=== PATIENT | male | born 1960 ===

== ENCOUNTER 2020-05-29 00:10 | Emergency (ER) | payer MEDICAID, SELFPAY ==
[2020-05-29 00:32] VITALS: BP 147/88; PULSE 88; RESP 20; TEMP 37.2; O2SAT 97; BMI 27.2
--- NOTE | 2020-05-29 00:32 | XR_ITS ---
EXAMINATION: CHEST 1 VIEW CLINICAL INFORMATION: Shortness of breath. COMPARISON: 06/20/2019. TECHNIQUE: An AP view of the chest is provided. FINDINGS: The cardiac silhouette is not enlarged. The mediastinal and hilar contours are unremarkable. There are neither pleural effusions nor pneumothoraces. There is nonspecific patchy opacification within the lower left hemithorax. The osseous structures are stable. XR/XR chest 1V IMPRESSION: Nonspecific patchy opacification within the lower left hemithorax. This could correspond to atelectasis, though a developing infiltrate cannot be excluded. Recommendation is for a followup chest series to be obtained following treatment and/or resolution of symptoms to assure resolution of this appearance.
--- NOTE | 2020-05-29 01:02 | ED.URI ---
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 He states that he has no paperwork to demonstrate this fact as he was called with the results. otherwise, he denies fevers, chills, nausea, vomiting, diarrhea, urinary pain/ burning / frequency, chest pain / palpitations. Related Data Home Medications Medication Instructions Recorded Confirmed lisinopril PO DAILY 05/29/20 Previous Rx's Medication Instructions Recorded doxycycline monohydrate 100 mg PO BID 7 Days #14 cap 05/29/20 Allergies Allergy/AdvReac Type Severity Reaction Status Date / Time No Known Allergies Allergy Verified 05/29/20 00:46 [No Known Allergies*] Review of Systems Review of Systems: Pertinent positives and negatives as stated in HPI and 10 point review systems is otherwise negative. PMFSH Past Medical History Source: nursing notes reviewed Medical History HTN (hypertension) Social History Social History Alcohol intake: never Smoking Status: Never smoker Use of substances other than those prescribed or required for medical reasons: No Advance Directives: No Physical Exam Vital Signs: Vital Signs: Vital Signs Temp Pulse Resp BP Pulse Ox 05/29/20 01:17 89 16 130/87 97 05/29/20 00:32 99.0 F 88 20 147/88 H 97 Body Mass Index 27.2 VITAL SIGNS: Reviewed. GENERAL: Well developed, well nourished, in no acute distress. HEAD: Normocephalic/atraumatic, EYES: PERRLA, EOMI intact without pain, no nystagmus/pallor/icterus noted EARS: Ext canals without abnormality, TMs non-bulging and non-erythematous NOSE: Nares patent bilateral OROPHARYNX: no oral lesions noted, posterior pharynx clear and non-erythematous without noted tonsillar enlargement/erythema/exudates NECK: Supple, no adenopathy LUNGS: Normal breath sounds. No adventitious sounds or accessory muscle use. SpO2<97> CARDIOVASCULAR: Regular rate and rhythm without noted murmurs, no JVD or lower extremity edema. ABDOMEN: Soft, non-tender, non-distended with bowel sounds. No rigidity. No guarding. No palpable masses or hernias noted MUSCULOSKELETAL: No tenderness, deformities, or effusions noted on gross inspection. EXTREMITIES: No cyanosis, clubbing or edema. SKIN: Inspection of the skin reveals no rashes, ulcerations, jaundice, pallor, or petechiae. NEUROLOGIC: Alert and oriented x 4. Strength and sensation to light touch were grossly intact x 4. Course Course Course Narrative: This is a 59-year-old male with history and clinical presentation consistent with COVID-19 and will evaluate for symptoms that would prompt admission. Labs, chest x-ray are pending. On review of all investigations the chest x-ray shows evidence suggesting a left lower lobe infiltrate although there is no leukocytosis this may be due to the fact that patient has been taking an un prescribed dosing of azithromycin. Otherwise lab work was without significant findings. all results and findings were discussed with patient at bedside and he was discharged in stable condition with a prescription for doxycycline for 1 week and instructed to follow-up with his primary care provider. MDM - URI/Sore Throat Lab Data Result diagrams: 05/29/20 01:07 05/29/20 01:07 Labs: Lab Results 05/29/20 05/29/20 Range/Units 01:07 01:07 WBC 3.8 L (4.8-10.8) X10*3/uL RBC 5.22 (4.60-5.80) X10*6/uL Hgb 15.1 (14.0-18.0) g/dl Hct 44.1 (42-52) % MCV 84.5 (80-98) fL MCH 28.9 (27.0-33.0) pg MCHC 34.2 (31.0-36.0) g/dl RDW 11.8 (11.0-16.0) % Plt Count 122 L (160-400) X10*3/uL MPV 11.2 (9.4-12.4) fL Immature Gran % (Auto) 0.0 (0.0-0.4) % Neut % (Auto) 61.2 (45-73) % Lymph % (Auto) 25.4 (20-40) % [place] % (Auto) 12.8 H (2-11) % Eos % (Auto) 0.3 (0-4) % Baso % (Auto) 0.3 (0-2) % Lymph # (Auto) 1.0 L (1.2-4.9) X10*3/uL [place] # (Auto) 0.5 (0.1-1.2) X10*3/uL Eos # (Auto) 0.0 (0.0-0.4) X10*3/uL Baso # (Auto) 0.0 (0.0-0.2) X10*3/uL Abs Immat Gran (auto) 0.00 (0.00-0.03) X10*3/uL Absolute Neuts (auto) 2.3 (2.0-8.3) X10*3/uL Absolute Nucleated RBC 0.000 (0.0-0.012) X10*3/uL Nucleated RBC % (auto) 0.0 (0.0-0.2) /100WBC Smear Tech's Comments VERIFIED Sodium 133 L (135-145) mmol/L Potassium 3.6 (3.3-5.1) mmol/l Chloride 100 (96-108) mmol/L Carbon Dioxide 22 (22-29) mmol/L Anion Gap 15 (12-20) BUN 16 (9-16) mg/dL Creatinine 0.82 (0.5-1.4) mg/dL Estim Creat Clear Calc 104.5 Estimated GFR > 60 Random Glucose 129 H (60-115) mg/dL Calcium 8.2 L (8.4-10.2) mg/dL Total Bilirubin 0.4 (0.0-1.0) mg/dL AST 21 (5-37) U/L ALT 32 (0-40) U/L Alkaline Phosphatase 61 (39-117) U/L Total Protein 6.2 L (6.5-8.0) g/dL Albumin 3.9 (3.5-5.0) g/dL Discharge Plan Discharge Clinical Impression: Pneumonia Qualifiers: Pneumonia type: due to unspecified organism Laterality: left Lung location: lower lobe of lung Qualified Code(s): J18.9 - Pneumonia, unspecified organism Patient Disposition: Home, Self-Care Instructions: Pneumonia (ED) Additional Instructions: 1. Tylenol 1000 mg, por v?a oral, cada 6 horas seg?n sea necesario para temperaturas superiores a 100,4?C o srikanth corporales. No exceda los 4000 mg en 24 horas. 2. Ibuprofeno 400 mg, por v?a oral con leche o alimentos, cada 6 horas seg?n sea necesario para la temperatura superior a 100,4?C o srikanth corporales. 3. Regrese al departamento de emergencias en mike de que empeoren las fiebres, los escalofr?os o la falta de aire. 4. Yuri un seguimiento con soto proveedor de atenci?n primaria por la ma?stevie llamando al consultorio. Debe dejar de gerry el antibi?abena que no le brannon recetado. El paciente y / o la radha reconocen que comprenden los resultados (seg?n corresponda), el diagn?stico, el plan de tratamiento, la necesidad de seguimiento y los s?ntomas que deber?an impulsar el regreso a la nettie de emergencias. Prescriptions: New doxycycline monohydrate 100 mg capsule 100 mg PO BID 7 Days Qty: 14 RF: 0 No Action lisinopril PO DAILY RF: 0 Referrals: Jabari Loza MD [Primary Care Provider] - 2 days ( follow-up for pneumonia) Interventions: ED Discharge Assessment Last Done: 05/29/20 02:14 Discharge Date/Time: 05/29/20 02:18
[2020-05-29 01:17] VITALS: BP 130/87; PULSE 89; RESP 16; O2SAT 96; O2SAT 97
[2020-05-29 01:19] LABS: Basophils Percent Auto 0.3 % (0-2); Eosinophils Percent Auto 0.3 % (0-4); MANUAL DIFF FLAG SCAN; Monocytes Absolute Auto 0.5 X10*3/uL (0.1-1.2); Neutrophils Absolute Auto 2.3 X10*3/uL (2.0-8.3); PLT CLUMP 1; Red Cell Distribution Width 11.8 % (11.0-16.0); SCAN SMEAR FLAG 1
[2020-05-29 01:21] LABS: Hematocrit 44.1 % (42-52); Hemoglobin 15.1 g/dl (14.0-18.0); Lymphocytes Percent Auto 25.4 % (20-40); Mean Corpuscular HGB Conc 34.2 g/dl (31.0-36.0); Mean Corpuscular Hemoglobin 28.9 pg (27.0-33.0); Mean Corpuscular Volume 84.5 fL (80-98); Mean Platelet Volume 11.2 fL (9.4-12.4); Monocytes Percent Auto 12.8 % (2-11); Neutrophils Percent Auto 61.2 % (45-73); Platelet Count 122 X10*3/uL (160-400); Red Blood Count 5.22 X10*6/uL (4.60-5.80); White Blood Count 3.8 X10*3/uL (4.8-10.8)
[2020-05-29 01:37] LABS: SLIDE REVIEW VERIFIED
[2020-05-29 02:00] LABS: Alanine Aminotransferase 32 U/L (0-40); Albumin Level 3.9 g/dL (3.5-5.0); Alkaline Phosphatase 61 U/L (39-117); Anion Gap 15 (12-20); Aspartate Amino Transferase 21 U/L (5-37); Bilirubin Total 0.4 mg/dL (0.0-1.0); Blood Urea Nitrogen 16 mg/dL (9-16); Calcium 8.2 mg/dL (8.4-10.2); Carbon Dioxide 22 mmol/L (22-29); Chloride 100 mmol/L (96-108); Creatinine Clr Calc Pharmacy 104.5; Estimated Glomerular Filt Rate > 60; Glucose Random 129 mg/dL (60-115); Potassium 3.6 mmol/l (3.3-5.1); Sodium 133 mmol/L (135-145); Total Protein 6.2 g/dL (6.5-8.0)
== END 2020-05-29 02:18 | disposition home or self-care (01) ==
PROVIDERS: Emergency Provider Student in an Organized Health Care Education/Training Program; PCP Internal Medicine Geriatric Medicine
DX: U07.1 COVID-19 (principal); J18.9 Pneumonia, unspecified organism
CPT/HCPCS: 36415; 71045; 80053; 85025; 99283; 99285

== ENCOUNTER 2020-05-31 07:50 | Emergency (ER) | payer MEDICAID, SELFPAY ==
[2020-05-31 08:15] VITALS: BP 131/84; PULSE 94; RESP 22; TEMP 37.4; O2SAT 98
--- NOTE | 2020-05-31 08:28 | XR_ITS ---
EXAMINATION: XR CHEST CLINICAL INFORMATION: Cough. Follow up. COMPARISON: May 29, 2020 and June 20, 2019 TECHNIQUE: AP portable view of the chest was obtained. FINDINGS: There are patchy regions of disease seen within the mid left lung and left lower lung similar in appearance to prior study of May 29, 2020. Heart normal size. No evidence of pulmonary edema. No pneumothorax or pleural effusion. XR/XR chest 1V IMPRESSION: Patchy disease within the mid and lower left lung. No significant change.
--- NOTE | 2020-05-31 08:29 | ECG_ITS ---
Test Reason : DIFFICULTY BREATHING Blood Pressure : / mmHG Vent. Rate : 100 BPM Atrial Rate : 100 BPM P-R Int : 156 ms QRS Dur : 102 ms QT Int : 362 ms P-R-T Axes : 043 -07 002 degrees QTc Int : 466 ms Sinus tachycardia Nonspecific T wave abnormality Abnormal ECG When compared with ECG of 02-JUL-2018 14:51, No significant changes seen Referred By: Ivis Metcalf Electronically Signed By:VALENTINE ALONZO MD
[2020-05-31 08:32] VITALS: BP 128/83; PULSE 94; RESP 16; TEMP 37.4; O2SAT 97; BMI 26.4
--- NOTE | 2020-05-31 08:54 | ED_ITS ---
HPI - URI/Sore Throat General Chief Complaint: Upper Respiratory Symptoms Stated Complaint: cough Time Seen by Provider: 05/31/20 08:03 Source: patient Mode of arrival: ambulatory Limitations: no limitations History of Present Illness HPI Narrative: 59-year-old male with past medical history of hypertension here with cough and some chest pressure for last few days. The patient tells me 14 days ago he was diagnosed with COVID-19. He was seen here 2 days ago and diagnosed with left lower lobe pneumonia. He completed a course of azithromycin prior to this. He has been on doxycycline for 48 hours. He tells me he is here today because he cannot sleep due to the cough. He tells me it dry and he keeps him up all night. No shortness of breath, fevers or chills. No leg swelling. The patient tells me he is taking Tessalon Perles with continued cough. MD elicited complaint: cough Onset (ago): day(s) Consistency: intermittent Severity: mild Able to tolerate fluids by mouth: Yes Exacerbating factors: exertion and supine positioning Relieving factors: nothing Associated symptoms: chest pain Treatments prior to arrival: none Related Data Home Medications Medication Instructions Recorded Confirmed lisinopril PO DAILY 05/29/20 Previous Rx's Medication Instructions Recorded doxycycline monohydrate 100 mg PO BID 7 Days #14 cap 05/29/20 benzonatate [Tessalon Perles] 100 mg PO BID PRN #14 cap 05/31/20 hydrocodone-homatropine 5 ml PO Q4-6H PRN #60 ml 05/31/20 Allergies Allergy/AdvReac Type Severity Reaction Status Date / Time No Known Allergies Allergy Verified 05/31/20 08:34 [No Known Allergies*] Review of Systems Constitutional: Constitutional: Reports no additional constitutional complaints, Denies body ache(s), Denies chills, Denies fever(s), Denies headache(s) and Denies weakness Eyes: Eyes: Reports no additional eye complaints and Denies change in vision ENT: Reports system reviewed and no additional complaints, except as do cumented, Denies otalgia, Denies headache(s), Denies nasal congestion, Denies nasal discharge and Denies sore throat Cardiovascular: Cardiovascular: Reports chest pain (chest pressure ), Denies leg edema and Denies dyspnea Respiratory: Respiratory: Reports no additional respiratory complaints, Reports cough and Denies dyspnea Gastrointestinal: Gastrointestinal: Reports no additional gastrointestinal complaints, Denies abdominal pain, Denies diarrhea, Denies nausea and Denies vomiting Genitourinary: Genitourinary: Reports no additional male genitourinary complaints, Denies urinary hesitancy, Denies urinary incontinence and Denies urinary urgency Musculoskeletal: Musculoskeletal: Reports no additional musculoskeletal c omplaints, Denies back pain, Denies arthralgias, Denies joint swelling, Denies limited range of motion and Denies numbness Integumentary/Breasts: Skin/Breast: Reports system reviewed and no additional complaints, except as docu and Denies rash Neurologic: Reports system reviewed and no additional complaints, except as documented, Denies Abnormal speech present, Denies headache(s), Denies numbness and Denies weakness PMFSH Past Medical History Attestation statement: The following information was validated with the patient. Source: obtained from family and nursing notes reviewed Medical History HTN (hypertension) Social History Social History Alcohol intake: never Smoking Status: Never smoker Use of substances other than those prescribed or required for medical reasons: No Advance Directives: No Advance Directives Information Provided: No Physical Exam Vital Signs: Vital Signs: Last Vital Signs Temp 99.3 F 05/31/20 08:32 Pulse 94 05/31/20 08:32 Resp 16 05/31/20 08:32 BP 128/83 05/31/20 08:32 Pulse Ox 98 05/31/20 08:57 Body Mass Index 26.4 Const: General: cooperative, healthy appearing, comfortable and no acute distress Orientation/consciousness: patient oriented x3 Limitations: no limitations HENMT: Head: Yes normal to inspection Ears: hearing grossly normal bilaterally General nose exam: Normal external nose present Face and sinus: Yes normal facial exam Mouth: Normal oral and palatal mucosa present Throat: Yes posterior oropharynx normal Eyes: General: appearance normal, both eyes and all related structures Pupils: Equal, round and reactive pupils present Neck: Neck: Yes normal visual inspection Chest: Other: Chest discomfort worsened with palpation and trunk movement. Not worsened with deep breathing Chest palpation & inspection: normal inspection of the chest Resp: Other: Frequent bronchospastic cough noted. Dry. Mild expiratory wheezing noted bilaterally in the bases Effort & Inspection: normal respiratory effort Cardio: Rate: regular rate Rhythm: regular rhythm Peripheral pulses: Peripheral pulses 2+ throughout GI: Inspection: Yes normal to inspection Palpation (GI): Soft to palpation and nontender Auscultation: normal bowel sounds Back/Spine/Pelvis: Thoracic/Lumbar Spine: thoracic and lumbar spine normal to inspection Skin: General skin exam: no rashes or lesions noted Neuro: General: patient oriented x3, no focal motor deficits and normal sensation to monofilament Cranial nerves: Yes Equal, round and reactive pupils present Cognition (Neuro): normal cognition Speech: No Abnormal speech present Gait exam (Neuro): Normal gait present Motor exam (neuro): 5/5 motor strength present throughout Extrem: General: Yes normal to inspection Course Course Course Narrative: 59-year-old male past history of hypertension here with continued cough and some intermittent chest pressure for the last few days. Recent diagnosis of COVID-19 with pneumonia. Currently on doxycycline. Patient denies shortness of breath or fevers or chills. He has some reproducible chest discomfort on exam. He has a dry cough with some mild expiratory wheezing. Will repeat chest x-ray, labs, EKG, give bronchodilator and reassess. 1140-chest x-ray shows a left lower and middle lobe pneumonia. It appears unchanged from previous chest x-ray. This is from a viral infection of COVID- 19. I do think it is too soon to see a change in the x-ray as the patient just began antibiotics 2 days ago. Labs are consistent with COVID infection. Initial troponin just above normal. Repeat unchanged. The patient reports feeling in better after receiving a bronchodilator and cough suppressant here. He tells me he was most worried about his continued cough. We can send him home with some cough suppressants and albuterol inhaler and have him continue his course of antibiotics. He ambulated around the room with a oxygen saturation of greater than 95%. Reviewed worrisome signs and symptoms when to return to the emergency department. Comfortable discharge home. MDM - URI/Sore Throat MDM Narrative Medical decision making narrative: Pneumonia, viral syndrome, COVID-19 inf ection, ACS, PE, chest wall strain Less likely ACS with 2-troponins and EKG unchanged from previous, less likely PE with a PERC score 0 (initially tachycardic but repeat during triage <100), more likely chest wall strain secondary to coughing. Continued pneumonia Medical Records Attestation: I reviewed the patient's medical records. Lab Data Attestation: I reviewed the patient's lab results. Result diagrams: 05/31/20 08:41 05/31/20 08:41 Labs: Lab Results 05/31/20 05/31/20 05/31/20 Range/Units 08:41 08:41 08:41 WBC 4.3 L (4.8-10.8) X10*3/uL RBC 5.01 (4.60-5.80) X10*6/uL Hgb 14.3 (14.0-18.0) g/dl Hct 42.4 (42-52) % MCV 84.6 (80-98) fL MCH 28.5 (27.0-33.0) pg MCHC 33.7 (31.0-36.0) g/dl RDW 11.6 (11.0-16.0) % Plt Count 117 L (160-400) X10*3/uL MPV 10.8 (9.4-12.4) fL Immature Gran % (Auto) 0.2 (0.0-0.4) % Neut % (Auto) 76.6 H (45-73) % Lymph % (Auto) 12.4 L (20-40) % [place] % (Auto) 10.8 (2-11) % Eos % (Auto) 0.0 (0-4) % Baso % (Auto) 0.0 (0-2) % Lymph # (Auto) 0.5 L (1.2-4.9) X10*3/uL [place] # (Auto) 0.5 (0.1-1.2) X10*3/uL Eos # (Auto) 0.0 (0.0-0.4) X10*3/uL Baso # (Auto) 0.0 (0.0-0.2) X10*3/uL Abs Immat Gran (auto) 0.01 (0.00-0.03) X10*3/uL Absolute Neuts (auto) 3.3 (2.0-8.3) X10*3/uL Absolute Nucleated RBC 0.000 (0.0-0.012) X10*3/uL Nucleated RBC % (auto) 0.0 (0.0-0.2) /100WBC Smear Tech's Comments VERIFIED Hold Blue Top Sodium 131 L (135-145) mmol/L Potassium 3.9 (3.3-5.1) mmol/l Chloride 97 (96-108) mmol/L Carbon Dioxide 28 (22-29) mmol/L Anion Gap 10 L (12-20) BUN 13 (9-16) mg/dL Creatinine 0.92 (0.5-1.4) mg/dL Estim Creat Clear Calc 93.2 Estimated GFR > 60 Random Glucose 116 H (60-115) mg/dL Calcium 8.3 L (8.4-10.2) mg/dL Magnesium 1.9 (1.6-2.6) mg/dL Total Bilirubin 0.5 (0.0-1.0) mg/dL Direct Bilirubin 0.3 (0.0-0.5) mg/dL AST 26 (5-37) U/L ALT 30 (0-40) U/L Alkaline Phosphatase 56 (39-117) U/L Troponin I High Sens 4.0 (<3.5-35.0) ng/L Total Protein 6.1 L (6.5-8.0) g/dL Albumin 3.8 (3.5-5.0) g/dL 05/31/20 05/31/20 Range/Units 08:41 10:41 WBC (4.8-10.8) X10*3/uL RBC (4.60-5.80) X10*6/uL Hgb (14.0-18.0) g/dl Hct (42-52) % MCV (80-98) fL MCH (27.0-33.0) pg MCHC (31.0-36.0) g/dl RDW (11.0-16.0) % Plt Count (160-400) X10*3/uL MPV (9.4-12.4) fL Immature Gran % (Auto) (0.0-0.4) % Neut % (Auto) (45-73) % Lymph % (Auto) (20-40) % [place] % (Auto) (2-11) % Eos % (Auto) (0-4) % Baso % (Auto) (0-2) % Lymph # (Auto) (1.2-4.9) X10*3/uL [place] # (Auto) (0.1-1.2) X10*3/uL Eos # (Auto) (0.0-0.4) X10*3/uL Baso # (Auto) (0.0-0.2) X10*3/uL Abs Immat Gran (auto) (0.00-0.03) X10*3/uL Absolute Neuts (auto) (2.0-8.3) X10*3/uL Absolute Nucleated RBC (0.0-0.012) X10*3/uL Nucleated RBC % (auto) (0.0-0.2) /100WBC Smear Tech's Comments Hold Blue Top SEE NOTE Sodium (135-145) mmol/L Potassium (3.3-5.1) mmol/l Chloride (96-108) mmol/L Carbon Dioxide (22-29) mmol/L Anion Gap (12-20) BUN (9-16) mg/dL Creatinine (0.5-1.4) mg/dL Estim Creat Clear Calc Estimated GFR Random Glucose (60-115) mg/dL Calcium (8.4-10.2) mg/dL Magnesium (1.6-2.6) mg/dL Total Bilirubin (0.0-1.0) mg/dL Direct Bilirubin (0.0-0.5) mg/dL AST (5-37) U/L ALT (0-40) U/L Alkaline Phosphatase (39-117) U/L Troponin I High Sens 4.2 (<3.5-35.0) ng/L Total Protein (6.5-8.0) g/dL Albumin (3.5-5.0) g/dL Imaging Data Chest x-ray: Attestation: I personally reviewed and interpreted this imaging study as follows: Radiologist's impression: EXAMINATION: XR CHEST CLINICAL INFORMATION: Cough. Follow up. COMPARISON: May 29, 2020 and June 20, 2019 TECHNIQUE: AP portable view of the chest was obtained. FINDINGS: There are patchy regions of disease seen within the mid left lung and left lower lung similar in appearance to prior study of May 29, 2020. Heart normal size. No evidence of pulmonary edema. No pneumothorax or pleural effusion. XR/XR chest 1V IMPRESSION: Patchy disease within the mid and lower left lung. No significant change. ECG Data Attestation: I personally reviewed and interpreted this ECG as follows: ECG interpretation date: 05/31/20 Interpretation: Normal sinus rhythm with a rate of 100, nonspecific T-wave abnormality in lead V3 and V4 which is unchanged when compared to EKG 07/02/2018. Prolonged QT 466. Normal p.r., normal QRS Discharge Plan Discharge Clinical Impression: Pneumonia Qualifiers: Pneumonia type: due to unspecified organism Laterality: left Lung location: lower lobe of lung Qualified Code(s): J18.9 - Pneumonia, unspecified organism Patient Disposition: Home, Self-Care Instructions: Pneumonia (ED) Additional Instructions: Your x-ray today shows the pneumonia. It will take weeks to months for the x- ray to show improvement. Continue your antibiotics. Your labs and oxygen levels look great here. I have called a different cough medicine to your pharmacy to help with the symptoms. Take the albuterol inhaler every 4-6 hours to help with cough. You may also try a tablespooon of honey Prescriptions: New hydrocodone-homatropine 5-1.5 mg/5 mL (5 mL) syrup 5 ml PO Q4-6H PRN (Reason: cough) Qty: 60 RF: 0 benzonatate [Tessalon Perles] 100 mg capsule 100 mg PO BID PRN (Reason: cough) Qty: 14 RF: 0 No Action lisinopril PO DAILY RF: 0 doxycycline monohydrate 100 mg capsule 100 mg PO BID 7 Days Qty: 14 RF: 0 Referrals: Name,MD Jabari [Primary Care Provider] - 2 days (if no better ) Print Language: [place]
[2020-05-31 08:56] LABS: Imm Gran Abs Auto 0.01 X10*3/uL (0.00-0.03); Imm Gran Pct Auto 0.2 % (0.0-0.4); MANUAL DIFF FLAG SCAN; Mean Platelet Volume 10.8 fL (9.4-12.4); PLT CLUMP 1; Red Cell Distribution Width 11.6 % (11.0-16.0); SCAN SMEAR FLAG 1
[2020-05-31 08:57] VITALS: O2SAT 98
[2020-05-31 08:58] LABS: Hematocrit 42.4 % (42-52); Hemoglobin 14.3 g/dl (14.0-18.0); Lymphocytes Absolute Auto 0.5 X10*3/uL (1.2-4.9); Lymphocytes Percent Auto 12.4 % (20-40); Mean Corpuscular HGB Conc 33.7 g/dl (31.0-36.0); Mean Corpuscular Hemoglobin 28.5 pg (27.0-33.0); Mean Corpuscular Volume 84.6 fL (80-98); Monocytes Absolute Auto 0.5 X10*3/uL (0.1-1.2); Monocytes Percent Auto 10.8 % (2-11); Neutrophils Absolute Auto 3.3 X10*3/uL (2.0-8.3); Neutrophils Percent Auto 76.6 % (45-73); Platelet Count 117 X10*3/uL (160-400); Red Blood Count 5.01 X10*6/uL (4.60-5.80); White Blood Count 4.3 X10*3/uL (4.8-10.8)
[2020-05-31] MEDS: 0.9 % Sodium Chloride 1,000 ML 999 ML IV (09:00)
[2020-05-31] MEDS: guaiFENesin 200 MG/10 ML 10 ML LIQUID PO (09:01)
[2020-05-31] MEDS: Albuterol Sulfate 90 MCG 8 GM INHALER 2 PUFF INHALE (09:01)
[2020-05-31 09:20] LABS: SLIDE REVIEW VERIFIED
--- NOTE | 2020-05-31 09:20 | PC.NURSE ---
Addendum entered by Keli Huff RN 05/31/20 11:30: 20G IN L AC. FLUID HUNG. PT MID ABX COURSE. Original Note: PT ARRIVES AFTER + COVID TEST 2 WKS AGO, C/O ONGOING NON PRODUCTIVE COUGH, WITH ACCOMPANYING CHEST TIGHTNESS. NO SIGNIFICANT PMH, HTN. VS WNL, SKIN COLOUR APPROPRIATE FOR ETHNICITY, WARM & DRY. 20
[2020-05-31 09:21] LABS: Alanine Aminotransferase 30 U/L (0-40); Albumin Level 3.8 g/dL (3.5-5.0); Alkaline Phosphatase 56 U/L (39-117); Anion Gap 10 (12-20); Aspartate Amino Transferase 26 U/L (5-37); Bilirubin Direct 0.3 mg/dL (0.0-0.5); Bilirubin Total 0.5 mg/dL (0.0-1.0); Blood Urea Nitrogen 13 mg/dL (9-16); Calcium 8.3 mg/dL (8.4-10.2); Carbon Dioxide 28 mmol/L (22-29); Chloride 97 mmol/L (96-108); Creatinine Clr Calc Pharmacy 93.2; Estimated Glomerular Filt Rate > 60; Glucose Random 116 mg/dL (60-115); Magnesium 1.9 mg/dL (1.6-2.6); Potassium 3.9 mmol/l (3.3-5.1); Sodium 131 mmol/L (135-145); Total Protein 6.1 g/dL (6.5-8.0)
[2020-05-31 11:29] LABS: Troponin-I High Sensitivity 4.2 ng/L (<3.5-35.0)
--- NOTE | 2020-05-31 11:32 | PC.NURSE ---
PT TOLERATED ACTIVITY WITH NO ISSUE. SPO2 REMAINED >95% ON RA WHILE AMBULATING AROUND THE ROOM. REPORTS NO RELIEF FROM COUGH SYRUP.
== END 2020-05-31 12:28 | disposition home or self-care (01) ==
PROVIDERS: Nurse Practitioner Family; Emergency Provider Emergency Medicine; PCP Internal Medicine Geriatric Medicine
DX: J18.9 Pneumonia, unspecified organism (principal); R05 Cough; Z79.899 Other long term (current) drug therapy; Z20.828 Contact with and (suspected) exposure to other viral communicable diseases
CPT/HCPCS: 36415; 71045; 80048; 80076; 83735; 84484; 85025; 93005; 94640; 96360; 99284

== ENCOUNTER 2020-07-01 05:52 | Outpatient (REF) | payer MEDICAID, SELFPAY ==
--- NOTE | 2020-07-01 05:58 | XR_ITS ---
EXAMINATION: XR CHEST CLINICAL INFORMATION: Pneumonia COMPARISON: 05/31/2020 TECHNIQUE: 2 views of the chest were obtained. FINDINGS: No significant abnormality is noted involving the heart, lungs, mediastinum, bony thorax or soft tissues. XR/XR chest 2V IMPRESSION: Lungs are clear
== END 2020-07-01 05:53 | disposition home or self-care (01) ==
LOC: HO.XRAY 05:52
PROVIDERS: PCP Internal Medicine Geriatric Medicine; Visit Provider Internal Medicine Geriatric Medicine
DX: J18.9 Pneumonia, unspecified organism (principal)
CPT/HCPCS: 71046

== ENCOUNTER → 2020-09-01 14:36 | Outpatient (BNVA) | payer MEDICAID, SELFPAY | PROVIDERS: PCP Internal Medicine Geriatric Medicine; Visit Provider Nurse Practitioner Family ==

== ENCOUNTER → 2020-09-25 11:22 | Outpatient (BNVA) | payer MEDICAID, SELFPAY | PROVIDERS: PCP Internal Medicine Geriatric Medicine; Visit Provider Urology ==

== ENCOUNTER 2021-04-10 12:51 | Outpatient (REF) | payer MEDICAID, SELFPAY ==
[2021-04-10 14:11] LABS: Prostate Specific Antigen 1.55 ng/mL (<0.05-4.0)
== END 2021-04-10 12:52 | disposition home or self-care (01) ==
LOC: HO.LAB 12:51
PROVIDERS: PCP Internal Medicine Geriatric Medicine; Visit Provider Urology
DX: Z12.5 Encounter for screening for malignant neoplasm of prostate (principal); R97.20 Elevated prostate specific antigen [PSA]
CPT/HCPCS: 36415; 84153

== ENCOUNTER 2021-04-16 21:21 | Inpatient (IN) | payer MEDICAID, SELFPAY ==
--- NOTE | ~2021-04-16 | XR_ITS ---
EXAMINATION: XR CHEST CLINICAL INFORMATION: Chest pain COMPARISON: Chest x-ray July 01, 2020 TECHNIQUE: Frontal view of the chest was obtained. 9:37 PM FINDINGS: No significant abnormality is noted involving the heart, lungs, mediastinum, bony thorax or soft tissues. XR/XR chest 1V IMPRESSION: Unremarkable examination.
--- NOTE | ~2021-04-16 | CT_ITS ---
EXAMINATION: CT ANGIOGRAM OF THE CHEST WITH AND WITHOUT CONTRAST (CT PULMONARY ANGIOGRAM FOR PE) CLINICAL INFORMATION: Reason for Exam Chest pain rule out PE versus dissection. COMPARISON: Chest x-ray 04/16/2021 TECHNIQUE: Prior to contrast administration, noncontrast localization images were obtained. Subsequently, multidetector volumetric imaging was performed from the thoracic inlet to below the diaphragms following the administration of 85 mL Omnipaque 350 intravenous contrast. No contrast reaction reported Sagittal, coronal, and MIP oblique sagittal reformatted images were obtained on the CT workstation, uploaded to PACS, and reviewed. This CT examination was performed using dose optimization techniques as appropriate, variously including the following: *Automated exposure control *Adjustment of mA and/or kV according to patient size (this includes techniques or standardized protocols for targeted exams where dose is matched to indication/reason for exam; i.e. extremities or head) *Use of iterative reconstruction technique Total exam dose-length product 354 mGy-cm FINDINGS: QUALITY OF STUDY/CONTRAST BOLUS: Satisfactory. PULMONARY ARTERIES: No central or segmental pulmonary emboli. THORACIC AORTA: No aneurysm or dissection. LUNG: No focal consolidation, nodules or masses. PLEURA: No pleural effusion or pneumothorax. MEDIASTINUM: The visualized thyroid gland is unremarkable. There are subcentimeter mediastinal lymph nodes within the range of normal variation. There is mild to moderate distention of the esophagus with gas and fluid. Cardiac size is within normal limits; no pericardial effusion. No evidence of septal bowing or right heart strain. CHEST WALL/AXILLA: No axillary or internal mammary lymphadenopathy. OSSEOUS STRUCTURES: Minimal degenerative endplate changes noted in the spine. UPPER ABDOMEN: Unremarkable. No reflux of contrast into the hepatic veins to suggest elevated right heart pressures. CT/CT angio chest PE protocol IMPRESSION: 1. No pulmonary embolus identified. No evidence of aortic dissection. 2. Distention of the esophagus with gas and fluid, which could be secondary to reflux or dysmotility. VTE: negative
[2021-04-16 21:24] VITALS: BP 163/91; PULSE 72; RESP 16; TEMP 36.1; O2SAT 98; BMI 26.4
--- NOTE | 2021-04-16 21:26 | ECG_ITS ---
Test Reason : CHEST PAIN Blood Pressure : / mmHG Vent. Rate : 068 BPM Atrial Rate : 068 BPM P-R Int : 176 ms QRS Dur : 102 ms QT Int : 366 ms P-R-T Axes : 057 012 006 degrees QTc Int : 389 ms Normal sinus rhythm Possible Inferior infarct , age undetermined Nonspecific T wave abnormality Abnormal ECG When compared with ECG of 31-MAY-2020 09:32, T wave inversion less evident in Anterior leads QT has shortened Referred By: Generic ED Physician Electronically Signed By:SAMANTHA PAULA
[2021-04-16 22:00] VITALS: BP 139/87; PULSE 69; RESP 18; TEMP 36.6; O2SAT 99
--- NOTE | 2021-04-16 22:30 | PC.NURSE ---
clarithromycin 500 mg metronidazole 500 mg pt has been taking for abd bacteria.
[2021-04-16 22:31] VITALS: PULSE 70
[2021-04-16 22:44] LABS: Basophils Percent Auto 0.4 % (0-2); Eosinophils Absolute Auto 0.2 X10*3/uL (0.0-0.4); Eosinophils Percent Auto 4.3 % (0-4); Hematocrit 43.8 % (42-52); Hemoglobin 14.7 g/dl (14.0-18.0); Imm Gran Abs Auto 0.01 X10*3/uL (0.00-0.03); Imm Gran Pct Auto 0.2 % (0.0-0.4); Lymphocytes Absolute Auto 1.6 X10*3/uL (1.2-4.9); MANUAL DIFF FLAG NO; Mean Corpuscular HGB Conc 33.6 g/dl (31.0-36.0); Mean Corpuscular Hemoglobin 29.1 pg (27.0-33.0); Mean Corpuscular Volume 86.6 fL (80-98); Mean Platelet Volume 10.3 fL (9.4-12.4); Monocytes Absolute Auto 0.6 X10*3/uL (0.1-1.2); Monocytes Percent Auto 11.4 % (2-11); Neutrophils Absolute Auto 3.1 X10*3/uL (2.0-8.3); Neutrophils Percent Auto 55.7 % (45-73); Platelet Count 181 X10*3/uL (160-400); Red Blood Count 5.06 X10*6/uL (4.60-5.80); Red Cell Distribution Width 12.2 % (11.0-16.0); White Blood Count 5.5 X10*3/uL (4.8-10.8)
[2021-04-16 22:57] LABS: Anion Gap 11 (12-20); Blood Urea Nitrogen 19 mg/dL (9-16); Calcium 9.9 mg/dL (8.4-10.2); Carbon Dioxide 28 mmol/L (22-29); Chloride 105 mmol/L (96-108); Creatinine Clr Calc Pharmacy 82.2; Estimated Glomerular Filt Rate > 60; Glucose Random 101 mg/dL (60-115); Potassium 4.1 mmol/L (3.3-5.1); Sodium 140 mmol/L (135-145)
[2021-04-16 23:14] LABS: Troponin-I High Sensitivity 1832.5 ng/L (<3.5-35.0)
[2021-04-16 23:31] VITALS: BP 149/90; PULSE 71; RESP 16; O2SAT 98
--- NOTE | 2021-04-16 23:45 | ED_ITS ---
HPI - Chest Pain General Chief Complaint: Chest Pain Stated Complaint: Chest pain Time Seen by Provider: 04/16/21 23:33 Source: patient and care giver Mode of arrival: ambulatory Limitations: no limitations History of Present Illness HPI narrative: 60-year-old male came in for evaluation of chest pain. Chest pain started earlier today about 10 hours ago, retrosternal/mid chest/epigastric area. Radiate to the back, pain is intermittent, described as burning sensation to the epigastric area, no relieving factor, no aggravating factor. Never had this pain before. Related Data Home Medications Medication Instructions Recorded Confirmed lisinopril 10 mg tablet 10 mg PO DAILY 09/01/20 11/20/20 Previous Rx's Medication Instructions Recorded doxycycline monohydrate 100 mg 100 mg PO BID 7 Days #14 cap 05/29/20 capsule benzonatate 100 mg capsule 100 mg PO BID PRN #14 cap 05/31/20 (Tessalon Perles) hydrocodone-homatropine 5 mg-1.5 5 ml PO Q4-6H PRN #60 ml 05/31/20 mg/5 mL (5 mL) oral syrup bisacodyl 5 mg tablet,delayed 10 mg PO ONCE 1 Days #2 tab 09/01/20 release (Dulcolax (bisacodyl)) polyethylene glycol 3350 17 238 g PO ONCE #238 g 09/01/20 gram/dose oral powder (Miralax) finasteride 5 mg tablet 5 mg PO DAILY 90 Days #90 tab 09/25/20 Allergies Allergy/AdvReac Type Severity Reaction Status Date / Time No Known Allergies Allergy Verified 09/01/20 14:36 [No Known Allergies*] Review of Systems Review of Systems: All other systems are reviewed and are negative Constitutional: Reports as per HPI and Reports no additional constitutional complaints Eyes: Reports as per HPI and Reports no additional eye complaints Reports system reviewed and no additional complaints, except as documented Cardiovascular: Reports as per HPI and Reports no additional cardiovascular complaints Respiratory: Reports as per HPI and Reports no additional respiratory complaints Gastrointestinal: Reports as per HPI and Reports no additional gastrointestinal complaints Genitourinary: Reports no additional female genitourinary complaints Musculoskeletal: Reports no additional musculoskeletal complaints Skin/Breast: Reports system reviewed and no additional complaints, except as docu Psychiatric: Reports no additional psychiatric complaints Endocrine: Reports no additional endocrine complaints Hematologic/Lymphatic: Reports no additional hematologic/lymphatic complaints Allergic/Immunologic: Reports no additional allergic/immunologic complaints Reports system reviewed and no additional complaints, except as documented and Reports Abnormal speech present [facility] Past Medical History Medical History HTN (hypertension) Surgical History Surgical history unknown Social History Social History Household Members: Spouse Alcohol intake: never Patient Tobacco Use Status: Never used Tobacco Use of substances other than those prescribed or required for medical reasons: No Advance Directives: No Advance Directives Information Provided: Yes Physical Exam Vital Signs: Vital Signs: Last Vital Signs Temp 97.9 F 04/16/21 22:00 Pulse 70 04/17/21 01:05 Resp 16 04/17/21 01:05 BP 140/87 H 04/17/21 01:05 Pulse Ox 97 04/17/21 01:05 Body Mass Index 26.4 Vital signs have been reviewed as appeared to be correct. Blood pressure normal. Heart rate normal. Respiration rate normal. Temperature normal. Oxygen saturation normal. Appearance: Alert. Oriented X3. No acute distress. Head: Normal external exam. Normocephalic. Atraumatic. No Serrano signs noted. No raccoon eyes noted Eyes: PERRLA. EOMI. Conjunctiva and sclera normal. Eyelids normal. ENT: TM's Normal. Pharynx normal. Uvula midline. Moist mucous membranes. No trismus noted. No drooling noted. No muffled voice noted. Neck: Normal inspection. Neck supple. FROM. No adenopathy. Thyroid Normal. No meningeal signs. No neck mass noted. CVS: Normal heart rate and rhythm. Heart sound normal. No murmurs noted. Pulses normal throughout. Respiratory: No respiratory distress. Painless inspiration. Breath sounds normal. No wheezes/rales/rhonchi noted. Chest nontender. No accessory muscle usage noted or decreased air movement noted. Abdomen: Soft and nontender. Bowel sounds normal in all 4 quadrants. No distention noted. No organomegaly noted. No visible injury noted. Back: No CVA tenderness. Full range of motion noted. Skin: Skin warm and dry. Normal skin color. Normal skin turgor. No rashes/lesions/lacerations noted. Extremities: No lower extremity edema. Extremities exhibit normal range of motion. Extremities nontender. Neuro: Oriented X 3. Cranial nerve exam: II-XII are grossly intact No motor deficit. No sensory deficit. Reflexes normal. Course Course Course Narrative: Assessment and plan. 60-year-old male with non STEMI, because the pain confined to the mid chest radiating to the back patient had a CT of the chest showed no dissection. Will start the patient on aspirin/beta-bianca/heparin drip and admit for further c ardiac workup. MDM - Chest Pain Medical Records Data Attestation: I reviewed the patient's medical records. Lab Data Attestation: I reviewed the patient's lab results. Result diagrams: 04/16/21 22:38 04/16/21 22:38 Labs: Lab Results 04/16/21 04/16/21 04/16/21 Range/Units 22:38 22:38 22:38 WBC 5.5 (4.8-10.8) X10*3/uL RBC 5.06 (4.60-5.80) X10*6/uL Hgb 14.7 (14.0-18.0) g/dl Hct 43.8 (42-52) % MCV 86.6 (80-98) fL MCH 29.1 (27.0-33.0) pg MCHC 33.6 (31.0-36.0) g/dl RDW 12.2 (11.0-16.0) % Plt Count 181 D (160-400) X10*3/uL MPV 10.3 (9.4-12.4) fL Immature Gran % (Auto) 0.2 (0.0-0.4) % Neut % (Auto) 55.7 (45-73) % Lymph % (Auto) 28.0 (20-40) % [place] % (Auto) 11.4 H (2-11) % Eos % (Auto) 4.3 H (0-4) % Baso % (Auto) 0.4 (0-2) % Lymph # (Auto) 1.6 (1.2-4.9) X10*3/uL [place] # (Auto) 0.6 (0.1-1.2) X10*3/uL Eos # (Auto) 0.2 (0.0-0.4) X10*3/uL Baso # (Auto) 0.0 (0.0-0.2) X10*3/uL Abs Immat Gran (auto) 0.01 (0.00-0.03) X10*3/uL Absolute Neuts (auto) 3.1 (2.0-8.3) X10*3/uL Absolute Nucleated RBC 0.000 (0.0-0.012) X10*3/uL Nucleated RBC % (auto) 0.0 (0.0-0.2) /100WBC Sodium 140 (135-145) mmol/L Potassium 4.1 (3.3-5.1) mmol/L Chloride 105 (96-108) mmol/L Carbon Dioxide 28 (22-29) mmol/L Anion Gap 11 L (12-20) BUN 19 H (9-16) mg/dL Creatinine 1.03 (0.5-1.4) mg/dL Estim Creat Clear Calc 82.2 Estimated GFR > 60 Random Glucose 101 (60-115) mg/dL Calcium 9.9 D (8.4-10.2) mg/dL Troponin I High Sens 1832.5 H* (<3.5-35.0) ng/L Imaging Data CT angio of the chest: Radiologist's impression: 1.? No pulmonary embolus identified. No evidence of aortic dissection. 2.? Distention of the esophagus with gas and fluid, which could be secondary to reflux or dysmotility. ? Chest x-ray: Radiologist's impression: Unremarkable examination. ECG Data ECG #1: Attestation: I personally reviewed and interpreted this ECG as follows: Interpretation: Normal sinus rhythm at 68 beats per minutes, normal inte rvals, diffuse T-wave inversion. Discharge Plan Discharge Clinical Impression: Non-STEMI (non-ST elevated myocardial infarction) Patient Disposition: Admitted As Inpatient Prescriptions: No Action doxycycline monohydrate 100 mg capsule 100 mg PO BID 7 Days Qty: 14 RF: 0 hydrocodone-homatropine 5-1.5 mg/5 mL (5 mL) syrup 5 ml PO Q4-6H PRN (Reason: cough) Qty: 60 RF: 0 benzonatate [Tessalon Perles] 100 mg capsule 100 mg PO BID PRN (Reason: cough) Qty: 14 RF: 0 lisinopril 10 mg tablet 10 mg PO DAILY RF: 0 bisacodyl [Dulcolax (bisacodyl)] 5 mg tablet,delayed release (DR/EC) 10 mg PO ONCE 1 Days Qty: 2 RF: 0 polyethylene glycol 3350 [Miralax] 17 gram/dose powder 238 g PO ONCE Qty: 238 RF: 0 finasteride 5 mg tablet 5 mg PO DAILY 90 Days Qty: 90 RF: 1
[2021-04-17] VITALS (9 sets, daily range): BP systolic 121–160; BP diastolic 78–96; PULSE 53–72; RESP 16–18; TEMP 35.9–36.8; O2SAT 95–98
--- NOTE | 2021-04-17 00:44 | PC.NURSE ---
pt taken to ct.
[2021-04-17] MEDS: iohexoL 350 MG/ML 100 ML INFUS..BTL 85 ML IV (01:05)
[2021-04-17 01:32] LABS: Troponin-I High Sensitivity 2565.3 ng/L (<3.5-35.0)
[2021-04-17] MEDS: Metoprolol Tartrate 25 MG TABLET PO ×2 (01:36→10:19)
[2021-04-17] MEDS: Aspirin Enteric Coated 81 MG TABLET.DR PO ×2 (01:36→09:48)
[2021-04-17] MEDS: Heparin Sodium,Porcine 5,000 UNIT/ML VIAL 4000 UNIT IVPUSH (01:37)
[2021-04-17 02:24] LABS: Hematocrit 42.4 % (42-52); Hemoglobin 14.3 g/dl (14.0-18.0); Mean Corpuscular HGB Conc 33.7 g/dl (31.0-36.0); Mean Corpuscular Hemoglobin 29.2 pg (27.0-33.0); Mean Corpuscular Volume 86.5 fL (80-98); Mean Platelet Volume 10.6 fL (9.4-12.4); Platelet Count 175 X10*3/uL (160-400); Red Cell Distribution Width 12.1 % (11.0-16.0); White Blood Count 5.8 X10*3/uL (4.8-10.8)
[2021-04-17 02:30] LABS: INTERNATIONAL NORM RATIO 1.1 (0.9-1.1)
[2021-04-17 02:43] LABS: COVID-19 Test Negative (Negative); IDNOW Serial# 9DD0AD1C
[2021-04-17 02:47] LABS: PTT Heparin Drip > 200.0 SEC (53-77.9)
--- NOTE | 2021-04-17 03:07 | PC.NURSE ---
hospitalist called with ptt, hold heparin drip per protocal and recheck lab in one hour. no drip has been started.
--- NOTE | 2021-04-17 03:08 | CA_ITS ---
Transthoracic Echocardiogram Patient (Last, First, Middle): Seferino Clemente, Gender: Male Date of : 1960 Age: 60 Procedure Date: 04/17/2021 Procedure Type: Transthoracic Echocardiogram Location: S3E Height: 180.34 cm Weight: 86.18 kg BSA: 2.06 m2 Heart Rate: bpm BP: 121 / 79 mmHg Grounds Keeper: ELICIA/PHILIP Referring MD: Kiara Hawkins MD Beauty Culture Teacher: Les Newby MD Symptoms: NSTEMI Study Quality: Good ECG Rhythm: Sinus Conclusions: - 1. Normal LV systolic and diastolic function 2. Trivial to mild aortic regurgitation 3. Normal RV systolic pressure 4. No gross pericardial effusion Findings Left Ventricle Normal left ventricular size, thickness, and systolic function. Spectral Doppler is indicative of a normal filling pattern. E/E prime ratio is <8, consistent with normal filling pressures. Right Ventricle Normal right ventricular cavity size and systolic function. Atria The left atrium is normal in size. There is no evidence of interatrial shunt. The right atrium is normal in size. Aortic Valve Normal aortic valve structure and function. There is no aortic valve stenosis. There is trace (trivial) aortic valve regurgitation. Mitral Valve Normal mitral valve structure and function. There is trace mitral valve regurgitation. There is no mitral valve stenosis. Pulmonic Valve The pulmonic valve is likely normal. There is trace pulmonic valve regurgitation. Tricuspid Valve Normal tricuspid valve structure. There is trace tricuspid valve regurgitation. The right ventricular systolic pressure is normal. The right ventricular systolic pressure is 23 mmHg. Normal right atrial pressure. There is no evidence of pulmonary hypertension. Great Vessels All visible segments of the aorta are normal in size. The pulmonary artery was not well visualized. Venous The inferior vena cava is normal in size and collapses greater than 50% with inspiration. Pericardium/Pleural There is no evidence of pericardial effusion. Prior Study Comparison No significant change compared to prior study dated: 04/23/2019. Measurements 2D Linear Measurements IVSd: 0.98 0.6-0.9/0.6-1.0 cm LVIDd: 4.90 3.9-5.3/4.2-5.9 cm LVIDd Index: 2.38 2.4-3.2/2.2-3.1 cm/m2 LVIDs: 3.45 2.0-3.6 cm LVPWd: 1.00 0.7-1.1 cm Ao Root: 3.60 2.1-3.5 cm LA Diam: 3.70 2.7-3.8/3.0-4.0 cm LAIDs Index: 1.80 1.5-2.3 cm/m2 LV Mass: 216.04 67-162/88-224 g LV Mass Index: 104.87 43-95/49-115 g/m2 LVOT Diam: 2.20 3.0+(-)1.3 cm Mitral Valve MV Pk E: 0.86 MV PK A: 0.82 MV Decel Time: 213.00 E/A: 1.00 E'Lateral: 11.00 E'Medial: 7.62 E/E' Med: 11.30 E/E' Lat: 7.80 PHT: 63.00 MVA PHT: 3.49 Decel Laporte: 4.04 Aortic Valve AoV Pk Jim: 1.46 AoV Mn Jim: 1.10 AoV VTI: 0.33 AoV Pk Grad: 9.00 Aov Mn Grad: 5.00 CRISTINA Cont.VTI: 2.59 LVOT LVOT Pk Jim: 1.08 LVOT Mn Jim: 0.70 LVOT VTI: 0.23 LVOT Pk Grad: 5.00 LVOT Mn Grad: 2.00 LVOT Diam: 2.20 LVOT Area: 3.80 Diastolic Function MV Pk E: 0.86 MV Pk A: 0.82 E/A: 1.00 E'Medial: 7.62 E/E' Med: 11.30 E' Laterial: 11.00 E/E' Lat: 7.80 Right Ventricle TAPSE (mm): 2.49 TVS' Jim: 15.10 Tricuspid Valve TR Pk Jim: 2.24 TR Pk Grad: 20.00 RA Press: 3.00 RVSP: 23.00 Great Vessels Aorta Ao Root-2D: 3.60 2.0-3.7 cm Ao Asc: 3.60 2.1-3.4 cm Updated in Other Vendor System with Status of Final Les Newby MD electronically signed on 04/17/2021 12:37:53 PM with status of Final
[2021-04-17 03:38] LABS: INTERNATIONAL NORM RATIO 1.1 (0.9-1.1); Prothrombin Time 12.6 SEC (9.9-13.0)
--- NOTE | 2021-04-17 04:15 | PC.NURSE ---
Lab called to add [facility] onto the 327 lab draw.
--- NOTE | 2021-04-17 05:14 | PC.NURSE ---
pt ptthd is 96 hospitalist called and it is ok to start the heparin drip with no bolus.
--- NOTE | 2021-04-17 05:19 | P.HPHOSP_ITS ---
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 Patient reports that his symptoms started this morning, intermittent, radiating to the back, 3/10, feels like burning sensation traveling to his throat, no relieving or exacerbating factor. Patient reports that he is currently being treated for H pylori and has had similar symptoms about a month ago in [place]. Patient are as having any in vision, no pal pitations, no shortness of breath, no cough no abdominal pain nausea or vomiting, no diarrhea constipation, no urinary symptoms and no lower extremity edema. On arrival to the ED patient hemodynamically stable with no significant abnormal vitals except for a slightly elevated blood pressure of 163/91 Labs are significant for sodium of 140, potassium 4.1, BUN of 19 with a creatinine of 1.03, of 1832, repeat of 2565. EKG shows normal sinus rhythm, with inversions in the V4 to V6. No pulmonary embolus, distension of the esophagus with gas and fluid which could be secondary to reflux or dysmotility Patient started on heparin drip in the ED and will be admitted for further management. Review of Systems Review of Systems: Yes all other systems are reviewed and are negative [facility] Medical History (Updated 04/17/21 @ 05:25 by Kiara Hawkins MD) HTN (hypertension) Pertinent family history: Denies any family history of coronary artery disease Surgical History (Updated 04/17/21 @ 05:24 by Kiara Hawkins MD) No significant past surgical history Surgical history unknown Social History Household Members: Spouse Alcohol intake: never Patient Tobacco Use Status: Never used Tobacco Use of substances other than those prescribed or required for medical reasons: No Advance Directives: No Advance Directives Information Provided: Yes Meds Allergies Allergy/AdvReac Type Severity Reaction Status Date / Time No Known Allergies Allergy Verified 09/01/20 14:36 [No Known Allergies*] Active Medications: Current Medications Acetaminophen (Acetaminophen 325 Mg Tablet) 650 mg PO Q6H PRN PRN Reason: Pain, Mild (Pain Scale 1-3) Docusate Sodium (Docusate Sodium 100 Mg Capsule) 100 mg PO DAILY PRN PRN Reason: Constipation Heparin Sodium (Porcine) (Heparin Sodium,Porcine 5,000 Unit/Ml Vial) 3,400 unit 40 unit/kg (3400 unit) IVPUSH PROTOCOL BOLUS PRN; Protocol PRN Reason: 40 unit/kg - Heparin Protocol Heparin Sodium (Porcine) (Heparin Sodium,Porcine 5,000 Unit/Ml Vial) 6,900 unit 80 unit/kg (6900 unit) IVPUSH PROTOCOL BOLUS PRN; Protocol PRN Reason: 80 unit/kg - Heparin Protocol Heparin Sodium/Sodium Chloride () 25,000 unit in 250 mls @ 0 mls/hr IVCONT .Q0M TANNER; Protocol Morphine Sulfate (Morphine Sulfate 4 Mg/Ml Cartridge) 4 mg IVPUSH Q4H PRN; Protocol PRN Reason: Pain, Severe (Pain Scale 7-10) Ondansetron HCl (Ondansetron Hcl 4 Mg/2 Ml Vial) 4 mg IVPUSH Q8H PRN PRN Reason: Nausea and Vomiting Sodium Chloride (0.9 % Sodium Chloride Flush 3 Ml Syringe) [facility] Medications Medication Instructions Recorded Confirmed Last Taken Type lisinopril 10 mg tablet 10 mg PO DAILY 09/01/20 11/20/20 04/16/21 History 1 clarithromycin 500 mg PO 04/17/21 04/16/21 History metronidazole 500 mg PO 04/17/21 04/16/21 History 1 Physical Exam Vital Signs and Narrative: Vital Signs: Last Vital Signs Temp 97.9 F 04/16/21 22:00 Pulse 56 04/17/21 03:08 Resp 16 04/17/21 03:08 BP 128/78 04/17/21 03:08 Pulse Ox 98 04/17/21 03:08 Body Mass Index 26.4 Const: Other: Patient appears comfortable, does not appear to be in distress. General: cooperative and no acute distress Orientation/consciousness: patient oriented x3 Eyes: General: appearance normal, both eyes and all related structures Pupils: Equal, round and reactive pupils present Resp: Effort & Inspection: normal respiratory effort Auscultation: clear to auscultation bilaterally Cardio: Rate: regular rate Rhythm: regular rhythm GI: Other: Epigastric region tenderness, no rebound or guarding Palpation (GI): Soft to palpation Auscultation: normal bowel sounds Skin: General skin exam: no rashes or lesions noted Neuro: General: patient oriented x3 Cranial nerves: Yes Equal, round and reactive pupils present Cognition (Neuro): normal cognition Extrem: General: Yes normal to inspection and Yes no pedal edema Results Labs CBC and Chem 7: 04/17/21 02:19 04/16/21 22:38 Labs: Laboratory Results - last 24 hr 04/16/21 04/16/21 04/16/21 22:38 22:38 22:38 MCV 86.6 MCH 29.1 MCHC 33.6 RDW 12.2 Plt Count 181 D MPV 10.3 Immature Gran % (Auto) 0.2 Neut % (Auto) 55.7 Lymph % (Auto) 28.0 [place] % (Auto) 11.4 H Eos % (Auto) 4.3 H Baso % (Auto) 0.4 Lymph # (Auto) 1.6 [place] # (Auto) 0.6 Eos # (Auto) 0.2 Baso # (Auto) 0.0 Abs Immat Gran (auto) 0.01 Absolute Neuts (auto) 3.1 Absolute Nucleated RBC 0.000 Nucleated RBC % (auto) 0.0 PT INR PTT (Heparin Protocol) Anion Gap 11 L Estim Creat Clear Calc 82.2 Estimated GFR > 60 Random Glucose 101 Calcium 9.9 D Troponin I High Sens 1832.5 H* COVID-19 ([facility]) [employer] 04/17/21 04/17/21 04/17/21 01:04 02:19 02:19 MCV 86.5 MCH 29.2 MCHC 33.7 RDW 12.1 Plt Count 175 MPV 10.6 Immature Gran % (Auto) Neut % (Auto) Lymph % (Auto) [place] % (Auto) Eos % (Auto) Baso % (Auto) Lymph # (Auto) [place] # (Auto) Eos # (Auto) Baso # (Auto) Abs Immat Gran (auto) Absolute Neuts (auto) Absolute Nucleated RBC 0.000 Nucleated RBC % (auto) 0.0 PT 13.0 INR 1.1 PTT (Heparin Protocol) > 200.0 H* Anion Gap Estim Creat Clear Calc Estimated GFR Random Glucose Calcium Troponin I High Sens 2565.3 H* COVID-19 ([place]) [employer] 04/17/21 04/17/21 02:19 03:28 MCV MCH MCHC RDW Plt Count MPV Immature Gran % (Auto) Neut % (Auto) Lymph % (Auto) [place] % (Auto) Eos % (Auto) Baso % (Auto) Lymph # (Auto) [place] # (Auto) Eos # (Auto) Baso # (Auto) Abs Immat Gran (auto) Absolute Neuts (auto) Absolute Nucleated RBC Nucleated RBC % (auto) PT 12.6 INR 1.1 PTT (Heparin Protocol) 96.0 H D Anion Gap Estim Creat Clear Calc Estimated GFR Random Glucose Calcium Troponin I High Sens COVID-19 ([facility]) Negative COVID-19 Clin Com See Note Imaging Radiologist's Impressions: Impressions Chest X-Ray 04/16/21 21:26 IMPRESSION: Unremarkable examination. Chest CTA 04/17/21 00:01 IMPRESSION: 1. No pulmonary embolus identified. No evidence of aortic dissection. 2. Distention of the esophagus with gas and fluid, which could be secondary to reflux or dysmotility. VTE: negative Assessment and Plan (1) Non-STEMI (non-ST elevated myocardial infarction): Status: Acute (2) Esophagitis: Status: Acute This is a 60-year-old male with past medical history of hypertension who presents to the hospital with complaints of epigastric to midsternal chest pain found to have NSTEMI # NSTEMI - the only risk factor for this is his hypertension - denies any family history - patient started on heparin drip will continue that - continue aspirin - given 1 dose of metoprolol in the ED - cardiology consult - echocardiogram - trend troponin # esophagitis - patient reports that his currently being treated for H pylori as he has history of GERD - will continue his home antibiotic regimen for the H pylori - will add pantoprazole IV b.i.d. given the CT findings # hypertension - elevated - resume home medications DVT prophylaxis: Heparin GGT Quality Stroke Does the patient have a stroke diagnosis?: No VTE Prior VTE?: No VTE Risk Level:: Medical - moderate - high VTE Device Contraindication: Treatment Not Indicated VTE Drug Contraindication: N/A - Med Ordered
[2021-04-17] MEDS: Heparin Sodium,Porcine/1/2NS 25,000 UNIT/250 ML IV.SOLN 8.62 UNIT IVCONT (05:28)
[2021-04-17 05:54] LABS: MANUAL DIFF FLAG NO
[2021-04-17 05:55] LABS: Basophils Percent Auto 0.3 % (0-2); Eosinophils Absolute Auto 0.2 X10*3/uL (0.0-0.4); Eosinophils Percent Auto 4.2 % (0-4); Hematocrit 42.9 % (42-52); Hemoglobin 14.3 g/dl (14.0-18.0); Imm Gran Abs Auto 0.02 X10*3/uL (0.00-0.03); Imm Gran Pct Auto 0.3 % (0.0-0.4); Lymphocytes Absolute Auto 1.3 X10*3/uL (1.2-4.9); Lymphocytes Percent Auto 22.8 % (20-40); Mean Corpuscular HGB Conc 33.3 g/dl (31.0-36.0); Mean Corpuscular Hemoglobin 28.9 pg (27.0-33.0); Mean Corpuscular Volume 86.7 fL (80-98); Mean Platelet Volume 10.2 fL (9.4-12.4); Monocytes Absolute Auto 0.5 X10*3/uL (0.1-1.2); Monocytes Percent Auto 9.2 % (2-11); Neutrophils Absolute Auto 3.7 X10*3/uL (2.0-8.3); Neutrophils Percent Auto 63.2 % (45-73); Platelet Count 171 X10*3/uL (160-400); Red Blood Count 4.95 X10*6/uL (4.60-5.80); Red Cell Distribution Width 12.2 % (11.0-16.0); White Blood Count 5.8 X10*3/uL (4.8-10.8)
[2021-04-17 06:08] LABS: Anion Gap 10 (12-20); Blood Urea Nitrogen 16 mg/dL (9-16); Calcium 9.7 mg/dL (8.4-10.2); Carbon Dioxide 26 mmol/L (22-29); Chloride 105 mmol/L (96-108); Estimated Glomerular Filt Rate > 60; Glucose Random 111 mg/dL (60-115); Potassium 3.9 mmol/L (3.3-5.1); Sodium 137 mmol/L (135-145)
[2021-04-17] MEDS: Pantoprazole Sodium 40 MG/10 ML VIAL IVPUSH (06:45)
--- NOTE | 2021-04-17 07:05 | PC.NURSE ---
attempted to give report to the next rn on the floor. no answer at nurses station. pt remains pain free, next ptthd is at 1130
--- NOTE | 2021-04-17 07:18 | PC.NURSE ---
report given to augusta burns
[2021-04-17 08:20] LABS: Cholesterol 181 mg/dL; HDL Cholesterol 53 mg/dL; LDL Cholesterol Calculated 119 mg/dl; Triglycerides 48 mg/dL
--- NOTE | 2021-04-17 08:55 | PHA.MEDREC ---
Pharmacy Consult ? Medication Reconciliation Pharmacy has completed the medication reconciliation. Patient has a recent fill history for Lexapro, Finasteride, Fluoxetine, Flonase and Nabumetone however patient has no idea what any of these medications. He reports he only take lisinopril and as needed Klonopin in addition to the newly prescribed medication metronidazole, clarithromycin and prilosec for H. Pylori. Samantha Aguirre, PharmD
--- NOTE | 2021-04-17 10:26 | PM.CNCAR ---
History of Present Illness History of Present Illness Date of Service: 04/17/21 Chief complaint: NSTEMI Narrative: I was asked to see the patient in cardiology consultation today for elevated troponin consistent with non ST elevation myocardial infarction. History was obtained with help of technician chemical cleaning. Despite technician chemical cleaning patient is somewhat of a vague historian. Patient with prior history of hypertension and recently diagnosed H pylori currently getting treatment for the same. He has longstanding history of acid reflux for 10 years as per him and gets intermittent episodes and takes Prilosec. Usually symptoms acid reflux or burning discomfort in the retrosternal area with radiation to the back along the spine. Symptoms usually resolve very quickly with antacids. Yesterday he was in usual state of health in the morning after that in the late morning he was mowing his lawn, finish doing that during the morning he developed a hypoglycemic episode which resolved. After that he went to the store very started noticing retrosternal chest discomfort with similar type of burning discomfort radiating to the back. Initially thought that this was acid reflux did not pay much attention comes symptoms are mild. Her when he went home and got ready and he continued to have discomfort for about an hour, he felt this was unusual not similar to his acid reflux. Subsequently he took antacids but symptoms did not resolve. He did not have any associated diaphoresis or shortness of breath or nausea or vomiting. He subsequently decided to come to the hospital. He has EKG showed normal sinus with nonspecific T-wave changes in anterolateral leads. His troponins were elevated and was admitted. Was started on IV heparin. Review of Systems Constitutional: Constitutional: Reports no additional constitutional complaints Eyes: Eyes: Reports no additional eye complaints ENT: Reports system reviewed and no additional complaints, except as documented Cardiovascular: Cardiovascular: Reports chest pain, Denies lightheadedness, Denies Loss of Consciousness, Denies palpitations and Denies dyspnea Respiratory: Respiratory: Reports no additional respiratory complaints and Denies dyspnea Gastrointestinal: Gastrointestinal: Reports no additional gastrointestinal complaints Genitourinary: Genitourinary: Reports no additional male genitourinary complaints Musculoskeletal: Musculoskeletal: Reports no additional musculoskeletal complaints Integumentary/Breasts: Skin/Breast: Reports system reviewed and no additional complaints, except as docu Neurologic: Reports system reviewed and no additional complaints, except as documented Psychiatric: Psychiatric: Reports no additional psychiatric complaints Endocrine: Endocrine: Reports no additional endocrine complaints and Denies palpitations Hematologic/Lymphatic: Hematologic/Lymphatic: Reports no additional hematologic/lymphatic complaints Allergic/Immunologic: Allergic/Immunologic: Reports no additional allergic/immunologic complaints [facility] Past Medical History Medical History HTN (hypertension) Surgical History Surgical History No significant past surgical history Surgical history unknown Social History Social History Household Members: Spouse Housing: House Do you presently have visiting nurse or other home services: No Alcohol intake: never Patient Tobacco Use Status: Never used Tobacco Meds Allergies Allergy/AdvReac Type Severity Reaction Status Date / Time No Known Allergies Allergy Verified 09/01/20 14:36 [No Known Allergies*] Active Medications: Current Medications Acetaminophen (Acetaminophen 325 Mg Tablet) 650 mg PO Q6H PRN PRN Reason: Pain, Mild (Pain Scale 1-3) Aspirin (Aspirin Enteric Coated 81 Mg Tablet.Dr) 81 mg PO DAILY [facility] Last Admin: 04/17/21 09:48 Dose: 81 mg Documented by: Atorvastatin Calcium (Atorvastatin Calcium 80 Mg Tablet) 80 mg PO BEDTIME [facility] Docusate Sodium (Docusate Sodium 100 Mg Capsule) 100 mg PO DAILY PRN PRN Reason: Constipation Heparin Sodium (Porcine) (Heparin Sodium,Porcine 5,000 Unit/Ml Vial) 3,400 unit 40 unit/kg (3400 unit) IVPUSH PROTOCOL BOLUS PRN; Protocol PRN Reason: 40 unit/kg - Heparin Protocol Heparin Sodium (Porcine) (Heparin Sodium,Porcine 5,000 Unit/Ml Vial) 6,900 unit 80 unit/kg (6900 unit) IVPUSH PROTOCOL BOLUS PRN; Protocol PRN Reason: 80 unit/kg - Heparin Protocol Heparin Sodium/Sodium Chloride () 25,000 unit in 250 mls @ 0 mls/hr IVCONT .Q0M TANNER; Protocol Last Admin: 04/17/21 05:28 Dose: 10 units/kg/hr, 8.62 mls/hr Documented by: Metoprolol Tartrate (Metoprolol Tartrate 25 Mg Tablet) 25 mg PO BID [facility]; Protocol Last Admin: 04/17/21 10:19 Dose: 25 mg Documented by: Morphine Sulfate (Morphine Sulfate 4 Mg/Ml Cartridge) 4 mg IVPUSH Q4H PRN; Protocol PRN Reason: Pain, Severe (Pain Scale 7-10) Nitroglycerin (Nitroglycerin 2 % Oint 1 Gm Packet) 1 inch TRANSDERMA RQ6H WHILE AWAKE [facility] Ondansetron HCl (Ondansetron Hcl 4 Mg/2 Ml Vial) 4 mg IVPUSH Q8H PRN PRN Reason: Nausea and Vomiting Pantoprazole Sodium (Pantoprazole Sodium 40 Mg/10 Ml Vial) 40 mg IVPUSH BID@0630,1630 [facility] Last Admin: 04/17/21 06:45 Dose: 40 mg Documented by: Sodium Chloride (0.9 % Sodium Chloride Flush 3 Ml Syringe) 3 ml IVFLUSH QSHIFT [facility] Last Admin: 04/17/21 07:21 Dose: Not Given Documented by: Home Medications Medication Instructions Recorded Confirmed Last Taken Type clarithromycin 500 mg tablet 500 mg PO Q12H 04/17/21 04/17/21 Unknown History clonazepam 0.5 mg tablet 1 tab PO DAILY PRN 04/17/21 04/17/21 Unknown History lisinopril 10 mg tablet 1 tab PO DAILY 04/17/21 04/17/21 Unknown History metronidazole 500 mg tablet 500 mg PO TID 04/17/21 04/17/21 Unknown History omeprazole 20 mg capsule,delayed 1 cap PO DAILY 04/17/21 04/17/21 Unknown History release Physical Exam Vital Signs: Vital Signs: Last Vital Signs Temp 96.7 F L 04/17/21 08:00 Pulse 69 04/17/21 10:19 Resp 18 04/17/21 08:00 BP 143/92 H 04/17/21 10:19 Pulse Ox 98 04/17/21 08:00 Body Mass Index 26.4 Const: General: cooperative, comfortable, no acute distress, well developed, alert and awake Nutritional Appearance: average body habitus Orientation/consciousness: patient oriented x3 Limitations: no limitations HENMT: Head: Yes normocephalic and Yes atraumatic Neck: Neck: Yes trachea midline, Yes supple and Yes no JVD Chest: Chest palpation & inspection: normal inspection of the chest Resp: Effort & Inspection: normal respiratory effort Auscultation: clear to auscultation bilaterally Cardio: Jugular venous distension: no JVD Palpation: normal PMI Rate: regular rate Rhythm: regular rhythm Heart sounds: S1 normal heart sound present, S2 normal heart sound present, no click, no gallops, no murmurs and no rubs Peripheral pulses: Peripheral pulses 2+ throughout GI: Auscultation: normal bowel sounds Skin: General skin exam: no rashes or lesions noted Neuro: General: patient oriented x3 and no focal motor deficits Extrem: General: Yes no clubbing, cyanosis or edema Psych: Appearance: grossly normal Results Labs and Meds Result diagrams: 04/17/21 05:49 04/17/21 05:49 Lab results: Laboratory Results - last 24 hr 04/16/21 04/16/21 04/16/21 22:38 22:38 22:38 WBC 5.5 RBC 5.06 Hgb 14.7 Hct 43.8 MCV 86.6 MCH 29.1 MCHC 33.6 RDW 12.2 Plt Count 181 D MPV 10.3 Immature Gran % (Auto) 0.2 Neut % (Auto) 55.7 Lymph % (Auto) 28.0 [place] % (Auto) 11.4 H Eos % (Auto) 4.3 H Baso % (Auto) 0.4 Lymph # (Auto) 1.6 [place] # (Auto) 0.6 Eos # (Auto) 0.2 Baso # (Auto) 0.0 Abs Immat Gran (auto) 0.01 Absolute Neuts (auto) 3.1 Absolute Nucleated RBC 0.000 Nucleated RBC % (auto) 0.0 PT INR PTT (Heparin Protocol) Sodium 140 Potassium 4.1 Chloride 105 Carbon Dioxide 28 Anion Gap 11 L BUN 19 H Creatinine 1.03 Estim Creat Clear Calc 82.2 Estimated GFR > 60 Random Glucose 101 Calcium 9.9 D Troponin I High Sens 1832.5 H* Triglycerides Cholesterol LDL Cholesterol, Calc HDL Cholesterol COVID-19 ([facility]) COVID-19 Clin Com 04/17/21 04/17/21 04/17/21 01:04 02:19 02:19 WBC 5.8 RBC 4.90 Hgb 14.3 Hct 42.4 MCV 86.5 MCH 29.2 MCHC 33.7 RDW 12.1 Plt Count 175 MPV 10.6 Immature Gran % (Auto) Neut % (Auto) Lymph % (Auto) [place] % (Auto) Eos % (Auto) Baso % (Auto) Lymph # (Auto) [place] # (Auto) Eos # (Auto) Baso # (Auto) Abs Immat Gran (auto) Absolute Neuts (auto) Absolute Nucleated RBC 0.000 Nucleated RBC % (auto) 0.0 PT 13.0 INR 1.1 PTT (Heparin Protocol) > 200.0 H* Sodium Potassium Chloride Carbon Dioxide Anion Gap BUN Creatinine Estim Creat Clear Calc Estimated GFR Random Glucose Calcium Troponin I High Sens 2565.3 H* Triglycerides Cholesterol LDL Cholesterol, Calc HDL Cholesterol COVID-19 ([facility]) COVID-19 Clin Com 04/17/21 04/17/21 04/17/21 02:19 03:28 05:49 WBC 5.8 RBC 4.95 Hgb 14.3 Hct 42.9 MCV 86.7 MCH 28.9 MCHC 33.3 RDW 12.2 Plt Count 171 MPV 10.2 Immature Gran % (Auto) 0.3 Neut % (Auto) 63.2 Lymph % (Auto) 22.8 [place] % (Auto) 9.2 Eos % (Auto) 4.2 H Baso % (Auto) 0.3 Lymph # (Auto) 1.3 [place] # (Auto) 0.5 Eos # (Auto) 0.2 Baso # (Auto) 0.0 Abs Immat Gran (auto) 0.02 Absolute Neuts (auto) 3.7 Absolute Nucleated RBC 0.000 Nucleated RBC % (auto) 0.0 PT 12.6 INR 1.1 PTT (Heparin Protocol) 96.0 H D Sodium Potassium Chloride Carbon Dioxide Anion Gap BUN Creatinine Estim Creat Clear Calc Estimated GFR Random Glucose Calcium Troponin I High Sens Triglycerides Cholesterol LDL Cholesterol, Calc HDL Cholesterol COVID-19 ([facility]) Negative COVID-19 Clin Com See Note 04/17/21 04/17/21 05:49 05:49 WBC RBC Hgb Hct MCV MCH MCHC RDW Plt Count MPV Immature Gran % (Auto) Neut % (Auto) Lymph % (Auto) [place] % (Auto) Eos % (Auto) Baso % (Auto) Lymph # (Auto) [place] # (Auto) Eos # (Auto) Baso # (Auto) Abs Immat Gran (auto) Absolute Neuts (auto) Absolute Nucleated RBC Nucleated RBC % (auto) PT INR PTT (Heparin Protocol) Sodium 137 Potassium 3.9 Chloride 105 Carbon Dioxide 26 Anion Gap 10 L BUN 16 Creatinine 0.91 Estim Creat Clear Calc 93.0 Estimated GFR > 60 Random Glucose 111 Calcium 9.7 Troponin I High Sens 2471.2 H* Triglycerides 48 Cholesterol 181 LDL Cholesterol, Calc 119 HDL Cholesterol 53 COVID-19 ([facility]) COVID-19 Clin Com Imaging Radiologist's impression: Impressions Chest X-Ray 04/16/21 21:26 IMPRESSION: Unremarkable examination. Chest CTA 04/17/21 00:01 IMPRESSION: 1. No pulmonary embolus identified. No evidence of aortic dissection. 2. Distention of the esophagus with gas and fluid, which could be secondary to reflux or dysmotility. VTE: negative Assessment and Plan (1) Non-STEMI (non-ST elevated myocardial infarction): Status: Acute Patient currently chest pain free, findings consistent with acute coronary syndrome of high risk with MARY risk score of 3-4. Patient is currently on IV heparin. Already received aspirin. Blood pressure is elevated. Will start nitro paste 1 in q.6 hours. Also start metoprolol 25 mg q.12 hours. Currently on high-intensity statins, received last night. We discussed about management of acute coronary syndrome with high risk features to undergo cardiac catheterization to evaluate coronary anatomy. We discussed about risk, benefits, alternatives 2nd opinion procedure. He is agreeable for the same. Will transfer to [facility] for the same. This was both discussed with patient and patient's with help of technician chemical cleaning and they understand and agree. [facility] transfer team is aware of the patient and has been excepted. Hopefully cardiac catheterization later today. Will follow up as outpatient after. Echocardiogram was performed and preliminary looks like his wall motion is within normal limits. Will review the echocardiogram later. Thank you for allowing us to partake in his care Procedures Date of Service Date of Service: 04/17/21
[2021-04-17 12:02] LABS: PTT Heparin Drip 70.1 SEC (53-77.9)
[2021-04-17] MEDS: Nitroglycerin 2 % Oint 1 GM Packet 1 INCH TRANSDERMA (13:56)
[2021-04-17 15:12] LABS: PTT Heparin Drip 62.9 SEC (53-77.9)
--- NOTE | 2021-04-17 15:31 | MHC.CM.PN ---
PT BEING TRANSFERRED TO [facility]
--- NOTE | 2021-04-17 16:31 | PC.NURSE ---
Report called to Alexandra at [facility]
--- NOTE | 2021-04-17 17:09 | P.DS_ITS ---
DS: Providers Provider Date of Service: 04/17/21 Date of admission: 04/17/21 02:12 Primary care physician: Jabari Loza MD Consults: 04/17/21 03:08 Consult to Cardiology Routine Consulting Provider: Les Newby Reason for consultation: nstemi Has provider been notified: No DS: Transfer Hospital Acceptance Reason for Transfer: For cardiac catheterization Name of Facility: [facility] Accepting Provider: Top Collar Baster DS: Diagnosis Discharge Diagnosis (1) Non-STEMI (non-ST elevated myocardial infarction): Status: Acute DS: Summary Hospital Course Hospital Course: History of presenting illness Chief Complaint: Chest pain This is a 60-year-old Sinhala-speaking man with past medical history of hypertension, 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 Patient reports that his symptoms started this morning, intermittent, radiating to the back, 3/10, feels like burning sensation traveling to his throat, no relieving or exacerbating factor.? Patient reports that he is currently being treated for H pylori and has had similar symptoms about a month ago in [place].? Patient are as having any in vision, no palpitations, no shortness of breath, no cough no abdominal pain nausea or vomiting, no diarrhea constipation, no urinary symptoms and no lower extremity edema. On arrival to the ED patient hemodynamically stable with no significant abnormal vitals except for a slightly elevated blood pressure of 163/91 Labs are significant for sodium of 140, potassium 4.1, BUN of 19 with a creatinine of 1.03, of 1832, repeat of 2565. EKG shows normal sinus rhythm, with inversions in the V4 to V6. No pulmonary embolus, distension of the esophagus with gas and fluid which could be secondary to reflux or dysmotility Patient started on heparin drip in the ED and will be admitted for further management. Hospital course 60-year-old gentleman with history of hypertension admitted with acute coronary syndrome and treated with is statins, aspirin, beta-blockers and IV heparin, subsequently patient seen by Cardiology and due to high risk with MARY risk score of 3-4, they recommended cardiac catheterization and transferred to [facility], hopefully patient will undergo cardiac catheterization later this evening, echocardiogram preliminary report shows no significant wall motion abnormality, due to elevated blood pressure patient has been started on nitropaste and will be continued on current medications including IV heparin, statins and aspirin. Time Spent with Patient Time attestation: Total time spent providing and/or coordinating discharge services: Discharge coordination time: Greater than 30 minutes Quality: Stroke Does the patient have a stroke diagnosis?: No Physical Exam Vital Signs: Vital Signs: Last Vital Signs Temp 97.8 F 04/17/21 16:00 Pulse 72 04/17/21 16:00 Resp 18 04/17/21 16:00 BP 160/80 H 04/17/21 16:00 Pulse Ox 96 04/17/21 16:00 Body Mass Index 26.4 General alert oriented x3, no acute distress. Neck is supple no JVD. CVS regular rate rhythm, Respiratory lungs clear to auscultation, no respiratory distress, no wheeze, no rhonchi. Gastrointestinal abdomen soft, nontender, bowel sounds audible, no no guarding , no rigidity. Extremities no clubbing cyanosis or edema. Neuro nonfocal , speech clear. Skin no rash Psych appropriate affect Discharge Plan Discharge Patient Disposition: Xfer Acute Care Hospital Discharge Diagnosis: NSTEMI Referrals: Name,MD Jabari [Primary Care Provider] - 1 Week Discharge Medications: New atorvastatin 80 mg Tablet 80 mg PO BEDTIME Qty: 30 RF: 0 acetaminophen 325 mg Tablet 650 mg PO Q6H PRN (Reason: Pain, Mild (Pain Scale 1-3)) Qty: 30 RF: 0 aspirin 81 mg Tablet,Delayed Release (Dr/Ec) 81 mg PO DAILY Qty: 30 RF: 0 metoprolol tartrate 25 mg Tablet 25 mg PO BID Qty: 30 RF: 0 Continued clonazepam 0.5 mg tablet 1 tab PO DAILY PRN (Reason: anxiety) RF: 0 omeprazole 20 mg capsule,delayed release(DR/EC) 1 cap PO DAILY RF: 0 clarithromycin 500 mg Tablet 500 mg PO Q12H RF: 0 metronidazole 500 mg Tablet 500 mg PO TID RF: 0 Discontinued lisinopril 10 mg tablet 1 tab PO DAILY RF: 0 No Action lisinopril 5 mg tablet 5 mg PO DAILY RF: 0 ticagrelor 90 mg tablet 90 mg PO BID RF: 0 docusate sodium 100 mg capsule 100 mg PO BEDTIME Qty: 30 RF: 3 Discharge Orders: Discharge Order (Routine); Ordered 04/17/21 Ordered By: Chris Davidson Diet: low fat, low cholesterol Activity on Discharge: Rest with bed elevated Stand Alone Forms: Patient Portal Discharge page Care Plan Goals: Non ST-elevation ME being transferred to [facility] for cardiac catheterization Health Concerns: History of hypertension/H pylori Continue all above medications as prescribed Plan of Treatment: Outpatient follow-up with primary care physician and Cardiology in next 1-2 weeks Assessment: As above Discharge Date/Time: 04/17/21 16:30
== END 2021-04-17 16:30 | disposition short-term general hospital (02) | DRG 190 ==
LOC: HO.ED 04-17 01:27 → HO.EDOVER 04-17 02:18 → HO.S3 04-17 06:27
PROVIDERS: Admitting Provider Internal Medicine; Emergency Provider Emergency Medicine; PCP Internal Medicine Geriatric Medicine; Visit Provider Hospitalist
DX: I21.4 Non-ST elevation (NSTEMI) myocardial infarction (principal); I10 Essential (primary) hypertension; Z20.822 Contact with and (suspected) exposure to COVID-19; K21.00 Gastro-esophageal reflux disease with esophagitis, without bleeding; Z79.82 Long term (current) use of aspirin; Z79.899 Other long term (current) drug therapy
CPT/HCPCS: 36415; 71045; 71275; 80048; 80061; 84484; 85025; 85027; 85610; 85730; 87635; 93005; 93306; 99285; Q9967

== ENCOUNTER → 2021-04-22 10:30 | Outpatient (BNVA) | payer MEDICAID, SELFPAY | PROVIDERS: PCP Internal Medicine Geriatric Medicine; Referring Provider Internal Medicine Geriatric Medicine; Visit Provider Nurse Practitioner Family | DX: Z12.11 Encounter for screening for malignant neoplasm of colon (principal); K21.9 Gastro-esophageal reflux disease without esophagitis | CPT/HCPCS: 99212 ==

== ENCOUNTER → 2021-05-20 10:31 | Outpatient (BNVA) | payer MEDICAID, SELFPAY | PROVIDERS: PCP Internal Medicine Geriatric Medicine; Referring Provider Internal Medicine Geriatric Medicine; Visit Provider Internal Medicine | DX: I21.4 Non-ST elevation (NSTEMI) myocardial infarction (principal); I10 Essential (primary) hypertension | CPT/HCPCS: 99212 ==

== ENCOUNTER 2021-06-17 06:32 | Outpatient (REF) | payer MEDICAID, SELFPAY ==
[2021-06-17 07:45] LABS: Alanine Aminotransferase 58 U/L (0-40); Albumin Level 4.2 g/dL (3.5-5.0); Alkaline Phosphatase 62 U/L (39-117); Aspartate Amino Transferase 27 U/L (5-37); Bilirubin Direct 0.3 mg/dL (0.0-0.5); Bilirubin Total 0.5 mg/dL (0.0-1.0); Cholesterol 117 mg/dL; HDL Cholesterol 45 mg/dL; LDL Cholesterol Calculated 58 mg/dl; Total Protein 6.5 g/dL (6.5-8.0); Triglycerides 74 mg/dL
== END 2021-06-17 06:33 | disposition home or self-care (01) ==
LOC: HO.LAB 06:32
PROVIDERS: PCP Internal Medicine Geriatric Medicine; Visit Provider Internal Medicine
DX: I21.4 Non-ST elevation (NSTEMI) myocardial infarction (principal)
CPT/HCPCS: 36415; 80061; 80076

== ENCOUNTER → 2021-06-30 14:24 | Outpatient (BNVA) | payer MEDICAID, SELFPAY | PROVIDERS: PCP Internal Medicine Geriatric Medicine; Visit Provider Urology ==

== ENCOUNTER 2021-07-22 08:31 | Outpatient (REF) | payer MEDICAID, SELFPAY ==
[2021-07-22 10:43] LABS: C Reactive Protein 0.05 mg/dL (< or = 0.50)
[2021-07-22 11:03] LABS: HBS Num1 0.08 mIU/mL (0-7.99); HIV AB/AG Nonreactive (Nonreactive); HIV Num 1 0.08 S/CO (0.00-0.99); ~HepC Num1 0.19 S/CO (0.00-0.79); ~Hepatitis B Surface Antibody NONREACTIVE (Nonreactive); ~Hepatitis C Antibody Nonreactive (Nonreactive)
[2021-07-22 11:07] LABS: Ferritin 54 ng/mL (20-250)
[2021-07-22 11:08] LABS: HBc Num1 0.05 S/CO (0.00-0.79); Hepatitis B Core Antibody Nonreactive (Nonreactive); Hepatitis B Surface Antigen Negative (Negative); ~Hepatitis A Antibody IgM Nonreactive (Nonreactive)
[2021-07-23 11:55] LABS: Alpha Fetoprotein 1.4 ng/mL (<6.1)
[2021-07-23 13:37] LABS: Ceruloplasmin 27 mg/dL (18-36)
[2021-07-24 15:56] LABS: Mitochondrial Antibodies NEGATIVE (NEGATIVE)
[2021-07-26 13:31] LABS: Smooth Muscle Antibody <20 U (<20)
== END 2021-07-22 08:32 | disposition home or self-care (01) ==
LOC: HO.LAB 08:31
PROVIDERS: PCP Internal Medicine Geriatric Medicine; Referring Provider Internal Medicine Geriatric Medicine; Visit Provider Nurse Practitioner Family
DX: K58.9 Irritable bowel syndrome, unspecified (principal); R74.8 Abnormal levels of other serum enzymes; R79.89 Other specified abnormal findings of blood chemistry; K21.9 Gastro-esophageal reflux disease without esophagitis
CPT/HCPCS: 36415; 82105; 82390; 82728; 86140; 86255; 86256; 86704; 86706; 86709; 86803; 87340; 87389; 99212

== ENCOUNTER 2021-07-26 20:36 | Emergency (ER) | payer MEDICAID, SELFPAY ==
--- NOTE | ~2021-07-26 | XR_ITS ---
EXAMINATION: XR CHEST CLINICAL INFORMATION: Back pain COMPARISON: 04/17/2001 TECHNIQUE: 2 views of the chest were obtained. FINDINGS: The lungs are clear with no focal consolidation. No evidence of pneumothorax, pulmonary edema, or pleural effusions. The cardiomediastinal silhouette is unremarkable. No acute osseous findings. XR/XR chest 2V IMPRESSION: No acute cardiopulmonary findings.
--- NOTE | 2021-07-26 20:37 | ECG_ITS ---
Test Reason : chest pain Blood Pressure : / mmHG Vent. Rate : 082 BPM Atrial Rate : 082 BPM P-R Int : 166 ms QRS Dur : 102 ms QT Int : 404 ms P-R-T Axes : 066 025 025 degrees QTc Int : 472 ms Normal sinus rhythm Normal ECG When compared with ECG of 16-APR-2021 22:05, Nonspecific T wave abnormality no longer evident in Lateral leads QT has lengthened Referred By: Generic ED Physician Electronically Signed By:SHAKEEL RADFORD MD
[2021-07-26 20:50] VITALS: BP 185/108; PULSE 84; RESP 18; TEMP 36.4; O2SAT 99; BMI 26.4
[2021-07-26 22:09] LABS: MANUAL DIFF FLAG NO
[2021-07-26 22:11] LABS: Basophils Percent Auto 0.3 % (0-2); Eosinophils Absolute Auto 0.1 X10*3/uL (0.0-0.4); Eosinophils Percent Auto 2.4 % (0-4); Hematocrit 45.2 % (42.0-52.0); Hemoglobin 15.2 g/dl (14.0-18.0); Imm Gran Abs Auto 0.01 X10*3/uL (0.00-0.03); Imm Gran Pct Auto 0.2 % (0.0-0.4); Lymphocytes Absolute Auto 0.9 X10*3/uL (1.2-4.9); Lymphocytes Percent Auto 15.9 % (20-40); Mean Corpuscular HGB Conc 33.6 g/dl (31.0-36.0); Mean Corpuscular Hemoglobin 29.3 pg (27.0-33.0); Mean Corpuscular Volume 87.1 fL (80.0-98.0); Mean Platelet Volume 10.8 fL (9.4-12.4); Monocytes Absolute Auto 0.5 X10*3/uL (0.1-1.2); Neutrophils Absolute Auto 4.3 x10*3/uL (2.0-8.3); Neutrophils Percent Auto 72.2 % (45-73); Platelet Count 181 X10*3/uL (160-400); Red Blood Count 5.19 X10*6/uL (4.60-5.80); Red Cell Distribution Width 12.1 % (11.0-16.0); White Blood Count 5.9 X10*3/uL (4.8-10.8)
[2021-07-26 22:26] LABS: Anion Gap 7 (12-20); Blood Urea Nitrogen 18 mg/dL (9-16); Calcium 10.3 mg/dL (8.4-10.2); Carbon Dioxide 29 mmol/L (22-29); Chloride 105 mmol/L (96-108); Estimated Glomerular Filt Rate > 60; Glucose Random 135 mg/dL (60-115); Potassium 3.3 mmol/L (3.3-5.1); Sodium 138 mmol/L (135-145)
[2021-07-26 22:31] LABS: Troponin-I High Sensitivity 4.7 ng/L (<3.5-35.0)
[2021-07-26 22:33] VITALS: BP 155/94
--- NOTE | 2021-07-26 22:34 | ED.CHESTPAIN ---
HPI - Chest Pain General Chief Complaint: Chest Pain Stated Complaint: chest pain Time Seen by Provider: 07/26/21 22:22 Source: patient and deaf interpreter Mode of arrival: ambulatory Limitations: language barrier History of Present Illness HPI narrative: 61-year-old male with a history of hypertension, GERD, esophagitis, hyperlipidemia, SC with 2 stent placements (03/2021 proximal OM3/1 with continued CAD RPDA 70-80% stenosis, mild LAD) here with complaints of mid upper back pain about 4 hours ago which lasted for 20 minutes and self-resolved. There was no associated shortness of breath, nausea, vomiting, diaphoresis, dizziness. Patient tells me that this feels much different than his heart attack that he had in March. He tells me he just got anxious when he felt the pain due to his recent history which prompted his ER visit today. Tells me he took Klonopin when he felt the pain and now is pain free. He has been compliant with all of his medications since discharge which includes Brilinta and 81 mg of aspirin daily Related Data Home Medications Medication Instructions Recorded Confirmed clonazepam 0.5 mg tablet 1 tab PO DAILY PRN 04/17/21 06/30/21 omeprazole 20 mg capsule,delayed 1 cap PO DAILY 04/17/21 06/30/21 release lisinopril 5 mg tablet 5 mg PO DAILY 04/22/21 06/30/21 ticagrelor 90 mg tablet 90 mg PO BID 04/22/21 06/30/21 metoprolol succinate 25 mg 25 mg PO DAILY 05/20/21 06/30/21 tablet,extended release 24 hr escitalopram oxalate 10 mg tablet 10 mg PO DAILY 06/30/21 06/30/21 fluticasone propionate 50 spray INTRANASAL 06/30/21 06/30/21 mcg/actuation nasal spray,suspension loratadine 10 mg tablet 10 mg PO DAILY 06/30/21 06/30/21 Previous Rx's Medication Instructions Recorded acetaminophen 325 mg tablet 650 mg PO Q6H PRN #30 tab 04/17/21 aspirin 81 mg tablet,delayed 81 mg PO DAILY #30 tab 04/17/21 release atorvastatin 80 mg tablet 80 mg PO BEDTIME #30 tab 04/17/21 docusate sodium 100 mg capsule 100 mg PO BEDTIME #30 cap 04/22/21 finasteride 5 mg tablet 5 mg PO DAILY 90 Days #90 tab 06/30/21 Allergies Allergy/AdvReac Type Severity Reaction Status Date / Time No Known Allergies Allergy Verified 07/22/21 08:45 [No Known Allergies*] Review of Systems Review of Systems: Yes all other systems are reviewed and are negative Constitutional: Constitutional: Reports no additional constitutional complaints, Denies body ache(s), Denies chills, Denies fever(s), Denies headache(s) and Denies weakness Eyes: Eyes: Reports no additional eye complaints and Denies change in vision ENT: Reports system reviewed and no additional complaints, except as documented, Denies dizziness, Denies headache(s), Denies nasal congestion, Denies nasal discharge and Denies neck pain Cardiovascular: Cardiovascular: Reports no additional cardiovascular complaints, Denies chest pain, Denies leg edema and Denies dyspnea Respiratory: Respiratory: Reports no additional respiratory complaints, Denies cough and Denies dyspnea Gastrointestinal: Gastrointestinal: Reports no additional gastrointestinal complaints, Denies abdominal pain, Denies diarrhea, Denies nausea and Denies vomiting Genitourinary: Genitourinary: Denies urinary incontinence Musculoskeletal: Musculoskeletal: Reports no additional musculoskeletal complaints, Denies back pain, Denies arthralgias, Denies joint swelling, Denies neck pain, Denies numbness and Denies tingling Integumentary/Breasts: Skin/Breast: Reports system reviewed and no additional complaints, except as docu and Denies rash Neurologic: Reports system reviewed and no additional complaints, except as documented, Denies Abnormal speech present, Denies dizziness, Denies headache(s), Denies numbness, Denies tingling and Denies weakness [facility] Past Medical History Attestation statement: The following information was validated with the patient. Source: old records reviewed and nursing notes reviewed Medical History HTN (hypertension) Surgical History Hx of cardiac catheterization No significant past surgical history Surgical history unknown Social History Social History Household Members: Spouse Housing: House Do you presently have visiting nurse or other home services: No Alcohol intake: never Patient Tobacco Use Status: Never used Tobacco Advance Directives: No Advance Directives Information Provided: Yes Physical Exam Vital Signs: Vital Signs: Last Vital Signs Temp 97.6 F 07/26/21 20:50 Pulse 84 07/26/21 20:50 Resp 18 07/26/21 20:50 BP 155/94 H 07/26/21 22:33 Pulse Ox 99 07/26/21 20:50 BMI result Body Mass Index 26.4 Const: General: cooperative, healthy appearing, comfortable and no acute distress Orientation/consciousness: patient oriented x3 Limitations: no limitations HENMT: Head: Yes normal to inspection Ears: hearing grossly normal bilaterally General nose exam: Normal external nose present Face and sinus: Yes normal facial exam Mouth: Normal oral and palatal mucosa present Throat: Yes posterior oropharynx normal Eyes: General: appearance normal, both eyes and all related structures Pupils: Equal, round and reactive pupils present Neck: Neck: Yes normal visual inspection Chest: Chest palpation & inspection: normal inspection of the chest Resp: Effort & Inspection: normal respiratory effort Auscultation: clear to auscultation bilaterally Cardio: Rate: regular rate Rhythm: regular rhythm Peripheral pulses: Peripheral pulses 2+ throughout GI: Inspection: Yes normal to inspection Palpation (GI): Soft to palpation and nontender Auscultation: normal bowel sounds Back/Spine/Pelvis: Thoracic/Lumbar Spine: thoracic and lumbar spine normal to inspection Skin: General skin exam: no rashes or lesions noted Neuro: General: patient oriented x3, no focal motor deficits and normal sensation to monofilament Cranial nerves: Yes Equal, round and reactive pupils present Cognition (Neuro): normal cognition Speech: No Abnormal speech present Gait exam (Neuro): Normal gait present Motor exam (neuro): 5/5 motor strength present throughout Extrem: General: Yes normal to inspection, Yes no pedal edema and Yes no calf tenderness Course Course Course Narrative: 61-year-old male here with reports of mid back pain which lasted for 20 minutes 4 hours prior to arrival and is now resolved with no other associated symptoms with her recent SC and stenting at [facility]. Patient denies any chest pain, shortness of breath, nausea, vomiting, diaphoresis. He tells me this pain was not similar to his previous SC. Will check EKG, labs, chest x-ray 2300-initial troponin and EKG unremarkable. Plan for repeat. Patient has no symptoms at this time 0100-initial troponin 4.7. Repeat troponin is 8. Serial EKGs are unchanged. Patient has had no symptoms since being here in the emergency department. He is being medically managed for his CAD with Brilinta and aspirin and followed closely by Cardiology. His episode of back pain seems more muscular which as patient tells me was antagonized by his anxiety and resolved with a dose of klonopin [employer]. Atypical for ACS. 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 Reviewed worrisome signs and symptoms of when to return to the emergency department. Comfortable discharge home. MDM - Chest Pain MDM Narrative Medical decision making narrative: acs Medical Records Data Attestation: I reviewed the patient's medical records. Lab Data Attestation: I reviewed the patient's lab results. Result diagrams: 07/26/21 22:03 07/26/21 22:03 Labs: Lab Results 07/26/21 07/26/21 07/26/21 Range/Units 22:03 22:03 22:03 WBC 5.9 (4.8-10.8) X10*3/uL RBC 5.19 (4.60-5.80) X10*6/uL Hgb 15.2 (14.0-18.0) g/dl Hct 45.2 (42.0-52.0) % MCV 87.1 (80.0-98.0) fL MCH 29.3 (27.0-33.0) pg MCHC 33.6 (31.0-36.0) g/dl RDW 12.1 (11.0-16.0) % Plt Count 181 (160-400) X10*3/uL MPV 10.8 (9.4-12.4) fL Immature Gran % (Auto) 0.2 (0.0-0.4) % Neut % (Auto) 72.2 (45-73) % Lymph % (Auto) 15.9 L (20-40) % Titus % (Auto) 9.0 (2-11) % Eos % (Auto) 2.4 (0-4) % Baso % (Auto) 0.3 (0-2) % Lymph # (Auto) 0.9 L (1.2-4.9) X10*3/uL Titus # (Auto) 0.5 (0.1-1.2) X10*3/uL Eos # (Auto) 0.1 (0.0-0.4) X10*3/uL Baso # (Auto) 0.0 (0.0-0.2) X10*3/uL Abs Immat Gran (auto) 0.01 (0.00-0.03) X10*3/uL Absolute Neuts (auto) 4.3 (2.0-8.3) x10*3/uL Absolute Nucleated RBC 0.000 (0.0-0.012) X10*3/uL Nucleated RBC % (auto) 0.0 (0.0-0.2) /100WBC Sodium 138 (135-145) mmol/L Potassium 3.3 (3.3-5.1) mmol/L Chloride 105 (96-108) mmol/L Carbon Dioxide 29 (22-29) mmol/L Anion Gap 7 L (12-20) BUN 18 H (9-16) mg/dL Creatinine 0.95 (0.5-1.4) mg/dL Estim Creat Clear Calc 88.0 Estimated GFR > 60 Random Glucose 135 H (60-115) mg/dL Calcium 10.3 H D (8.4-10.2) mg/dL Total Bilirubin 0.7 (0.0-1.0) mg/dL Direct Bilirubin 0.2 (0.0-0.5) mg/dL AST 24 (5-37) U/L ALT 42 H (0-40) U/L Alkaline Phosphatase 68 (39-117) U/L Troponin I High Sens 4.7 (<3.5-35.0) ng/L B-Natriuretic Peptide 12 (<100) pg/mL Total Protein 7.0 (6.5-8.0) g/dL Albumin 4.4 (3.5-5.0) g/dL Lipase 30 (8-78) U/L 07/27/21 Range/Units 00:23 WBC (4.8-10.8) X10*3/uL RBC (4.60-5.80) X10*6/uL Hgb (14.0-18.0) g/dl Hct (42.0-52.0) % MCV (80.0-98.0) fL MCH (27.0-33.0) pg MCHC (31.0-36.0) g/dl RDW (11.0-16.0) % Plt Count (160-400) X10*3/uL MPV (9.4-12.4) fL Immature Gran % (Auto) (0.0-0.4) % Neut % (Auto) (45-73) % Lymph % (Auto) (20-40) % Titus % (Auto) (2-11) % Eos % (Auto) (0-4) % Baso % (Auto) (0-2) % Lymph # (Auto) (1.2-4.9) X10*3/uL Titus # (Auto) (0.1-1.2) X10*3/uL Eos # (Auto) (0.0-0.4) X10*3/uL Baso # (Auto) (0.0-0.2) X10*3/uL Abs Immat Gran (auto) (0.00-0.03) X10*3/uL Absolute Neuts (auto) (2.0-8.3) x10*3/uL Absolute Nucleated RBC (0.0-0.012) X10*3/uL Nucleated RBC % (auto) (0.0-0.2) /100WBC Sodium (135-145) mmol/L Potassium (3.3-5.1) mmol/L Chloride (96-108) mmol/L Carbon Dioxide (22-29) mmol/L Anion Gap (12-20) BUN (9-16) mg/dL Creatinine (0.5-1.4) mg/dL Estim Creat Clear Calc Estimated GFR Random Glucose (60-115) mg/dL Calcium (8.4-10.2) mg/dL Total Bilirubin (0.0-1.0) mg/dL Direct Bilirubin (0.0-0.5) mg/dL AST (5-37) U/L ALT (0-40) U/L Alkaline Phosphatase (39-117) U/L Troponin I High Sens 8.1 D (<3.5-35.0) ng/L B-Natriuretic Peptide (<100) pg/mL Total Protein (6.5-8.0) g/dL Albumin (3.5-5.0) g/dL Lipase (8-78) U/L Imaging Data Chest x-ray: Attestation: I personally reviewed and interpreted this imaging study as follows: Radiologist's impression: [id number] [place] [address] XRay Report Signed Patient: Seferino Clemente MR#: [id number] : 1960 Acct:[id number] Age/Sex: 61 / M ADM Date: 07/26/21 Loc: HO.ED Attending Dr: Ordering Physician: Ivis Metcalf NP Date of Service: 07/26/21 Procedure(s): XR chest 2V Accession Number(s): [id number] cc: Ivis Metcalf NP~ EXAMINATION: XR CHEST CLINICAL INFORMATION: Back pain COMPARISON: 04/17/2001 TECHNIQUE: 2 views of the chest were obtained. FINDINGS: The lungs are clear with no focal consolidation. No evidence of pneumothorax, pulmonary edema, or pleural effusions. The cardiomediastinal silhouette is unremarkable. No acute osseous findings. XR/XR chest 2V IMPRESSION: No acute cardiopulmonary findings. ECG Data ECG #1: Attestation: I personally reviewed and interpreted this ECG as follows: ECG interpretation date: 07/26/21 ECG interpretation time: 20:43 Interpretation: Normal sinus rhythm with a rate of 82, normal [place], normal QRS, normal QT. Non specific St changes Repeat EKG unchanged Discharge Plan Discharge Clinical Impression: Back pain Patient Disposition: Home, Self-Care Instructions: Back Pain (ED) Additional Instructions: Your lab work, EKG and chest x-ray all look normal. You had no complaints of pain while in the emergency department. Follow-up with your PCP and clipper operator. Prescriptions: No Action clonazepam 0.5 mg tablet 1 tab PO DAILY PRN (Reason: anxiety) RF: 0 omeprazole 20 mg capsule,delayed release(DR/EC) 1 cap PO DAILY RF: 0 atorvastatin 80 mg Tablet 80 mg PO BEDTIME Qty: 30 RF: 0 acetaminophen 325 mg Tablet 650 mg PO Q6H PRN (Reason: Pain, Mild (Pain Scale 1-3)) Qty: 30 RF: 0 aspirin 81 mg Tablet,Delayed Release (/Ec) 81 mg PO DAILY Qty: 30 RF: 0 escitalopram oxalate 10 mg tablet 10 mg PO DAILY RF: 0 fluticasone propionate 50 mcg/actuation spray,suspension intranasal RF: 0 loratadine 10 mg tablet 10 mg PO DAILY RF: 0 finasteride 5 mg tablet 5 mg PO DAILY 90 Days Qty: 90 RF: 1 lisinopril 5 mg tablet 5 mg PO DAILY RF: 0 ticagrelor 90 mg tablet 90 mg PO BID RF: 0 docusate sodium 100 mg capsule 100 mg PO BEDTIME Qty: 30 RF: 3 metoprolol succinate 25 mg tablet extended release 24 hr 25 mg PO DAILY RF: 0 Referrals: Name,MD Jabari [Primary Care Provider] - 2 days Print Language: [place]
[2021-07-26 22:39] LABS: Alanine Aminotransferase 42 U/L (0-40); Albumin Level 4.4 g/dL (3.5-5.0); Alkaline Phosphatase 68 U/L (39-117); Aspartate Amino Transferase 24 U/L (5-37); Bilirubin Direct 0.2 mg/dL (0.0-0.5); Bilirubin Total 0.7 mg/dL (0.0-1.0); Lipase 30 U/L (8-78)
[2021-07-26 22:46] LABS: B Type Natriuretic Peptide 12 pg/mL (<100)
[2021-07-27 00:55] LABS: Troponin-I High Sensitivity 8.1 ng/L (<3.5-35.0)
--- NOTE | 2021-07-27 01:04 | ECG_ITS ---
Test Reason : CHEST PAIN Blood Pressure : / mmHG Vent. Rate : 064 BPM Atrial Rate : 064 BPM P-R Int : 192 ms QRS Dur : 102 ms QT Int : 432 ms P-R-T Axes : 049 -06 -09 degrees QTc Int : 445 ms Normal sinus rhythm Nonspecific T wave abnormality Abnormal ECG When compared with ECG of 26-JUL-2021 20:43, ST no longer depressed in Anterior leads Nonspecific T wave abnormality now evident in Anterolateral leads Referred By: Ivis Metcalf Electronically Signed By:SHAKEEL RADFORD MD
== END 2021-07-27 01:32 | disposition home or self-care (01) ==
PROVIDERS: Nurse Practitioner Family; Emergency Provider Internal Medicine; PCP Internal Medicine Geriatric Medicine
DX: M54.9 Dorsalgia, unspecified (principal); F41.9 Anxiety disorder, unspecified; I25.10 Atherosclerotic heart disease of native coronary artery without angina pectoris; I10 Essential (primary) hypertension; I25.2 Old myocardial infarction; Z79.82 Long term (current) use of aspirin; Z79.899 Other long term (current) drug therapy; Z95.5 Presence of coronary angioplasty implant and graft
CPT/HCPCS: 36415; 71046; 80048; 80076; 83690; 83880; 84484; 85025; 93005; 99283

== ENCOUNTER → 2021-08-13 10:52 | Outpatient (BNVA) | payer MEDICAID, SELFPAY ==
[2021-07-29 14:22] VITALS: BMI 26.2
== END ==
PROVIDERS: PCP Internal Medicine Geriatric Medicine; Referring Provider Internal Medicine Geriatric Medicine; Visit Provider Internal Medicine
DX: I25.2 Old myocardial infarction (principal); I10 Essential (primary) hypertension
CPT/HCPCS: 99212

== ENCOUNTER 2021-09-02 22:14 | Emergency (ER) | payer MEDICAID, SELFPAY ==
[2021-07-29 14:22] VITALS: BMI 26.2
[2021-09-02 22:39] VITALS: BP 155/87; PULSE 83; RESP 18; TEMP 36.3; O2SAT 98; BMI 25.7
--- NOTE | 2021-09-02 23:00 | ED.MALEGU ---
HPI - Male Genitourinary General Chief complaint: Urogenital-Male Stated complaint: lower right side abd pain Time Seen by Provider: 09/02/21 23:00 Source: patient Mode of arrival: ambulatory Limitations: no limitations History of Present Illness HPI Narrative: Patient complaining of rash on his pain and area and painful swelling in right inguinal area no pain and discharge also complaining of slight pain when he urinates no frequency no hematuria no abdominal pain no fever or chills no rash anywhere else patient does not remember any contact with any chemicals Related Data Home Medications Medication Instructions Recorded Confirmed clonazepam 0.5 mg tablet 1 tab PO DAILY PRN 04/17/21 08/13/21 omeprazole 20 mg capsule,delayed 1 cap PO DAILY 04/17/21 08/13/21 release lisinopril 5 mg tablet 5 mg PO DAILY 04/22/21 08/13/21 ticagrelor 90 mg tablet 90 mg PO BID 04/22/21 08/13/21 metoprolol succinate 25 mg 25 mg PO DAILY 05/20/21 08/13/21 tablet,extended release 24 hr escitalopram oxalate 10 mg tablet 10 mg PO DAILY 06/30/21 08/13/21 fluticasone propionate 50 spray INTRANASAL 06/30/21 08/13/21 mcg/actuation nasal spray,suspension loratadine 10 mg tablet 10 mg PO DAILY 06/30/21 08/13/21 Previous Rx's Medication Instructions Recorded acetaminophen 325 mg tablet 650 mg PO Q6H PRN #30 tab 04/17/21 aspirin 81 mg tablet,delayed 81 mg PO DAILY #30 tab 04/17/21 release atorvastatin 80 mg tablet 80 mg PO BEDTIME #30 tab 04/17/21 docusate sodium 100 mg capsule 100 mg PO BEDTIME #30 cap 04/22/21 finasteride 5 mg tablet 5 mg PO DAILY 90 Days #90 tab 06/30/21 diphenhydramine HCl 25 mg capsule 50 mg PO Q6H PRN #20 cap 09/03/21 (Benadryl) hydrocortisone 1 % topical cream 1 appl TOPICAL TID PRN #28.35 g 09/03/21 (Anti-Itch (hydrocortisone)) Allergies Allergy/AdvReac Type Severity Reaction Status Date / Time No Known Allergies Allergy Verified 08/13/21 11:03 [No Known Allergies*] Review of Systems Review of Systems: Yes all other systems are reviewed and are negative [facility] Past Medical History Medical History Hernia HTN (hypertension) Surgical History Hx of cardiac catheterization No significant past surgical history Surgical history unknown Family History Family History Father No problems noted. Mother Hypertension Social History Social History Household Members: Spouse Housing: House Do you presently have visiting nurse or other home services: No Alcohol intake: never Patient Tobacco Use Status: Never used Tobacco Advance Directives: No Advance Directives Information Provided: No Physical Exam Vital Signs: Vital Signs: Last Vital Signs Temp 98.5 F 09/03/21 00:06 Pulse 87 09/03/21 00:06 Resp 16 09/03/21 00:06 BP 136/88 09/03/21 00:06 Pulse Ox 98 09/03/21 00:06 BMI result Body Mass Index 25.7 Const: General: comfortable and no acute distress GI: Inspection: Yes normal to inspection Palpation (GI): Soft to palpation and nontender : Other: 0.5 x 0.5 right inguinal lymphadenopathy slightly tender no inguinal hernia palpable no hydrocele no varicocele epididymis normal testicle normal patient has slight swelling of the penis clinically allergic reaction Penis: circumcised MDM - Male Genitourinary MDM Narrative Medical decision making narrative: Patient with right inguinal lymphadenopathy with some likely allergic reaction to the penis area discharge patient home on Benadryl and hydrocortisone Lab Data Attestation: I reviewed the patient's lab results. Labs: Lab Results 09/02/21 Range/Units 23:01 Urine Color YELLOW Urine Appearance CLEAR Urine pH 6.5 (5.0-8.0) Ur Specific [place] 1.020 (1.005-1.025) Urine Protein NEG (NEG-TRACE) MG/DL Urine Glucose (UA) NEG (NEG) MG/DL Urine Ketones 5 (NEG) MG/DL Urine Blood TRACE (NEG) Urine Nitrite NEG (NEG) Ur Leukocyte Esterase NEG (NEG) Urine RBC 1-4 (0) /HPF Urine WBC 1-4 (0-4) /HPF Ur Squamous Epith Cells TRACE /LPF Urine Bacteria TRACE /LPF Urine Mucus TRACE /LPF Discharge Plan Discharge Clinical Impression: Allergic reaction, Acute inguinal lymphadenitis Patient Disposition: Home, Self-Care Instructions: Lymphadenopathy (ED), General Allergic Reaction (ED) Additional Instructions: You have lymph node enlargement in the groin area secondary to allergic reaction in her private area Take Benadryl apply small amount of hydrocortisone cream on the affected area Report to the ER/PCP worsening of the swelling or rash Prescriptions: New diphenhydramine HCl [Benadryl] 25 mg capsule 50 mg PO Q6H PRN (Reason: allergic reaction) Qty: 20 0RF hydrocortisone [Anti-Itch (HC)] 1 % cream 1 appl topical TID PRN (Reason: allergic reaction) Qty: 28.35 0RF No Action clonazepam 0.5 mg tablet 1 tab PO DAILY PRN (Reason: anxiety) 0RF omeprazole 20 mg capsule,delayed release(DR/EC) 1 cap PO DAILY 0RF atorvastatin 80 mg Tablet 80 mg PO BEDTIME Qty: 30 0RF acetaminophen 325 mg Tablet 650 mg PO Q6H PRN (Reason: Pain, Mild (Pain Scale 1-3)) Qty: 30 0RF aspirin 81 mg Tablet,Delayed Release (Dr/Ec) 81 mg PO DAILY Qty: 30 0RF escitalopram oxalate 10 mg tablet 10 mg PO DAILY 0RF fluticasone propionate 50 mcg/actuation spray,suspension intranasal 0RF loratadine 10 mg tablet 10 mg PO DAILY 0RF finasteride 5 mg tablet 5 mg PO DAILY 90 Days Qty: 90 1RF lisinopril 5 mg tablet 5 mg PO DAILY 0RF ticagrelor 90 mg tablet 90 mg PO BID 0RF docusate sodium 100 mg capsule 100 mg PO BEDTIME Qty: 30 3RF metoprolol succinate 25 mg tablet extended release 24 hr 25 mg PO DAILY 0RF Interventions: ED Discharge Assessment Last Done: 09/03/21 00:13 Discharge Date/Time: 09/03/21 00:15
[2021-09-02 23:16] LABS: Appearance Urine CLEAR; Color Urine YELLOW; Glucose Urine UA NEG (NEG); Leukocyte Esterase Urine NEG (NEG); Nitrite Urine NEG (NEG); PH 6.5 (5.0-8.0); UACC Culture Trigger NO; Urine Blood TRACE (NEG); Urine Ketones 5 MG/DL (NEG); Urine Protein NEG (NEG-TRACE)
[2021-09-02 23:34] LABS: Bacteria Urine TRACE /LPF; Mucus Urine TRACE /LPF; Squamous Epithelial Cell Urine TRACE /LPF
[2021-09-03 00:06] VITALS: BP 136/88; PULSE 87; RESP 16; TEMP 36.9; O2SAT 98
[2021-09-03] MEDS: diphenhydrAMINE HCL 25 MG TABLET 50 MG PO (00:08)
== END 2021-09-03 00:15 | disposition home or self-care (01) ==
PROVIDERS: Emergency Provider Internal Medicine; PCP Internal Medicine Geriatric Medicine
DX: T78.40XA Allergy, unspecified, initial encounter (principal); R21 Rash and other nonspecific skin eruption; L04.1 Acute lymphadenitis of trunk; X58.XXXA Exposure to other specified factors, initial encounter
CPT/HCPCS: 81001; 99283; 99284; Q0163

== ENCOUNTER 2021-10-27 22:33 | Emergency (ER) | payer MEDICAID, SELFPAY ==
[2021-07-29 14:22] VITALS: BMI 26.2
[2021-10-27 23:42] VITALS: BP 156/93; PULSE 70; RESP 12; TEMP 36.7; O2SAT 98; BMI 26.4
--- NOTE | 2021-10-27 23:46 | ECG_ITS ---
Test Reason : CHEST PAIN Blood Pressure : / mmHG Vent. Rate : 070 BPM Atrial Rate : 070 BPM P-R Int : 170 ms QRS Dur : 106 ms QT Int : 412 ms P-R-T Axes : 060 021 021 degrees QTc Int : 444 ms Normal sinus rhythm Nonspecific T wave abnormality Abnormal ECG When compared with ECG of 27-JUL-2021 01:13, No significant change was found Referred By: Generic ED Physician Electronically Signed By:SHAKEEL RADFORD MD
[2021-10-27 23:55] LABS: Hematocrit 44.9 % (42.0-52.0); Hemoglobin 15.1 g/dl (14.0-18.0); Mean Corpuscular HGB Conc 33.6 g/dl (31.0-36.0); Mean Corpuscular Hemoglobin 29.3 pg (27.0-33.0); Mean Platelet Volume 10.4 fL (9.4-12.4); Platelet Count 171 X10*3/uL (160-400); Red Blood Count 5.16 X10*6/uL (4.60-5.80); Red Cell Distribution Width 12.8 % (11.0-16.0); White Blood Count 5.7 X10*3/uL (4.8-10.8)
[2021-10-28 00:13] LABS: Alanine Aminotransferase 31 U/L (0-40); Albumin Level 4.3 g/dL (3.5-5.0); Alkaline Phosphatase 67 U/L (39-117); Anion Gap 10 (12-20); Aspartate Amino Transferase 23 U/L (5-37); Bilirubin Total 0.5 mg/dL (0.0-1.0); Blood Urea Nitrogen 22 mg/dL (9-16); Calcium 9.8 mg/dL (8.4-10.2); Carbon Dioxide 29 mmol/L (22-29); Chloride 106 mmol/L (96-108); Creatinine Clr Calc Pharmacy 83.6; Estimated Glomerular Filt Rate > 60; Glucose Random 102 mg/dL (60-115); Potassium 3.8 mmol/L (3.3-5.1); Sodium 141 mmol/L (135-145); Total Protein 6.7 g/dL (6.5-8.0)
[2021-10-28 00:20] LABS: Troponin-I High Sensitivity 5.3 ng/L (<3.5-35.0)
[2021-10-28 00:33] LABS: Lipase 39 U/L (8-78)
--- NOTE | 2021-10-28 00:55 | ED.CHESTPAIN ---
HPI - Chest Pain General Chief Complaint: Chest Pain Stated Complaint: chest pain, history of fainting Time Seen by Provider: 10/28/21 00:18 Source: patient Mode of arrival: ambulatory Limitations: no limitations History of Present Illness HPI narrative: Patient history of hypertension coronary disease status post marginal stenting and 04/14 comes here for burning sensation in her mid chest after having dinner and 20:30 lasted for about an hour got better after taking Pepcid no pain or burning sensation at this time patient feeling much better no nausea or vomiting, this burning sensation is different than when he was admitted here on 04/14 for non STEMI, on Brilinta and metoprolol at this time Related Data Home Medications Medication Instructions Recorded Confirmed clonazepam 0.5 mg tablet 1 tab PO DAILY PRN 04/17/21 08/13/21 omeprazole 20 mg capsule,delayed 1 cap PO DAILY 04/17/21 08/13/21 release lisinopril 5 mg tablet 5 mg PO DAILY 04/22/21 08/13/21 ticagrelor 90 mg tablet 90 mg PO BID 04/22/21 08/13/21 metoprolol succinate 25 mg 25 mg PO DAILY 05/20/21 08/13/21 tablet,extended release 24 hr escitalopram oxalate 10 mg tablet 10 mg PO DAILY 06/30/21 08/13/21 fluticasone propionate 50 spray INTRANASAL 06/30/21 08/13/21 mcg/actuation nasal spray,suspension loratadine 10 mg tablet 10 mg PO DAILY 06/30/21 08/13/21 Previous Rx's Medication Instructions Recorded acetaminophen 325 mg tablet 650 mg PO Q6H PRN #30 tab 04/17/21 aspirin 81 mg tablet,delayed 81 mg PO DAILY #30 tab 04/17/21 release atorvastatin 80 mg tablet 80 mg PO BEDTIME #30 tab 04/17/21 docusate sodium 100 mg capsule 100 mg PO BEDTIME #30 cap 04/22/21 finasteride 5 mg tablet 5 mg PO DAILY 90 Days #90 tab 06/30/21 diphenhydramine HCl 25 mg capsule 50 mg PO Q6H PRN #20 cap 09/03/21 (Benadryl) hydrocortisone 1 % topical cream 1 appl TOPICAL TID PRN #28.35 g 09/03/21 (Anti-Itch (hydrocortisone)) Allergies Allergy/AdvReac Type Severity Reaction Status Date / Time No Known Allergies Allergy Verified 08/13/21 11:03 [No Known Allergies*] Review of Systems Review of Systems: Yes all other systems are reviewed and are negative [facility] Past Medical History Medical History Hernia HTN (hypertension) Surgical History Hx of cardiac catheterization No significant past surgical history Surgical history unknown Family History Family History Father No problems noted. Mother Hypertension Social History Social History Household Members: Spouse Housing: House Do you presently have visiting nurse or other home services: No Alcohol intake: never Patient Tobacco Use Status: Never used Tobacco Advance Directives: No Advance Directives Information Provided: Yes Physical Exam Vital Signs: Vital Signs: Last Vital Signs Temp 98.0 F 10/27/21 23:42 Pulse 71 10/28/21 00:58 Resp 14 10/28/21 00:58 BP 155/89 H 10/28/21 00:58 Pulse Ox 98 10/28/21 00:58 BMI result Body Mass Index 26.4 Appearance: Alert. Oriented X3. No acute distress. Eyes: PERRLA, No Nystagmus ENT: Pharynx normal. Oral Mucosa moist Neck: Normal inspection. Neck supple. CVS: Normal heart rate and rhythm. Pulses normal. Respiratory: No respiratory distress. Equal air entry bilateral, no wheezing/rales/rhonchi Abdomen: Soft and nontender. Bowel sounds are present, no mass palpable, no CVA tenderness Skin: Skin warm and dry. Normal skin color. Normal skin turgor. Extremities: No lower extremity edema. No calf tenderness Neuro: Oriented X 3. No motor deficit. MDM - Chest Pain MDM Narrative Medical decision making narrative: Patient with atypical chest pain feels like burning sensation with history of GERD no pain at this time normal EKG initial troponins negative will repeat troponin at 02:00 and follow Medical Records Data Attestation: I reviewed the patient's medical records. Lab Data Attestation: I reviewed the patient's lab results. Result diagrams: 10/27/21 23:50 10/27/21 23:50 Labs: Lab Results 10/27/21 10/27/21 10/27/21 Range/Units 23:50 23:50 23:50 WBC 5.7 (4.8-10.8) X10*3/uL RBC 5.16 (4.60-5.80) X10*6/uL Hgb 15.1 (14.0-18.0) g/dl Hct 44.9 (42.0-52.0) % MCV 87.0 (80.0-98.0) fL MCH 29.3 (27.0-33.0) pg MCHC 33.6 (31.0-36.0) g/dl RDW 12.8 (11.0-16.0) % Plt Count 171 (160-400) X10*3/uL MPV 10.4 (9.4-12.4) fL Absolute Nucleated RBC 0.000 (0.0-0.012) X10*3/uL Nucleated RBC % (auto) 0.0 (0.0-0.2) /100WBC Sodium 141 (135-145) mmol/L Potassium 3.8 (3.3-5.1) mmol/L Chloride 106 (96-108) mmol/L Carbon Dioxide 29 (22-29) mmol/L Anion Gap 10 L (12-20) BUN 22 H (9-16) mg/dL Creatinine 1.00 (0.5-1.4) mg/dL Estim Creat Clear Calc 83.6 Estimated GFR > 60 Random Glucose 102 (60-115) mg/dL Calcium 9.8 (8.4-10.2) mg/dL Total Bilirubin 0.5 (0.0-1.0) mg/dL AST 23 (5-37) U/L ALT 31 (0-40) U/L Alkaline Phosphatase 67 (39-117) U/L Troponin I High Sens 5.3 (<3.5-35.0) ng/L Total Protein 6.7 (6.5-8.0) g/dL Albumin 4.3 (3.5-5.0) g/dL Lipase 39 (8-78) U/L ECG Data ECG #1: Attestation: I personally reviewed and interpreted this ECG as follows: Interpretation: Normal sinus rhythm heart rate 70 beats per minute normal intervals normal axis T-wave in her inversion V3 to V6 no significant change from previous EKG on 07/27/2021 no acute schema Discharge Plan Discharge Clinical Impression: Esophagitis, Chest pain Patient Disposition: Still a Patient Instructions: Chest Pain (ED), Esophagitis (ED) Additional Instructions: Avoid fried food Continue your medications including Prilosec Report to the ER if pain gets worse Prescriptions: No Action clonazepam 0.5 mg tablet 1 tab PO DAILY PRN (Reason: anxiety) 0RF omeprazole 20 mg capsule,delayed release(DR/EC) 1 cap PO DAILY 0RF atorvastatin 80 mg Tablet 80 mg PO BEDTIME Qty: 30 0RF acetaminophen 325 mg Tablet 650 mg PO Q6H PRN (Reason: Pain, Mild (Pain Scale 1-3)) Qty: 30 0RF aspirin 81 mg Tablet,Delayed Release (Dr/Ec) 81 mg PO DAILY Qty: 30 0RF diphenhydramine HCl [Benadryl] 25 mg capsule 50 mg PO Q6H PRN (Reason: allergic reaction) Qty: 20 0RF hydrocortisone [Anti-Itch (HC)] 1 % cream 1 appl topical TID PRN (Reason: allergic reaction) Qty: 28.35 0RF escitalopram oxalate 10 mg tablet 10 mg PO DAILY 0RF fluticasone propionate 50 mcg/actuation spray,suspension intranasal 0RF loratadine 10 mg tablet 10 mg PO DAILY 0RF finasteride 5 mg tablet 5 mg PO DAILY 90 Days Qty: 90 1RF lisinopril 5 mg tablet 5 mg PO DAILY 0RF ticagrelor 90 mg tablet 90 mg PO BID 0RF docusate sodium 100 mg capsule 100 mg PO BEDTIME Qty: 30 3RF metoprolol succinate 25 mg tablet extended release 24 hr 25 mg PO DAILY 0RF
[2021-10-28 00:58] VITALS: BP 155/89; PULSE 71; RESP 14; O2SAT 98
[2021-10-28 02:03] VITALS: BP 137/90; PULSE 61; RESP 12; O2SAT 97
[2021-10-28 02:29] LABS: Troponin-I High Sensitivity 5.5 ng/L (<3.5-35.0)
== END 2021-10-28 02:54 | disposition home or self-care (01) ==
PROVIDERS: Student in an Organized Health Care Education/Training Program; Emergency Provider Internal Medicine
DX: R07.9 Chest pain, unspecified (principal); K20.90 Esophagitis, unspecified without bleeding; I10 Essential (primary) hypertension; Z79.82 Long term (current) use of aspirin; Z79.899 Other long term (current) drug therapy
CPT/HCPCS: 36415; 80053; 83690; 84484; 85027; 93005; 99283; 99284

== ENCOUNTER 2021-11-17 07:51 | Outpatient (REF) | payer MEDICAID, SELFPAY ==
[2021-07-29 14:22] VITALS: BMI 26.2
--- NOTE | ~2021-11-17 | US_ITS ---
EXAMINATION: US COMPLETE ABDOMEN WITH LIVER ELASTOGRAPHY CLINICAL INFORMATION: Abnormal blood chemistry, GERD COMPARISON: CT abdomen and pelvis 11/10/2014 TECHNIQUE: Real-time imaging of the abdominal viscera. Noninvasive ultrasound liver fibrosis assessment is performed using Maryann ElastPQ point quantification shear wave elastography (2D-SWE) with a C5-2 MHz transducer. Multiple elastography samples are obtained. FINDINGS: PANCREAS: Normal. The visualized pancreatic head and body are normal in appearance. The remainder of the pancreas is obscured from visualization by the overlying bowel gas. ABDOMINAL AORTA: The proximal and distal aortic segments are normal in caliber. The midportion of the aorta is not well-visualized. INFERIOR VENA CAVA: Visualized portions are normal. LIVER: The liver is normal in size and contour. No focal lesion or intrahepatic duct dilation is seen. Overall liver echogenicity is increased suggesting steatosis or other hepatocellular disease. The right lobe measures 14.8 cm in length. The left lobe measures 11.3 cm in length. Portal flow is towards the liver (hepatopetal). Shear wave liver elastography median stiffness is 2.42 m/s (reference: normal median stiffness is 1.3 m/s or less). IQR/median stiffness to assess sampling precision is 0.19 (reference: good quality data set is IQR/median stiffness of 0.15 or less). GALLBLADDER: Normal. The gallbladder is physiologically distended without evidence of stones, sludge, polyps, wall thickening or pericholecystic fluid. COMMON BILE DUCT: Normal in caliber measuring 0.4 cm in diameter. RIGHT KIDNEY: There is a punctate cortical calcification at the mid to lower pole of the right kidney which arguably may been present on prior CT 11/10/2014 and is of doubtful clinical significance. No hydronephrosis. No renal calculi or other focal parenchymal lesions. The kidney measures 10.5 cm in maximum dimension. LEFT KIDNEY: Normal. No hydronephrosis. No renal calculi or focal parenchymal lesions. The kidney measures 12.4 cm in maximum dimension. SPLEEN: Normal. The spleen measures 12 cm in maximum dimension. FREE FLUID: None. US/US abdomen comp w elastography IMPRESSION: 1. Echogenic liver parenchyma compatible with steatosis or hepatocellular disease. 2. Liver elastography: Although measurements appear suggestive of clinically significant portal hypertension, there is statistical variability of the sampling which decreases accuracy. REFERENCE: Society of Radiologists in Ultrasound Liver Stiffness Thresholds (2020): LIVER STIFFNESS THRESHOLDS: *Liver Stiffness equal or less than 1.3 m/s: High probability of being normal. *Liver Stiffness less than 1.7 m/s: In the absence of other known clinical signs, rules out compensated advanced chronic liver disease. *Liver Stiffness 1.7-2.1 m/s: Suggestive of compensated advanced chronic liver disease but need further test for confirmation. *Liver Stiffness over 2.1 m/s: Rules in compensated advanced chronic liver disease. *Liver Stiffness over 2.4 m/s: Suggestive of clinically significant portal hypertension. QUALITY OF DATA SET: *IQR/Median value equal or less than 0.15 implies a quality data set. *IQR/Median value over 0.15 implies a poor quality data set. SIGNIFICANT CHANGE FROM PRIOR EXAM: Significant change if liver stiffness measurement is 10% or greater from prior exam. OTHER CONSIDERATIONS: The stage of liver fibrosis may be overestimated in the setting of acute hepatitis, liver inflammation, elevated liver function tests, hepatic vascular congestion, obstructive cholestasis, non-fasting state, and infiltrative diseases such as amyloidosis and lymphoma. In some patients with NAFLD, the liver stiffness thresholds for compensated advanced chronic liver disease may be lower. In causes other than viral hepatitis and NAFLD, liver stiffness thresholds are not well established.
== END 2021-11-17 07:52 | disposition home or self-care (01) ==
LOC: HO.US 07:51
PROVIDERS: Visit Provider Nurse Practitioner Family
DX: R79.89 Other specified abnormal findings of blood chemistry (principal); R94.5 Abnormal results of liver function studies
CPT/HCPCS: 76705; 76981

== ENCOUNTER 2022-01-06 08:54 | Outpatient (REF) | payer MEDICAID, SELFPAY ==
[2021-07-29 14:22] VITALS: BMI 26.2
[2022-01-06 10:28] LABS: PSA,Total (Free>4and<10) 2.01 ng/mL (0.00-4.00)
== END 2022-01-06 08:55 | disposition home or self-care (01) ==
LOC: HO.LAB 08:54
PROVIDERS: PCP Internal Medicine Geriatric Medicine; Visit Provider Urology
DX: N40.1 Benign prostatic hyperplasia with lower urinary tract symptoms (principal); N13.8 Other obstructive and reflux uropathy; R97.20 Elevated prostate specific antigen [PSA]; Z12.5 Encounter for screening for malignant neoplasm of prostate
CPT/HCPCS: 36415; 84153

== ENCOUNTER → 2022-01-08 13:10 | Outpatient (BNVA) | payer MEDICAID, SELFPAY ==
[2021-07-29 14:22] VITALS: BMI 26.2
== END ==
PROVIDERS: PCP Internal Medicine Geriatric Medicine; Visit Provider Urology
DX: R97.20 Elevated prostate specific antigen [PSA] (principal); N40.1 Benign prostatic hyperplasia with lower urinary tract symptoms; N13.8 Other obstructive and reflux uropathy
CPT/HCPCS: 99212

== ENCOUNTER 2022-03-26 23:10 | Emergency (ER) | payer MEDICAID, SELFPAY ==
[2021-07-29 14:22] VITALS: BMI 26.2
--- NOTE | ~2022-03-26 | XR_ITS ---
EXAMINATION: XR CHEST CLINICAL INFORMATION: Pain COMPARISON: Previous chest x-ray most recent July 2021 TECHNIQUE: Frontal view of the chest was obtained. FINDINGS: The cardiac and mediastinal contours are stable. The lungs are clear. There is no pleural effusion or pneumothorax. There are degenerative changes of the spine. XR/XR chest 1V IMPRESSION: No evidence for acute disease in the chest.
--- NOTE | 2022-03-26 23:28 | ECG_ITS ---
Test Reason : CHEST PAIN Blood Pressure : / mmHG Vent. Rate : 065 BPM Atrial Rate : 065 BPM P-R Int : 186 ms QRS Dur : 092 ms QT Int : 436 ms P-R-T Axes : 053 011 007 degrees QTc Int : 453 ms Normal sinus rhythm Normal ECG When compared with ECG of 27-OCT-2021 23:46, Nonspecific T wave abnormality no longer evident in Lateral leads Referred By: Generic ED Physician Electronically Signed By:SAMANTHA PAULA
[2022-03-26 23:57] LABS: Hematocrit 46.6 % (42.0-52.0); Hemoglobin 15.6 g/dl (14.0-18.0); Mean Corpuscular HGB Conc 33.5 g/dl (31.0-36.0); Mean Corpuscular Hemoglobin 28.8 pg (27.0-33.0); Mean Platelet Volume 10.5 fL (9.4-12.4); Platelet Count 179 X10*3/uL (160-400); Red Blood Count 5.42 X10*6/uL (4.60-5.80); Red Cell Distribution Width 12.1 % (11.0-16.0); White Blood Count 5.7 X10*3/uL (4.8-10.8)
[2022-03-27 00:11] LABS: Alanine Aminotransferase 56 U/L (0-40); Albumin Level 4.5 g/dL (3.5-5.0); Alkaline Phosphatase 64 U/L (39-117); Anion Gap 13 (12-20); Aspartate Amino Transferase 33 U/L (5-37); Bilirubin Total 0.5 mg/dL (0.0-1.0); Blood Urea Nitrogen 20 mg/dL (9-16); Calcium 9.6 mg/dL (8.4-10.2); Carbon Dioxide 26 mmol/L (22-29); Chloride 104 mmol/L (96-108); Estimated Glomerular Filt Rate > 60; Glucose Random 109 mg/dL (60-115); Potassium 4.4 mmol/L (3.3-5.1); Sodium 139 mmol/L (135-145)
[2022-03-27 00:20] LABS: Troponin-I High Sensitivity 5.3 ng/L (<3.5-35.0)
[2022-03-27 00:52] VITALS: BP 169/92; PULSE 66; RESP 18; TEMP 37.1; O2SAT 100; BMI 26.4
[2022-03-27 03:20] VITALS: BP 162/92; PULSE 74; RESP 12; TEMP 36.7; O2SAT 99
[2022-03-27 05:27] VITALS: BP 120/72; PULSE 62; RESP 16; TEMP 36.7; O2SAT 98
[2022-03-27 06:07] VITALS: PULSE 60
--- NOTE | 2022-03-27 06:10 | PC.NURSE ---
Assumed care of pt at 0600. Pt denies any pain. States that pain subsided on its ow. Will continue to monitor pt.
--- NOTE | 2022-03-27 06:39 | PC.NURSE ---
no apparent distress, pt is currently sleeping
--- NOTE | 2022-03-27 06:48 | ED_ITS ---
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 He has no dyspnea/nausea. This is not typical for his heart issues. He thinks it is due to his job MD complaint: chest pain (upper back pain, lower back pain) Pertinent past history: coronary artery disease and prior CA Onset (ago): day(s) (4) Timing of current episode: episodic Prior episodes: No Onset: during rest Pain location: other (trapezius, lower back, chest) Pain radiation: none Severity: mild Quality: aching Relieving factors: nothing Exacerbating factors: palpation and movement Context: other (has lifting at his job) Treatment prior to arrival: none Related Data Home Medications Medication Instructions Recorded Confirmed clonazepam 0.5 mg tablet 1 tab PO DAILY PRN anxiety 04/17/21 08/13/21 omeprazole 20 mg capsule,delayed 1 cap PO DAILY 04/17/21 08/13/21 release lisinopril 5 mg tablet 5 mg PO DAILY 04/22/21 08/13/21 ticagrelor 90 mg tablet 90 mg PO BID 04/22/21 08/13/21 metoprolol succinate 25 mg 25 mg PO DAILY 05/20/21 08/13/21 tablet,extended release 24 hr escitalopram oxalate 10 mg tablet 10 mg PO DAILY 06/30/21 08/13/21 fluticasone propionate 50 spray intranasal 06/30/21 08/13/21 mcg/actuation nasal spray,suspension loratadine 10 mg tablet 10 mg PO DAILY 06/30/21 08/13/21 Previous Rx's Medication Instructions Recorded acetaminophen 325 mg tablet 650 mg PO Q6H PRN Pain, Mild (Pain 04/17/21 Scale 1-3) #30 tabs aspirin 81 mg tablet,delayed 81 mg PO DAILY #30 tabs 04/17/21 release atorvastatin 80 mg tablet 80 mg PO BEDTIME #30 tabs 04/17/21 docusate sodium 100 mg capsule 100 mg PO BEDTIME #30 caps 04/22/21 diphenhydramine HCl 25 mg capsule 50 mg PO Q6H PRN allergic reaction 09/03/21 (Benadryl) #20 caps hydrocortisone 1 % topical cream 1 appl topical TID PRN allergic 09/03/21 (Anti-Itch (hydrocortisone)) reaction #28.35 grams finasteride 5 mg tablet 5 mg PO DAILY 90 days #90 tabs 03/23/22 cyclobenzaprine 10 mg tablet 10 mg PO TID PRN muscle spasm #14 03/27/22 tabs lidocaine 4 % topical patch 1 patch topical DAILY PRN pain #10 03/27/22 ea Allergies Allergy/AdvReac Type Severity Reaction Status Date / Time No Known Allergies Allergy Verified 01/08/22 13:12 [No Known Allergies*] Review of Systems Review of Systems: Constitutional : No Weight loss, No Fever, No Chills ENT/Mouth : No sore throat, No Rhinorrhea Eyes: No Eye Pain, No Swelling Cardiovascular : pos Chest Pain, no SOB, no Dyspnea on Exertion, No Orthopnea, No Edema, No Palpitations Respiratory : No Cough, No Sputum Gastrointestinal : no Nausea, No Vomiting, No Diarrhea, No abdominal Pain, No Hematochezia, No Melena Genitourinary : No Dysuria, No Urinary Frequency Musculoskeletal : No joint pain, pos Myalgias, No Joint Swelling Skin : No Skin Lesions, No rash Neuro : No Weakness, No Numbness, No Dizziness, No Headache Psych : No Anxiety/Panic, No Depression Heme/Lymph: No Bruising, No Lymphadenopathy Endocrine : No Polyuria, No Polydipsia All other systems reviewed and are negative [facility] Past Medical History Medical History (Updated 03/27/22 @ 07:44 by Adeola Dos Santos DO) CAD (coronary artery disease) Hernia HTN (hypertension) Non-STEMI (non-ST elevated myocardial infarction) Surgical History Hx of cardiac catheterization No significant past surgical history Surgical history unknown Family History Family History Father No problems noted. Mother Hypertension Social History Social History Household Members: Spouse Housing: House Do you presently have visiting nurse or other home services: No Alcohol intake: never Patient Tobacco Use Status: Never used Tobacco Use of substances other than those prescribed or required for medical reasons: No Advance Directives: No Physical Exam Vital Signs: Vital Signs: Last Vital Signs Temp 98.0 F 03/27/22 05:27 Pulse 62 03/27/22 05:27 Resp 16 03/27/22 05:27 BP 120/72 03/27/22 05:27 Pulse Ox 98 03/27/22 05:27 O2 Del Method 03/27/22 05:27 BMI result Body Mass Index 26.4 Appearance: Alert. Oriented X3. No acute distress. Eyes: Pupils equal, round and reactive to light. ENT: Pharynx normal. Neck: Normal inspection. Neck supple. tightness and pain to bilateral trapezius that reproduces pain CVS: Normal heart rate and rhythm. Pulses normal. Respiratory: No respiratory distress. Breath sounds normal. Abdomen: Soft and nontender. Back: lower lumbar mild paraspinal pain Skin: Skin warm and dry. Normal skin color. Normal skin turgor. Extremities: No lower extremity edema. No calf ttp Neuro: Oriented X 3. No motor deficit. No sensory deficit. Course Course Course Narrative: troponin flat x 2 MDM - Chest Pain MDM Narrative Medical decision making narrative: 61 yo male with hx of BPH, CAD s/p two stents with NSTEMI last cath in april, GERD, HTN here with atypical pain in shoulders and lower back. He is not toxic appearing he is distal NV Intact, it hurts to move and he thinks it is due to his job. It does seem MSK. But given his history I am repeating two troponins 7 hours apart (wait time in ED). He himself states this is not his cardiac pain. Will order lidocaine patches and flexeril. Lab Data Result diagrams: 03/26/22 23:48 03/26/22 23:48 Labs: Lab Results 03/26/22 03/26/22 03/26/22 Range/Units 23:48 23:48 23:48 WBC 5.7 (4.8-10.8) X10*3/uL RBC 5.42 (4.60-5.80) X10*6/uL Hgb 15.6 (14.0-18.0) g/dl Hct 46.6 (42.0-52.0) % MCV 86.0 (80.0-98.0) fL MCH 28.8 (27.0-33.0) pg MCHC 33.5 (31.0-36.0) g/dl RDW 12.1 (11.0-16.0) % Plt Count 179 (160-400) X10*3/uL MPV 10.5 (9.4-12.4) fL Absolute Nucleated RBC 0.000 (0.0-0.012) X10*3/uL Nucleated RBC % (auto) 0.0 (0.0-0.2) /100WBC Sodium 139 (135-145) mmol/L Potassium 4.4 (3.3-5.1) mmol/L Chloride 104 (96-108) mmol/L Carbon Dioxide 26 (22-29) mmol/L Anion Gap 13 (12-20) BUN 20 H (9-16) mg/dL Creatinine 0.99 (0.5-1.4) mg/dL Estim Creat Clear Calc TNP Estimated GFR > 60 Random Glucose 109 (60-115) mg/dL Calcium 9.6 (8.4-10.2) mg/dL Total Bilirubin 0.5 (0.0-1.0) mg/dL AST 33 D (5-37) U/L ALT 56 H (0-40) U/L Alkaline Phosphatase 64 (39-117) U/L Troponin I High Sens 5.3 (<3.5-35.0) ng/L Total Protein 7.0 (6.5-8.0) g/dL Albumin 4.5 (3.5-5.0) g/dL ECG Data ECG #1: Attestation: I personally reviewed and interpreted this ECG as follows: ECG interpretation date: 03/27/22 ECG interpretation time: 06:50 Interpretation: Rate: 65 Rhythm: NSR [place]: left Normal P waves. Normal GONZALEZ. Normal QRS complex. ST T wave : no CECILY, nonspecific qTC: normal prior studies: no acute ischemia The study has been interpreted contemporaneously by me. . Discharge Plan Discharge Clinical Impression: Atypical chest pain Back pain Qualifiers: Back pain location: low back pain Chronicity: acute Back pain laterality: bilateral Sciatica presence: without sciatica Qualified Code(s): M54.50 - Low back pain, unspecified Patient Disposition: Home, Self-Care Instructions: Chest Pain (ED), Acute Low Back Pain (ED) Additional Instructions: regresar al servicio de urgencias por cualquier empeoramiento de los s?ntomas o inquietudes pruebas cardiacas normales use parches de lidoca?na y relajantes musculares seg?n sea necesario Prescriptions: New cyclobenzaprine 10 mg tablet 10 mg PO TID PRN (Reason: muscle spasm) Qty: 14 0RF lidocaine 4 % adhesive patch,medicated 1 patch topical DAILY PRN (Reason: pain) Qty: 10 0RF Rx Instructions: may leave on for up to 12 hrs No Action finasteride 5 mg tablet 5 mg PO DAILY 90 Days Qty: 90 3RF clonazepam 0.5 mg tablet 1 tab PO DAILY PRN (Reason: anxiety) omeprazole 20 mg capsule,delayed release(DR/EC) 1 cap PO DAILY atorvastatin 80 mg Tablet 80 mg PO BEDTIME Qty: 30 0RF acetaminophen 325 mg Tablet 650 mg PO Q6H PRN (Reason: Pain, Mild (Pain Scale 1-3)) Qty: 30 0RF aspirin 81 mg Tablet,Delayed Release (Dr/Ec) 81 mg PO DAILY Qty: 30 0RF diphenhydramine HCl [Benadryl] 25 mg capsule 50 mg PO Q6H PRN (Reason: allergic reaction) Qty: 20 0RF hydrocortisone [Anti-Itch (HC)] 1 % cream 1 appl topical TID PRN (Reason: allergic reaction) Qty: 28.35 0RF escitalopram oxalate 10 mg tablet 10 mg PO DAILY fluticasone propionate 50 mcg/actuation spray,suspension intranasal loratadine 10 mg tablet 10 mg PO DAILY lisinopril 5 mg tablet 5 mg PO DAILY ticagrelor 90 mg tablet 90 mg PO BID docusate sodium 100 mg capsule 100 mg PO BEDTIME Qty: 30 3RF metoprolol succinate 25 mg tablet extended release 24 hr 25 mg PO DAILY Referrals: Physician,Unknown J [Primary Care Provider] - 3 days (if not better) Print Language: [place]
[2022-03-27 07:40] LABS: Troponin-I High Sensitivity 6.1 ng/L (<3.5-35.0)
== END 2022-03-27 07:53 | disposition home or self-care (01) ==
PROVIDERS: Emergency Provider Emergency Medicine
DX: R07.89 Other chest pain (principal); M54.50 Low back pain, unspecified; I10 Essential (primary) hypertension; Z79.899 Other long term (current) drug therapy; Z79.02 Long term (current) use of antithrombotics/antiplatelets
CPT/HCPCS: 36415; 71045; 80053; 84484; 85027; 93005; 99283; 99285

== ENCOUNTER → 2022-04-06 08:26 | Outpatient (BNVA) | payer MEDICAID, SELFPAY ==
[2021-07-29 14:22] VITALS: BMI 26.2
== END ==
PROVIDERS: PCP Internal Medicine Geriatric Medicine; Referring Provider Internal Medicine Geriatric Medicine; Visit Provider Internal Medicine
DX: I25.10 Atherosclerotic heart disease of native coronary artery without angina pectoris (principal); I10 Essential (primary) hypertension; I25.2 Old myocardial infarction; Z79.82 Long term (current) use of aspirin; Z79.899 Other long term (current) drug therapy
CPT/HCPCS: 99212

== ENCOUNTER → 2022-06-15 08:42 | Outpatient (BNVA) | payer MEDICAID, SELFPAY ==
[2021-07-29 14:22] VITALS: BMI 26.2
== END ==
PROVIDERS: PCP Internal Medicine Geriatric Medicine; Referring Provider Internal Medicine Geriatric Medicine; Visit Provider Surgery
DX: R10.30 Lower abdominal pain, unspecified (principal)
CPT/HCPCS: 99202

== ENCOUNTER 2022-07-06 09:45 | Outpatient (REF) | payer MEDICAID, SELFPAY ==
[2021-07-29 14:22] VITALS: BMI 26.2
--- NOTE | ~2022-07-06 | CT_ITS ---
EXAMINATION: CT ABDOMEN AND PELVIS WITHOUT CONTRAST CLINICAL INFORMATION: Lower abdominal pain COMPARISON: Previous abdominal ultrasound October [address] of the abdomen and pelvis October 2014 TECHNIQUE: Multidetector volumetric imaging was performed from the superior aspect of the liver through the pubic symphysis. Exam was performed with Valsalva maneuver. Sagittal and coronal reformatted images were obtained on the technologist's workstation. This CT examination was performed using dose optimization techniques as appropriate, variously including the following: *Automated exposure control *Adjustment of mA and/or kV according to patient size (this includes techniques or standardized protocols for targeted exams where dose is matched to indication/reason for exam; i.e. extremities or head) *Use of iterative reconstruction technique DLP: 500 mGy-cm FINDINGS: LUNG BASES: The visualized lung bases are unremarkable. LIVER, GALLBLADDER, AND BILIARY TREE: The liver is normal in size, shape, and attenuation. No focal hepatic lesion or biliary ductal dilatation is present. The gallbladder is unremarkable with no evidence of radiopaque gallstones, gallbladder wall thickening, or obvious pericholecystic inflammatory changes. PANCREAS: Unremarkable. SPLEEN: Unremarkable. ADRENAL GLANDS: Unremarkable. KIDNEYS AND URETERS: The kidneys are normal in size, shape, and attenuation. 3 mm nonobstructing stone in the lower pole the left kidney. BLADDER: Unremarkable. GASTROINTESTINAL TRACT: Diverticulosis of the colon. The small and large bowel are otherwise unremarkable. The appendix is unremarkable. ABDOMINAL WALL: There is a right inguinal hernia containing small bowel and fat. There is a left inguinal hernia containing fat. Small umbilical hernia containing fat. LYMPH NODES: Normal. VASCULAR: Unremarkable. PELVIC VISCERA: The prostate gland is enlarged and measures 4.7 x 5.3 cm in AP and transverse dimension. OSSEOUS STRUCTURES: Mild degenerative changes of the spine. CT/CT abdomen pelvis wo IV con IMPRESSION: Right inguinal hernia containing fat and small bowel. Left inguinal hernia containing fat. Small hernia containing fat. Small left renal stone. Enlarged prostate gland. Mild diverticulosis of the colon. Fleischner guidelines were followed.
== END 2022-07-06 09:46 | disposition home or self-care (01) ==
LOC: HO.CT 09:45
PROVIDERS: PCP Internal Medicine Geriatric Medicine; Visit Provider Surgery
DX: R10.30 Lower abdominal pain, unspecified (principal)
CPT/HCPCS: 74176

== ENCOUNTER → 2022-07-13 10:45 | Outpatient (BNVA) | payer MEDICAID, SELFPAY ==
[2021-07-29 14:22] VITALS: BMI 26.2
== END ==
PROVIDERS: PCP Internal Medicine Geriatric Medicine; Visit Provider Surgery
DX: K40.91 Unilateral inguinal hernia, without obstruction or gangrene, recurrent (principal); K40.90 Unilateral inguinal hernia, without obstruction or gangrene, not specified as recurrent; K42.9 Umbilical hernia without obstruction or gangrene; K20.90 Esophagitis, unspecified without bleeding; K21.9 Gastro-esophageal reflux disease without esophagitis; N40.1 Benign prostatic hyperplasia with lower urinary tract symptoms; N13.8 Other obstructive and reflux uropathy; I10 Essential (primary) hypertension; I25.10 Atherosclerotic heart disease of native coronary artery without angina pectoris
CPT/HCPCS: 99212

== ENCOUNTER → 2022-11-02 08:51 | Outpatient (BNVA) | payer MEDICAID, SELFPAY ==
[2021-07-29 14:22] VITALS: BMI 26.2
== END ==
PROVIDERS: PCP Internal Medicine Geriatric Medicine; Referring Provider Internal Medicine Geriatric Medicine; Visit Provider Internal Medicine
DX: I25.10 Atherosclerotic heart disease of native coronary artery without angina pectoris (principal); I21.4 Non-ST elevation (NSTEMI) myocardial infarction; I10 Essential (primary) hypertension
CPT/HCPCS: 99212

== ENCOUNTER → 2022-11-09 09:34 | Outpatient (BNVA) | payer MEDICAID, SELFPAY ==
[2021-07-29 14:22] VITALS: BMI 26.2
== END ==
PROVIDERS: PCP Internal Medicine Geriatric Medicine; Visit Provider Surgery
DX: K40.91 Unilateral inguinal hernia, without obstruction or gangrene, recurrent (principal); K40.90 Unilateral inguinal hernia, without obstruction or gangrene, not specified as recurrent; K21.9 Gastro-esophageal reflux disease without esophagitis; N40.1 Benign prostatic hyperplasia with lower urinary tract symptoms; N13.8 Other obstructive and reflux uropathy; R97.20 Elevated prostate specific antigen [PSA]
CPT/HCPCS: 99212

== ENCOUNTER 2022-11-25 07:37 | Outpatient (REF) | payer MEDICAID, SELFPAY ==
[2021-07-29 14:22] VITALS: BMI 26.2
[2022-11-25 08:48] LABS: Anion Gap 10 (12-20); Blood Urea Nitrogen 23 mg/dL (9-16); Calcium 9.9 mg/dL (8.4-10.2); Carbon Dioxide 29 mmol/L (22-29); Chloride 107 mmol/L (96-108); Estimated Glomerular Filt Rate > 60; Glucose Random 89 mg/dL (60-115); Potassium 4.2 mmol/L (3.3-5.1); Sodium 142 mmol/L (135-145)
== END 2022-11-25 07:38 | disposition home or self-care (01) ==
LOC: HO.LAB 07:37
PROVIDERS: PCP Internal Medicine Geriatric Medicine; Visit Provider Internal Medicine
DX: I10 Essential (primary) hypertension (principal); N40.1 Benign prostatic hyperplasia with lower urinary tract symptoms; N13.8 Other obstructive and reflux uropathy; R97.20 Elevated prostate specific antigen [PSA]
CPT/HCPCS: 36415; 80048

== ENCOUNTER 2023-01-11 06:38 | Outpatient (REF) | payer MEDICAID, SELFPAY ==
[2021-07-29 14:22] VITALS: BMI 26.2
== END 2023-01-11 06:39 | disposition home or self-care (01) ==
LOC: HO.LAB 06:38
PROVIDERS: PCP Internal Medicine Geriatric Medicine; Visit Provider Urology
DX: Z12.5 Encounter for screening for malignant neoplasm of prostate (principal); N13.8 Other obstructive and reflux uropathy; N40.1 Benign prostatic hyperplasia with lower urinary tract symptoms; R97.20 Elevated prostate specific antigen [PSA]
CPT/HCPCS: 36415; 84153

== ENCOUNTER → 2023-01-14 08:36 | Outpatient (BNVA) | payer MEDICAID, SELFPAY ==
[2021-07-29 14:22] VITALS: BMI 26.2
== END ==
PROVIDERS: PCP Internal Medicine Geriatric Medicine; Visit Provider Urology
DX: N40.1 Benign prostatic hyperplasia with lower urinary tract symptoms (principal); N13.8 Other obstructive and reflux uropathy; N48.6 Induration penis plastica; R97.20 Elevated prostate specific antigen [PSA]
CPT/HCPCS: 51798; 99212

== ENCOUNTER 2023-05-10 14:45 | Outpatient (AMB) | payer MEDICAID, SELFPAY ==
[2021-07-29 14:22] VITALS: BMI 26.2
[2023-05-10 14:56] VITALS: BP 126/76; PULSE 74; BMI 25.8
--- NOTE | 2023-05-10 14:56 | A.OFFVIS_ITS ---
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 He reports doing well with no cardiac symptoms. He states he gets an occasional high blood pressure at home but if he relaxes it will go down. He states he goes for a run about 3 times a week with no chest pain or shortness of breath. He reports complaince with his medications and trying to eat a low salt and healthy diet. [facility] Medical History Inguinodynia Atherosclerotic cardiovascular disease CAD (coronary artery disease) Hernia Non-STEMI (non-ST elevated myocardial infarction) HTN (hypertension) Surgical History Hx of cardiac catheterization No significant past surgical history Surgical history unknown Family History Father No problems noted. Mother Hypertension Social History Household Members: Spouse Housing: House Do you presently have visiting nurse or other home services: No Alcohol intake: never Patient Tobacco Use Status: Never used Tobacco Review of Systems Const Denies chills, Denies fatigue, Denies fever(s), Denies frequent falls, Denies weakness, Denies weight gain and Denies weight loss ENT Denies dizziness Card Denies chest pain, Denies leg edema, Denies lightheadedness, Denies palpitations, Denies dyspnea, Denies dyspnea on exertion, Denies orthopnea and Denies other (loss of consciousness) Resp Denies cough, Denies dyspnea and Denies dyspnea on exertion GI Denies hematochezia and Denies change in stool character Musc Denies abnormal gait, Denies muscle weakness, Denies numbness, Denies radiating pain into limb and Denies tingling Neuro Denies abnormal gait, Denies dizziness, Denies frequent falls, Denies numbness, Denies tingling and Denies weakness Endo Denies fatigue and Denies palpitations Physical Exam Vital Signs: Last Vital Signs Pulse 74 05/10/23 14:56 BP 126/76 05/10/23 14:56 BMI result Body Mass Index 25.8 Const General: healthy appearing and no acute distress Orientation/consciousness: patient oriented x3 HEENT Head: Yes normal to inspection Eyes General: appearance normal, both eyes and all related structures Neck Neck: Yes normal visual inspection Chest Chest palpation & inspection: normal inspection of the chest Resp Effort & Inspection: normal respiratory effort Auscultation: clear to auscultation bilaterally Cardio Jugular venous distension: no JVD Palpation: normal PMI Rate: regular rate Rhythm: regular rhythm Heart sounds: S1 normal heart sound present, S2 normal heart sound present, no click, no gallops, no murmurs and no rubs GI Inspection: Yes normal to inspection Palpation (GI): Soft to palpation Skin General skin exam: no rashes or lesions noted Neuro General: patient oriented x3 Extrem General: Yes normal to inspection Psych Appearance: grossly normal Assessment & Plan Assessment & Plan (1) Atherosclerotic cardiovascular disease: Code(s): I25.10 - Atherosclerotic heart disease of [place] coronary artery without angina pectoris (2) Essential hypertension: Code(s): I10 - Essential (primary) hypertension Plan Patient has history of cardiac catheterization with stents. Has been doing well with his medications. Currently no symptoms - continue healthy lifestyle changes. Will check BMP and Lipid panel. Conitnue to monitor BP at home and bring log of BPs next visit. Will see him back in six months or sooner if needed. Orders: Orders Lipid Panel Today I25.10 - Atherosclerotic heart disease of [place] coronary artery without angina pectoris Basic Metabolic Panel Fasting Today I25.10 - Atherosclerotic heart disease of [place] coronary artery without angina pectoris Coding Level of Care Code Est Pt Level 3 (41157) Diagnoses Atherosclerotic cardiovascular disease I25.10 Essential hypertension I10
== END 2023-05-10 15:30 | disposition home or self-care (01) ==
PROVIDERS: PCP Internal Medicine Geriatric Medicine; Visit Provider Nurse Practitioner
DX: I25.10 Atherosclerotic heart disease of native coronary artery without angina pectoris (principal); I10 Essential (primary) hypertension
CPT/HCPCS: 99213

== ENCOUNTER → 2023-05-10 14:45 | Outpatient (BNVA) | payer MEDICAID, SELFPAY ==
[2021-07-29 14:22] VITALS: BMI 26.2
== END ==
PROVIDERS: PCP Internal Medicine Geriatric Medicine; Visit Provider Nurse Practitioner
DX: I25.10 Atherosclerotic heart disease of native coronary artery without angina pectoris (principal); I21.4 Non-ST elevation (NSTEMI) myocardial infarction; I11.9 Hypertensive heart disease without heart failure; Z98.890 Other specified postprocedural states
CPT/HCPCS: 99212

== ENCOUNTER 2023-05-12 06:47 | Outpatient (REF) | payer MEDICAID, SELFPAY ==
[2021-07-29 14:22] VITALS: BMI 26.2
[2023-05-12 07:31] LABS: Anion Gap 10 (12-20); Blood Urea Nitrogen 23 mg/dL (9-16); Calcium 10.7 mg/dL (8.4-10.2); Carbon Dioxide 29 mmol/L (22-29); Chloride 103 mmol/L (96-108); Cholesterol 129 mg/dL (<200); Estimated Glomerular Filt Rate > 60; Glucose Fasting 95 mg/dL (60-99); HDL Cholesterol 47 mg/dL (>40); LDL Cholesterol Calculated 70 mg/dL (<100); Potassium 4.1 mmol/L (3.3-5.1); Sodium 138 mmol/L (135-145); Triglycerides 60 mg/dL (<150)
== END 2023-05-12 06:48 | disposition home or self-care (01) ==
LOC: HO.LAB 06:47
PROVIDERS: PCP Internal Medicine Geriatric Medicine; Visit Provider Nurse Practitioner
DX: I25.10 Atherosclerotic heart disease of native coronary artery without angina pectoris (principal)
CPT/HCPCS: 36415; 80048; 80061

== ENCOUNTER 2023-05-18 14:42 | Outpatient (REF) | payer MEDICAID, SELFPAY ==
[2021-07-29 14:22] VITALS: BMI 26.2
[2023-05-18 16:49] LABS: Calcium 10.2 mg/dL (8.4-10.2); Carbon Dioxide 26 mmol/L (22-29); Chloride 106 mmol/L (96-108); Estimated Glomerular Filt Rate > 60; Glucose Random 102 mg/dL (60-115); Potassium 4.1 mmol/L (3.3-5.1); Sodium 141 mmol/L (135-145)
[2023-05-18 17:07] LABS: Vitamin D 25-OH Total 60.1 ng/mL (>30)
[2023-05-18 17:14] LABS: Anion Gap 12 (12-20)
[2023-05-18 18:34] LABS: Blood Urea Nitrogen 23 mg/dL (9-16)
[2023-05-19 14:39] LABS: PTHI 80 pg/mL (16-77)
== END 2023-05-18 14:43 | disposition home or self-care (01) ==
LOC: HO.HHCL 14:42
PROVIDERS: Visit Provider Internal Medicine Geriatric Medicine
DX: I10 Essential (primary) hypertension (principal); E83.52 Hypercalcemia
CPT/HCPCS: 36415; 80048; 82306; 83970

== ENCOUNTER 2023-06-12 19:20 | Emergency (ER) | payer MEDICAID, SELFPAY ==
[2021-07-29 14:22] VITALS: BMI 26.2
--- NOTE | 2023-06-12 | ECG_ITS ---
Test Reason : CHESTPAIN Blood Pressure : / mmHG Vent. Rate : 070 BPM Atrial Rate : 070 BPM P-R Int : 176 ms QRS Dur : 102 ms QT Int : 418 ms P-R-T Axes : 064 025 017 degrees QTc Int : 451 ms Normal sinus rhythm Nonspecific T wave abnormality Abnormal ECG When compared with ECG of 26-MAR-2022 23:31, No significant change was found Referred By: Generic ED Physician Electronically Signed By:VALENTINE ALONZO MD
--- NOTE | ~2023-06-12 | XR_ITS ---
EXAMINATION: PORTABLE CHEST 1 VIEW CLINICAL INFORMATION: epigastric chest pain. COMPARISON: 03/27/2022. TECHNIQUE: Portable frontal view of the chest was obtained. FINDINGS: The lungs are well expanded. No focal infiltrate, effusion, edema, or pneumothorax. Cardiac and mediastinal silhouettes are within normal limits for technique. No acute bony abnormality seen. XR/XR chest 1V IMPRESSION: No evidence of acute disease.
[2023-06-12 19:34] VITALS: BP 163/79; PULSE 73; RESP 18; TEMP 36.9; O2SAT 97; BMI 26.5
--- NOTE | 2023-06-12 19:40 | ED_ITS ---
HPI - Chest Pain General Chief Complaint: Chest Pain Stated Complaint: chest pain Time Seen by Provider: 06/12/23 20:12 Source: patient Mode of arrival: ambulatory History of Present Illness HPI narrative: 62-year-old male who presents for having epigastric/chest pain that began at 15:00, 15-20 minutes immediately after eating spicy food from [employer] and denies any associated radiation/dizziness/shortness of breath for nausea. Patient states that he took Prilosec at home with some relief and currently reports that he is asymptomatic Related Data Home Medications Medication Instructions Recorded Confirmed clonazepam 0.5 mg tablet 1 tab PO DAILY PRN anxiety 04/17/21 01/14/23 metoprolol succinate 25 mg 25 mg PO DAILY 05/20/21 01/14/23 tablet,extended release 24 hr cholecalciferol (vitamin D3) 50 50 mcg PO DAILY 11/02/22 01/14/23 mcg (2,000 unit) tablet omeprazole 20 mg capsule,delayed 20 mg PO DAILY 11/02/22 01/14/23 release loratadine 10 mg tablet 10 mg PO DAILY 01/14/23 01/14/23 Previous Rx's Medication Instructions Recorded acetaminophen 325 mg tablet 650 mg (2 x 325 mg) PO Q6H PRN 04/17/21 Pain, Mild (Pain Scale 1-3) #30 tabs aspirin 81 mg tablet,delayed 81 mg PO DAILY #30 tabs 04/17/21 release atorvastatin 80 mg tablet 80 mg PO BEDTIME #30 tabs 04/17/21 cyclobenzaprine 10 mg tablet 10 mg PO TID PRN muscle spasm #14 03/27/22 tabs lisinopril 10 mg tablet 10 mg PO DAILY #90 tabs 11/02/22 finasteride 5 mg tablet 5 mg PO DAILY 90 days #90 tabs 01/14/23 Allergies Allergy/AdvReac Type Severity Reaction Status Date / Time No Known Allergies Allergy Verified 06/12/23 19:39 [No Known Allergies*] Review of Systems 2 Review of Systems: Pertinent positives and negatives as stated in HPI PMFSH Past Medical History Source: nursing notes reviewed Medical History Inguinodynia Atherosclerotic cardiovascular disease CAD (coronary artery disease) Hernia Non-STEMI (non-ST elevated myocardial infarction) HTN (hypertension) Surgical History Hx of cardiac catheterization No significant past surgical history Surgical history unknown Family History Family History Father No problems noted. Mother Hypertension Social History Social History Household Members: Spouse Housing: House Do you presently have visiting nurse or other home services: No Alcohol intake: never Patient Tobacco Use Status: Never used Tobacco Smoked in Last 30 Days: No Use of substances other than those prescribed or required for medical reasons: No Advance Directives: No Advance Directives Information Provided: No Physical Exam 2 Vital Signs: Vital Signs: Last Vital Signs Temp 98.0 F 06/12/23 20:07 Pulse 61 06/12/23 22:40 Resp 15 06/12/23 22:40 BP 133/83 06/12/23 22:40 Pulse Ox 97 06/12/23 22:40 O2 Del Method Room Air 06/12/23 22:40 BMI result Body Mass Index 26.5 VITAL SIGNS: Reviewed. GENERAL: Well developed, well nourished, in no acute distress. HEAD: Normocephalic/atraumatic EYES: PERRLA, EOMI EARS: Ext canals without abnormality NOSE: Nares patent bilateral OROPHARYNX: no oral lesions noted, posterior pharynx clear NECK: Supple, no adenopathy LUNGS: Normal breath sounds. No adventitious sounds or accessory muscle use. SpO2<97> CARDIOVASCULAR: Regular rate and rhythm without noted murmurs ABDOMEN: Soft, non-tender, non-distended with bowel sounds. MUSCULOSKELETAL: No tenderness, deformities, or effusions noted on gross inspection. EXTREMITIES: No cyanosis, clubbing or edema. SKIN: Inspection of the skin reveals no rashes NEUROLOGIC: Alert and oriented x 4. Strength and sensation to light touch were grossly intact x 4. Course Course Course Narrative: RME: 62 yold male presents to the ED for epigastric/chest/RUQ pain for the past couple of days. labs, EKG, and chest xray ordered Medical Decision Making Medical Decision Making MDM Narrative: 62-year-old male with history and clinical presentation, DDX: Acid reflux/gastritis, low clinical suspicion for ACS or pancreatitis Reviewed all investigations and hematologic indices are negative for leukocytosis or left shift, there is no anemia or thrombocytopenia. Coagulation studies are within normal limits. Chemistry indices are grossly within normal limits without evidence of AARON or electrolytes/liver enzyme abnormalities. High sensitivity troponin is detectable but not elevated. Chest x-ray is without infiltrate or evidence to suggest venous congestion otherwise my interpretation is in agreement with radiology's impression. EKG does not demonstrate any acute changes from prior and there is no STEMI. On re-evaluation patient remains asymptomatic and suspect that this may have been an episode acid reflux is a has completely resolved. He is otherwise discharged home with instructions follow-up with his primary care provider. Differential Diagnosis Differential Diagnoses: The differential diagnosis associated with the presentation includes Please see the discussion above Admission/Observation Consideration of admission/observation: Escalation of care including admission/observation considered Please see the discussion above Lab Data MDM Lab Attestation statement: I reviewed the patient's lab results. Please see the discussion above 06/12/23 20:18 06/12/23 20:18 Labs: Lab Results 06/12/23 06/12/23 Range/Units 20:18 20:23 WBC 5.2 (4.8-10.8) X10*3/uL RBC 5.25 (4.60-5.80) X10*6/uL Hgb 15.4 (14.0-18.0) g/dl Hct 45.3 (42.0-52.0) % MCV 86.3 (80.0-98.0) fL MCH 29.3 (27.0-33.0) pg MCHC 34.0 (31.0-36.0) g/dl RDW 11.9 (11.0-16.0) % Plt Count 192 (160-400) X10*3/uL MPV 10.2 (9.4-12.4) fL Immature Gran % (Auto) 0.2 (0.0-0.4) % Neut % (Auto) 53.8 (45-73) % Lymph % (Auto) 31.0 (20-40) % Sebastian % (Auto) 9.4 (2-11) % Eos % (Auto) 5.2 H (0-4) % Baso % (Auto) 0.4 (0-2) % Lymph # (Auto) 1.6 (1.2-4.9) X10*3/uL Sebastian # (Auto) 0.5 (0.1-1.2) X10*3/uL Eos # (Auto) 0.3 (0.0-0.4) X10*3/uL Baso # (Auto) 0.0 (0.0-0.2) X10*3/uL Abs Immat Gran (auto) 0.01 (0.00-0.03) X10*3/uL Absolute Neuts (auto) 2.8 (2.0-8.3) x10*3/uL Absolute Nucleated RBC 0.000 (0.0-0.012) X10*3/uL Nucleated RBC % (auto) 0.0 (0.0-0.2) /100WBC PT 12.1 (11.1-13.3) SEC INR 1.0 (0.9-1.1) APTT 30.6 (26.0-36.4) SEC Sodium 140 (135-145) mmol/L Potassium 3.8 (3.3-5.1) mmol/L Chloride 106 (96-108) mmol/L Carbon Dioxide 29 (22-29) mmol/L Anion Gap 9 L (12-20) BUN 22 H (9-16) mg/dL Creatinine 0.90 (0.5-1.4) mg/dL Estim Creat Clear Calc 91.8 Estimated GFR > 60 Random Glucose 115 (60-115) mg/dL Calcium 10.1 (8.4-10.2) mg/dL Total Bilirubin 0.5 (0.0-1.0) mg/dL AST 19 (5-37) U/L ALT 21 (0-40) U/L Alkaline Phosphatase 58 (39-117) U/L Troponin I High Sens 3.2 (<3.5-35.0) ng/L B-Natriuretic Peptide < 10 (<100) pg/mL Total Protein 7.1 (6.5-8.0) g/dL Albumin 4.3 (3.5-5.0) g/dL Lipase 24 (8-78) U/L Independent Interpretation I performed an independent interpretation of an: EKG Interpretation: Normal sinus rhythm, HR-70, no STEMI, IN/QRS/QTC is within normal limits. Radiology Impression Discussion of test interpretation with radiology: I have reviewed the radiologist's reading. Radiologist Impression: Please see the discussion above External Record Review External record reviewed: Outpatient record, Prior outpatient labs and Prior outpatient radiology Chronic Conditions Patient?s care impacted by: Hypertension Discharge Plan Discharge Clinical Impression: GERD (gastroesophageal reflux disease), Atypical chest pain Patient Disposition: Home, Self-Care Instructions: Diet for Stomach Ulcers and Gastritis (ED), Gastroesophageal Reflux Disease (ED) Additional Instructions: 1. Reanudar todos los medicamentos caseros seg?n lo recetado. 2. Evite los alimentos picantes y realice un seguimiento con soto m?dico de atenci?n primaria en los pr?ximos 1 o 2 d?as. No dude en regresar a la nettie de emergencias si experimenta alg?n s?ntoma adicional. 1. Resume all home medications as prescribed. 2. Please avoid spicy foods and follow-up with your primary care doctor in the next 1-2 days. Do not hesitate to return to the emergency room should you experience any further symptoms. Prescriptions: No Action clonazepam 0.5 mg tablet 1 tab PO DAILY PRN (Reason: anxiety) atorvastatin 80 mg Tablet 80 mg PO BEDTIME Qty: 30 0RF acetaminophen 325 mg Tablet 650 mg PO Q6H PRN (Reason: Pain, Mild (Pain Scale 1-3)) Qty: 30 0RF aspirin 81 mg Tablet,Delayed Release (Dr/Ec) 81 mg PO DAILY Qty: 30 0RF omeprazole 20 mg capsule,delayed release(DR/EC) 20 mg PO DAILY cyclobenzaprine 10 mg tablet 10 mg PO TID PRN (Reason: muscle spasm) Qty: 14 0RF loratadine 10 mg tablet 10 mg PO DAILY finasteride 5 mg tablet 5 mg PO DAILY 90 Days Qty: 90 1RF Rx Instructions: Take Tuesday, Tuesday, Tuesday metoprolol succinate 25 mg tablet extended release 24 hr 25 mg PO DAILY cholecalciferol (vitamin D3) 50 mcg (2,000 unit) tablet 50 mcg PO DAILY lisinopril 10 mg tablet 10 mg PO DAILY Qty: 90 3RF Interventions: ED Discharge Assessment Last Done: 06/12/23 22:52 Discharge Date/Time: 06/12/23 22:53 Print Language: Senegalese
[2023-06-12 20:07] VITALS: BP 147/87; PULSE 70; RESP 11; TEMP 36.7; O2SAT 97
[2023-06-12 20:29] LABS: MANUAL DIFF FLAG NO
[2023-06-12 20:30] LABS: Basophils Percent Auto 0.4 % (0-2); Eosinophils Absolute Auto 0.3 X10*3/uL (0.0-0.4); Eosinophils Percent Auto 5.2 % (0-4); Hematocrit 45.3 % (42.0-52.0); Hemoglobin 15.4 g/dl (14.0-18.0); Imm Gran Abs Auto 0.01 X10*3/uL (0.00-0.03); Imm Gran Pct Auto 0.2 % (0.0-0.4); Lymphocytes Absolute Auto 1.6 X10*3/uL (1.2-4.9); Mean Corpuscular Hemoglobin 29.3 pg (27.0-33.0); Mean Corpuscular Volume 86.3 fL (80.0-98.0); Mean Platelet Volume 10.2 fL (9.4-12.4); Monocytes Absolute Auto 0.5 X10*3/uL (0.1-1.2); Monocytes Percent Auto 9.4 % (2-11); Neutrophils Absolute Auto 2.8 x10*3/uL (2.0-8.3); Neutrophils Percent Auto 53.8 % (45-73); Platelet Count 192 X10*3/uL (160-400); Red Blood Count 5.25 X10*6/uL (4.60-5.80); Red Cell Distribution Width 11.9 % (11.0-16.0); White Blood Count 5.2 X10*3/uL (4.8-10.8)
[2023-06-12 20:36] LABS: Prothrombin Time 12.1 SEC (11.1-13.3)
[2023-06-12 20:38] LABS: Partial Thromboplastin Time 30.6 SEC (26.0-36.4)
[2023-06-12 20:50] LABS: Alanine Aminotransferase 21 U/L (0-40); Albumin Level 4.3 g/dL (3.5-5.0); Alkaline Phosphatase 58 U/L (39-117); Anion Gap 9 (12-20); Aspartate Amino Transferase 19 U/L (5-37); Bilirubin Total 0.5 mg/dL (0.0-1.0); Blood Urea Nitrogen 22 mg/dL (9-16); Calcium 10.1 mg/dL (8.4-10.2); Carbon Dioxide 29 mmol/L (22-29); Chloride 106 mmol/L (96-108); Creatinine Clr Calc Pharmacy 91.8; Estimated Glomerular Filt Rate > 60; Glucose Random 115 mg/dL (60-115); Lipase 24 U/L (8-78); Potassium 3.8 mmol/L (3.3-5.1); Sodium 140 mmol/L (135-145); Total Protein 7.1 g/dL (6.5-8.0)
[2023-06-12 20:54] LABS: B Type Natriuretic Peptide < 10 pg/mL (<100)
[2023-06-12 20:59] LABS: Troponin-I High Sensitivity 3.2 ng/L (<3.5-35.0)
[2023-06-12 22:40] VITALS: BP 133/83; PULSE 61; RESP 15; O2SAT 97
== END 2023-06-12 22:53 | disposition home or self-care (01) ==
PROVIDERS: Physician Assistant; Emergency Provider Student in an Organized Health Care Education/Training Program
DX: K21.9 Gastro-esophageal reflux disease without esophagitis (principal); R07.89 Other chest pain; R10.13 Epigastric pain; R11.2 Nausea with vomiting, unspecified; R06.02 Shortness of breath; Z79.899 Other long term (current) drug therapy
CPT/HCPCS: 36415; 71045; 80053; 83690; 83880; 84484; 85025; 85610; 85730; 93005; 99284; 99285

== ENCOUNTER 2023-07-14 08:45 | Outpatient (AMB) | payer MEDICAID, SELFPAY ==
[2021-07-29 14:22] VITALS: BMI 26.2
--- NOTE | 2023-07-14 08:46 | A.OFFVIS_ITS ---
Intake Intake Visit Reasons: 6m follow up Intake Note: Patient is present for a follow-up: Urology Med: Finasteride Antibiotic Allergy: None Blood Thinner: Aspirin PVR: 0ml Crimper Operator Required: No Accompanied by: Self / Same As Patient Allergies No Known Allergies [No Known Allergies*] Allergy (Verified 07/14/23 08:47) HPI HPI Comments History of Present Illness Details Seferino is a pleasant male. He is a patient of Dr. Loza. He is seen for the following urologic conditions - elevated PSA - lower urinary tract symptoms - Peyronie's disease Tajik translation provided by qualified medical insurance verifier Peyronie's stable Minimal impact on activity Continue to follow-up PSA remains low 1.4 Recommend finasteride Tuesday, Tuesday, Tuesday 12 month follow-up Elevated PSA Initial evaluation for elevated PSA Associated symptoms PSA 06/13 4.9, 04/14 1.5, 01/13 2.0, 12/14 1.4 Yearly follow-up with PSA [facility] Medical History Inguinodynia Atherosclerotic cardiovascular disease CAD (coronary artery disease) Hernia Non-STEMI (non-ST elevated myocardial infarction) HTN (hypertension) Surgical History Hx of cardiac catheterization No significant past surgical history Surgical history unknown Family History Father No problems noted. Mother Hypertension Social History Household Members: Spouse Housing: House Do you presently have visiting nurse or other home services: No Alcohol intake: never Comment: telemetry Patient Tobacco Use Status: Never used Tobacco Review of Systems Const Denies chills and Denies fever(s) Card Reports no additional complaints and Denies syncope Resp Denies cough GI Denies abdominal pain and Denies heartburn Reports as per HPI and Denies change in libido Neuro Denies syncope Psych Denies change in libido Endo Denies change in libido Physical Exam Const General: cooperative, healthy appearing, comfortable and no acute distress Orientation/consciousness: patient oriented x3 HEENT Face and sinus: Yes normal facial exam Mouth: moist mucous membranes Neck Neck: Yes normal visual inspection, Yes full ROM and Yes trachea midline Chest Chest palpation & inspection: normal inspection of the chest Resp Effort & Inspection: normal respiratory effort, able to speak in complete sentences and no respiratory distress GI Inspection: Yes normal to inspection Back/Spine/Pelvis Cervical Spine: normal cervical lordosis Thoracic/Lumbar Spine: thoracic and lumbar spine normal to inspection Skin General skin exam: no rashes or lesions noted Neuro General: patient oriented x3, gait normal, tone normal and moves all extremities Extrem General: Yes normal to inspection and Yes capillary refill normal Office Procedures Post Void Residual Post Residual Void Post Void Residual (PVR): 0 88256-Qtih Void Residual by ultrasound Assessment & Plan Assessment & Plan (1) Peyronie's disease: Code(s): N48.6 - Induration penis plastica Plan Twelve month follow-up PVR Orders: Orders AMB Post Void Residual by ultrasound Today N39.8 - Other specified disorders of urinary system Prostate Specific Antigen 364 Days R97.20 - Elevated prostate specific antigen [PSA] Patient Instructions: Imaging studies, laboratory and physical exam results were discussed and reviewed in detail. No major barriers to patient understanding were identified. An opportunity to ask questions regarding the treatment plan was provided. All questions were answered. The patient expressed understanding and agreement with the above treatment plan. The patient is aware they should contact our office by phone for worsening of their current condition or the appearance of new urologic symptoms. Compliance is encouraged with any medications and followup testing that is ordered. It is a privilege to participate in the urologic care of your patient. If you have any questions or concerns regarding treatment for the above conditions, or other urologic issues, please do not hesitate to contact me. The office telephone contact is [phone]. This note is constructed using voice recognition software. While every effort has been made to ensure accuracy technical spec errors may have been included. Yours sincerely, Dr Ciro Arechiga MD, [facility] - Urology Providers of Expert, Compassionate Care for the Genitourinary System Coding Level of Care Code Est Pt Level 3 (20225) Diagnoses Peyronie's disease N48.6 CPT Codes Post Residual Void - PVR CPT Code: 05598-Ztem Void Residual by ultrasound ([id number])
== END 2023-07-14 09:07 | disposition home or self-care (01) ==
PROVIDERS: PCP Internal Medicine Geriatric Medicine; Visit Provider Urology
DX: N48.6 Induration penis plastica (principal)
CPT/HCPCS: 99213

== ENCOUNTER → 2023-07-14 08:45 | Outpatient (BNVA) | payer MEDICAID, SELFPAY ==
[2021-07-29 14:22] VITALS: BMI 26.2
== END ==
PROVIDERS: PCP Internal Medicine Geriatric Medicine; Visit Provider Urology
DX: N48.6 Induration penis plastica (principal)
CPT/HCPCS: 51798; 99212

== ENCOUNTER 2023-07-15 18:15 | Emergency (ER) | payer MEDICAID, SELFPAY ==
[2021-07-29 14:22] VITALS: BMI 26.2
--- NOTE | 2023-07-15 18:17 | ECG_ITS ---
Test Reason : CHEST PAIN Blood Pressure : / mmHG Vent. Rate : 069 BPM Atrial Rate : 069 BPM P-R Int : 174 ms QRS Dur : 108 ms QT Int : 418 ms P-R-T Axes : 059 012 013 degrees QTc Int : 447 ms Normal sinus rhythm Incomplete right bundle branch block Nonspecific T wave abnormality Abnormal ECG When compared with ECG of 12-JUN-2023 19:25, No significant change was found Referred By: Gabrielle Petit Electronically Signed By:SHAKEEL RADFORD MD
[2023-07-15 18:33] VITALS: BP 168/95; PULSE 81; RESP 18; TEMP 36.1; O2SAT 98; BMI 26.1
--- NOTE | 2023-07-15 18:36 | ED_ITS ---
HPI - General Adult General Chief complaint: Chest Pain Stated complaint: Chest pain/Neck pain Time Seen by Provider: 07/15/23 21:12 Source: patient Mode of arrival: ambulatory Limitations: no limitations History of Present Illness HPI narrative: Patient has hypertension coronary disease status post stent placement in 04/14 runs about 3 times a week without any chest pain comes here for pain in mid chest for last 3 days got worse since 16:00 today while working on the car , localized to substernal area and right upper back gets worse on movement no shortness of breath Related Data Home Medications Medication Instructions Recorded Confirmed clonazepam 0.5 mg tablet 1 tab PO DAILY PRN anxiety 04/17/21 01/14/23 metoprolol succinate 25 mg 25 mg PO DAILY 05/20/21 01/14/23 tablet,extended release 24 hr cholecalciferol (vitamin D3) 50 50 mcg PO DAILY 11/02/22 01/14/23 mcg (2,000 unit) tablet omeprazole 20 mg capsule,delayed 20 mg PO DAILY 11/02/22 01/14/23 release loratadine 10 mg tablet 10 mg PO DAILY 01/14/23 01/14/23 Previous Rx's Medication Instructions Recorded acetaminophen 325 mg tablet 650 mg (2 x 325 mg) PO Q6H PRN 04/17/21 Pain, Mild (Pain Scale 1-3) #30 tabs aspirin 81 mg tablet,delayed 81 mg PO DAILY #30 tabs 04/17/21 release atorvastatin 80 mg tablet 80 mg PO BEDTIME #30 tabs 04/17/21 cyclobenzaprine 10 mg tablet 10 mg PO TID PRN muscle spasm #14 03/27/22 tabs lisinopril 10 mg tablet 10 mg PO DAILY #90 tabs 11/02/22 finasteride 5 mg tablet 5 mg PO DAILY 90 days #90 tabs 01/14/23 cyclobenzaprine 10 mg tablet 10 mg PO Q8H #20 tabs 07/15/23 tramadol 50 mg tablet 50 mg PO Q6H PRN pain #20 tabs 07/15/23 Allergies Allergy/AdvReac Type Severity Reaction Status Date / Time No Known Allergies Allergy Verified 07/14/23 08:47 [No Known Allergies*] [facility] Past Medical History Medical History Inguinodynia Atherosclerotic cardiovascular disease CAD (coronary artery disease) Hernia Non-STEMI (non-ST elevated myocardial infarction) HTN (hypertension) Surgical History Hx of cardiac catheterization No significant past surgical history Surgical history unknown Family History Family History Father No problems noted. Mother Hypertension Social History Social History Household Members: Spouse Housing: House Do you presently have visiting nurse or other home services: No Alcohol intake: never Comment: telemetry Patient Tobacco Use Status: Never used Tobacco Smoked in Last 30 Days: No Use of substances other than those prescribed or required for medical reasons: No Advance Directives: No Advance Directives Information Provided: No Physical Exam ED Vital Signs: Vital Signs - 24 hr 07/15/23 18:33 07/15/23 21:33 Temperature 97.0 F 97.8 F Pulse Rate 81 65 Respiratory Rate 18 17 Blood Pressure 168/95 H 151/89 H Pulse Oximetry 98 97 Oxygen Delivery Method Room Air Room Air BMI result Body Mass Index 26.1 Appearance: Alert. Oriented X3. No acute distress. Eyes: PERRLA, No Nystagmus ENT: Pharynx normal. Oral Mucosa moist Neck: Normal inspection. Neck supple. CVS: Normal heart rate and rhythm. Pulses normal. Tenderness right rhomboid Respiratory: No respiratory distress. Equal air entry bilateral, no wheezing/rales/rhonchi Abdomen: Soft and nontender. Bowel sounds are present, Skin: Skin warm and dry. Normal skin color. Extremities: No lower extremity edema. No calf tenderness Neuro: Oriented X 3. No motor deficit. Course Course Course Narrative: RME performed by Gabrielle Petit PA-C. Patient is a 63 year old assigned male at presenting to the emergency department with chest pain. Labs, imaging, and swabs ordered. Patient placed back in the waiting room pending room availability and results. Medications Administered Discontinued Medications Generic Name Dose Route Start Last Admin Trade Name Freq PRN Reason Stop Dose Admin Cyclobenzaprine HCl 10 mg 07/15/23 21:44 07/15/23 21:54 Cyclobenzaprine Hcl 10 Mg Tablet PO 07/15/23 21:45 Not Given ONCE ONE Tramadol HCl 50 mg 07/15/23 21:44 07/15/23 21:53 Tramadol Hcl 50 Mg Tablet PO 07/15/23 21:45 50 mg ONCE ONE Administration Medical Decision Making Medical Decision Making [facility] Narrative: Patient with upper rhomboids pain for last 3 days likely muscular no EKG ischemic changes 2 sets of high sensitive troponin negative discharge patient home on Flexeril and tramadol Differential Diagnosis Differential Diagnoses: The differential diagnosis associated with the presentation includes ACS/muscle strain/ Lab Data [facility] Lab Attestation statement: I reviewed the patient's lab results. 07/15/23 19:17 07/15/23 19:17 Labs: Lab Results 07/15/23 07/15/23 07/15/23 Range/Units 19:17 19:18 19:48 WBC 6.3 (4.8-10.8) X10*3/uL RBC 5.14 (4.60-5.80) X10*6/uL Hgb 15.1 (14.0-18.0) g/dl Hct 44.5 (42.0-52.0) % MCV 86.6 (80.0-98.0) fL MCH 29.4 (27.0-33.0) pg MCHC 33.9 (31.0-36.0) g/dl RDW 12.0 (11.0-16.0) % Plt Count 180 (160-400) X10*3/uL MPV 10.7 (9.4-12.4) fL Immature Gran % (Auto) 0.2 (0.0-0.4) % Neut % (Auto) 69.4 (45-73) % Lymph % (Auto) 16.7 L (20-40) % Banner % (Auto) 10.2 (2-11) % Eos % (Auto) 3.2 (0-4) % Baso % (Auto) 0.3 (0-2) % Lymph # (Auto) 1.1 L (1.2-4.9) X10*3/uL Banner # (Auto) 0.6 (0.1-1.2) X10*3/uL Eos # (Auto) 0.2 (0.0-0.4) X10*3/uL Baso # (Auto) 0.0 (0.0-0.2) X10*3/uL Abs Immat Gran (auto) 0.01 (0.00-0.03) X10*3/uL Absolute Neuts (auto) 4.4 (2.0-8.3) x10*3/uL Absolute Nucleated RBC 0.000 (0.0-0.012) X10*3/uL Nucleated RBC % (auto) 0.0 (0.0-0.2) /100WBC PT 12.0 (11.1-13.3) SEC INR 1.0 (0.9-1.1) APTT 32.3 (26.0-36.4) SEC Sodium 139 (135-145) mmol/L Potassium 4.5 (3.3-5.1) mmol/L Chloride 105 (96-108) mmol/L Carbon Dioxide 26 (22-29) mmol/L Anion Gap 13 (12-20) BUN 21 H (9-16) mg/dL Creatinine 0.81 (0.5-1.4) mg/dL Estim Creat Clear Calc 100.7 Estimated GFR > 60 Random Glucose 100 (60-115) mg/dL Calcium 10.1 (8.4-10.2) mg/dL Magnesium 2.1 (1.6-2.6) mg/dL Total Bilirubin 0.7 (0.0-1.0) mg/dL AST 24 (5-37) U/L ALT 27 (0-40) U/L Alkaline Phosphatase 62 (39-117) U/L Troponin I High Sens 7.4 D (<3.5-35.0) ng/L Total Protein 7.1 (6.5-8.0) g/dL Albumin 4.4 (3.5-5.0) g/dL Urine Color Yellow Urine Appearance Clear Urine pH 7.0 (5.0-9.0) Ur Specific [place] 1.015 (1.005-1.025) Urine Protein Negative (Neg-Trace) mg/dL Urine Glucose (UA) Negative (Negative) mg/dL Urine Ketones Negative (Negative) mg/dL Urine Blood Negative (Negative) Urine Nitrite Negative (Negative) Ur Leukocyte Esterase Negative (Negative) Influenza Type A (PCR) NEGATIVE (Negative) Influenza Type B (PCR) NEGATIVE (Negative) RSV RNA Qual (PCR) NEGATIVE (Negative) SARS-CoV-2 RNA (RT-PCR) NEGATIVE (Negative) 07/15/23 Range/Units 21:42 WBC (4.8-10.8) X10*3/uL RBC (4.60-5.80) X10*6/uL Hgb (14.0-18.0) g/dl Hct (42.0-52.0) % MCV (80.0-98.0) fL MCH (27.0-33.0) pg MCHC (31.0-36.0) g/dl RDW (11.0-16.0) % Plt Count (160-400) X10*3/uL MPV (9.4-12.4) fL Immature Gran % (Auto) (0.0-0.4) % Neut % (Auto) (45-73) % Lymph % (Auto) (20-40) % Banner % (Auto) (2-11) % Eos % (Auto) (0-4) % Baso % (Auto) (0-2) % Lymph # (Auto) (1.2-4.9) X10*3/uL Banner # (Auto) (0.1-1.2) X10*3/uL Eos # (Auto) (0.0-0.4) X10*3/uL Baso # (Auto) (0.0-0.2) X10*3/uL Abs Immat Gran (auto) (0.00-0.03) X10*3/uL Absolute Neuts (auto) (2.0-8.3) x10*3/uL Absolute Nucleated RBC (0.0-0.012) X10*3/uL Nucleated RBC % (auto) (0.0-0.2) /100WBC PT (11.1-13.3) SEC INR (0.9-1.1) APTT (26.0-36.4) SEC Sodium (135-145) mmol/L Potassium (3.3-5.1) mmol/L Chloride (96-108) mmol/L Carbon Dioxide (22-29) mmol/L Anion Gap (12-20) BUN (9-16) mg/dL Creatinine (0.5-1.4) mg/dL Estim Creat Clear Calc Estimated GFR Random Glucose (60-115) mg/dL Calcium (8.4-10.2) mg/dL Magnesium (1.6-2.6) mg/dL Total Bilirubin (0.0-1.0) mg/dL AST (5-37) U/L ALT (0-40) U/L Alkaline Phosphatase (39-117) U/L Troponin I High Sens 4.2 (<3.5-35.0) ng/L Total Protein (6.5-8.0) g/dL Albumin (3.5-5.0) g/dL Urine Color Urine Appearance Urine pH (5.0-9.0) Ur Specific [place] (1.005-1.025) Urine Protein (Neg-Trace) mg/dL Urine Glucose (UA) (Negative) mg/dL Urine Ketones (Negative) mg/dL Urine Blood (Negative) Urine Nitrite (Negative) Ur Leukocyte Esterase (Negative) Influenza Type A (PCR) (Negative) Influenza Type B (PCR) (Negative) RSV RNA Qual (PCR) (Negative) SARS-CoV-2 RNA (RT-PCR) (Negative) Independent Interpretation I performed an independent interpretation of an: EKG Interpretation: Normal sinus rhythm heart rate is 69 beats per minute right bundle-branch block incomplete no acute ST T wave changes no acute ischemia External Record Review External record reviewed: Outpatient record Discharge Plan Discharge Clinical Impression: Musculoskeletal back pain Patient Disposition: Home, Self-Care Instructions: Musculoskeletal Pain (ED) Additional Instructions: Take pain medication and muscle relaxant as prescribed Follow-up with preforms laminator/PCP if you continue to have chest pain Prescriptions: New cyclobenzaprine 10 mg tablet 10 mg PO Q8H Qty: 20 0RF tramadol 50 mg tablet 50 mg PO Q6H PRN (Reason: pain) Qty: 20 0RF No Action clonazepam 0.5 mg tablet 1 tab PO DAILY PRN (Reason: anxiety) atorvastatin 80 mg Tablet 80 mg PO BEDTIME Qty: 30 0RF acetaminophen 325 mg Tablet 650 mg PO Q6H PRN (Reason: Pain, Mild (Pain Scale 1-3)) Qty: 30 0RF aspirin 81 mg Tablet,Delayed Release (Dr/Ec) 81 mg PO DAILY Qty: 30 0RF omeprazole 20 mg capsule,delayed release(DR/EC) 20 mg PO DAILY cyclobenzaprine 10 mg tablet 10 mg PO TID PRN (Reason: muscle spasm) Qty: 14 0RF loratadine 10 mg tablet 10 mg PO DAILY finasteride 5 mg tablet 5 mg PO DAILY 90 Days Qty: 90 1RF Rx Instructions: Take Tuesday, Tuesday, Tuesday metoprolol succinate 25 mg tablet extended release 24 hr 25 mg PO DAILY cholecalciferol (vitamin D3) 50 mcg (2,000 unit) tablet 50 mcg PO DAILY lisinopril 10 mg tablet 10 mg PO DAILY Qty: 90 3RF Interventions: ED Discharge Assessment Last Done: 07/15/23 22:43 Discharge Date/Time: 07/15/23 22:46
--- NOTE | 2023-07-15 18:47 | MHC.EDTECH ---
ekg was delay due to ekg machine not work and the other machine was in use .
--- NOTE | 2023-07-15 19:20 | MHC.EDTECH ---
Patient blood drawn and rsv/covid swab collected and sent to lab .
[2023-07-15 19:21] LABS: MANUAL DIFF FLAG NO
[2023-07-15 19:23] LABS: Basophils Percent Auto 0.3 % (0-2); Eosinophils Absolute Auto 0.2 X10*3/uL (0.0-0.4); Eosinophils Percent Auto 3.2 % (0-4); Hematocrit 44.5 % (42.0-52.0); Hemoglobin 15.1 g/dl (14.0-18.0); Imm Gran Abs Auto 0.01 X10*3/uL (0.00-0.03); Imm Gran Pct Auto 0.2 % (0.0-0.4); Lymphocytes Absolute Auto 1.1 X10*3/uL (1.2-4.9); Lymphocytes Percent Auto 16.7 % (20-40); Mean Corpuscular HGB Conc 33.9 g/dl (31.0-36.0); Mean Corpuscular Hemoglobin 29.4 pg (27.0-33.0); Mean Corpuscular Volume 86.6 fL (80.0-98.0); Mean Platelet Volume 10.7 fL (9.4-12.4); Monocytes Absolute Auto 0.6 X10*3/uL (0.1-1.2); Monocytes Percent Auto 10.2 % (2-11); Neutrophils Absolute Auto 4.4 x10*3/uL (2.0-8.3); Neutrophils Percent Auto 69.4 % (45-73); Platelet Count 180 X10*3/uL (160-400); Red Blood Count 5.14 X10*6/uL (4.60-5.80); White Blood Count 6.3 X10*3/uL (4.8-10.8)
[2023-07-15 19:42] LABS: Alanine Aminotransferase 27 U/L (0-40); Albumin Level 4.4 g/dL (3.5-5.0); Alkaline Phosphatase 62 U/L (39-117); Anion Gap 13 (12-20); Aspartate Amino Transferase 24 U/L (5-37); Bilirubin Total 0.7 mg/dL (0.0-1.0); Blood Urea Nitrogen 21 mg/dL (9-16); Calcium 10.1 mg/dL (8.4-10.2); Carbon Dioxide 26 mmol/L (22-29); Chloride 105 mmol/L (96-108); Creatinine Clr Calc Pharmacy 100.7; Estimated Glomerular Filt Rate > 60; Glucose Random 100 mg/dL (60-115); Magnesium 2.1 mg/dL (1.6-2.6); Potassium 4.5 mmol/L (3.3-5.1); Sodium 139 mmol/L (135-145); Total Protein 7.1 g/dL (6.5-8.0)
[2023-07-15 19:49] LABS: Troponin-I High Sensitivity 7.4 ng/L (<3.5-35.0)
[2023-07-15 19:59] LABS: Appearance Urine Clear; Color Urine Yellow; Glucose Urine UA Negative (Negative); Leukocyte Esterase Urine Negative (Negative); Nitrite Urine Negative (Negative); Specific Gravity - Urine 1.015 (1.005-1.025); Urine Blood Negative (Negative); Urine Ketones Negative (Negative); Urine Protein Negative (Neg-Trace)
[2023-07-15 20:05] LABS: Influenza A PCR NEGATIVE (Negative); Influenza B PCR NEGATIVE (Negative); Resp Syncy Virus RNA Qual PCR NEGATIVE (Negative); SARS COV2 PCR INHOUSE NEGATIVE (Negative)
[2023-07-15 20:09] LABS: Partial Thromboplastin Time 32.3 SEC (26.0-36.4)
[2023-07-15 21:33] VITALS: BP 151/89; PULSE 65; RESP 17; TEMP 36.6; O2SAT 97
--- NOTE | 2023-07-15 21:43 | PC.NURSE ---
REPEAT TROP DRAWN PT REPORTS CP HAS RESOLVED. DR. RICHARD NOTIFIED OF R. SHOULDER PAIN.
[2023-07-15] MEDS: traMADoL HCL 50 MG TABLET PO (21:53)
--- NOTE | 2023-07-15 21:59 | PC.NURSE ---
pt refused flexiril states will make drowsy states has at home in case he needs it; usually takes at 1900 everyday. placed on heart monitor 66 bpm nsr.
[2023-07-15 22:15] LABS: Troponin-I High Sensitivity 4.2 ng/L (<3.5-35.0)
== END 2023-07-15 22:46 | disposition home or self-care (01) ==
PROVIDERS: Physician Assistant Medical; Emergency Provider Internal Medicine; PCP Internal Medicine Geriatric Medicine
DX: M54.6 Pain in thoracic spine (principal); Z20.822 Contact with and (suspected) exposure to COVID-19; Z20.828 Contact with and (suspected) exposure to other viral communicable diseases; R07.9 Chest pain, unspecified; I10 Essential (primary) hypertension; I45.10 Unspecified right bundle-branch block; K42.9 Umbilical hernia without obstruction or gangrene; K40.90 Unilateral inguinal hernia, without obstruction or gangrene, not specified as recurrent; Z79.82 Long term (current) use of aspirin; Z79.899 Other long term (current) drug therapy
CPT/HCPCS: 0241U; 36415; 80053; 81003; 83735; 84484; 85025; 85610; 85730; 93005; 99283; 99285

== ENCOUNTER → 2023-07-15 18:17 | Outpatient (BNV) | payer MEDICAID, SELFPAY ==
[2021-07-29 14:22] VITALS: BMI 26.2
== END ==
PROVIDERS: Emergency Provider Internal Medicine; PCP Internal Medicine Geriatric Medicine; Visit Provider Internal Medicine Cardiovascular Disease
DX: R07.9 Chest pain, unspecified (principal)
CPT/HCPCS: 93010

== ENCOUNTER 2023-07-20 22:34 | Emergency (ER) | payer MEDICAID, SELFPAY ==
[2021-07-29 14:22] VITALS: BMI 26.2
--- NOTE | 2023-07-20 | ECG_ITS ---
Test Reason : HX CARDIAC Blood Pressure : / mmHG Vent. Rate : 064 BPM Atrial Rate : 064 BPM P-R Int : 184 ms QRS Dur : 104 ms QT Int : 410 ms P-R-T Axes : 057 019 006 degrees QTc Int : 422 ms Normal sinus rhythm Normal ECG When compared with ECG of 15-JUL-2023 18:38, Incomplete right bundle branch block is no longer Present Referred By: Generic ED Physician Electronically Signed By:OZZIE PARK
[2023-07-20 23:38] VITALS: BP 128/92; PULSE 67; RESP 20; TEMP 36.5; O2SAT 98; BMI 26.4
[2023-07-21 00:21] LABS: IDNOW Serial# 08D9AD1C; Strep A Nucleic Acid Negative (Negative)
[2023-07-21 01:28] VITALS: BP 144/86; PULSE 63; RESP 14; TEMP 36.5; O2SAT 97
[2023-07-21 03:20] LABS: Influenza A PCR NEGATIVE (Negative); Influenza B PCR NEGATIVE (Negative); Resp Syncy Virus RNA Qual PCR NEGATIVE (Negative); SARS COV2 PCR INHOUSE NEGATIVE (Negative)
--- NOTE | 2023-07-21 03:50 | ED.GENADULT ---
[facility] - General Adult General Chief complaint: General Medical Stated complaint: sore throat Time Seen by Provider: 07/21/23 01:56 Source: patient Mode of arrival: ambulatory History of Present Illness HPI narrative: 63-year-old male with onset of sore throat that started approximately 2 hours prior to arrival and patient states that he had some concerns because when he had is myocardial infarction it had radiated to his jaw and left arm. Patient denies any of those symptoms at this time (chest pain with radiation to left arm). Related Data Home Medications Medication Instructions Recorded Confirmed clonazepam 0.5 mg tablet 1 tab PO DAILY PRN anxiety 04/17/21 01/14/23 metoprolol succinate 25 mg 25 mg PO DAILY 05/20/21 01/14/23 tablet,extended release 24 hr cholecalciferol (vitamin D3) 50 50 mcg PO DAILY 11/02/22 01/14/23 mcg (2,000 unit) tablet omeprazole 20 mg capsule,delayed 20 mg PO DAILY 11/02/22 01/14/23 release loratadine 10 mg tablet 10 mg PO DAILY 01/14/23 01/14/23 Previous Rx's Medication Instructions Recorded acetaminophen 325 mg tablet 650 mg (2 x 325 mg) PO Q6H PRN 04/17/21 Pain, Mild (Pain Scale 1-3) #30 tabs aspirin 81 mg tablet,delayed 81 mg PO DAILY #30 tabs 04/17/21 release atorvastatin 80 mg tablet 80 mg PO BEDTIME #30 tabs 04/17/21 cyclobenzaprine 10 mg tablet 10 mg PO TID PRN muscle spasm #14 03/27/22 tabs lisinopril 10 mg tablet 10 mg PO DAILY #90 tabs 11/02/22 finasteride 5 mg tablet 5 mg PO DAILY 90 days #90 tabs 01/14/23 cyclobenzaprine 10 mg tablet 10 mg PO Q8H #20 tabs 07/15/23 tramadol 50 mg tablet 50 mg PO Q6H PRN pain #20 tabs 07/15/23 Allergies Allergy/AdvReac Type Severity Reaction Status Date / Time No Known Allergies Allergy Verified 07/14/23 08:47 [No Known Allergies*] Review of Systems Review of Systems: Pertinent positives and negatives as stated in [facility] Past Medical History Source: nursing notes reviewed Medical History Inguinodynia Atherosclerotic cardiovascular disease CAD (coronary artery disease) Hernia Non-STEMI (non-ST elevated myocardial infarction) HTN (hypertension) Surgical History Hx of cardiac catheterization No significant past surgical history Surgical history unknown Family History Family History Father No problems noted. Mother Hypertension Social History Social History Household Members: Spouse Housing: House Do you presently have visiting nurse or other home services: No Alcohol intake: never Comment: telemetry Patient Tobacco Use Status: Never used Tobacco Advance Directives: No Advance Directives Information Provided: No Physical Exam ED Vital Signs: Vital Signs - 24 hr 07/20/23 23:38 07/21/23 01:28 Temperature 97.7 F 97.7 F Pulse Rate 67 63 Respiratory Rate 20 14 Blood Pressure 128/92 H 144/86 H Pulse Oximetry 98 97 Oxygen Delivery Method Room Air Room Air BMI result Body Mass Index 26.4 VITAL SIGNS: Reviewed. GENERAL: Well developed, well nourished, in no acute distress. HEAD: Normocephalic/atraumatic EYES: PERRLA, EOMI EARS: Ext canals without abnormality, TMs non-bulging and non-erythematous NOSE: Nares patent bilateral OROPHARYNX: no oral lesions noted, posterior pharynx clear and non-erythematous without noted tonsillar enlargement/erythema/exudates NECK: Supple, no adenopathy LUNGS: Normal breath sounds. No adventitious sounds or accessory muscle use. SpO2<97> CARDIOVASCULAR: Regular rate and rhythm without noted murmurs ABDOMEN: Soft, non-tender, non-distended with bowel sounds. MUSCULOSKELETAL: No tenderness, deformities, or effusions noted on gross inspection. EXTREMITIES: No cyanosis, clubbing or edema. SKIN: Inspection of the skin reveals no rashes NEUROLOGIC: Alert and oriented x 4. Strength and sensation to light touch were grossly intact x 4. Medical Decision Making Medical Decision Making MDM Narrative: 63-year-old male with history and clinical presentation suggestive of viral illness, on review of all investigations there is no evidence of influenza/RSV/COVID and rapid strep is negative. EKG does not demonstrate any acute findings and patient is otherwise discharged home with instructions to follow-up with his primary care doctor. Differential Diagnosis Differential Diagnoses: The differential diagnosis associated with the presentation includes Please see the discussion above Admission/Observation Consideration of admission/observation: Escalation of care including admission/observation considered Please see the discussion above Lab Data MDM Lab Attestation statement: I reviewed the patient's lab results. Please see the discussion above Labs: Lab Results 07/20/23 07/21/23 Range/Units 23:52 02:36 Influenza Type A (PCR) NEGATIVE (Negative) Influenza Type B (PCR) NEGATIVE (Negative) RSV RNA Qual (PCR) NEGATIVE (Negative) SARS-CoV-2 RNA (RT-PCR) NEGATIVE (Negative) S. pyogenes GrpA WES Negative (Negative) Independent Interpretation I performed an independent interpretation of an: EKG Interpretation: Normal sinus rhythm, HR-64, no STEMI, IN/QRS/QTC is within normal limits. External Record Review External record reviewed: Outpatient record and Prior outpatient labs Chronic Conditions Patient?s care impacted by: Hypertension and Other CAD Discharge Plan Discharge Clinical Impression: Pharyngitis Patient Disposition: Home, Self-Care Instructions: Pharyngitis (ED) Additional Instructions: 1. Resume all home medications as prescribed. 2. Follow-up with primary care doctor in the next 1-2 days. Return to the ER for any worsening symptoms. Prescriptions: No Action clonazepam 0.5 mg tablet 1 tab PO DAILY PRN (Reason: anxiety) atorvastatin 80 mg Tablet 80 mg PO BEDTIME Qty: 30 0RF acetaminophen 325 mg Tablet 650 mg PO Q6H PRN (Reason: Pain, Mild (Pain Scale 1-3)) Qty: 30 0RF aspirin 81 mg Tablet,Delayed Release (Dr/Ec) 81 mg PO DAILY Qty: 30 0RF omeprazole 20 mg capsule,delayed release(DR/EC) 20 mg PO DAILY cyclobenzaprine 10 mg tablet 10 mg PO TID PRN (Reason: muscle spasm) Qty: 14 0RF cyclobenzaprine 10 mg tablet 10 mg PO Q8H Qty: 20 0RF tramadol 50 mg tablet 50 mg PO Q6H PRN (Reason: pain) Qty: 20 0RF loratadine 10 mg tablet 10 mg PO DAILY finasteride 5 mg tablet 5 mg PO DAILY 90 Days Qty: 90 1RF Rx Instructions: Take Tuesday, Tuesday, Tuesday metoprolol succinate 25 mg tablet extended release 24 hr 25 mg PO DAILY cholecalciferol (vitamin D3) 50 mcg (2,000 unit) tablet 50 mcg PO DAILY lisinopril 10 mg tablet 10 mg PO DAILY Qty: 90 3RF
--- NOTE | 2023-07-21 04:04 | PC.NURSE ---
This RN only reviewed discharge instructions with pt. pt verbalized understanding. no sign of distress.
== END 2023-07-21 04:05 | disposition home or self-care (01) ==
PROVIDERS: Emergency Provider Student in an Organized Health Care Education/Training Program; PCP Internal Medicine Geriatric Medicine
DX: J02.9 Acute pharyngitis, unspecified (principal); I25.2 Old myocardial infarction; Z79.899 Other long term (current) drug therapy; Z20.822 Contact with and (suspected) exposure to COVID-19; Z20.828 Contact with and (suspected) exposure to other viral communicable diseases
CPT/HCPCS: 0241U; 87651; 93005; 99283; 99284

== ENCOUNTER → 2023-07-20 23:46 | Outpatient (BNV) | payer MEDICAID, SELFPAY ==
[2021-07-29 14:22] VITALS: BMI 26.2
== END ==
PROVIDERS: Emergency Provider Student in an Organized Health Care Education/Training Program; PCP Internal Medicine Geriatric Medicine; Visit Provider Internal Medicine
DX: R07.0 Pain in throat (principal); R07.9 Chest pain, unspecified; I45.10 Unspecified right bundle-branch block
CPT/HCPCS: 93010

== ENCOUNTER 2023-07-26 05:49 | Emergency (ER) | payer MEDICAID, SELFPAY ==
[2021-07-29 14:22] VITALS: BMI 26.2
--- NOTE | ~2023-07-26 | CT_ITS ---
EXAMINATION: CT ABDOMEN AND PELVIS WITHOUT CONTRAST CLINICAL INFORMATION: Pain of left flank. COMPARISON: 07/06/2022. TECHNIQUE: Multidetector volumetric imaging was performed from the superior aspect of the liver through the pubic symphysis. Sagittal and coronal reformatted images were obtained on the technologist's workstation. This CT examination was performed using dose optimization techniques as appropriate, variously including the following: *Automated exposure control *Adjustment of mA and/or kV according to patient size (this includes techniques or standardized protocols for targeted exams where dose is matched to indication/reason for exam; i.e. extremities or head) *Use of iterative reconstruction technique DLP: 511 mGy-cm FINDINGS: LUNG BASES: No pulmonary consolidation or pleural effusion. HEPATOBILIARY: The liver has normal size, shape, and attenuation. There is an old 0.2 cm calcification in the medial right hepatic lobe. Gallbladder has a normal appearance. No radiopaque stones, wall thickening or pericholecystic fluid. No dilated bile ducts. PANCREAS: No edema, pancreatic ductal dilatation or mass. SPLEEN: Normal. ADRENAL GLANDS: Normal. KIDNEYS AND URETERS: Kidneys are normal in size. Small amount of left-sided perinephric fluid is present and there is mild periureteral edema and minimal left-sided hydroureter. No hydronephrosis. A 0.3 cm stone previously identified in the left lower pole is no longer present. There are no ureteral stones. 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 A 0.3 cm calcification is present along the right posterior bladder wall. It is difficult to determine whether this is merely layering along the bladder wall or is protruding from the right ureteral orifice. Since there is no right-sided hydroureter, this is likely a stone layering along the bladder wall. BOWEL AND PERITONEUM: Stomach is unremarkable. No dilated loops of bowel. The appendix is normal. No overt bowel wall thickening or mesenteric fat stranding. There are diverticula of the descending and sigmoid colon without evidence of diverticulitis. No free fluid or pneumoperitoneum. ABDOMINAL WALL: Chronic bilateral fat-containing inguinal hernias. VASCULATURE: Mild atherosclerosis of the abdominal aorta without aneurysm. LYMPH NODES: No pathologic sized lymph nodes in the abdomen or pelvis. No inguinal lymphadenopathy. PELVIC VISCERA: Chronically enlarged prostate gland measures approximately 5.4 x 4.3 x 5 cm. The median lobe of the gland protrudes into the bladder base. MUSCULOSKELETAL: Mild spondylosis of the visualized lower thoracic and lumbar spine. No acute or suspicious osseous abnormality. CT/CT abdomen pelvis wo IV con IMPRESSION: * Left-sided perinephric fluid/edema could be a manifestation of recent forniceal rupture from a recently passed ureteral stone. Minimal left-sided hydroureter is present. There are no calculi within the left kidney or ureter. Although a 0.3 cm calcification along the right posterior bladder wall is in the region of the right ureteral orifice, this probably represents a stone layering along the bladder wall (and might represent the 0.3 cm stone previously seen in the lower pole of the left kidney on 07/06/2022). * Prostatomegaly. * Diverticula of the colon without evidence of diverticulitis.
[2023-07-26 06:05] VITALS: BP 140/84; PULSE 65; RESP 18; TEMP 36.8; O2SAT 98; BMI 26.4
--- NOTE | 2023-07-26 06:20 | MHC.EDTECH ---
Patient brought into triage area, Labs and a urine sample were obtained and sent to lab, Patient brought back to waiting room.
[2023-07-26 06:26] LABS: MANUAL DIFF FLAG NO
[2023-07-26 06:28] LABS: Appearance Urine Clear; Color Urine Yellow; Glucose Urine UA Negative (Negative); Leukocyte Esterase Urine Negative (Negative); Nitrite Urine Negative (Negative); Urine Blood Negative (Negative); Urine Ketones Negative (Negative); Urine Protein Negative (Neg-Trace)
[2023-07-26 06:32] LABS: Basophils Percent Auto 0.8 % (0-2); Eosinophils Absolute Auto 0.4 X10*3/uL (0.0-0.4); Eosinophils Percent Auto 7.1 % (0-4); Hematocrit 44.2 % (42.0-52.0); Hemoglobin 14.8 g/dl (14.0-18.0); Imm Gran Abs Auto 0.01 X10*3/uL (0.00-0.03); Imm Gran Pct Auto 0.2 % (0.0-0.4); Lymphocytes Absolute Auto 1.8 X10*3/uL (1.2-4.9); Lymphocytes Percent Auto 34.6 % (20-40); Mean Corpuscular HGB Conc 33.5 g/dl (31.0-36.0); Mean Corpuscular Hemoglobin 29.7 pg (27.0-33.0); Mean Corpuscular Volume 88.8 fL (80.0-98.0); Mean Platelet Volume 10.7 fL (9.4-12.4); Monocytes Absolute Auto 0.5 X10*3/uL (0.1-1.2); Monocytes Percent Auto 10.4 % (2-11); Neutrophils Absolute Auto 2.4 x10*3/uL (2.0-8.3); Neutrophils Percent Auto 46.9 % (45-73); Platelet Count 168 X10*3/uL (160-400); Red Blood Count 4.98 X10*6/uL (4.60-5.80); Red Cell Distribution Width 11.9 % (11.0-16.0); White Blood Count 5.2 X10*3/uL (4.8-10.8)
[2023-07-26 06:45] LABS: Alanine Aminotransferase 23 U/L (0-40); Albumin Level 4.1 g/dL (3.5-5.0); Alkaline Phosphatase 58 U/L (39-117); Anion Gap 12 (12-20); Aspartate Amino Transferase 20 U/L (5-37); Bilirubin Direct 0.3 mg/dL (0.0-0.5); Bilirubin Total 0.8 mg/dL (0.0-1.0); Blood Urea Nitrogen 19 mg/dL (9-16); Calcium 9.8 mg/dL (8.4-10.2); Carbon Dioxide 26 mmol/L (22-29); Chloride 104 mmol/L (96-108); Creatinine Clr Calc Pharmacy 89.6; Estimated Glomerular Filt Rate > 60; Glucose Random 117 mg/dL (60-115); Lipase 22 U/L (8-78); Potassium 3.2 mmol/L (3.3-5.1); Sodium 139 mmol/L (135-145); Total Protein 6.6 g/dL (6.5-8.0)
--- NOTE | 2023-07-26 10:13 | ED.GENADULT ---
HPI - General Adult General Chief complaint: Back Pain/Injury Stated complaint: side pain, radiates to back Time Seen by Provider: 07/26/23 09:46 History of Present Illness HPI narrative: the patient is a 63-year-old male who says that he was awoken from his sleep by severe left lower back pain that radiated into his left lower quadrant. This woken from sleep at 05:00 this morning. The pain was severe and he came to the emergency room. The patient waited for several hours until he was finally placed in a room here at the emergency room. By the time I saw him his pain had resolved entirely. He says he has never had pain like this before and that it was the worst pain he has ever experienced in his life. He now feels entirely comfortable. He denies any fever, but he says that while he was having the pain he felt sweaty and nauseated. No dysuria, frequency, urgency. He has not noticed any change in the appearance of his urine. Related Data Home Medications Medication Instructions Recorded Confirmed clonazepam 0.5 mg tablet 1 tab PO DAILY PRN anxiety 04/17/21 01/14/23 metoprolol succinate 25 mg 25 mg PO DAILY 05/20/21 01/14/23 tablet,extended release 24 hr cholecalciferol (vitamin D3) 50 50 mcg PO DAILY 11/02/22 01/14/23 mcg (2,000 unit) tablet omeprazole 20 mg capsule,delayed 20 mg PO DAILY 11/02/22 01/14/23 release loratadine 10 mg tablet 10 mg PO DAILY 01/14/23 01/14/23 Previous Rx's Medication Instructions Recorded acetaminophen 325 mg tablet 650 mg (2 x 325 mg) PO Q6H PRN 04/17/21 Pain, Mild (Pain Scale 1-3) #30 tabs aspirin 81 mg tablet,delayed 81 mg PO DAILY #30 tabs 04/17/21 release atorvastatin 80 mg tablet 80 mg PO BEDTIME #30 tabs 04/17/21 cyclobenzaprine 10 mg tablet 10 mg PO TID PRN muscle spasm #14 03/27/22 tabs lisinopril 10 mg tablet 10 mg PO DAILY #90 tabs 11/02/22 finasteride 5 mg tablet 5 mg PO DAILY 90 days #90 tabs 01/14/23 cyclobenzaprine 10 mg tablet 10 mg PO Q8H #20 tabs 07/15/23 tramadol 50 mg tablet 50 mg PO Q6H PRN pain #20 tabs 07/15/23 Allergies Allergy/AdvReac Type Severity Reaction Status Date / Time No Known Allergies Allergy Verified 07/26/23 06:21 [No Known Allergies*] [facility] Past Medical History Onset Date is defined in the Problem List Problems that require an onset date and time if occurred within 24 hrs of arrival to the ED Aortic Dissection and Rupture; Neurologic impairment; Cardiopulmonary Arrest; Endotracheal Intubation; Insertion or Replacement of Mechanical Circulatory Assist Device Medical History Inguinodynia Atherosclerotic cardiovascular disease CAD (coronary artery disease) Hernia Non-STEMI (non-ST elevated myocardial infarction) HTN (hypertension) Surgical History Hx of cardiac catheterization No significant past surgical history Surgical history unknown Family History Family History Father No problems noted. Mother Hypertension Social History Social History Household Members: Spouse Housing: House Do you presently have visiting nurse or other home services: No Alcohol intake: never Comment: telemetry Patient Tobacco Use Status: Never used Tobacco Advance Directives: No Advance Directives Information Provided: No Physical Exam ED Vital Signs: Vital Signs - 24 hr 07/26/23 06:05 07/26/23 10:18 07/26/23 11:57 Temperature 98.2 F 98.7 F 97.9 F Pulse Rate 65 74 72 Respiratory Rate 18 18 12 Blood Pressure 140/84 H 119/76 133/83 Pulse Oximetry 98 98 96 Oxygen Delivery Method Room Air Room Air Room Air BMI result Body Mass Index 26.4 Const Other: At the time that I saw the patient the patient's pain and resolved. He was awake, alert, pleasant, cooperative and did not appear in any distress. [facility] Head: Yes normal to inspection Face and sinus: Yes normal facial exam Mouth: Normal oral and palatal mucosa present Eyes General: appearance normal, both eyes and all related structures Alignment and Position: alignment normal Periorbital: periorbital findings normal Eyelids: Yes eyelids normal Conjunctivae: conjunctivae normal Resp Effort & Inspection: normal respiratory effort Auscultation: clear to auscultation bilaterally Cardio Rate: regular rate Rhythm: regular rhythm Heart sounds: S1 normal heart sound present and S2 normal heart sound present GI Other: The abdomen was soft and nontender. Back/Spine/Pelvis Other: No CVA percussion tenderness Skin Other: Skin is dry and unremarkable. Skin is normal. Neuro Other: The patient is awake, alert, pleasant, cooperative. Nontoxic, neurologically intact. Extrem Other: No peripheral edema Medical Decision Making Medical Decision Making [facility] Narrative: The patient is a 63-year-old male who presents with left flank pain. His description of his symptoms was highly suggestive of left-sided ureteral colic but his pain had resolved prior to my evaluation. Surprisingly he had no blood on his urinalysis. CT scan was done that shows a kidney stone in the bladder and signs of recent passage of a stone on the left side. I reviewed all this with the patient. He was then discharged follow-up with regular doctor. He does not have any intrarenal stones on his CT scan. Lab Data 07/26/23 06:18 07/26/23 06:18 Labs: Lab Results 07/26/23 Range/Units 06:18 WBC 5.2 (4.8-10.8) X10*3/uL RBC 4.98 (4.60-5.80) X10*6/uL Hgb 14.8 (14.0-18.0) g/dl Hct 44.2 (42.0-52.0) % MCV 88.8 (80.0-98.0) fL MCH 29.7 (27.0-33.0) pg MCHC 33.5 (31.0-36.0) g/dl RDW 11.9 (11.0-16.0) % Plt Count 168 (160-400) X10*3/uL MPV 10.7 (9.4-12.4) fL Immature Gran % (Auto) 0.2 (0.0-0.4) % Neut % (Auto) 46.9 (45-73) % Lymph % (Auto) 34.6 (20-40) % Conway % (Auto) 10.4 (2-11) % Eos % (Auto) 7.1 H (0-4) % Baso % (Auto) 0.8 (0-2) % Lymph # (Auto) 1.8 (1.2-4.9) X10*3/uL [place] # (Auto) 0.5 (0.1-1.2) X10*3/uL Eos # (Auto) 0.4 (0.0-0.4) X10*3/uL Baso # (Auto) 0.0 (0.0-0.2) X10*3/uL Abs Immat Gran (auto) 0.01 (0.00-0.03) X10*3/uL Absolute Neuts (auto) 2.4 (2.0-8.3) x10*3/uL Absolute Nucleated RBC 0.000 (0.0-0.012) X10*3/uL Nucleated RBC % (auto) 0.0 (0.0-0.2) /100WBC Sodium 139 (135-145) mmol/L Potassium 3.2 L D (3.3-5.1) mmol/L Chloride 104 (96-108) mmol/L Carbon Dioxide 26 (22-29) mmol/L Anion Gap 12 (12-20) BUN 19 H (9-16) mg/dL Creatinine 0.91 (0.5-1.4) mg/dL Estim Creat Clear Calc 89.6 Estimated GFR > 60 Random Glucose 117 H (60-115) mg/dL Calcium 9.8 (8.4-10.2) mg/dL Total Bilirubin 0.8 (0.0-1.0) mg/dL Direct Bilirubin 0.3 (0.0-0.5) mg/dL AST 20 (5-37) U/L ALT 23 (0-40) U/L Alkaline Phosphatase 58 (39-117) U/L Total Protein 6.6 (6.5-8.0) g/dL Albumin 4.1 (3.5-5.0) g/dL Lipase 22 (8-78) U/L Urine Color Yellow Urine Appearance Clear Urine pH 6.0 (5.0-9.0) Ur Specific [place] 1.020 (1.005-1.025) Urine Protein Negative (Neg-Trace) mg/dL Urine Glucose (UA) Negative (Negative) mg/dL Urine Ketones Negative (Negative) mg/dL Urine Blood Negative (Negative) Urine Nitrite Negative (Negative) Ur Leukocyte Esterase Negative (Negative) Discharge Plan Discharge Clinical Impression: Ureteric colic, Kidney stone Patient Disposition: Home, Self-Care Instructions: Kidney Stones (ED) Additional Instructions: You seemed to have passed a kidney stone. The pain you experienced was when the kidney stone was in your left ureter. At this point the stone is passed into your bladder. I think you should not have any additional pain like you had this morning. The good news is that your CT scan does not show any stones up in your kidneys to cause this problem again. Please follow-up with your regular doctor to discuss this further. Return to the emergency room if you develop a fever or other problems. Prescriptions: No Action clonazepam 0.5 mg tablet 1 tab PO DAILY PRN (Reason: anxiety) atorvastatin 80 mg Tablet 80 mg PO BEDTIME Qty: 30 0RF acetaminophen 325 mg Tablet 650 mg PO Q6H PRN (Reason: Pain, Mild (Pain Scale 1-3)) Qty: 30 0RF aspirin 81 mg Tablet,Delayed Release (Dr/Ec) 81 mg PO DAILY Qty: 30 0RF omeprazole 20 mg capsule,delayed release(DR/EC) 20 mg PO DAILY cyclobenzaprine 10 mg tablet 10 mg PO TID PRN (Reason: muscle spasm) Qty: 14 0RF cyclobenzaprine 10 mg tablet 10 mg PO Q8H Qty: 20 0RF tramadol 50 mg tablet 50 mg PO Q6H PRN (Reason: pain) Qty: 20 0RF loratadine 10 mg tablet 10 mg PO DAILY finasteride 5 mg tablet 5 mg PO DAILY 90 Days Qty: 90 1RF Rx Instructions: Take Tuesday, Tuesday, Tuesday metoprolol succinate 25 mg tablet extended release 24 hr 25 mg PO DAILY cholecalciferol (vitamin D3) 50 mcg (2,000 unit) tablet 50 mcg PO DAILY lisinopril 10 mg tablet 10 mg PO DAILY Qty: 90 3RF Referrals: Jabari Loza MD [Physician] - (First-time kidney stone) Interventions: ED Discharge Assessment Last Done: 07/26/23 12:46 Discharge Date/Time: 07/26/23 12:47
[2023-07-26 10:18] VITALS: BP 119/76; PULSE 74; RESP 18; TEMP 37.1; O2SAT 98
--- NOTE | 2023-07-26 10:22 | PC.NURSE ---
VS updated, pt denies any current pain. Reports pain this am was 11/10 from his flank to the right side of his abdomen. Pt aware of plan for CT Scan.
[2023-07-26 11:57] VITALS: BP 133/83; PULSE 72; RESP 12; TEMP 36.6; O2SAT 96
--- NOTE | 2023-07-26 12:06 | PC.NURSE ---
Bladder scan 158mL.
== END 2023-07-26 12:47 | disposition home or self-care (01) ==
PROVIDERS: Emergency Provider Emergency Medicine
DX: N23 Unspecified renal colic (principal); N20.0 Calculus of kidney; I10 Essential (primary) hypertension
CPT/HCPCS: 36415; 74176; 80048; 80076; 81003; 83690; 85025; 99283; 99284

== ENCOUNTER 2023-09-21 08:34 | Outpatient (REF) | payer MEDICAID, SELFPAY ==
[2021-07-29 14:22] VITALS: BMI 26.2
[2023-09-21 11:30] LABS: Anion Gap 10 (12-20); Blood Urea Nitrogen 21 mg/dL (9-16); Calcium 10.1 mg/dL (8.4-10.2); Carbon Dioxide 31 mmol/L (22-29); Chloride 101 mmol/L (96-108); Estimated Glomerular Filt Rate > 60; Glucose Random 92 mg/dL (60-115); Potassium 4.4 mmol/L (3.3-5.1); Sodium 138 mmol/L (135-145)
== END 2023-09-21 08:35 | disposition home or self-care (01) ==
LOC: HO.HHCL 08:34
PROVIDERS: Visit Provider Internal Medicine Geriatric Medicine
DX: I10 Essential (primary) hypertension (principal)
CPT/HCPCS: 36415; 80048

== ENCOUNTER 2023-11-14 08:58 | Outpatient (AMB) | payer MEDICAID, SELFPAY ==
[2021-07-29 14:22] VITALS: BMI 26.2
[2023-11-14 09:04] VITALS: BP 122/70; PULSE 70; O2SAT 98; BMI 24.6
--- NOTE | 2023-11-14 09:04 | A.OFFVIS_ITS ---
Vital Signs 11/14/23 09:04 Height 5 ft 11 in Weight 176 lb 5.917 oz BMI 24.6 BP 122/70 Blood Pressure Location Lt brachial Position Sitting Pulse 70 Pulse Source Pulse Oximeter Pulse Oximetry (%) 98 Oxygen Delivery Method Room Air Intake Visit Reasons: 6 mth f/up Allergies No Known Allergies [No Known Allergies*] Allergy (Verified 07/26/23 06:21) Medication List - Last Reconciled 11/14/23 by Barry Mcdonnell MD acetaminophen 650 mg (2 x 325 mg) PO Q6H PRN aspirin 81 mg PO DAILY atorvastatin 80 mg PO BEDTIME cholecalciferol (vitamin D3) 50 mcg PO DAILY clonazepam 1 tab PO DAILY PRN cyclobenzaprine 10 mg PO TID PRN cyclobenzaprine 10 mg PO Q8H dutasteride 0.5 mg PO DAILY 90 days lisinopril 10 mg PO DAILY loratadine 10 mg PO DAILY metoprolol succinate ER 25 mg PO DAILY omeprazole 20 mg PO DAILY tramadol 50 mg PO Q6H PRN HPI Comments Details: Seferino returns for follow-up regarding coronary artery disease. To recall, in 2020, he was admitted to [place] with non ST elevation myocardial infarction. Subsequently, transferred to [facility] for cardiac catheterization. Underwent marginal stenting. He gets some atypical chest pains that seem rather tenderness to touch but nothing exertional. He states with activity he does not have any symptoms. Otherwise, doing fine. Blood pressures here seem normal but he states they are running on the higher side at home. Not clear why. In fact last 3 available blood pressures are within normal limits. [facility] Medical History Inguinodynia Atherosclerotic cardiovascular disease CAD (coronary artery disease) Hernia Non-STEMI (non-ST elevated myocardial infarction) HTN (hypertension) Surgical History Hx of cardiac catheterization No significant past surgical history Surgical history unknown Family History Father No problems noted. Mother Hypertension Social History Household Members: Spouse Housing: House Do you presently have visiting nurse or other home services: No Alcohol intake: never Comment: telemetry Patient Tobacco Use Status: Never used Tobacco Review of Systems Const Denies weakness ENT Denies dizziness Card Denies chest pain, Denies chest pain with activity, Denies syncope, Denies rapid heart rate, Denies pedal edema, Denies edema, Denies leg edema, Denies lightheadedness, Denies palpitations, Denies dyspnea, Denies dyspnea on exertion and Denies orthopnea Resp Denies cough, Denies dyspnea and Denies dyspnea on exertion GI Denies hematochezia and Denies change in stool character Musc Denies abnormal gait, Denies muscle cramps, Denies muscle weakness, Denies numbness, Denies radiating pain into limb and Denies tingling Neuro Denies abnormal gait, Denies dizziness, Denies syncope, Denies numbness, Denies tingling and Denies weakness Endo Denies palpitations Physical Exam Vital Signs: Last Vital Signs Pulse 70 11/14/23 09:04 BP 122/70 11/14/23 09:04 Pulse Ox 98 11/14/23 09:04 Oxygen Delivery Method Room Air 11/14/23 09:04 BMI result Body Mass Index 24.6 Const General: comfortable and no acute distress Orientation/consciousness: patient oriented x3 HEENT Other: Unremarkable Head: Yes normal to inspection Neck Neck: Yes normal visual inspection Chest Chest palpation & inspection: normal inspection of the chest Resp Auscultation: clear to auscultation bilaterally Cardio Palpation: normal PMI Heart sounds: S1 normal heart sound present, S2 normal heart sound present, no gallops, no murmurs and no rubs GI Palpation (GI): Soft to palpation Back/Spine/Pelvis Other: unremarkable Skin General skin exam: no rashes or lesions noted Neuro General: patient oriented x3 Extrem General: Yes normal to inspection Psych Mental Status: mental status grossly normal Assessment & Plan Assessment & Plan (1) Atherosclerotic cardiovascular disease: Code(s): I25.10 - Atherosclerotic heart disease of [place] coronary artery without angina pectoris Category: Medical (2) Essential hypertension: Code(s): I10 - Essential (primary) hypertension Category: Medical Plan Cardiac catheterization details reviewed from 03/2021. Status post drug-eluting stent to OM1 and OM3. 70-80% stenosis in proximal RPDA but small to medium caliber vessel. Mild nonobstructive disease in LAD but 60% focal distal LAD lesion. Overall, continue treatment for stable CAD. Continue aspirin, beta-blockers and high-dose statins. Cholesterol is well controlled. Last LDL is 70 mg/dL and HDL 47 mg/dL. With regard to blood pressure, he remains on lisinopril. Office blood pressure is normal but he states home blood pressure is on the higher side. Not clear if it is an issue with the equipment. Advised him to cross checked with any other blood pressure machines, possibly at a local pharmacy. He agrees. Total time spent including review of available records, counseling, documentation, coordination of care-31 minutes.
== END 2023-11-14 09:20 | disposition home or self-care (01) ==
PROVIDERS: PCP Internal Medicine Geriatric Medicine; Referring Provider Internal Medicine Geriatric Medicine; Visit Provider Internal Medicine
DX: I25.10 Atherosclerotic heart disease of native coronary artery without angina pectoris (principal); I10 Essential (primary) hypertension
CPT/HCPCS: 99214

== ENCOUNTER → 2023-11-14 08:58 | Outpatient (BNVA) | payer MEDICAID, SELFPAY ==
[2021-07-29 14:22] VITALS: BMI 26.2
== END ==
PROVIDERS: PCP Internal Medicine Geriatric Medicine; Visit Provider Internal Medicine
DX: I25.10 Atherosclerotic heart disease of native coronary artery without angina pectoris (principal); I10 Essential (primary) hypertension
CPT/HCPCS: 99212

== ENCOUNTER 2023-11-17 08:37 | Outpatient (REF) | payer MEDICAID, SELFPAY ==
[2021-07-29 14:22] VITALS: BMI 26.2
[2023-11-17 11:33] LABS: MANUAL DIFF FLAG NO
[2023-11-17 11:40] LABS: Basophils Percent Auto 0.7 % (0-2); Eosinophils Absolute Auto 0.3 X10*3/uL (0.0-0.4); Eosinophils Percent Auto 5.9 % (0-4); Hematocrit 48.4 % (42.0-52.0); Hemoglobin 16.2 g/dl (14.0-18.0); Imm Gran Abs Auto 0.01 X10*3/uL (0.00-0.03); Imm Gran Pct Auto 0.2 % (0.0-0.4); Lymphocytes Absolute Auto 1.3 X10*3/uL (1.2-4.9); Lymphocytes Percent Auto 29.9 % (20-40); Mean Corpuscular HGB Conc 33.5 g/dl (31.0-36.0); Mean Corpuscular Hemoglobin 29.2 pg (27.0-33.0); Mean Corpuscular Volume 87.2 fL (80.0-98.0); Monocytes Absolute Auto 0.5 X10*3/uL (0.1-1.2); Monocytes Percent Auto 10.9 % (2-11); Neutrophils Absolute Auto 2.3 x10*3/uL (2.0-8.3); Neutrophils Percent Auto 52.4 % (45-73); Platelet Count 177 X10*3/uL (160-400); Red Blood Count 5.55 X10*6/uL (4.60-5.80); White Blood Count 4.4 X10*3/uL (4.8-10.8)
[2023-11-17 12:47] LABS: Alanine Aminotransferase 26 U/L (0-40); Albumin Level 4.3 g/dL (3.5-5.0); Alkaline Phosphatase 56 U/L (39-117); Anion Gap 10 (12-20); Aspartate Amino Transferase 23 U/L (5-37); Bilirubin Total 0.8 mg/dL (0.0-1.0); Blood Urea Nitrogen 22 mg/dL (9-16); Calcium 10.1 mg/dL (8.4-10.2); Carbon Dioxide 30 mmol/L (22-29); Chloride 103 mmol/L (96-108); Cholesterol 128 mg/dL (<200); Estimated Glomerular Filt Rate > 60; Glucose Random 95 mg/dL (60-115); HDL Cholesterol 52 mg/dL (>40); LDL Cholesterol Calculated 67 mg/dL (<100); Sodium 139 mmol/L (135-145); Total Protein 7.1 g/dL (6.5-8.0); Triglycerides 47 mg/dL (<150)
[2023-11-17 13:00] LABS: Prostate Specific Antigen 2.25 ng/mL (<0.05-4.0)
== END 2023-11-17 08:38 | disposition home or self-care (01) ==
LOC: HO.HHCL 08:37
PROVIDERS: Urology; Visit Provider Internal Medicine Geriatric Medicine
DX: I10 Essential (primary) hypertension (principal); I25.10 Atherosclerotic heart disease of native coronary artery without angina pectoris; R97.20 Elevated prostate specific antigen [PSA]
CPT/HCPCS: 36415; 80053; 80061; 84153; 85025

== ENCOUNTER 2024-05-15 08:49 | Outpatient (AMB) | payer MEDICAID, SELFPAY ==
[2021-07-29 14:22] VITALS: BMI 26.2
[2024-05-15 08:52] VITALS: BP 110/70; PULSE 55; BMI 27.2
--- NOTE | 2024-05-15 08:52 | MHC.OFFVIS ---
Vital Signs 05/15/24 08:52 Height 5 ft 11 in Weight 194 lb 14.218 oz BMI 27.2 BP 110/70 Blood Pressure Location Lt brachial Position Sitting Pulse 55 Pulse Source Monitor Intake Visit Reasons: 6 mth /fup Supervisor Policy Change Clerks Required: No Correctional Supervisor Lieutenant: Correctional Supervisor Lieutenant offered & declined Accompanied by: Self / Same As Patient Allergies No Known Allergies [No Known Allergies*] Allergy (Verified 07/26/23 06:21) Medication List - Last Reconciled 05/15/24 by Barry Mcdonnell MD acetaminophen 650 mg (2 x 325 mg) PO Q6H PRN aspirin 81 mg PO DAILY atorvastatin 80 mg PO BEDTIME cholecalciferol (vitamin D3) 50 mcg PO DAILY clonazepam 1 tab PO DAILY PRN cyclobenzaprine 10 mg PO TID PRN dutasteride 0.5 mg PO DAILY 90 days lisinopril 10 mg PO DAILY loratadine 10 mg PO DAILY metoprolol succinate ER 25 mg PO DAILY tramadol 50 mg PO Q6H PRN HPI Comments Details: Seferino returns for follow-up regarding coronary artery disease. To recall, in 2020, he was admitted to [place] with non ST elevation myocardial infarction. Subsequently, transferred to [facility] for cardiac catheterization. Underwent marginal stenting. Overall, he states he feels fine. He still gets some atypical chest pains that feel like a pinch but last only for a second or two. Nothing exertional. He actually walks a lot with no issues. [facility] Medical History Inguinodynia Atherosclerotic cardiovascular disease CAD (coronary artery disease) Hernia Non-STEMI (non-ST elevated myocardial infarction) HTN (hypertension) Surgical History Hx of cardiac catheterization No significant past surgical history Surgical history unknown Family History Father No problems noted. Mother Hypertension Social History Household Members: Spouse Housing: House Do you presently have visiting nurse or other home services: No Alcohol intake: never Comment: telemetry Patient Tobacco Use Status: Never used Tobacco Review of Systems Const Denies chills, Denies fatigue, Denies fever(s), Denies frequent falls, Denies weakness, Denies weight gain and Denies weight loss ENT Denies dizziness Card Denies chest pain, Denies leg edema, Denies lightheadedness, Denies palpitations, Denies dyspnea and Denies dyspnea on exertion Resp Denies cough, Denies dyspnea and Denies dyspnea on exertion GI Denies hematochezia Musc Denies abnormal gait, Denies muscle weakness, Denies numbness, Denies radiating pain into limb and Denies tingling Neuro Denies abnormal gait, Denies dizziness, Denies frequent falls, Denies numbness, Denies tingling and Denies weakness Endo Denies fatigue and Denies palpitations Physical Exam Vital Signs: Last Vital Signs Pulse 55 05/15/24 08:52 BP 110/70 05/15/24 08:52 BMI result Body Mass Index 27.2 Const General: comfortable and no acute distress Orientation/consciousness: patient oriented x3 HEENT Other: Unremarkable Head: Yes normal to inspection Neck Neck: Yes normal visual inspection Chest Chest palpation & inspection: normal inspection of the chest Resp Auscultation: clear to auscultation bilaterally Cardio Palpation: normal PMI Heart sounds: S1 normal heart sound present, S2 normal heart sound present, no gallops, no murmurs and no rubs GI Palpation (GI): Soft to palpation Back/Spine/Pelvis Other: unremarkable Skin General skin exam: no rashes or lesions noted Neuro General: patient oriented x3 Extrem General: Yes normal to inspection Psych Mental Status: mental status grossly normal Assessment & Plan Assessment & Plan (1) Atherosclerotic cardiovascular disease: Code(s): I25.10 - Atherosclerotic heart disease of [place] coronary artery without angina pectoris Category: Medical (2) Essential hypertension: Code(s): I10 - Essential (primary) hypertension Category: Medical Plan Cardiac catheterization details reviewed from 03/2021. Status post drug-eluting stent to OM1 and OM3. 70-80% stenosis in proximal RPDA but small to medium caliber vessel. Mild nonobstructive disease in LAD but 60% focal distal LAD lesion. He seems to be stable on the current regimen. On aspirin, beta-blockers and statins. The momentary chest pain episodes are nonexertional unlikely noncardiac. We discussed about exertional angina and its presentation and if any such instances he will contact us. With regard to blood pressure, stable on lisinopril. With regard to lipids, on high-dose statins. Last LDL 67 mg/dL. Triglycerides 47 mg/dL. Total time spent including review of available records, counseling, documentation, coordination of care-32 minutes. Coding Level of Care Code Est Pt Level 4 (42319) Diagnoses Atherosclerotic cardiovascular disease I25.10 Essential hypertension I10
== END 2024-05-15 09:22 | disposition home or self-care (01) ==
PROVIDERS: PCP Internal Medicine Geriatric Medicine; Visit Provider Internal Medicine
DX: I25.10 Atherosclerotic heart disease of native coronary artery without angina pectoris (principal); I10 Essential (primary) hypertension
CPT/HCPCS: 99214

== ENCOUNTER → 2024-05-15 08:49 | Outpatient (BNVA) | payer MEDICAID, SELFPAY ==
[2021-07-29 14:22] VITALS: BMI 26.2
== END ==
PROVIDERS: PCP Internal Medicine Geriatric Medicine; Visit Provider Internal Medicine
DX: I25.10 Atherosclerotic heart disease of native coronary artery without angina pectoris (principal); I10 Essential (primary) hypertension; Z98.890 Other specified postprocedural states
CPT/HCPCS: 99212

== ENCOUNTER 2024-05-16 21:22 | Emergency (ER) | payer MEDICAID, SELFPAY ==
[2021-07-29 14:22] VITALS: BMI 26.2
== END 2024-05-16 23:02 | disposition left against medical advice (07) ==
LOC: HO.ED 22:59
PROVIDERS: Emergency Provider Emergency Medicine; PCP Internal Medicine Geriatric Medicine
DX: R10.9 Unspecified abdominal pain (principal)

== ENCOUNTER 2024-05-17 09:44 | Outpatient (REF) | payer MEDICAID, SELFPAY ==
[2021-07-29 14:22] VITALS: BMI 26.2
[2024-05-17 11:50] LABS: Alanine Aminotransferase 45 U/L (0-40); Albumin Level 4.1 g/dL (3.5-5.0); Alkaline Phosphatase 53 U/L (39-117); Anion Gap 11 (12-20); Aspartate Amino Transferase 38 U/L (5-37); Bilirubin Direct 0.2 mg/dL (0.0-0.5); Bilirubin Total 0.8 mg/dL (0.0-1.0); Blood Urea Nitrogen 19 mg/dL (9-16); Calcium 10.3 mg/dL (8.4-10.2); Carbon Dioxide 25 mmol/L (22-29); Chloride 108 mmol/L (96-108); Estimated Glomerular Filt Rate > 60; Glucose Random 96 mg/dL (60-115); Potassium 3.8 mmol/L (3.3-5.1); Sodium 140 mmol/L (135-145); Total Protein 6.8 g/dL (6.5-8.0)
[2024-05-18 21:13] LABS: Immunoglobulin A 263 mg/dL (70-320); Transglutaminase IgA <1.0 U/mL
== END 2024-05-17 09:45 | disposition home or self-care (01) ==
LOC: HO.HHCL 09:44
PROVIDERS: Visit Provider Family Medicine
DX: R10.9 Unspecified abdominal pain (principal)
CPT/HCPCS: 36415; 80048; 80076; 82784; 86364

== ENCOUNTER 2024-06-12 07:43 | Outpatient (AMB) | payer MEDICAID, SELFPAY ==
[2021-07-29 14:22] VITALS: BMI 26.2
[2024-06-12 08:04] VITALS: BP 128/84; PULSE 58; O2SAT 98; BMI 27.4
--- NOTE | 2024-06-12 08:04 | MHC.OFFVIS ---
Vital Signs 06/12/24 08:04 Height 5 ft 11 in Weight 196 lb 10.437 oz BMI 27.4 BP 128/84 Blood Pressure Location Lt brachial Position Sitting Pulse 58 Pulse Source Pulse Oximeter Pulse Oximetry (%) 98 Oxygen Delivery Method Room Air Intake Visit Reasons: Rectum discomfort/pain Intake Note: Relevant Flags or Indicators ? Requires Boatbuilder Apprentice Wood? Leticia Gentile presents in office today for a scheduled consultation to re-establish care. CC; Rectal pain, pt likely due for colonoscopy ? Relevant GI Sx as reported per pt? Reflux Excessive gas and bloating Rectal discomfort, possible hemorrhoids? Hx of any recent surgeries? None Boatbuilder Apprentice Wood Required: Yes Allergies No Known Allergies [No Known Allergies*] Allergy (Verified 06/12/24 08:05) HPI HPI Rectum discomfort/pain: Details: LAST VISIT 07/22/2021 GERD (gastroesophageal reflux disease) Patient reports occasional acid reflux. He is on omeprazole and is taking that as needed. Patient was encouraged to avoid dietary triggers and late night snacking. Upright 2-3 hours after all meals. Elevated liver enzymes Elevated liver enzymes most likely related to high-dose statin. Patient liver enzyme should monitored and change statin if needed. We will rule out out immune disorders, viral hepatitis, hemochromatosis, malignancy. Patient does not have any family history of liver disease or cancer. Patient does not drink alcohol. We will order abdominal ultrasound with liver elastography. I will see him in 3 months to re-evaluate and discuss lab results and his ultrasound results. Patient is agreeable to this plan and verbalizes understanding of instructions. He was given the opportunity to ask questions and all questions answered. ? Thank you for allowing me to participate in his care Plan Orders Orders Ferritin 07/22/21 R74.8 Smooth Muscle Antibody 07/22/21 R7. Hepatitis A,B,C Profile 07/22/21. HIV Ab/Ag 07/22/21. Alpha Fetoprotein 07/22/21. Ceruloplasmin 07/22/21. C Reactive Protein 07/22/21 K58.9 Mitochondrial Antibody 07/22/21. US abdomen comp w elastography 07/22/21 TODAY'S VISIT Labs were reviewed with patient. Laboratory Tests 07/22/21 11/17/23 05/17/24 10:05 08:39 09:45 AST 23 38 H ALT 26 45 H Anti-Mitochondrial Ab NEGATIVE Anti-Smooth Muscle Ab <20 Tiss Transglutamin IgA <1.0 Hepatitis A IgM Ab Nonreactive Hep Bs Antigen Negative Hep Bs Antibody NONREACTIVE Hep B Core Total Ab Nonreactive Hepatitis C Ab (EIA) Nonreactive HIV 1&2 Ab/P24 Ag 4thGn Nonreactive Patient has not been seen since 2020. Patient chose to have Cologuard as he had stent placed that year, however patient has not followed up in our office since then. Patient is due to go for colonoscopy, feeling well cardiac villa. Just had follow-up with his sales support specialist on 15 of May. Patient is on high-dose statin and his liver enzymes have been elevated. Will send message to his sales support specialist to see if the medication can be changed to a different 1. As mentioned above all his lab work were negative for any autoimmune disorders that would cause elevation in liver enzymes. Increase hepatic echogenicity was seen on ultrasound that was done in 2021, unsure if the sampling was correct as liver elastography median stiffness was increased suggesting possible portal hypertension, however CT scan of abdomen and pelvis was performed later that year and again in the beginning of this year and did not show increase echogenicity. Patient will need to have repeat ultrasound. There is a mentioned of small 2 mm old calcification on the last CT scan. Patient reports increase in heartburn and epigastric pain postprandially. Patient denies any nausea or vomiting. Occasional blood after bowel movement. Patient denies having constipation or diarrhea. [facility] Medical History (Updated 06/12/24 @ 19:28 by Tatiana Drew [facility]-) Transaminitis Inguinodynia Atherosclerotic cardiovascular disease CAD (coronary artery disease) Hernia Non-STEMI (non-ST elevated myocardial infarction) HTN (hypertension) Surgical History Hx of cardiac catheterization No significant past surgical history Surgical history unknown Family History Father No problems noted. Mother Hypertension Social History Household Members: Spouse Housing: House Do you presently have visiting nurse or other home services: No Alcohol intake: never Comment: telemetry Patient Tobacco Use Status: Never used Tobacco Review of Systems Const Denies weight gain and Denies weight loss ENT Reports no additional complaints, Denies dysphagia and Denies odynophagia Card Reports no additional complaints Resp Reports no additional complaints GI Denies abdominal pain, Denies belching, Denies melena, Denies bloating, Denies change in bowel habits, Denies dysphagia, Denies excessive flatus, Denies dyspepsia, Reports heartburn, Denies diarrhea, Denies loose stools, Denies nausea, Denies odynophagia and Denies vomiting Reports no additional complaints Musc Reports no additional complaints Neuro Reports no additional complaints Psych Reports no additional complaints Endo Reports no additional complaints Physical Exam Vital Signs: Last Vital Signs Pulse 58 06/12/24 08:04 BP 128/84 06/12/24 08:04 Pulse Ox 98 06/12/24 08:04 Oxygen Delivery Method Room Air 06/12/24 08:04 BMI result Body Mass Index 27.4 Const General: healthy appearing, no acute distress and well developed Nutritional Appearance: well nourished Orientation/consciousness: patient oriented x3 Resp Effort & Inspection: normal respiratory effort, able to speak in complete sentences, no tracheal deviation and symmetric chest movement Auscultation: clear to auscultation bilaterally Cardio Rate: regular rate GI Inspection: Yes normal to inspection and No distended Palpation (GI): Soft to palpation, not firm, nontender and No hepatosplenomegaly present Auscultation: normal bowel sounds General: Yes no CVA tenderness Back/Spine/Pelvis Back: no CVA tenderness Skin General skin exam: elasticity normal, turgor normal and dry skin Neuro General: patient oriented x3 Psych Appearance: grossly normal Mental Status: mental status grossly normal Assessment & Plan Assessment & Plan (1) GERD (gastroesophageal reflux disease): Code(s): K21.9 - Gastro-esophageal reflux disease without esophagitis Category: Medical Qualifiers: Esophagitis presence: esophagitis presence not specified Qualified Code(s): K21.9 - Gastro-esophageal reflux disease without esophagitis (2) Transaminitis: Code(s): R74.01 - Elevation of levels of liver transaminase levels Category: Medical (3) Screen for colon cancer: Code(s): Z12.11 - Encounter for screening for malignant neoplasm of colon Plan Patient will start on pantoprazole every morning half an hour before breakfast. Avoid dietary triggers and late night snacking. Staying upright for minimum 3 hours after meals discussed with patient. Message sent to Dr. Mcdonnell enquiring about change of statin or decreasing the dose. Asking for clearance for colonoscopy. Increase fluid intake and activity to promote better bowel motility. Discussed with patient low FODMAP diet. Patient will return in 3 months we will discuss going for procedure. Will send a message to surgical schedulers to book procedure. Patient will be sent for upper endoscopy as well to rule out gastritis, esophagitis, duodenitis, Dee's, H pylori. He is agreeable to current plan of care and verbalizes understanding of instructions. He was given the opportunity to ask questions and all questions answered. Thank you for allowing me to participate in his care Orders: Orders Liver Fibrosis Pnl Today K76.0 - Fatty (change of) liver, not elsewhere classified Medications: New pantoprazole take one tablet half an hour before breakfast 40 mg PO DAILY 30 tabs 3RF K21.9 - Gastro-esophageal reflux disease without esophagitis Coding Level of Care Code Est Pt Level 4 (39476) Diagnoses Gastroesophageal reflux disease, unspecified whether esophagitis present K21.9 Esophagitis presence: esophagitis presence not specified Transaminitis R74.01 Screen for colon cancer Z12.11 Time Spent (min) 35 Comment 20 minutes spent with patient and additional 15 minutes spent reviewing his records
== END 2024-06-12 08:35 | disposition home or self-care (01) ==
PROVIDERS: PCP Internal Medicine Geriatric Medicine; Visit Provider Nurse Practitioner Family
DX: K21.9 Gastro-esophageal reflux disease without esophagitis (principal); R74.01 Elevation of levels of liver transaminase levels; Z12.11 Encounter for screening for malignant neoplasm of colon
CPT/HCPCS: 99214

== ENCOUNTER → 2024-06-12 07:43 | Outpatient (BNVA) | payer MEDICAID, SELFPAY ==
[2021-07-29 14:22] VITALS: BMI 26.2
== END ==
PROVIDERS: PCP Internal Medicine Geriatric Medicine; Visit Provider Nurse Practitioner Family
DX: Z12.11 Encounter for screening for malignant neoplasm of colon (principal); K21.9 Gastro-esophageal reflux disease without esophagitis; R74.01 Elevation of levels of liver transaminase levels
CPT/HCPCS: 99212

== ENCOUNTER 2024-07-17 08:12 | Outpatient (AMB) | payer MEDICAID, SELFPAY ==
[2021-07-29 14:22] VITALS: BMI 26.2
--- NOTE | 2024-07-17 08:28 | A.OFFVIS_ITS ---
Intake Visit Reasons: 1Y PVR/PSA/Med Review(Set) Intake Note: Patient is present for a follow-up:1y pvr/psa/med review Urology Med: Finasteride Antibiotic Allergy: None Blood Thinner: Aspirin PVR: 0ml todays pvr:oml's Tetryl Nitrator Operator Required: No Accompanied by: Self / Same As Patient Allergies No Known Allergies [No Known Allergies*] Allergy (Verified 07/17/24 08:30) HPI Comments Details: Seferino is a pleasant male. He is a patient of Dr. Loza. He is seen for the following urologic conditions - elevated PSA - lower urinary tract symptoms - Peyronie's disease Yearly follow-up Persian translation provided by qualified medical lab director Peyronie's stable Minimal impact on activity Continue to follow-up PSA remains low 2.3 Remains on dutasteride - just taking Mondays PVR low UA normal 12 month follow-up Elevated PSA Initial evaluation for elevated PSA Associated symptoms PSA 06/13 4.9, 04/14 1.5, 01/13 2.0, 12/14 1.4 Yearly follow-up with PSA [facility] Medical History (Updated 06/12/24 @ 19:28 by Tatiana Drew [facility]) Transaminitis Inguinodynia Atherosclerotic cardiovascular disease CAD (coronary artery disease) Hernia Non-STEMI (non-ST elevated myocardial infarction) HTN (hypertension) Surgical History Hx of cardiac catheterization No significant past surgical history Surgical history unknown Family History Father No problems noted. Mother Hypertension Social History Household Members: Spouse Housing: House Do you presently have visiting nurse or other home services: No Alcohol intake: never Comment: telemetry Patient Tobacco Use Status: Never used Tobacco Review of Systems Const Denies chills and Denies fever(s) Card Reports no additional complaints and Denies syncope Resp Denies cough GI Denies abdominal pain and Denies heartburn Reports as per HPI and Denies change in libido Neuro Denies syncope Psych Denies change in libido Endo Denies change in libido Physical Exam Const General: cooperative, healthy appearing, comfortable and no acute distress Orientation/consciousness: patient oriented x3 HEENT Face and sinus: Yes normal facial exam Mouth: moist mucous membranes Neck Neck: Yes normal visual inspection, Yes full ROM and Yes trachea midline Chest Chest palpation & inspection: normal inspection of the chest Resp Effort & Inspection: normal respiratory effort, able to speak in complete sentences and no respiratory distress GI Inspection: Yes normal to inspection Back/Spine/Pelvis Cervical Spine: normal cervical lordosis Thoracic/Lumbar Spine: thoracic and lumbar spine normal to inspection Skin General skin exam: no rashes or lesions noted Neuro General: patient oriented x3, gait normal, tone normal and moves all extremities Extrem General: Yes normal to inspection and Yes capillary refill normal Office Procedures Post Void Residual Post Residual Void Post Void Residual (PVR): 0 [id number] Void Residual by ultrasound Results AMB Urinalysis, Automated UA Leukoctes 0 Barbara/uL Last Edit by SWATHI Arvizu on 07/17/24 08:40 UA Nitrite Negative Last Edit by SWATHI Arvizu on 07/17/24 08:40 UA Urobilinogen 0.2 mg/dL Last Edit by SWATHI Arvizu on 07/17/24 08:4 0 UA Protein 15 mg/dL Last Edit by SWATHI Arvizu on 07/17/24 08:40 UA pH 6.0 Last Edit by SWATHI Arvizu on 07/17/24 08:40 UA Blood 0 Kemar/uL Last Edit by SWATHI Arvizu on 07/17/24 08:40 UA Specific Enochs 1.025 Last Edit by SWATHI Arvizu on 07/17/24 08: 40 UA Ketone Negative Last Edit by SWATHI Arvizu on 07/17/24 08:40 UA Bilirubin 0 mg/dL Last Edit by SWATHI Arvizu on 07/17/24 08:40 UA Glucose 0 mg/dL Last Edit by SWATHI Arvizu on 07/17/24 08:40 Results Reviewed Results Reviewed: Laboratory Last Values Urine pH (Auto) 6.0 07/17/24 08:40 Specific Enochs (Auto) 1.025 07/17/24 08:40 Urine Protein (Auto) 15 mg/dL 07/17/24 08:40 Glucose (UA)(Auto) 0 mg/dL 07/17/24 08:40 Urine Ketones (Auto) Negative 07/17/24 08:40 Urine Blood (Auto) 0 Kemar/uL 07/17/24 08:40 Urine Nitrite (Auto) Negative 07/17/24 08:40 Urine Bilirubin (Auto) 0 mg/dL 07/17/24 08:40 Urine Urobilinogen (Auto) 0.2 mg/dL 07/17/24 08:40 Leukocyte Esterase (Auto) 0 Barbara/uL 07/17/24 08:40 Assessment & Plan Assessment & Plan (1) Elevated PSA: Code(s): R97.20 - Elevated prostate specific antigen [PSA] Category: Medical (2) BPH w urinary obs/LUTS: Code(s): N40.1 - Benign prostatic hyperplasia with lower urinary tract symptoms; N13.8 - Other obstructive and reflux uropathy Category: Medical (3) Peyronie's disease: Code(s): N48.6 - Induration penis plastica Category: Medical Plan Twelve month follow-up PSA Orders: Orders AMB Urinalysis Automated Today Z13.9 - Encounter for screening, unspecified Prostate Specific Antigen 364 Days R97.20 - Elevated prostate specific antigen [PSA] Patient Instructions: Imaging studies, laboratory and physical exam results were discussed and reviewed in detail. No major barriers to patient understanding were identified. An opportunity to ask questions regarding the treatment plan was provided. All questions were answered. The patient expressed understanding and agreement with the above treatment plan. The patient is aware they should contact our office by phone for worsening of their current condition or the appearance of new urologic symptoms. Compliance is encouraged with any medications and followup testing that is ordered. It is a privilege to participate in the urologic care of your patient. If you have any questions or concerns regarding treatment for the above conditions, or other urologic issues, please do not hesitate to contact me. The office telephone contact is [phone]. This note is constructed using voice recognition software. While every effort has been made to ensure accuracy medical sales errors may have been included. Yours sincerely, Dr Ciro Arechiga MD, [facility] - Urology Providers of Expert, Compassionate Care for the Genitourinary System Coding Level of Care Code Est Pt Level 4 (10937) Diagnoses Elevated PSA R97.20 BPH w urinary obs/LUTS N40.1; N13.8 Peyronie's disease N48.6 CPT Codes Post Residual Void - PVR CPT Code: 90463-Ppos Void Residual by ultrasound ([id number])
== END 2024-07-17 08:48 | disposition home or self-care (01) ==
PROVIDERS: PCP Internal Medicine Geriatric Medicine; Visit Provider Urology
DX: R97.20 Elevated prostate specific antigen [PSA] (principal); N40.1 Benign prostatic hyperplasia with lower urinary tract symptoms; N13.8 Other obstructive and reflux uropathy; N48.6 Induration penis plastica; Z13.9 Encounter for screening, unspecified
CPT/HCPCS: 99214

== ENCOUNTER → 2024-07-17 08:12 | Outpatient (BNVA) | payer MEDICAID, SELFPAY ==
[2021-07-29 14:22] VITALS: BMI 26.2
== END ==
PROVIDERS: PCP Internal Medicine Geriatric Medicine; Visit Provider Urology
DX: N40.1 Benign prostatic hyperplasia with lower urinary tract symptoms (principal); N13.8 Other obstructive and reflux uropathy; R97.20 Elevated prostate specific antigen [PSA]; N48.6 Induration penis plastica
CPT/HCPCS: 51798; 81003; 99212

== ENCOUNTER 2024-09-10 09:52 | Outpatient (REF) | payer MEDICAID, SELFPAY ==
[2021-07-29 14:22] VITALS: BMI 26.2
--- OUTSIDE RECORDS SUMMARY | 2024-09-10 09:55 | XMS_ITS | Encounter Summary ---
Author Organization [employer] Address [address] [place] [address] [address] [place] [address] Care Team Providers Care Buckle Frame Shaper Name Role Phone Name, Jabari VINES Primary Care Provider [phone] Encounter Details Date Type Department Care Team (Late st Contact Info) Description 08/17/2022 Orders Only [facility] [address] [place] [address] [phone] Sakshi Tubbs LPN Social History Tobacco Use Types Packs/Day Years Used Date Smoking Tobacco: Never Assessed Sex and Gender Information Value Date Recorded Sex Assigned at Male 05/24/2022 10:21 AM EDT Legal Sex Male 10:21 AM EDT Gender Identity Male 05/24/2022 10:21 AM EDT Sexual Orientation Straight 05/24/2022 10 :21 AM EDT COVID-19 Exposure Response Date Recorded In the last 10 days, have yo u been in contact with someone who was confirmed or suspected to have Coronavirus/COVID-19? No / Unsure 07/30/2022 10:09 AM EST documented as of this encounter Plan of Treatment Upcoming Encounters Date Type Department Care Team (Late st Contact Info) Description 10/31/2024 9:45 AM EDT Office Visit [facility] [address] [place] [address] [phone] Name, MD Jabari [address] [place] [phone] documented as of this encounter Visit Diagnoses Not on filedocumented in this encounter Care Teams Buckle Frame Shaper Relationship Specialty Start Date End Date Name, MD Jabari [address] [place] [address] PCP - General Family Medicine 08/05/15 documented as of this encounter
--- OUTSIDE RECORDS SUMMARY | 2024-09-10 09:55 | XMS_ITS | Encounter Summary ---
Author Organization [facility] Address [address] [place] [address] Care Team Providers Care Trust Advisor Name Role Phone Name, Jabari VINES Primary Care Provider Unavailabl e Name, Jabari VINES Primary Care Provider Unavailabl e Community, Pcp Primary Care Provider Unavailabl e Reason for Visit * Reason Comments E-prescribe Rx Request Encounter Details Date Type Department Care Team Description 03/30/2013 Refill Adult Medicine [address] [address] Name, MD Jabari E-prescribe Rx Request Social History Tobacco Use Types Packs/Day Years Used Date Smoking Tobacco: Never Smokeless Tobacco: Never Alcohol Use Standard Drinks/Week Comments No 0 (1 standard drink = 0.6 oz pur e alcohol) Sex Assigned at Date Recorded Not on file documented as of this encounter Miscellaneous Notes * Telephone Encounter - Lula Pham M.A. - 03/30/2013 2:49 PM EDT Last refill 01/17/13 not on contract * Telephone Encounter - Hansa Ace - 03/30/2013 2:20 PM EDT Patient would like script to be: E-PRESCRIBED/FAXED TO PHARMACY WHEN WAS THE PATIENT'S LAST APPOINTMENT IN ADULT MEDICINE? 01/12/13 WHEN WAS THE LAST TIME THE PATIENT SAW THEIR PCP? Same as above Does patient have an upcoming appointment? Yes 04/02/13 (THE MEDICATION REQUESTED IS ON THE MED LIST ABOVE) All of the medications requested were on the CURRENT MEDS list Did you check the Pharmacy information above?: YES Patient wants: 30 -day supply Is this a mail order prescription request ? NO Patients current insurance carrier is: Payor: [employer] FFS Plan: FFS HMO $0 [employer] [id number] Product Type: MEDICAID RISK documented in this encounter Plan of Treatment Not on file documented as of this encounter Visit Diagnoses Not on filedocumented in this encounter Care Teams Trust Advisor Relationship Specialty Start Date End Date Jabari Loza MD PCP - General Internal Medicine 03/16/12 09/08/15 Jabari Loza MD PCP - General Internal Medicine 09/09/15 10/14/15 David Garza PCP - General Internal Medicine 10/15/15 documented as of this encounter
--- OUTSIDE RECORDS SUMMARY | 2024-09-10 09:55 | XMS_ITS | Encounter Summary ---
Author Organization [employer] Address [address] [place] [address] [address] [place] [address] Care Team Providers Care Nutrition Representative Name Role Phone Name, Jabari VINES Primary Care Provider [phone] Reason for Visit * Reason Comments Med Refill Encounter Details Date Type Department Care Team (Late st Contact Info) Description 08/17/2022 Refill [facility] MEDICINE [address] [place] [address] [phone] NameJabari MD [address] [place] [address] [phone] Coronary artery disease involving [place] coronary artery of [place] heart without angina pectoris (Primary Dx) Social History Tobacco Use Types Packs/Day Years [...] Description 10/31/2024 9:45 AM EDT Office Visit [facility] [address] [place] [phone] Jabari Loza MD [address] [place] [phone] documented as of this encounter Visit Diagnoses Diagnosis Coronary artery disease involving [place] coronary artery of [place] heart without angina pectoris- Primary documented in this encounter Care Teams Nutrition Representative Relationship Specialty Start Date End Date Name, MD Jabari [address] [place] [address] PCP - General Family Medicine 08/05/15 documented as of this encounter
--- OUTSIDE RECORDS SUMMARY | 2024-09-10 09:55 | XMS_ITS | Encounter Summary ---
Author Organization [employer] Address [address] [place] [address] [address] [place] [address] Care Team Providers Care Senior Mortgage Underwriter Name Role Phone Name, Jabari VINES Primary Care Provider [phone] Reason for Visit * Reason Comments Med Refill Encounter Details Date Type Department Care Team ([facility] st Contact Info) Description 12/31/2023 Refill [facility] [address] [place], [place] [phone] Name, MD Jabari [address] [place] [address] Essential hypertension; Atherosclerotic cardiovascular disease; Low back pain at multiple sites Social History Tobacco Use Types Packs/Day Years Used Date Smoking Tobacco: Never Passive Smoke Exposure: Never Smokeless Tobacco: Never Alcohol Use Standard Drinks/Week Comments Never 0 (1 standard drink = 0.6 oz pur e alcohol) Depression Answer Date Recorded Patient Health Questionnaire-9 Score 0 05/18/2023 Patient Health Questionnaire-9 Score 0 05/18/2023 Last PHQ-9: Questionnaire Data Not on file 1 Housing Stability Answer Date Recorded What is your housing situation today? I have nancy marie 05/18/[address] you li ve. Do you have problems with any of the following? None of the above 05/18/2023 Food Insecurity Answer Date Recorded Within the past 12 months, y ou worried that your food would run out before you got money to buy more: Never True 05/18/2023 Within the past 12 months,th e food you bought just didn't last and you didn't have enough money to get more: Never True Transportation Answer Date Recorded In the past 12 months, has l ack of transportation kept you from medical appts, meetings, work or from getting things needed for daily living? No 05/18/2023 Utilities Answer Date Recorded In the past 12 months, has t he electric, gas, oil or water company threatened to shut off services in your home? No 05/18/2023 Depression Answer Date Recorded Patient Health Questionnaire-2 Score 0 05/18/2023 Sex and Gender Information Value Date Recorded Sex Assigned at Male 05/24/2022 10:21 AM EDT Legal Sex Male 10:21 AM EDT Gender Identity Male 05/24/2022 10:21 AM EDT Sexual Orientation Straight 05/24/2022 10 :21 AM EDT documented as of this encounter Plan of Treatment Upcoming Encounters Date Type Department Care Team (Late st Contact Info) Description 10/31/2024 9:45 AM EDT Office Visit [facility] MED[facility] [address] [place] [phone] Name, MD Jabari [address] [place] [address] documented as of this encounter Visit Diagnoses Diagnosis Essential hypertension Unspecified essential hypertension Atherosclerotic cardiovascular disease Low back pain at multiple sites documented in this encounter Additional Health Concerns Assessment Noted Time PHQ-9 Depression Total Score: 0 05/18/20 23 2:10 PM EDT documented as of this encounter Care Teams Senior Mortgage Underwriter Relationship Specialty Start Date End Date NameJabari MD [address] [place] [phone] PCP - General Family Medicine 08/05/15 documented as of this encounter
--- OUTSIDE RECORDS SUMMARY | 2024-09-10 09:55 | XMS_ITS | Encounter Summary ---
Author Organization [facility] Address [address] [place] [address] Care Team Providers Care Manager Pet Name Role Phone Community, Pcp Primary Care Provider Unavailabl e Encounter Details Date Type Department Care Team Description 02/02/2017 Telephone Adult [address] [address] Community, Pcp Social History Tobacco Use Types Packs/Day Years Used Date Smoking Tobacco: Never Smokeless Tobacco: Never Alcohol Use Standard Drinks/Week Comments No 0 (1 standard drink = 0.6 oz pur e alcohol) Sex Assigned at Date Recorded Not on file documented as of this encounter Plan of Treatment Not on file documented as of this encounter Visit Diagnoses Not on filedocumented in this encounter Care Teams Manager Pet Relationship Specialty Start Date End Date Community, Pcp PCP - General Internal Medicine 10/15/15 documented as of this encounter
--- OUTSIDE RECORDS SUMMARY | 2024-09-10 09:55 | XMS_ITS | Encounter Summary ---
Author Organization [employer] Address [address] [place] [address] 7 [place] [address] Care Team Providers Care Art Display Maker Name Role Phone Name, Jabari VINES Primary Care Provider [phone] Reason for Visit * Reason Comments Med Refill Encounter Details Date Type Department Care Team ([facility] st Contact Info) Description 09/09/2024 Refill [facility] [address] [place], [place] [phone] Name, MD Jabari [address] [place] [address] Coronary artery disease involving [place] coronary artery of [place] heart without angina pectoris Social History Tobacco Use Types Packs/Day Years Used Date Smoking Tobacco: Never Passive Smoke Exposure: Never Smokeless Tobacco: Never Alcohol Use Standard Drinks/Week Comments Never 0 (1 standard drink = 0.6 oz pur e alcohol) Alcohol Answer Date Recorded Frequency of Alcohol Consumption Not on file 03/07/2024 Average Number of Drinks Not on file 024 Frequency of Binge Drinking Not on file 02/22 Score 0 03/07/2024 Depression Answer Date Recorded Patient Health Questionnaire-9 [...] Description 10/31/2024 9:45 AM EDT Office Visit [facility] [address] [place] [address] Name, MD Jabari [address] [place] [address] documented as of this encounter Visit Diagnoses Diagnosis Coronary artery disease involving [place] coronary artery of [place] heart without angina pectoris documented in this encounter Additional Health Concerns Assessment Noted Time PHQ-9 Depression Total Score: 0 05/18/20 23 2:10 PM EDT documented as of this encounter Care Teams Art Display Maker Relationship Specialty Start Date End Date Name, MD Jabari [address] [place] [address] PCP - General Family Medicine 08/05/15 documented as of this encounter
--- OUTSIDE RECORDS SUMMARY | 2024-09-10 09:55 | XMS_ITS | Encounter Summary ---
Author Organization [employer] Address [address] [place] [address] 7 [place] [address] Care Team Providers Care Taker Off Drying Kiln Name Role Phone Name, Jabari VINES Primary Care Provider [phone] Reason for Visit * Reason Comments Med Refill Encounter Details Date Type Department Care Team ([facility] st Contact Info) Description 06/05/2023 Refill [facility] [address] [place], [place] [phone] Name, MD Jabari [address] [place] [address] Social History Tobacco Use Types Packs/Day Years [...] Description 10/31/2024 9:45 AM EDT Office Visit [facility] [address] [place] [address] Name, MD Jabari [address] [place] [address] documented as of this encounter Visit Diagnoses Not on filedocumented in this encounter Additional Health Concerns Assessment Noted Time PHQ-9 Depression Total Score: 0 05/18/20 23 2:10 PM EDT documented as of this encounter Care Teams Taker Off Drying Kiln Relationship Specialty Start Date End Date NameJabari MD [address] [place] [address] PCP - General Family Medicine 08/05/15 documented as of this encounter
--- OUTSIDE RECORDS SUMMARY | 2024-09-10 09:55 | XMS_ITS | Clinical Summary ---
Author Organization [employer] Address [address] [place] [address] 7t [place] [address] Care Team Providers Care Fire Protection Specialist Name Role Phone Name, Jabari VINES Primary Care Provider [phone] Allergies No known active allergies Medications escitalopram (Lexapro) 10 MG tablet TAKE 1 TABLET BY MOUTH EVERY DAY 90 tablet 3 Active metoprolol succinate XL (Toprol-XL) 25 MG 24 hr tabletIndicatio ns:Coronary artery disease involving [place] coronary artery of [place] heart without angina pectoris TAKE 1 TABLET BY MOUTH EVERY DAY 90 tablet 3 4 Active atorvastatin (Lipitor) 80 MG tabletIndicatio ns:Coronary artery disease involving [place] coronary artery of [place] heart without angina pectoris TAKE 1 TABLET BY MOUTH EVERY DAY 90 tablet 3 4 Active Diclofenac Sodium (Voltaren Arthritis Pain) 1 % gel Apply 2 g topically if needed in the morning, at noon, in the evening, and at bedtime (back pain). 50 g 4 Active lisinopril-hydr oCHLOROthiazide 10-12.5 MG tablet Take 1 tablet by mouth Once per day. 30 tablet 11 4 11/14/19 25 Active aspirin (Aspirin Low Dose) 81 MG EC tablet TAKE 1 TABLET BY MOUTH EVERY DAY 90 tablet 3 4 Active cholecalciferol (D3) 50 MCG (1999 UT) tablet TAKE 1 TABLET BY MOUTH EVERY DAY 90 tablet 1 4 Active hydrocortisone 2.5 % cream APPLY TO THE AFFECTED AREA ONCE A DAY FOR 1 WEEK 60 g 1 4 Active pseudoephedrine (Sudafed) 30 MG tablet Take 1 tablet (30 mg) by mouth every 4 (four) hours if needed for congestion for up to 10 days. 30 tablet 4 Active clonazePAM (KlonoPIN) 0.5 MG tabletIndicatio ns:Anxiety Take 1 tablet (0.5 mg) by mouth if needed each day for anxiety for up to 20 days. 20 tablet 4 Active pantoprazole (ProtoNix) 20 MG EC tablet Take 20 mg by mouth before breakfast. Do not crush, chew, or split. Active famotidine (Pepcid) 20 MG tablet Take 1 tablet (20 mg) by mouth 2 times daily. 60 tablet 5 4 07/13/20 25 Active Active Problems Patient Care Coordination No te Formatting of this note migh t be different from the original. C3/CM Ana Valderrama RN Problem Noted Date Diagnosed Date Acute inguinal lymphadenitis 11/14/2023 Allergic reaction 11/14/2023 Atherosclerotic cardiovascular disease Benign prostatic hyperplasia with urinary obstru ction 11/14/2023 Chest pain 11/14/2023 Musculoskeletal back pain 11/14/2023 Elevated PSA 11/14/2023 Inguinodynia 11/14/2023 Kidney stone 11/14/2023 Peyronie's disease 11/14/2023 Esophagitis 11/14/2023 GERD (gastroesophageal reflux disease) 4 Pharyngitis 11/14/2023 Recurrent left inguinal hernia 11/14/2023 Right inguinal hernia 11/14/2023 Umbilical hernia 11/14/2023 Ureteric colic 11/14/2023 Non-STEMI (non-ST elevated myocardial infarction ) 11/14/2023 COVID-19 05/18/2023 05/18/2023 Seborrheic dermatitis 05/18/2023 Arteriosclerosis of coronary artery 03/18/2023 H. pylori infection 03/18/2023 Myocardial infarction 03/18/2023 Prostatism 03/18/2023 Lower abdominal pain 06/22/2018 05/18/2023 Electrocardiogram abnormal 05/18/201805/18 Depressive disorder 08/18/2015 Essential hypertension 08/18/2015 Generalized anxiety disorder 08/18/2015 Anxiety 06/21/2012 Overview (03/18/2023): The patient used to see Dr Betancourt. The patient has at least 2 psychiatric hospitalizations Heartburn 06/21/2012 05/18/2023 Panic attack 06/21/2012 05/18/2023 Encounters Date Type Department Care Team Description 09/09/2024 Refill [facility] [address] [place] [address] Jabari Loza MD Coronary artery disease involving [place] coronary artery of [place] heart without angina pectoris 07/13/2024 8:40 AM EST [facility] [address] [address] Olivier Isabel MD Tinnitus aurium, bilateral (Primary Dx) 07/11/[address] [address] Jabari Loza MD Anxiety 07/10/2024 9:20 AM EST [facility] [address] [address] Vee Martinez MD Catarrh of both eustachian tubes (Primary Dx) 06/27/2024 9:30 AM EST Office Visit [address] [address] Jabari Loza MD Essential hypertension (Primary Dx); Seborrheic keratosis; Encounter for immunization 06/26/2024 Travel 06/20/[address] [address] Karen Verdugo MA Chart Prep 06/12/2024 2:00 PM EST Clinical Support [address] [phone] Teresa Kothari, TAYLOR Encounter for immunization 06/12/2024 Travel from Last 3 Months Immunizations Name Administration Dates Next Due Influenza injectable quadriv alent IIV4 with preservative 04/12/2023,04/14/2018,04/29/2017,2014,04/30/2014,04/13/2012 Influenza injectable quadriv alent preservative free 04/13/2022,05/08/2021,08/14/2020,2019,06/03/2019,05/17/2019,05/15/2016 Influenza, IIV3, injectable 04/07/2015, 4,04/13/2012 Influenza, Split (incl. [place] antigen) 06/01/2011 Influenza, seasonal, injecta ble, preservative free 06/12/2024 Moderna Covid-19 Vaccine 12+ 12/14/2021 PPD Test 09/11/2014 Pfizer Covid-19 Vaccine 12+ Bivalent 05/31/2022 Pneumococcal Conjugate PCV 20 06/27/2024 Tdap 03/07/2024,06/21/2012 Social History Tobacco Use Types Packs/Day Years Used Date Smoking Tobacco: Never Passive Smoke Exposure: Never Smokeless Tobacco: Never Tobacco Cessation:Counseling Given: Not Answered Alcohol Use Standard Drinks/Week Comments Never 0 [...] Orientation Straight 05/24/2022 10 :21 AM EDT Last Filed Vital Signs Vital Sign Reading Time Taken Comments Blood Pressure 125/80 07/13/2024 8:39 AM EST Pulse 67 07/13/2024 8:39 AM EST Temperature 36.4 ??C (97.5 ??F) 07/13/2024 8:39 AM ES T Respiratory Rate 17 07/13/2024 8:39 AM EST Oxygen Saturation 96% 07/13/2024 8:39 AM EST Inhaled Oxygen Concentration - - Weight 87.7 kg (193 lb 6.4 oz) 07/13/2024 8:39 A M EST Height 180.3 cm (5' 11 ) 06/27/2024 9:30 AM EST Body Mass Index 26.97 06/27/2024 9:30 AM EST Plan of Treatment Upcoming Encounters Date Type Department Care Team (Late st Contact Info) Description 10/31/2024 9:45 AM EDT Office Visit [facility] [address] [place] [phone] Name, MD Jabari [address] [place] [phone] Health Maintenance Due Date Last Done Comments CT Colonography 1961 Colonoscopy 1961 FIT 1961 FOBT 1961 HIV Screening 1961 Sigmoidoscopy 1961 Hepatitis C Screening 1979 Zoster Vaccines (1 of 2) 2011 RSV Patients and Patients Aged 60 years or older (1 - Risk 60-74 years 1-dose series) 2021 COVID-19 Vaccine ( season) 2024 05/31/2022, 12/14/2021, 06/23/2021, Additional history exists Colorectal Cancer Screening 05/06/2024 FIT DNA/Cologuard 05/06/2024 05/06/2021 Depression Screening 05/18/2024 05/18/2023, 05/18/20 SDOH Screening 05/18/2024 05/18/2023 Alcohol/Substance Use Screening 03/07/2025 03/07/2024 Tobacco Screening 07/13/2025 07/13/2024 Lipid Panel 11/16/2028 11/17/2023, 04/24, 06/11/2022, Additional history exists DTaP/Tdap/Td Vaccines (3 - Td or Tdap) 03/07/2034 03/07/2024, 06/21/2012 Influenza Vaccine Completed 06/12/2024, , 04/13/2022, Additional history exists Pneumococcal Vaccine: 50+ Years Completed 06/27/2024 HIB Vaccines Aged Out No longer eligi ble based on patient's age to complete this topic HPV Vaccines Aged Out No longer eligi ble based on patient's age to complete this topic Hepatitis A Vaccines Aged Out No long er eligible based on patient's age to complete this topic Hepatitis B Vaccines Aged Out No long er eligible based on patient's age to complete this topic IPV Vaccines Aged Out No longer eligi ble based on patient's age to complete this topic Meningococcal Vaccine Aged Out No sharon lance eligible based on patient's age to complete this topic RSV under 20 months Aged Out No longe r eligible based on patient's age to complete this topic Rotavirus Vaccines Aged Out No longer eligible based on patient's age to complete this topic Procedures Procedure Name Priority Date/Time Associated Diagnosis Comments LIPID PANEL, STANDARD Routine 11/17/2023 8:39 AM EDT Essential hypertension Atherosclerotic cardiovascular disease FIT DNA/COLOGUARD CANCER SCREENING Routine 05/06/2021 from Last 3 Months or Most Recently Relevant to Health Maintenance Results * Lipid Panel, Standard (11/17/2023 8:39 AM EDT) Triglycerides 47 <150 mg/dL [facility] Comment:Desirable Triglyceri de: less than 150 mg/dLBorderline High Triglyceride 150-199 mg/dLHigh Triglyceride: 200-499 mg/dLVery High Triglyceride: greater than or equal to 5OO mg/dL Cholesterol 128 <200 mg/dL [facility] Comment:Desirable Cholestero l: less than 200 mg/dLBorderline High Cholesterol: 200-239 mg/dLHigh Cholesterol: greater than 239 mg/dL LDL Cholesterol Calculated 67 <100 mg/dL [facility] Comment:Desirable LDL: less than 100 mg/dLNear Optimal/Above Optimal LDL: 110- 129 mg/dLBorderline High LDL: 130-159 mg/dLHigh LDL: 160-189 mg/dLVery High LDL: greater than or equal to 190 mg/dL HDL Cholesterol 52 >40 mg/dL [facility] Comment:Desirable HDL: great er than 40 mg/dL Note: This HDL assay may give artificially low results in patients with liver disease. Blood Venous blood specimen / Unknown 11/17/2023 8:39 AM EDT 11/17/2023 11:28 AM EDT us Jabari Loza MD LAB BLOOD ORDERABLES Final Resul t [facility] [address] [place] [address] [phone] * FIT DNA/Cologuard Cancer Screening (05/06/2021) Cologuard Cancer Screen Negative Stool us Jabari Loza MD HEALTH MAINTENANCE Final Result from Last 3 Months or Most Recently Relevant to Health Maintenance [facility] * Guarantor: Seferino Clemente Account Type Relation to Patient Date of Phone Billing Address Personal/Family Self [place], [place] Care Teams Fire Protection Specialist Relationship Specialty Start Date End Date Name, MD Jabari [address] [place] [phone] PCP - General Family Medicine 08/05/15
--- OUTSIDE RECORDS SUMMARY | 2024-09-10 09:55 | XMS_ITS | Encounter Summary ---
Author Organization [employer] Address [address] [place] [address] 7 [place] [address] Care Team Providers Care Post Splitter Name Role Phone NameJabari MD Primary Care Provider [phone] Reason for Visit * Reason Onset Date Comments Med Refill 03/22/2023 Encounter Details Date Type Department Care Team (Late st Contact Info) Description 03/22/2023 Refill [facility] [address] [place] [address] [phone] Jabari Loza MD [address] [place] [address] [phone] Anxiety Social History Tobacco Use Types Packs/Day Years Used Date Smoking Tobacco: Never Passive Smoke Exposure: Never Smokeless Tobacco: Never Sex and Gender Information Value Date Recorded Sex Assigned at Male 05/24/2022 10:21 AM EDT Legal Sex Male 10:21 AM EDT Gender Identity Male 05/24/2022 10:21 AM EDT Sexual Orientation Straight 05/24/2022 10 :21 AM EDT documented as of this encounter Plan of Treatment Upcoming Encounters Date Type Department Care Team (Late st Contact Info) Description 10/31/2024 9:45 AM EDT Office Visit [facility] [address] [place] [address] [phone] Jabari Loza MD [address] [place] [address] [phone] documented as of this encounter Visit Diagnoses Diagnosis Anxiety Anxiety state, unspecified documented in this encounter Care Teams Post Splitter Relationship Specialty Start Date End Date NameJabari MD [address] [place] [address] PCP - General Family Medicine 08/05/15 documented as of this encounter
--- OUTSIDE RECORDS SUMMARY | 2024-09-10 09:55 | XMS_ITS | Encounter Summary ---
Author Organization [employer] Address [address] [place] [address] 7t [place] [address] Care Team Providers Care Blue Leather Sorter Name Role Phone Name, Jabari VINES Primary Care Provider [phone] Encounter Details Date Type Department Care Team (Late st Contact Info) Description 01/14/2023 Orders Only [facility]EDS [address] [place], [place] [phone] Violet Ramsey LPN Social History Tobacco Use Types Packs/Day [...] Description 10/31/2024 9:45 AM EDT Office Visit [facility] [address] [place] [address] Name, MD Jabari [address] [place] [address] documented as of this encounter Visit Diagnoses Not on filedocumented in this encounter Care Teams Blue Leather Sorter Relationship Specialty Start Date End Date NameJabari MD [address] [place] [address] PCP - General Family Medicine 08/05/15 documented as of this encounter
--- OUTSIDE RECORDS SUMMARY | 2024-09-10 09:55 | XMS_ITS | Encounter Summary ---
Author Organization [employer] Address [address] [place] [address] 7 [place] [address] Care Team Providers Care Director Of Marketing Analytics Name Role Phone Name, Jabari VINES Primary Care Provider [phone] Reason for Visit * Reason Onset Date Comments Med Refill 07/19/2023 Encounter Details Date Type Department Care Team ([facility] st Contact Info) Description 07/19/2023 Refill [facility] [address] [place], [place] [phone] Name, MD Jabari [address] [place] [address] Anxiety Social History Tobacco Use Types Packs/Day [...] is your housing situation today? I have nancynatasha marie 05/18/[address] you [...] AM EDT documented as of this encounter Miscellaneous Notes * Telephone Encounter - Mike Mcintosh RN - 07/21/2023 10:56 AM EST Mass apt checked on 07/21/2023, Last time filled on 05/18/2023 for 20 days supply at [facility]. PCP is not in office , Please review. * Telephone Encounter - Mike Mcintosh RN - 07/21/2023 10:47 AM EST T/C to [facility] to refill Aspirin and Hydrocortisone. Clonazepam is already que for approval. documented in this encounter Plan of Treatment Upcoming Encounters Date Type Department Care Team (Late st Contact Info) Description 10/31/2024 9:45 AM EDT Office Visit [facility] [address] [place] [address] Name, MD Jabari [address] [place] [address] documented as of this encounter Visit Diagnoses Diagnosis Anxiety Anxiety state, unspecified documented in this encounter Additional Health Concerns Assessment Noted Time PHQ-9 Depression Total Score: 0 05/18/20 23 2:10 PM EDT documented as of this encounter Care Teams Director Of Marketing Analytics Relationship Specialty Start Date End Date Name, MD Jabari [address] [place] [address] PCP - General Family Medicine 08/05/15 documented as of this encounter
--- OUTSIDE RECORDS SUMMARY | 2024-09-10 09:55 | XMS_ITS | Encounter Summary ---
Author Organization [employer] Address [address] [place] [address] 7t [place] [address] Care Team Providers Care Career Education Teacher Name Role Phone Name, Jabari VINES Primary Care Provider [phone] Encounter Details Date Type Department Care Team (Late Contact Info) Description 08/17/2022 Orders Only [facility] MED & PEDS [address] [place], [place] [phone] Violet Ramsey LPN Social History Tobacco Use [...] Description 10/31/2024 9:45 AM EDT Office Visit [facility] [address] [place] [address] Name, MD Jabari [address] [place] [address] documented as of this encounter Visit Diagnoses Not on filedocumented in this encounter Care Teams Career Education Teacher Relationship Specialty Start Date End Date Name, MD Jabari [address] [place] [address] PCP - General Family Medicine 08/05/15 documented as of this encounter
--- OUTSIDE RECORDS SUMMARY | 2024-09-10 09:55 | XMS_ITS | Encounter Summary ---
Author Organization [employer] Address [address] [place] [address] 7 [place] [address] Care Team Providers Care Lactation Specialist Name Role Phone Name, Jabari VINES Primary Care Provider [phone] Reason for Visit * Reason Comments Med Refill Encounter Details Date Type Department Care Team ([facility] Contact Info) Description 08/17/2022 Refill [facility] [address] [place] [phone] Roxann Hernandez FNP [address] [place] [address] Social History Tobacco Use Types Packs/Day Years [...] Description 10/31/2024 9:45 AM EDT Office Visit [facility] [address] [place] [phone] Name, MD Jabari [address] [place] [address] documented as of this encounter Visit Diagnoses Not on filedocumented in this encounter Care Teams Lactation Specialist Relationship Specialty Start Date End Date Name, MD Jabari [address] [place] [address] PCP - General Family Medicine 08/05/15 documented as of this encounter
--- OUTSIDE RECORDS SUMMARY | 2024-09-10 09:56 | XMS_ITS | Encounter Summary ---
Author Organization [facility] Address [address] [place] [address] Care Team Providers Care Glazing Superintendent Name Role Phone Name, Jabari VINES Primary Care Provider Unavailabl e Name, Jabari VINES Primary Care Provider Unavailabl e Community, Pcp Primary Care Provider Unavailabl e Encounter Details Date Type Department Care Team Description 05/23/2012 Release of Information Medical Records [address] [place] [phone] Abstract, Provider Social History Tobacco Use Types Packs/Day Years Used Date Smoking Tobacco: Never Smokeless Tobacco: Never Alcohol Use Standard Drinks/Week Comments Not Asked 0 (1 standard drink = 0.6 oz pur e alcohol) Sex Assigned at Date Recorded Not on file documented as of this encounter Plan of Treatment Not on file documented as of this encounter Visit Diagnoses Not on filedocumented in this encounter Care Teams Glazing Superintendent Relationship Specialty Start Date End Date Jabari Loza MD PCP - General Internal Medicine 03/16/12 09/08/15 Jabari Loza MD PCP - General Internal Medicine 09/09/15 10/14/15 Community, Pcp PCP - General Internal Medicine 10/15/15 documented as of this encounter
--- OUTSIDE RECORDS SUMMARY | 2024-09-10 09:56 | XMS_ITS | Encounter Summary ---
Author Organization [employer] Address [address] [place] [address] 7 [place] [address] Care Team Providers Care Sheet Rock Applicator Name Role Phone Name, Jabari VINES Primary Care Provider Reason for Visit * Reason Comments Med Refill Encounter Details Date Type Department Care Team ([facility] st Contact Info) Description 03/17/2024 Refill [facility] [address] [place], [place] [phone] Name, MD Jabari [address] [place] [address] Social History Tobacco Use Types Packs/Day Years [...] Description 10/31/2024 9:45 AM EDT Office Visit [facility]INE [address] [place] [phone] NameJabari MD [address] [place] [address] documented as of this encounter Visit Diagnoses Not on filedocumented in this encounter Additional Health Concerns Assessment Noted Time PHQ-9 Depression Total Score: 0 05/18/20 23 2:10 PM EDT documented as of this encounter Care Teams Sheet Rock Applicator Relationship Specialty Start Date End Date NameJabari MD [address] [place] [address] PCP - General Family Medicine 08/05/15 documented as of this encounter
--- OUTSIDE RECORDS SUMMARY | 2024-09-10 09:56 | XMS_ITS | Encounter Summary ---
Author Organization [facility] Address [address] [place] [address] Care Team Providers Care Manager Export Name Role Phone Name, Jabari VINES Primary Care Provider Unavailabl e Name, Jabari VINES Primary Care Provider Unavailabl e Community, Pcp Primary Care Provider Unavailabl e Encounter Details Date Type Department Care Team Description 08/18/2015 Release of Information Medical Records [address] [place] [id number] Abstract, Provider Social History Tobacco Use Types [...] filedocumented in this encounter Care Teams Manager Export Relationship Specialty Start Date End Date Jabari Loza MD PCP - General Internal Medicine 03/16/12 09/08/15 Jabari Loza MD PCP - General Internal Medicine 09/09/15 10/14/15 Community, Pcp PCP - General Internal Medicine 10/15/15 documented as of this encounter
[2024-09-17 00:38] LABS: FIB-ALT 33 U/L (9-46); FIB-Alpha-2-Macroglobulin 152 mg/dL (106-279); FIB-Apolipoprotein A1 132 mg/dL (94-176); FIB-GGT 21 U/L (3-70); FIB-Haptoglobin 132 mg/dL (43-212); FIB-Total Bilirubin 0.9 mg/dL (0.2-1.2); Liver Fibrosis Score 0.27; Liver Fibrosis Stage F1; Nec Inflam Act Grade A0; Nec Inflam Act Score 0.16; Reference ID 5349338
== END 2024-09-10 09:53 | disposition home or self-care (01) ==
LOC: HO.LAB 09:52
PROVIDERS: PCP Internal Medicine Geriatric Medicine; Visit Provider Nurse Practitioner Family
DX: K76.0 Fatty (change of) liver, not elsewhere classified (principal)
CPT/HCPCS: 36415; 81596

== ENCOUNTER 2024-09-12 07:46 | Outpatient (AMB) | payer MEDICAID, SELFPAY ==
[2021-07-29 14:22] VITALS: BMI 26.2
--- OUTSIDE RECORDS SUMMARY | 2024-09-12 07:48 | XMS_ITS | Encounter Summary ---
Author Organization [employer] Address [address] [place] [address] 7 [place] [address] Care Team Providers Care License Distributor Name Role Phone Name, Jabari VINES Primary Care Provider [phone] Reason for Visit * Reason Comments Med Refill Encounter Details Date Type Department Care Team ([facility] st Contact Info) Description 09/09/2024 Refill [facility] [address] [place], [place] [phone] Name, MD Jabari [address] [place] [address] Coronary artery disease involving [place] coronary artery of [place] heart without angina pectoris Social History Tobacco [...] Description 10/31/2024 9:45 AM EDT Office Visit [facility] [address] [place] [address] Name, MD Jabari [address] [place] [address] documented as of this encounter Visit Diagnoses Diagnosis Coronary artery disease involving [place] coronary artery of [place] heart without angina pectoris documented in this encounter Additional Health Concerns Assessment Noted Time PHQ-9 Depression Total Score: 0 05/18/20 23 2:10 PM EDT documented as of this encounter Care Teams License Distributor Relationship Specialty Start Date End Date Name, MD Jabari [address] [place] [address] PCP - General Family Medicine 08/05/15 documented as of this encounter
--- OUTSIDE RECORDS SUMMARY | 2024-09-12 07:48 | XMS_ITS | Encounter Summary ---
Author Organization [email or web address] Address [address] [place] [address] 7 [place] [address] Care Team Providers Care News Editor Name Role Phone Name, Jabari VINES Primary Care Provider [phone] Reason for Visit * Reason Comments Med Refill Encounter Details Date Type Department Care Team ([facility] st Contact Info) Description 12/31/2023 Refill [facility] [address] [place], [place] [phone] Name, MD Jabari [address] [place] [address] Essential hypertension; Atherosclerotic cardiovascular disease; Low back [...] Description 10/31/2024 9:45 AM EDT Office Visit [facility] [address] [place] [phone] Name, MD Jabari [address] [place] [address] documented as of this encounter Visit Diagnoses Diagnosis Essential hypertension Unspecified essential hypertension Atherosclerotic cardiovascular disease Low back pain at multiple sites documented in this encounter Additional Health Concerns Assessment Noted Time PHQ-9 Depression Total Score: 0 05/18/20 23 2:10 PM EDT documented as of this encounter Care Teams News Editor Relationship Specialty Start Date End Date NameJabari MD [address] [place] [address] PCP - General Family Medicine 08/05/15 documented as of this encounter
--- OUTSIDE RECORDS SUMMARY | 2024-09-12 07:49 | XMS_ITS | Encounter Summary ---
Author Organization [employer] Address [address] [place] [address] 7 [place] [address] Care Team Providers Care Printing Film Stripper Name Role Phone Name, Jabari VINES Primary Care Provider [phone] Reason for Visit * Reason Comments Med Refill Encounter Details Date Type Department Care Team ([facility] st Contact Info) Description 06/05/[address] [facility] [address] [place], [place] [phone] Name, MD Jabari 230 [place] [address] Social History Tobacco Use Types Packs/Day Years [...] Description 10/31/2024 9:45 AM EDT Office Visit [facility] [address] [place] [phone] Name, MD Jabari [address] [place] [address] documented as of this encounter Visit Diagnoses Not on filedocumented in this encounter Additional Health Concerns Assessment Noted Time PHQ-9 Depression Total Score: 0 05/18/20 23 2:10 PM EDT documented as of this encounter Care Teams Printing Film Stripper Relationship Specialty Start Date End Date NameJabari MD [address] [place] [address] PCP - General Family Medicine 08/05/15 documented as of this encounter
--- OUTSIDE RECORDS SUMMARY | 2024-09-12 07:49 | XMS_ITS | Encounter Summary ---
Author Organization [employer] Address [address] [place] [address] 7t [place] [address] Care Team Providers Care Sustainability Analyst Name Role Phone Name, Jabari VINES Primary Care Provider [phone] Encounter Details Date Type Department Care Team (Late st Contact Info) Description 08/17/2022 Orders Only [facility] [address] [place] [address] [phone] Sakshi Tubbs LPN Social History Tobacco Use [...] Description 10/31/2024 9:45 AM EDT Office Visit [facility] [address] [place] [address] [phone] Name, MD Jabari [address] [place] [address] documented as of this encounter Visit Diagnoses Not on filedocumented in this encounter Care Teams Sustainability Analyst Relationship Specialty Start Date End Date Name, MD Jabari [address] [place] [address] PCP - General Family Medicine 08/05/15 documented as of this encounter
--- OUTSIDE RECORDS SUMMARY | 2024-09-12 07:49 | XMS_ITS | Encounter Summary ---
Author Organization [employer] Address [address] [place] [address] 7 [place] [address] Care Team Providers Care Integrated Pest Management Technician Name Role Phone Name, Jabari VINES Primary Care Provider [phone] Reason for Visit * Reason Onset Date Comments Med Refill 07/19/2023 Encounter Details Date Type Department Care Team ([facility] st Contact Info) Description 07/19/2023 Refill [facility] [address] [place], [place] [phone] Name, MD Jabari [address] [place] [address] Anxiety Social History Tobacco Use Types Packs/Day [...] on 05/18/2023 for 20 days supply at [facility]. PCP is not in office , Please review. * Telephone Encounter - Mike Mcintosh RN - 07/21/2023 10:47 AM EST T/C to [facility] to refill Aspirin and Hydrocortisone. Clonazepam is already que for approval. documented in this encounter Plan of Treatment Upcoming Encounters Date Type Department Care Team (Late st Contact Info) Description 10/31/2024 9:45 AM EDT Office Visit [facility] [address] [place] [address] Name, MD Jabari [address] [place] [address] documented as of this encounter Visit Diagnoses Diagnosis Anxiety Anxiety state, unspecified documented in this encounter Additional Health Concerns Assessment Noted Time PHQ-9 Depression Total Score: 0 05/18/20 23 2:10 PM EDT documented as of this encounter Care Teams Integrated Pest Management Technician Relationship Specialty Start Date End Date Name, MD Jabari [address] [place] [address] PCP - General Family Medicine 08/05/15 documented as of this encounter
--- OUTSIDE RECORDS SUMMARY | 2024-09-12 07:49 | XMS_ITS | Encounter Summary ---
Author Organization [employer] Address [address] [place] [address] 7 [place] [address] Care Team Providers Care Oracle Hrms Developer Name Role Phone Name, Jabari VINES Primary Care Provider [phone] Reason for Visit * Reason Comments Med Refill Encounter Details Date Type Department Care Team ([facility] st Contact Info) Description 03/17/2024 Refill [facility] [address] [place], [place] [phone] Name, MD Jabari [address] [place] [address] Social History Tobacco Use Types Packs/Day Years [...] Description 10/31/2024 9:45 AM EDT Office Visit [facility] [address] [place] [phone] NameJabari MD 230 [place] [address] documented as of this encounter Visit Diagnoses Not on filedocumented in this encounter Additional Health Concerns Assessment Noted Time PHQ-9 Depression Total Score: 0 05/18/20 23 2:10 PM EDT documented as of this encounter Care Teams Oracle Hrms Developer Relationship Specialty Start Date End Date NameJabari MD [address] [place] [address] PCP - General Family Medicine 08/05/15 documented as of this encounter
--- OUTSIDE RECORDS SUMMARY | 2024-09-12 07:49 | XMS_ITS | Encounter Summary ---
Author Organization [employer] Address [address] [place] [address] 7t [place] [address] Care Team Providers Care Wire Wrapping Machine Operator Name Role Phone Name, Jabari VINES Primary Care Provider [phone] Encounter Details Date Type Department Care Team (Late st Contact Info) Description 01/14/2023 Orders Only [facility] MED & PEDS [address] [place], [place] [phone] Violet Ramsey LPN Social History Tobacco Use [...] Description 10/31/2024 9:45 AM EDT Office Visit [facility] [address] [place] [address] Name, MD Jabari [address] [place] [address] documented as of this encounter Visit Diagnoses Not on filedocumented in this encounter Care Teams Wire Wrapping Machine Operator Relationship Specialty Start Date End Date NameJabari MD [address] [place] [address] PCP - General Family Medicine 08/05/15 documented as of this encounter
--- OUTSIDE RECORDS SUMMARY | 2024-09-12 07:49 | XMS_ITS | Encounter Summary ---
Author Organization [facility] Address [address] [place] [address] Care Team Providers Care Retail Support Specialist Name Role Phone Name, Jabari VINES Primary Care Provider Unavailabl e Name, Jabari VINES Primary Care Provider Unavailabl e Community, Pcp Primary Care Provider Unavailabl e Encounter Details Date Type Department Care Team Description 05/23/2012 Release of Information Medical Records [address] [place] [id number] Abstract, Provider Social History Tobacco Use Types [...] on filedocumented in this encounter Care Teams Retail Support Specialist Relationship Specialty Start Date End Date Jabari Loza MD PCP - General Internal Medicine 03/16/12 09/08/15 Jabari Loza MD PCP - General Internal Medicine 09/09/15 10/14/15 Community, Pcp PCP - General Internal Medicine 10/15/15 documented as of this encounter
--- OUTSIDE RECORDS SUMMARY | 2024-09-12 07:49 | XMS_ITS | Encounter Summary ---
Author Organization [employer] Address [address] [place] [address] 7 [place] [address] Care Team Providers Care Storage Center Manager Name Role Phone Name, Jabari VINES Primary Care Provider Reason for Visit * Reason Comments Med Refill Encounter Details Date Type Department Care Team ([facility] Contact Info) Description 08/17/2022 Refill [facility] [address] [place] [phone] Roxann Hernandez FNP [address] [place] [address] Social History Tobacco Use Types Packs/Day Years [...] Description 10/31/2024 9:45 AM EDT Office Visit [facility] [address] [place] [phone] Name, MD Jabari [address] [place] [address] documented as of this encounter Visit Diagnoses Not on filedocumented in this encounter Care Teams Storage Center Manager Relationship Specialty Start Date End Date Name, MD Jabari [address] [place] [address] PCP - General Family Medicine 08/05/15 documented as of this encounter
--- OUTSIDE RECORDS SUMMARY | 2024-09-12 07:49 | XMS_ITS | Clinical Summary ---
Author Organization [facility] Address [address] [place] [address] Care Team Providers Care Mortgage Loan Officer Originator Name Role Phone Community, Pcp Primary Care Provider Unavailabl e Allergies No known active allergies Medications Medication Sig Dispensed Refills Start Date End Date Status fluoxetine (PROZAC) 40 MG capsule Take 1 Cap by mouth daily. 30 Cap 5 04/07/2015 Active lisinopril (PRINIVIL,ZESTRIL) 5 MG tablet Take 1 Tab by mouth daily. 30 Tab 5 04/07/2015 Active clotrimazole-betameth asone (LOTRISONE) cream Apply once a day to the affected skin 30 g 0 04/07/2015 Active clonazepam (KLONOPIN) 0.5 MG tablet Take 1 Tab by mouth 2 times daily as needed for Anxiety. 60 Tab 3 07/29/2015 Active ranitidine (ZANTAC) 300 MG tablet TAKE 1 TAB BY MOUTH 2 TIMES DAILY. 60 Tab 3 07/29/2015 Active Active Problems Problem Noted Date History of renal stone 11/29/2014 HTN (hypertension) 06/21/2012 Heartburn 06/21/2012 Anxiety 06/21/2012 Overview: The patient used to see Dr Betancourt. The patient has at least 2 psychiatric hospitalizations Panic attack 06/21/2012 Immunizations Name Administration Dates Next Due Influenza (> 6 Months) 04/07/2015,04/30/2014, PPD-RBMG 09/11/2014 Tdap 06/21/2012 Family History Relation Name Status Comments Brother Alive heart problems, anxiety Father Troath cancer a nd smoking Mother Alive HTN, anxiety Sister Alive pulmonary embol ism Son Alive autism Social History Tobacco Use Types Packs/Day Years Used Date Smoking Tobacco: Never Smokeless Tobacco: Never Alcohol Use Standard Drinks/Week Comments No 0 (1 standard drink = 0.6 oz pur e alcohol) Sex Assigned at Date Recorded Not on file Last Filed Vital Signs Vital Sign Reading Time Taken Comments Blood Pressure 100/60 04/07/2015 3:59 PM EDT Pulse 72 04/07/2015 3:59 PM EDT Temperature 36.6 ??C (97.8 ??F) 04/07/2015 3:59 PM ED T Respiratory Rate 16 04/07/2015 3:59 PM EDT Oxygen Saturation - - Inhaled Oxygen Concentration - - Weight 87 kg (191 lb 12.8 oz) 04/07/2015 3:59 PM EDT Height 180.3 cm (5' 11 ) 04/07/2015 3:59 PM EDT Body Mass Index 26.75 04/07/2015 3:59 PM EDT Plan of Treatment Health Maintenance Due Date Last Done Comments Covid-19 Vaccine (#1) 01/04/1962 TOBACCO CHECK/ADVISE 1979 SHINGLES VACCINE (1 of 2) 2011 BASELINE HEALTH EXAM 40-64 06/21/2014 06/21/2012 COLON CANCER SCREEN WITH STO OL CARD 10/02/2015 10/01/2014 CHOLESTEROL SCREENING 11/30/2019 11/29/2014 , 10/02/2014, 04/24/2013, Additional history exists DTAP/TDAP/TD (2 - Td or Tdap) 06/21/2022 06/21/2012 INFLUENZA (#1) 2024 04/07/2015, 01/2014, 04/13/2012 BMI CHECK/ADVISE 07/25/2024 PNEUMOCOCCAL VACCINE FOR HIG H RISK PATIENTS (#1) 2026 HEPATITIS C SCREENING Completed 04/24/2013 Care Teams Mortgage Loan Officer Originator Relationship Specialty Start Date End Date Community, Pcp PCP - General Internal Medicine 10/15/15
--- OUTSIDE RECORDS SUMMARY | 2024-09-12 07:49 | XMS_ITS | Encounter Summary ---
Author Organization [employer] Address [address] [place] [address] 7 [place] [address] Care Team Providers Care Paradi Operator Name Role Phone NameJabari MD Primary Care Provider [phone] Reason for Visit * Reason Onset Date Comments Med Refill 03/22/2023 Encounter Details Date Type Department Care Team (Late st Contact Info) Description 03/22/2023 Refill [facility] MEDICINE [address] [place] [address] [phone] Jabari Loza MD [address] [place] [address] [phone] Anxiety Social History Tobacco Use Types Packs/Day [...] 9:45 AM EDT Office Visit [facility]INE [address] [place] [address] [phone] Jabari Loza MD [address] [place] [address] [phone] documented as of this encounter Visit Diagnoses Diagnosis Anxiety Anxiety state, unspecified documented in this encounter Care Teams Paradi Operator Relationship Specialty Start Date End Date NameJabari MD [address] [place] [address] PCP - General Family Medicine 08/05/15 documented as of this encounter
--- OUTSIDE RECORDS SUMMARY | 2024-09-12 07:49 | XMS_ITS | Encounter Summary ---
Author Organization [employer] Address [address] [place] [address] 7t [place] [address] Care Team Providers Care Neurocritical Care Physician Name Role Phone Name, Jabari VINES Primary Care Provider [phone] Encounter Details Date Type Department Care Team (Late Contact Info) Description 08/17/2022 Orders Only [facility] MED & PEDS [address] [place], [place] [phone] Violet Ramsey LPN Social History Tobacco Use [...] 10/31/2024 9:45 AM EDT Office Visit [facility] [address] [place] [address] Name, MD Jabari [address] [place] [address] documented as of this encounter Visit Diagnoses Not on filedocumented in this encounter Care Teams Neurocritical Care Physician Relationship Specialty Start Date End Date Name, MD Jabari [address] [place] [address] PCP - General Family Medicine 08/05/15 documented as of this encounter
--- OUTSIDE RECORDS SUMMARY | 2024-09-12 07:49 | XMS_ITS | Encounter Summary ---
Author Organization [facility] Address [address] [place] [address] Care Team Providers Care Timber Skidder Name Role Phone Name, Jabari VINES Primary Care Provider Unavailabl e Name, Jabari VINES Primary Care Provider Unavailabl e [facility], Pcp Primary Care Provider Unavailabl e Reason for Visit * Reason Onset Date Comments Follow-up Appt Unavailable 01/12/2013 w pcp Encounter Details Date Type Department Care Team Description 01/12/2013 Telephone Adult Medicine [address] [phone] NameJabari MD Follow-up Appt Unavailable (w pcp) Social History Tobacco Use Types Packs/Day Years Used Date Smoking Tobacco: Never Smokeless Tobacco: Never Alcohol Use Standard Drinks/Week Comments No 0 (1 standard drink = 0.6 oz pur e alcohol) Sex Assigned at Date Recorded Not on file documented as of this encounter Miscellaneous Notes * Telephone Encounter - Marilyn Condon R.N. - 01/12/2013 9:28 AM EDT Pt booked for 9?9 at 10;[address] johns, message left for pt to call. He will need to confirm appointment or be rescheduled with triage. * Telephone Encounter - Maryjane Davis - 01/12/2013 9:12 AM EDT Symptoms patient is presenting: patient was seen today by Le and was told to follow up with pcp in two months, also he speaks greenlandic, can you book him in [address] Johns? Med review followup How long has patient had these symptoms?: not sure PCP: Jabari Johns MD Payor: [employer] FFS Plan: FFS HMO $0 [id number] Product Type: MEDICAID RISK documented in this encounter Plan of Treatment Not on file documented as of this encounter Visit Diagnoses Not on filedocumented in this encounter Care Teams Timber Skidder Relationship Specialty Start Date End Date Jabari Johns MD PCP - General Internal Medicine 03/16/12 09/08/15 Jabari Johns MD PCP - General Internal Medicine 09/09/15 10/14/15 [facility], Pcp PCP - General Internal Medicine 10/15/15 documented as of this encounter
--- OUTSIDE RECORDS SUMMARY | 2024-09-12 07:49 | XMS_ITS | Encounter Summary ---
Author Organization [employer] Address [address] [place] [address] 7t [place] [address] Care Team Providers Care Box Truck Owner Operator Name Role Phone Name, Jabari VINES Primary Care Provider [phone] Reason for Visit * Reason Comments Med Refill Encounter Details Date Type Department Care Team (Late st Contact Info) Description 08/17/2022 Refill [facility] [address] [place] [address] [phone] NameJabari MD [address] [place] [address] [phone] Coronary artery disease involving [place] coronary artery of [place] heart without angina pectoris (Primary Dx) Social [...] Description 10/31/2024 9:45 AM EDT Office Visit [facility] [address] [place] [phone] Jabari Loza MD [address] [place] [address] documented as of this encounter Visit Diagnoses Diagnosis Coronary artery disease involving [place] coronary artery of [place] heart without angina pectoris- Primary documented in this encounter Care Teams Box Truck Owner Operator Relationship Specialty Start Date End Date Name, MD Jabari [address] [place] [address] PCP - General Family Medicine 08/05/15 documented as of this encounter
--- OUTSIDE RECORDS SUMMARY | 2024-09-12 07:49 | XMS_ITS | Clinical Summary ---
Author Organization [employer] Address [address] [place] [address] 7[address] [place] [address] Care Team Providers Care English Instructor Name Role Phone Name, Jabari VINES Primary Care Provider [phone] Allergies No known active allergies Medications escitalopram (Lexapro) 10 MG tablet TAKE 1 TABLET BY MOUTH EVERY DAY 90 tablet 07/21/20 23 Active metoprolol succinate XL (Toprol-XL) 25 MG 24 hr tabletIndicati ons:Coronary artery disease involving [place] coronary artery of [place] heart without angina pectoris TAKE 1 TABLET BY MOUTH EVERY DAY 90 tablet 3 08/01/19 24 Active Diclofenac Sodium (Voltaren Arthritis Pain) 1 % gel Apply 2 g topically if needed in the morning, at noon, in the evening, and at bedtime (back pain). 50 g 08/15/19 24 Active lisinopril-hyd roCHLOROthiazi de 10-12.5 MG tablet Take 1 tablet by mouth Once per day. 30 tablet 11 11/14/19 24 025 Active aspirin (Aspirin Low Dose) 81 MG EC tablet TAKE 1 TABLET BY MOUTH EVERY DAY 90 tablet 3 01/16/20 24 Active cholecalcifero l (D3) 50 MCG (1999 UT) tablet TAKE 1 TABLET BY MOUTH EVERY DAY 90 tablet 1 04/18/20 24 Active hydrocortisone 2.5 % cream APPLY TO THE AFFECTED AREA ONCE A DAY FOR 1 WEEK 60 g 1 06/27/20 24 Active pseudoephedrin e (Sudafed) 30 MG tablet Take 1 tablet (30 mg) by mouth every 4 (four) hours if needed for congestion for up to 10 days. 30 tablet 07/10/20 24 Active clonazePAM (KlonoPIN) 0.5 MG tabletIndicati ons:Anxiety Take 1 tablet (0.5 mg) by mouth if needed each day for anxiety for up to 20 days. 20 tablet 07/11/20 24 Active pantoprazole (ProtoNix) 20 MG EC tablet Take 20 mg by mouth before breakfast. Do not crush, chew, or split. Active famotidine (Pepcid) 20 MG tablet Take 1 tablet (20 mg) by mouth 2 times daily. 60 tablet 5 07/13/20 24 025 Active atorvastatin (Lipitor) 80 MG tabletIndicati ons:Coronary artery disease involving [place] coronary artery of [place] heart without angina pectoris TAKE 1 TABLET BY MOUTH EVERY DAY 90 tablet 3 09/11/19 25 Active atorvastatin (Lipitor) 80 MG tabletIndicati ons:Coronary artery disease involving [place] coronary artery of [place] heart without angina pectoris TAKE 1 TABLET BY MOUTH EVERY DAY 90 tablet 3 08/01/19 24 025 Discontinued Active Problems Patient Care Coordination No te Formatting of this note migh t be different from the original. C3/CM Ana Valderrama RN Problem Noted Date Diagnosed Date Acute inguinal lymphadenitis 11/14/2023 Allergic reaction 11/14/2023 Atherosclerotic cardiovascular disease 4 Benign prostatic hyperplasia with urinary obstru ction [...] Type Department Care Team Description 09/09/2024 Refill [facility] [address] [place] [id number] Jabari Loza MD Coronary artery disease involving [place] coronary artery of [place] heart without angina pectoris 07/13/2024 8:40 AM EST Office Visit [facility] [address] [place] [id number] Olivier Isabel MD Tinnitus aurium, bilateral (Primary Dx) 07/11/2024 Refill [facility] [address] [place] [id number] Jabari Loza MD Anxiety 07/10/2024 9:20 AM EST Office Visit [facility] [address] [place] [id number] Vee Martinez MD Catarrh of both eustachian tubes (Primary Dx) 06/27/2024 9:30 AM EST Office Visit [address] [address] Jabari Loza MD Essential hypertension (Primary Dx); Seborrheic keratosis; Encounter for immunization 06/26/2024 Travel 06/20/2024 Telephone [facility] [address] [place] [phone] Karen Verdugo MA Chart Prep 06/12/2024 2:00 PM EST Clinical Support [address] [address] Teresa Kothari, TAYLOR Encounter for immunization 06/12/2024 [...] Description 10/31/2024 9:45 AM EDT Office Visit [facility] [address] [place] [phone] Name, MD Jabari [address] [place] [address] Health Maintenance Due Date Last Done Comments [...] AM EDT Essential hypertension Atherosclerotic cardiovascular disease HM FIT DNA/COLOGUARD CANCER SCREENING Routine 05/06/2021 from Last 3 Months or Most Recently Relevant to Health Maintenance Results * Lipid Panel, Standard (11/17/2023 8:39 AM EDT) Triglycerides 47 <150 mg/dL [facility] Comment:Desirable Triglyceri de: less than 150 mg/dLBorderline High Triglyceride 150-199 mg/dLHigh Triglyceride: 200-499 mg/dLVery High Triglyceride: greater than or equal to 5OO mg/dL Cholesterol 128 <200 mg/dL [facility] Comment:Desirable Cholestero l: less than 200 mg/dLBorderline High Cholesterol: 200-239 mg/dLHigh Cholesterol: greater than 239 mg/dL LDL Cholesterol Calculated 67 <100 mg/dL [facility] Comment:Desirable LDL: less than 100 mg/dLNear Optimal/Above Optimal LDL: 110- 129 mg/dLBorderline High LDL: 130-159 mg/dLHigh LDL: 160-189 mg/dLVery High LDL: greater than or equal to 190 mg/dL HDL Cholesterol 52 >40 mg/dL [facility] Comment:Desirable HDL: great er than 40 mg/dL Note: This HDL assay may give artificially low results in patients with liver disease. Blood Venous blood specimen / Unknown 11/17/2023 8:39 AM EDT 11/17/2023 11:28 AM EDT us Jabari Loza MD LAB BLOOD ORDERABLES Final Resul t [facility] [address] [place] [phone] * FIT DNA/Cologuard Cancer Screening (05/06/2021) Cologuard Cancer Screen Negative Stool us Jabari Loza MD HEALTH MAINTENANCE Final Result from Last 3 Months or Most Recently Relevant to Health Maintenance Insurance [facility] C3 * Guarantor: Seferino Clemente Account Type Relation to Patient Date of Phone Billing Address Personal/Family Self [place], [place] Care Teams English Instructor Relationship Specialty Start Date End Date Name, MD Jabari [address] [place] [id number] PCP - General Family Medicine 08/05/15
--- NOTE | 2024-09-12 08:02 | MHC.OFFVIS ---
Vital Signs 09/12/24 08:06 Height 5 ft 11 in BP 107/58 L Blood Pressure Location Lt brachial Position Sitting Pulse 62 Intake Visit Reasons: 3 mnth follow up/ discuss prep Intake Note: Patient 3 month follow up for GERD, discuss pre for Colonoscopy. Pattient cc: acid reflex with burning sensation on and off. Deniies any other GI issues. Line Haul Driver Required: Yes Accompanied by: Self / Same As Patient Allergies No Known Allergies [No Known Allergies*] Allergy (Verified 09/12/24 08:00) HPI HPI 3 mnth follow up/ discuss prep: Details: GERD (gastroesophageal reflux disease) Transaminitis Screen for colon cancer Plan Patient will start on pantoprazole every morning half an hour before breakfast. Avoid dietary triggers and late night snacking. Staying upright for minimum 3 hours after meals discussed with patient. Message sent to Dr. Mcdonnell enquiring about change of statin or decreasing the dose. Asking for clearance for colonoscopy. Increase fluid intake and activity to promote better bowel motility. Discussed with patient low FODMAP diet. Patient will return in 3 months we will discuss going for procedure. Will send a message to surgical schedulers to book procedure. Patient will be sent for upper endoscopy as well to rule out gastritis, esophagitis, duodenitis, Dee's, H pylori. He is agreeable to current plan of care and verbalizes understanding of instructions. He was given the opportunity to ask questions and all questions answered. ? Thank you for allowing me to participate in his care Orders Medications New pantoprazole take one tablet half an hour before breakfast 40 mg PO DAILY 30 tabs 3RF K21.9 TODAY'S VISIT Patient is here today for follow-up and to discuss going for colonoscopy and upper endoscopy. Patient reports that pantoprazole has been working with acid reflux his symptoms are controlled, however he reports that he feels like he has ringing in his ear since he started and he would like to see if he can switch to another PPI. Patient denies dyspepsia, dysphagia or odynophagia. Occasional breakthrough symptoms depending on what he eats. Patient never had colonoscopy in the past and is ready to proceed. Has appointment with fiberglass quality technician in October and will ask for risk stratification before going for procedure. Patient denies melena, hematochezia, unintentional weight loss or ribbon like stools. No issues with anesthesia in the past. He is on low-dose aspirin. No history of sleep apnea. Patient denies any cardiac or respiratory symptoms at this time. Elevated liver enzymes in the past did his blood work yesterday awaiting results for liver fibrosis panel. Patient reports that he did change his diet and is eating healthier now. Denies trouble moving his bowels. Denies any other GI concerning symptoms. [facility] Medical History (Updated 06/12/24 @ 19:28 by Tatiana Drew [facility]) Transaminitis Inguinodynia Atherosclerotic cardiovascular disease CAD (coronary artery disease) Hernia Non-STEMI (non-ST elevated myocardial infarction) HTN (hypertension) Surgical History Hx of cardiac catheterization No significant past surgical history Surgical history unknown Family History Father No problems noted. Mother Hypertension Social History Household Members: Spouse Housing: House Do you presently have visiting nurse or other home services: No Alcohol intake: never Comment: telemetry Patient Tobacco Use Status: Never used Tobacco Review of Systems Const Denies weight gain and Denies weight loss ENT Reports no additional complaints, Denies dysphagia and Denies odynophagia Card Reports no additional complaints Resp Reports no additional complaints GI Denies abdominal pain, Denies belching, Denies melena, Denies bloating, Denies change in bowel habits, Denies dysphagia, Denies excessive flatus, Denies dyspepsia, Denies heartburn, Denies diarrhea, Denies loose stools, Denies nausea, Denies odynophagia and Denies vomiting Reports no additional complaints Musc Reports no additional complaints Neuro Reports no additional complaints Psych Reports no additional complaints Endo Reports no additional complaints Physical Exam Vital Signs: Last Vital Signs Pulse 62 09/12/24 08:06 BP 107/58 L 09/12/24 08:06 Const General: healthy appearing, no acute distress and well developed Nutritional Appearance: well nourished Orientation/consciousness: patient oriented x3 Resp Effort & Inspection: normal respiratory effort, able to speak in complete sentences, no tracheal deviation and symmetric chest movement Auscultation: clear to auscultation bilaterally Cardio Rate: regular rate GI Inspection: Yes normal to inspection and No distended Palpation (GI): Soft to palpation, not firm, nontender and No hepatosplenomegaly present Auscultation: normal bowel sounds General: Yes no CVA tenderness Back/Spine/Pelvis Back: no CVA tenderness Skin General skin exam: elasticity normal, turgor normal and dry skin Neuro General: patient oriented x3 Psych Appearance: grossly normal Mental Status: mental status grossly normal Assessment & Plan Assessment & Plan (1) GERD (gastroesophageal reflux disease): Code(s): K21.9 - Gastro-esophageal reflux disease without esophagitis Category: Medical Qualifiers: Esophagitis presence: esophagitis presence not specified Qualified Code(s): K21.9 - Gastro-esophageal reflux disease without esophagitis (2) Transaminitis: Code(s): R74.01 - Elevation of levels of liver transaminase levels Category: Medical (3) Screen for colon cancer: Code(s): Z12.11 - Encounter for screening for malignant neoplasm of colon Plan Will change PPI to Nexium. Patient will continue avoiding dietary triggers and late night snacking. Staying upright for minimum 3 hours after meals discussed with patient. Patient will be scheduled for colonoscopy. We will also book upper endoscopy as well. What to expect before during and after procedure discussed with patient. Stressed the importance of good bowel prep and clear liquid diet with him day before procedure. Patient has appointment with Cardiology in October and we will ask for risk stratification before sending her for procedure. Patient is agreeable to current plan of care and verbalizes understanding of instructions. He was given the opportunity to ask questions and all questions answered. Thank you for allowing me to participate in his care Medications: New bisacodyl (Dulcolax (bisacodyl)) take 4 tabs at noon the day before your colonoscopy 20 mg (4 x 5 mg) PO ONCE 1 day 4 tabs 0RF Z12.11 - Encounter for screening for malignant neoplasm of colon polyethylene glycol 3350 (Miralax) As directed by gastroenterology department at [facility] 238 grams PO ONCE 238 grams 0RF Z12.11 - Encounter for screening for malignant neoplasm of colon esomeprazole magnesium (Nexium) 40 mg PO DAILY 30 caps 5RF K21.9 - Gastro-esophageal reflux disease without esophagitis Discontinued pantoprazole Discontinued Reason: Doctor's Order 40 mg PO QAM 90 tabs 1RF K21.9 - Gastro-esophageal reflux disease without esophagitis Coding Level of Care Code Est Pt Level 4 (68546) Complex EM visit Add On G2211 Diagnoses Gastroesophageal reflux disease, unspecified whether esophagitis present K21.9 Esophagitis presence: esophagitis presence not specified Transaminitis R74.01 Screen for colon cancer Z12.11 Time Spent (min) 35 Comment 25 minutes spent with patient and additional 10 minutes spent reviewing his records
[2024-09-12 08:06] VITALS: BP 107/58; PULSE 62
== END 2024-09-12 08:48 | disposition home or self-care (01) ==
PROVIDERS: PCP Internal Medicine Geriatric Medicine; Visit Provider Nurse Practitioner Family
DX: K21.9 Gastro-esophageal reflux disease without esophagitis (principal); R74.01 Elevation of levels of liver transaminase levels; Z12.11 Encounter for screening for malignant neoplasm of colon
CPT/HCPCS: 99214

== ENCOUNTER → 2024-09-12 07:46 | Outpatient (BNVA) | payer MEDICAID, SELFPAY ==
[2021-07-29 14:22] VITALS: BMI 26.2
== END ==
PROVIDERS: PCP Internal Medicine Geriatric Medicine; Visit Provider Nurse Practitioner Family
DX: Z01.818 Encounter for other preprocedural examination (principal); K21.9 Gastro-esophageal reflux disease without esophagitis; R74.01 Elevation of levels of liver transaminase levels
CPT/HCPCS: 99212

== ENCOUNTER 2024-10-31 10:18 | Outpatient (REF) | payer MEDICAID, SELFPAY ==
[2021-07-29 14:22] VITALS: BMI 26.2
[2024-10-31 12:49] LABS: ~HepC Num1 0.14 S/CO (0.00-0.79); ~Hepatitis C Antibody Nonreactive (Nonreactive)
== END 2024-10-31 10:19 | disposition home or self-care (01) ==
LOC: HO.HHCL 10:18
PROVIDERS: Visit Provider Internal Medicine Geriatric Medicine
DX: Z11.59 Encounter for screening for other viral diseases (principal)
CPT/HCPCS: 36415; 86803

== ENCOUNTER 2024-11-20 09:02 | Outpatient (AMB) | payer MEDICAID, SELFPAY ==
[2021-07-29 14:22] VITALS: BMI 26.2
[2024-11-20 09:29] VITALS: BP 110/70; PULSE 55; BMI 27.3
--- NOTE | 2024-11-20 09:29 | MHC.OFFVIS ---
Vital Signs 11/20/24 09:29 Height 5 ft 11 in Weight 195 lb 12.328 oz BMI 27.3 BP 110/70 Blood Pressure Location Lt brachial Position Sitting Pulse 55 Pulse Source Monitor Intake Visit Reasons: 6 mth f/up/ clear for colonoscopy Revenue Cycle Analyst Required: No Accompanied by: Self / Same As Patient Allergies No Known Allergies [No Known Allergies*] Allergy (Verified 09/12/24 08:00) Medication List - Last Reconciled 11/20/24 by Barry Mcdonnell MD acetaminophen (Pain Relief Extra Strength (acetaminophen)) 500 mg PO Q8H PRN aspirin 81 mg PO DAILY atorvastatin 80 mg PO BEDTIME bisacodyl (Dulcolax (bisacodyl)) 20 mg (4 x 5 mg) PO ONCE 1 day cholecalciferol (vitamin D3) 50 mcg PO DAILY clonazepam 1 tab PO DAILY PRN cyclobenzaprine 10 mg PO TID PRN dutasteride 0.5 mg PO DAILY 90 days esomeprazole magnesium (Nexium) 40 mg PO DAILY lisinopril-hydrochlorothiazide 10-12.5 mg 1 tab PO QAM loratadine 10 mg PO DAILY metoprolol succinate ER 25 mg PO DAILY polyethylene glycol 3350 (Miralax) 238 grams PO ONCE tramadol 50 mg PO Q6H PRN HPI Comments Details: Seferino returns for follow-up regarding coronary artery disease. To recall, in 2020, he was admitted to [facility] with non ST elevation myocardial infarction. Subsequently, transferred to [facility] for cardiac catheterization. Underwent marginal stenting. He was doing okay but about 2 weeks ago, he started noticing some chest burning which was nonexertional. That has since improved. He states that his chest was also tender to touch. However, with a history concerned about angina. [facility] Medical History (Updated 06/12/24 @ 19:28 by JATINDER Qureshi-) Transaminitis Inguinodynia Atherosclerotic cardiovascular disease CAD (coronary artery disease) Hernia Non-STEMI (non-ST elevated myocardial infarction) HTN (hypertension) Surgical History Hx of cardiac catheterization No significant past surgical history Surgical history unknown Family History Father No problems noted. Mother Hypertension Social History (Reviewed 11/20/24 @ 09:29 by Kaylee Doll [facility]) Household Members: Spouse Housing: House Do you presently have visiting nurse or other home services: No Alcohol intake: never Comment: telemetry Patient Tobacco Use Status: Never used Tobacco Review of Systems Const Denies chills, Denies fatigue, Denies fever(s), Denies frequent falls, Denies weakness, Denies weight gain and Denies weight loss ENT Denies dizziness Card Denies chest pain, Denies leg edema, Denies lightheadedness, Denies palpitations, Denies dyspnea and Denies dyspnea on exertion Resp Denies cough, Denies dyspnea and Denies dyspnea on exertion GI Denies hematochezia Musc Denies abnormal gait, Denies muscle weakness, Denies numbness, Denies radiating pain into limb and Denies tingling Neuro Denies abnormal gait, Denies dizziness, Denies frequent falls, Denies numbness, Denies tingling and Denies weakness Endo Denies fatigue and Denies palpitations Physical Exam Vital Signs: Last Vital Signs Pulse 55 11/20/24 09:29 BP 110/70 11/20/24 09:29 BMI result Body Mass Index 27.3 Const General: comfortable and no acute distress Orientation/consciousness: patient oriented x3 HEENT Other: Unremarkable Head: Yes normal to inspection Neck Neck: Yes normal visual inspection Chest Chest palpation & inspection: normal inspection of the chest Resp Auscultation: clear to auscultation bilaterally Cardio Palpation: normal PMI Heart sounds: S1 normal heart sound present, S2 normal heart sound present, no gallops, no murmurs and no rubs GI Palpation (GI): Soft to palpation Back/Spine/Pelvis Other: unremarkable Skin General skin exam: no rashes or lesions noted Neuro General: patient oriented x3 Extrem General: Yes normal to inspection Psych Mental Status: mental status grossly normal Office Procedures EKG Details: EKG with underlying sinus bradycardia at 55/Min; cannot exclude old inferior infarct; anterior T inversions. 87573-[id number], Complete Assessment & Plan Assessment & Plan (1) Atherosclerotic cardiovascular disease: Code(s): I25.10 - Atherosclerotic heart disease of [place] coronary artery without angina pectoris Category: Medical (2) Essential hypertension: Code(s): I10 - Essential (primary) hypertension Category: Medical Plan Cardiac catheterization details reviewed from 03/2021. Status post drug-eluting stent to OM1 and OM3. 70-80% stenosis in proximal RPDA but small to medium caliber vessel. Mild nonobstructive disease in LAD but 60% focal distal LAD lesion. Currently EKG shows anterior T inversions which is similar to last year's EKG but different from the earlier EKGs. Based on prior cardiac history, catheterization findings, recommend repeat diagnostic catheterization considering recent chest burning episode. Avoid any strenuous physical activity for the time being. He is on aspirin, beta-blockers, statins and stay on the same for now. Nitroglycerin sublingual as needed. Blood pressure stable on the current regimen. Discussion Notes I discussed the need for a follow-up angiogram with the patient to evaluate his coronary arteries due to his recent chest pain and pre-existing coronary artery disease. The risks and benefits of the angiogram were explained, including the potential to identify any new blockages. We emphasized the importance of taking it easy with physical activity, given the potential cardiovascular concerns, and scheduled the procedure for next month. The patient was encouraged to maintain current medications and monitor his symptoms. Patient was informed and verbally consented to the use of an ambient scribe for clinic note documentation during this visit. Orders: Orders CA echo transthoracic complete Today I25.10 - Atherosclerotic heart disease of [place] coronary artery without angina pectoris Cardiac Cath LT w PCI Today I25.10 - Atherosclerotic heart disease of [place] coronary artery without angina pectoris Basic Metabolic Panel Today I25.10 - Atherosclerotic heart disease of [place] coronary artery without angina pectoris Complete Blood Count no Diff Today I25.10 - Atherosclerotic heart disease of [place] coronary artery without angina pectoris Prothrombin Time INR Today I25.10 - Atherosclerotic heart disease of [place] coronary artery without angina pectoris Medications: New nitroglycerin do not exceed 3 doses per episode 0.4 mg sublingual Q5M PRN 30 tabs 5RF chest pain R07.2 - Precordial pain Patient Instructions: - Avoid heavy exercise until the next evaluation. - Continue taking all prescribed heart medications. - Monitor chest pain symptoms and report any changes. - Prepare for a scheduled angiogram to check heart arteries. - If chest pain worsens or you feel unwell, seek medical attention immediately. Coding Level of Care Code Est Pt Level 5 (59038) Complex EM visit Add On G2211 Diagnoses Atherosclerotic cardiovascular disease I25.10 Essential hypertension I10 CPT Codes EKG - CPT: 68731-[id number], Complete ([id number])
--- OUTSIDE RECORDS SUMMARY | 2024-11-20 09:43 | XMS_ITS | Encounter Summary ---
Author Organization [facility] Address [address] [place] [address] [address] [place] [address] Care Team Providers Care Social Services Name Role Phone Name, Jabari VINES Primary Care Provider [phone] Reason for Visit * Reason Onset Date Comments Med Refill 03/22/2023 Encounter Details Date Type Department Care Team (Late st Contact Info) Description 03/22/2023 Refill [facility] [address] [place] [address] NameJabari MD [address] [place] [address] Anxiety Social History Tobacco Use Types Packs/Day [...] unspecified documented in this encounter Care Teams Social Services Relationship Specialty Start Date End Date NameJabari MD [address] [place] [address] PCP - General Family Medicine 08/05/15 documented as of this encounter
--- OUTSIDE RECORDS SUMMARY | 2024-11-20 09:43 | XMS_ITS | Encounter Summary ---
Author Organization [facility] Address [address] [place] [address] [address] [place] [address] Care Team Providers Care Maintenance Mechanic Engine Name Role Phone Name, Jabari VINES Primary Care Provider [phone] Encounter Details Date Type Department Care Team ([facility] st Contact Info) Description 01/14/2023 Orders Only [facility] [address] [place] [address] Violet Ramsey LPN Social History Tobacco Use [...] on filedocumented in this encounter Care Teams Maintenance Mechanic Engine Relationship Specialty Start Date End Date Name, MD Jabari [address] [place] [address] PCP - General Family Medicine 08/05/15 documented as of this encounter
--- OUTSIDE RECORDS SUMMARY | 2024-11-20 09:43 | XMS_ITS | Encounter Summary ---
Author Organization [employer] Address [address] [place] [address] [address] [place] [address] Care Team Providers Care Dope Pourer Name Role Phone Name, Jabari VINES Primary Care Provider [phone] Reason for Visit * Reason Comments Med Refill Encounter Details Date Type Department Care Team ([facility] st Contact Info) Description 12/31/2023 Refill [facility] [address] [place], [place] [phone] Name, MD Jabari [address] [place] [address] Essential hypertension; Atherosclerotic cardiovascular disease; Low back [...] documented as of this encounter Care Teams Dope Pourer Relationship Specialty Start Date End Date Name, MD Jabari [address] [place] [address] PCP - General Family Medicine 08/05/15 documented as of this encounter
--- OUTSIDE RECORDS SUMMARY | 2024-11-20 09:43 | XMS_ITS | Encounter Summary ---
Author Organization [employer] Address [address] [place] [address] [address] [place] [address] Care Team Providers Care Tobacco Sieve Operator Name Role Phone Name, Jabari VINES Primary Care Provider [phone] Reason for Visit * Reason Comments Med Refill Encounter Details Date Type Department Care Team ([facility] st Contact Info) Description 03/17/2024 Refill [facility] [address] [place], [place] [phone] Name, MD Jabari [address] [place] [address] Social History Tobacco Use Types Packs/Day Years [...] documented as of this encounter Care Teams Tobacco Sieve Operator Relationship Specialty Start Date End Date Name, MD aJbari [address] [place] [address] PCP - General Family Medicine 08/05/15 documented as of this encounter
--- OUTSIDE RECORDS SUMMARY | 2024-11-20 09:43 | XMS_ITS | Encounter Summary ---
Author Organization [employer] Address [address] [place] [address] 7 [place] [address] Care Team Providers Care Line Maintenance Supervisor Name Role Phone Name, Jabari VINES Primary Care Provider [phone] Reason for Visit * Reason Comments Med Refill Encounter Details Date Type Department Care Team ([facility] st Contact Info) Description 08/17/2022 Refill [facility] MEDICINE [address] [place] [address] Roxann Hernandez FNP [address] [place] [address] Social History Tobacco Use Types Packs/Day Years [...] on filedocumented in this encounter Care Teams Line Maintenance Supervisor Relationship Specialty Start Date End Date Name, MD Jabari [address] [place] [address] PCP - General Family Medicine 08/05/15 documented as of this encounter
--- OUTSIDE RECORDS SUMMARY | 2024-11-20 09:43 | XMS_ITS | Encounter Summary ---
Author Organization [employer] Address [address] [place] [address] 7 [place] [address] Care Team Providers Care Hazardous Substances Engineer Name Role Phone Name, Jabari VINES Primary Care Provider [phone] Reason for Visit * Reason Comments Med Refill Encounter Details Date Type Department Care Team ([facility] st Contact Info) Description 08/17/2022 Refill [facility] MEDICINE [address] [place], [place] [phone] Name, MD Jabari [address] [place] [address] Coronary artery disease involving [place] coronary artery of [place] heart without angina pectoris (Primary Dx) Social [...] Diagnoses Diagnosis Coronary artery disease involving [place] coronary artery of [place] heart without angina pectoris- Primary documented in this encounter Care Teams Hazardous Substances Engineer Relationship Specialty Start Date End Date Name, MD Jabari [address] [place] [address] [phone] PCP - General Family Medicine 08/05/15 documented as of this encounter
--- OUTSIDE RECORDS SUMMARY | 2024-11-20 09:43 | XMS_ITS | Clinical Summary ---
Author Organization [employer] Address [address] [place] [address] 7t [place] [address] Care Team Providers Care Aviation Electrician Name Role Phone Name, Jabari VINES Primary Care Provider [phone] Allergies No known active allergies Medications escitalopram (Lexapro) 10 MG tablet TAKE 1 TABLET BY MOUTH EVERY DAY 90 tablet 07/21/20 23 Active Diclofenac Sodium (Voltaren Arthritis Pain) 1 % gel Apply 2 g topically if needed in the morning, at noon, in the evening, and at bedtime (back pain). 50 g 08/15/19 24 Active lisinopril-hyd roCHLOROthiazi de 10-12.5 MG tablet Take 1 tablet by mouth Once per day. 30 tablet 11 11/14/19 24 Active aspirin (Aspirin Low Dose) 81 MG EC tablet TAKE 1 TABLET BY MOUTH EVERY DAY 90 tablet 3 01/16/20 24 Active cholecalcifero l (D3) 50 MCG (1999) tablet TAKE 1 TABLET BY MOUTH EVERY DAY 90 tablet 1 04/18/20 24 Active hydrocortisone 2.5 % cream APPLY TO THE AFFECTED AREA ONCE A DAY FOR 1 WEEK 60 g 1 06/27/20 24 Active atorvastatin (Lipitor) 80 MG tabletIndicati ons:Coronary artery disease involving [place] coronary artery of [place] heart without angina pectoris TAKE 1 TABLET BY MOUTH EVERY DAY 90 tablet 3 09/11/19 25 Active metoprolol succinate XL (Toprol-XL) 25 MG 24 hr tabletIndicati ons:Coronary artery disease involving [place] coronary artery of [place] heart without angina pectoris TAKE 1 TABLET BY MOUTH EVERY DAY 90 tablet 3 10/03/19 25 Active dutasteride (Avodart) 0.5 MG capsule Patient tells me he is not using the medication 09/17/19 25 Active esomeprazole (NexIUM) [address] capsule TOME 1 C PSULA POR V A ORAL TODOS LOS D 09/12/19 25 Active acetaminophen (Tylenol Extra Strength) 500 MG tablet Take 1 tablet (500 mg) by mouth every 8 (eight) hours if needed for moderate pain. 90 tablet 11/01/19 25 025 Active clonazePAM (KlonoPIN) 0.5 MG tabletIndicati ons:Anxiety Take 1 tablet (0.5 mg) by mouth if needed each day for anxiety for up to 20 days. 20 tablet 11/01/19 25 Active pseudoephedrin e (Sudafed) 30 MG tablet Take 1 tablet (30 mg) by mouth every 4 (four) hours if needed for congestion for up to 10 days. 30 tablet 07/10/20 24 025 Discontinued( erapy completed) clonazePAM (KlonoPIN) 0.5 MG tabletIndicati ons:Anxiety Take 1 tablet (0.5 mg) by mouth if needed each day for anxiety for up to 20 days. 20 tablet 07/11/20 24 025 Discontinued(Re order (will not trigger notification to Pharmacy)) pantoprazole (ProtoNix) 20 MG EC tablet Take 20 mg by mouth before breakfast. Do not crush, chew, or split. 025 Discontinued( erapy completed) famotidine (Pepcid) 20 MG tablet Take 1 tablet (20 mg) by mouth 2 times daily. 60 tablet 5 07/13/20 24 025 Discontinued( erapy completed) Active Problems Patient Care Coordination No te [...] 11/14/2023 Esophagitis 11/14/2023 GERD (gastroesophageal reflux disease) Pharyngitis 11/14/2023 Recurrent left inguinal hernia 11/14/2023 [...] Encounters Date Type Department Care Team Description 10/31/2024 9:45 AM EDT Office Visit [facility] MEDICINE [address] [place] [address] NameJabari MD Essential hypertension (Primary Dx); History of HI (myocardial infarction); Right shoulder pain, unspecified chronicity; Anxiety; Need for hepatitis C screening test 10/31/2024 Travel 10/05/2024 Population Health Risk Score [facility] [address] [phone] Provider, Population Health Generic 10/01/2024 Refill [facility] [address] [place] [address] Jabari Loza MD Coronary artery disease involving [place] coronary artery of [place] heart without angina pectoris 09/09/2024 Refill [facility] [address] [place] [address] Jabari Loza MD Coronary artery disease involving [place] coronary artery of [place] heart without angina pectoris from Last 3 Months Immunizations Name Administration [...] Sign Reading Time Taken Comments Blood Pressure 128/85 10/31/2024 9:47 AM EDT Pulse 65 10/31/2024 9:47 AM EDT Temperature 36.2 ??C (97.2 ??F) 10/31/2024 9:47 AM ED T Respiratory Rate 18 10/31/2024 9:47 AM EDT Oxygen Saturation 98% 10/31/2024 9:47 AM EDT Inhaled Oxygen Concentration - - Weight 89 kg (196 lb 3.2 oz) 10/31/2024 9:47 AM EDT Height 180.3 cm (5' 11 ) 10/31/2024 9:47 AM EDT Body Mass Index 27.36 10/31/2024 9:47 AM EDT Plan of Treatment Health Maintenance Due Date Last Done Comments CT Colonography 1961 Colonoscopy 1961 FIT 1961 HIV Screening 1961 Sigmoidoscopy 1961 Zoster Vaccines (1 of 2) 2011 RSV Patients and Patients Aged 60 years or older (1 - Risk 60-74 years 1-dose series) 2021 FOBT 05/06/2022 05/06/2021 COVID-19 Vaccine ( season) 2024 05/31/2022, 12/14/2021, 06/23/2021, Additional history exists Colorectal Cancer Screening 05/06/2024 FIT DNA/Cologuard 05/06/2024 05/06/2021 Depression Screening 05/18/2024 05/18/2023, 05/18/20 SDOH Screening 05/18/2024 05/18/2023 Alcohol/Substance Use Screening 03/07/2025 03/07/2024 Tobacco Screening 10/31/2025 10/31/2024 Lipid Panel 11/16/2028 11/17/2023, 04/24, 06/11/2022, Additional history exists DTaP/Tdap/Td Vaccines (3 - Td or Tdap) 03/07/2034 03/07/2024, 06/21/2012 Influenza Vaccine Completed 06/12/2024, , 04/13/2022, Additional history exists Pneumococcal Vaccine: 50+ Years Completed 06/27/2024 Hepatitis C Screening Completed 10/31/2024 HIB Vaccines Aged Out No longer eligi [...] Procedure Name Priority Date/Time Associated Diagnosis Comments HEPATITIS C AB W/REFL TO HCV RNA, QN, PCR Routine 10/31/2024 10:24 AM EDT Need for hepatitis C screening test LIVER FIBROSIS, FIBROTEST ACTITEST PANEL Routine 09/10/2024 10:03 AM EST LIPID PANEL, STANDARD Routine 11/17/2023 8:39 AM EDT Essential hypertension Atherosclerotic cardiovascular disease HM FIT DNA/COLOGUARD CANCER SCREENING Routine 05/06/2021 from Last 3 Months or Most Recently Relevant to Health Maintenance Results * Hepatitis C Antibody with Reflex to HCV, RNA, Quantitative, Real-Time PCR (10/31/2024 10:24 AM EDT) Hepatitis C Antibody Nonreactive Nonreactive [facility] Comment:Antibodies to HCV no t detected; does not exclude early acuteHCV infection. Blood Venous blood specimen / Unknown 10/31/2024 10:24 AM EDT 10/31/2024 11:49 AM EDT us Jabari Loza MD LAB BLOOD ORDERABLES Final Resul t [facility] [address] [place] [phone] * Liver Fibrosis (HCV), FibroTest-ActiTest Panel (09/10/2024 10:03 AM EST) Liver Fibrosis Score 0.27 [facility] Liver Fibrosis Stage F1 [facility] Liver Fibrosis Interpretation SEE NOTE [facility] Comment:minimal fibrosisFibr o Test Score (f) Metavir Score f>=0 and f<=0.21 : F0 (no fibrosis)f>0.21 and f<=0.27 : F0-F1 (no fibrosis)f>0.27 and f<=0.31 : F1 (minimal fibrosis)f>0.31 and f<=0.48 : F1-F2 (minimal fibrosis)f>0.48 and f<=0.58 : F2 (moderate fibrosis)f>0.58 and f<=0.72 : F3 (advanced fibrosis)f>0.72 and f<=0.74 : F3-F4 (advanced fibrosis)f>0.74 and f<=1.00 : F4 (severe fibrosis) Nec Inflam Act Score 0.16 [facility] Nec Inflam Act Grade A0 [facility] Nec Inflam Act Interpretation SEE NOTE [facility] Comment:no activityActiTest Score (a) Metavir Score a>=0 and a<=0.17 : A0 (no activity)a>0.17 and a<=0.29 : A0-A1 (no activity)a>0.29 and a<=0.36 : A1 (minimal activity)a>0.36 and a<=0.52 : A1-A2 (minimal activity)a>0.52 and a<=0.60 : A2 (significant activity)a>0.60 and a<=0.62 : A2-A3 (significant activity)a>0.62 and a<=1.00 : A3 (severe activity) EQC-Orqkk-5-Macroglo bulin 152 106 - 279 mg/dL [facility] FIB-Haptoglobin 132 43 - 212 mg/dL [facility] FIB-Apolipoprotein A1 132 94 - 176 mg/dL [facility] FIB-Total Bilirubin 0.9 0.2 - 1.2 mg/dL [facility] FIB-GGT 21 3 - 70 U/L [facility] FIB-ALT 33 9 - 46 U/L [facility] Reference ID [id number] [facility] Footnote SEE NOTE [facility] Comment: The reliability of results is dependent on compliance withthe preanalytical and analytical conditions recommended by[employer]. The tests have to be deferred for: acutehemolysis, acute hepatitis, acute inflammation, extrahepatic cholestasis. The advice of a specialist should besought for interpretation in chronic hemolysis and Gilbert'ssyndrome. The test interpretation is not validated in livertransplant patients. Isolated extreme values of one of thecomponents should lead to caution in interpreting theresults. In case of discordance between a biopsy result juan test, it is recommended to seek the advice of aspecialist. The causes of these discordances could be due toa flaw of the test or to a flaw in the biopsy: i.e. a liverbiopsy has a 33% variability rate for one fibrosis stage.FibroTest is interpretable for chronic hepatitis B and C,alcoholic and non alcoholic steatosis. ActiTest isinterpretable for chronic hepatitis B and C.The performance characteristics have been determined by[employer] [facility]. Ithas not been cleared or approved by the U.S. Food and DrugAdministration. Performance characteristics refer to theanalytical performance of the test.Wallstr, [employer], the associated logo, [employer] and all associated [employer] bautista are theregistered trademarks of [employer]. All third partymarks - (R) and (TM) - are the property of their respectiveowners. (C) 2534-6906 [employer]. Allrights reserved.THIS TEST WAS PERFORMED AT:[employer] [id number] KAREN [place] ??[phone] MAIN MD,PHD,MICKY 09/10/2024 10:0 3 AM EST 09/10/2024 10:03 AM EST us Generic External Data Provider LAB BLOOD ORDERAB LES Final Result [facility] [address] [place] [phone] * Lipid Panel, Standard (11/17/2023 8:39 AM EDT) Triglycerides 47 <150 mg/dL [facility] Comment:Desirable Triglyceri de: less than 150 mg/dLBorderline High Triglyceride 150-199 mg/dLHigh Triglyceride: 200-499 mg/dLVery High Triglyceride: greater than or equal to 5OO mg/dL Cholesterol 128 <200 mg/dL [facility] Comment:Desirable Cholestero l: less than 200 mg/dLBorderline High Cholesterol: 200-239 mg/dLHigh Cholesterol: greater than 239 mg/dL LDL Cholesterol Calculated 67 <100 mg/dL [facility] Comment:Desirable LDL: less than 100 mg/dLNear Optimal/Above Optimal LDL: 110- 129 mg/dLBorderline High LDL: 130-159 mg/dLHigh LDL: 160-189 mg/dLVery High LDL: greater than or equal to 190 mg/dL HDL Cholesterol 52 >40 mg/dL [facility] Comment:Desirable HDL: great er than 40 mg/dL Note: This HDL assay may give artificially low results in patients with liver disease. Blood Venous blood specimen / Unknown 11/17/2023 8:39 AM EDT 11/17/2023 11:28 AM EDT us Jabari Loza MD LAB BLOOD ORDERABLES Final Resul t [facility] [address] [place] [phone] [phone] * FIT DNA/Cologuard Cancer Screening (05/06/2021) Cologuard Cancer Screen Negative Stool us Jabari Loza MD HEALTH MAINTENANCE Final Result from Last 3 Months or Most Recently Relevant to Health Maintenance Insurance [place], [place] [employer] Care Teams Aviation Electrician Relationship Specialty Start Date End Date Name, MD Jabari [address] [place] [phone] PCP - General Family Medicine 08/05/15
--- OUTSIDE RECORDS SUMMARY | 2024-11-20 09:43 | XMS_ITS | Encounter Summary ---
Author Organization [employer] Address [address] [place] [address] 7t [place] [address] Care Team Providers Care Boiling House Hand Name Role Phone Name, Jabari VINES Primary Care Provider [phone] Encounter Details Date Type Department Care Team ([facility] st Contact Info) Description 08/17/2022 Orders Only [facility] PEDS [address] [place], [place] [phone] Violet Ramsey LPN Social History Tobacco Use [...] on filedocumented in this encounter Care Teams Boiling House Hand Relationship Specialty Start Date End Date Name, MD Jabari [address] [place] [address] PCP - General Family Medicine 08/05/15 documented as of this encounter
--- OUTSIDE RECORDS SUMMARY | 2024-11-20 09:43 | XMS_ITS | Encounter Summary ---
Author Organization [employer] Address [address] [place] [address] 7 [place] [address] Care Team Providers Care Informatics Physician Name Role Phone Name, Jabari VINES Primary Care Provider [phone] Reason for Visit * Reason Onset Date Comments Med Refill 07/19/2023 Encounter Details Date Type Department Care Team ([facility] st Contact Info) Description 07/19/2023 Refill [facility] MEDICINE [address] [place], [place] [phone] Name, MD Jabari [address] [place] [address] Anxiety Social History Tobacco Use Types Packs/Day [...] on 05/18/2023 for 20 days supply at [facility]. PCP is not in office , Please review. * Telephone Encounter - Mike Mcintosh RN - 07/21/2023 10:47 AM EST T/C to [facility] to refill Aspirin and Hydrocortisone. Clonazepam is already que for approval. documented in this encounter Plan of Treatment Not on file documented as of this encounter Visit Diagnoses Diagnosis Anxiety Anxiety state, unspecified documented in this encounter Additional Health Concerns Assessment Noted Time PHQ-9 Depression Total Score: 0 05/18/20 23 2:10 PM EDT documented as of this encounter Care Teams Informatics Physician Relationship Specialty Start Date End Date Name, MD Jabari [address] [place] [address] PCP - General Family Medicine 08/05/15 documented as of this encounter
--- OUTSIDE RECORDS SUMMARY | 2024-11-20 09:43 | XMS_ITS | Encounter Summary ---
Author Organization [employer] Address [address] [place] [address] 7 [place] [address] Care Team Providers Care Manufacturing Quality Engineer Name Role Phone Name, Jabari VINES Primary Care Provider [phone] Reason for Visit * Reason Comments Med Refill Encounter Details Date Type Department Care Team ([facility] st Contact Info) Description 06/05/2023 Refill [facility] MEDICINE [address] [place], [place] [phone] Name, MD Jabari [address] [place] [address] Social History Tobacco Use Types Packs/Day Years [...] documented as of this encounter Care Teams Manufacturing Quality Engineer Relationship Specialty Start Date End Date Name, MD Jabari [address] [place] [address] PCP - General Family Medicine 08/05/15 documented as of this encounter
--- OUTSIDE RECORDS SUMMARY | 2024-11-20 09:43 | XMS_ITS | Encounter Summary ---
Author Organization [employer] Address [address] [place] [address] 7t [place] [address] Care Team Providers Care Duct Installer Name Role Phone Name, Jabari VINES Primary Care Provider [phone] Encounter Details Date Type Department Care Team ([facility] st Contact Info) Description 08/17/2022 Orders Only [facility] MEDICINE [address] [place], [place] [phone] Sakshi Tubbs LPN Social History Tobacco Use [...] on filedocumented in this encounter Care Teams Duct Installer Relationship Specialty Start Date End Date Name, MD Jabari [address] [place], [place] [phone] PCP - General Family Medicine 08/05/15 documented as of this encounter
== END 2024-11-20 10:16 | disposition home or self-care (01) ==
LOC: HO.HCS 09:05
PROVIDERS: PCP Internal Medicine Geriatric Medicine; Visit Provider Internal Medicine
DX: I25.10 Atherosclerotic heart disease of native coronary artery without angina pectoris (principal); I10 Essential (primary) hypertension
CPT/HCPCS: 93010; 99214

== ENCOUNTER 2024-11-20 09:02 | Outpatient (REF) | payer MEDICAID, SELFPAY ==
[2021-07-29 14:22] VITALS: BMI 26.2
[2024-11-20 10:57] LABS: Hematocrit 46.4 % (42.0-52.0); Hemoglobin 15.7 g/dl (14.0-18.0); Mean Corpuscular HGB Conc 33.8 g/dl (31.0-36.0); Mean Corpuscular Hemoglobin 29.5 pg (27.0-33.0); Mean Corpuscular Volume 87.1 fL (80.0-98.0); Mean Platelet Volume 10.1 fL (9.4-12.4); Platelet Count 159 X10*3/uL (160-400); Red Blood Count 5.33 X10*6/uL (4.60-5.80); Red Cell Distribution Width 12.1 % (11.0-16.0); White Blood Count 4.2 X10*3/uL (4.8-10.8)
[2024-11-20 11:02] LABS: Prothrombin Time 11.6 SEC (10.9-12.4)
[2024-11-20 11:31] LABS: Anion Gap 10 (12-20); Blood Urea Nitrogen 20 mg/dL (9-16); Calcium 10.4 mg/dL (8.4-10.2); Carbon Dioxide 31 mmol/L (22-29); Chloride 103 mmol/L (96-108); Estimated Glomerular Filt Rate > 60; Glucose Random 107 mg/dL (60-115); Potassium 3.8 mmol/L (3.3-5.1); Sodium 140 mmol/L (135-145)
== END 2024-11-20 09:03 | disposition home or self-care (01) ==
LOC: HO.LAB 09:02
PROVIDERS: PCP Internal Medicine Geriatric Medicine; Visit Provider Internal Medicine
DX: I25.10 Atherosclerotic heart disease of native coronary artery without angina pectoris (principal); I10 Essential (primary) hypertension; I25.2 Old myocardial infarction
CPT/HCPCS: 36415; 80048; 85027; 85610; 93005; 99212

== ENCOUNTER → 2024-11-22 10:38 | Outpatient (REF) | payer MEDICAID, SELFPAY ==
[2021-07-29 14:22] VITALS: BMI 26.2
--- OUTSIDE RECORDS SUMMARY | 2024-11-22 12:11 | XMS_ITS | Encounter Summary ---
Author Organization [employer] Address [address] [facility] 7t [place] [address] Care Team Providers Care Rail Bender Name Role Phone Name, Jabari VINES Primary Care Provider [phone] Encounter Details Date Type Department Care Team (Late st Contact Info) Description 11/20/2024 Orders Only GENERIC EXTERNAL DATA DEPARTMENT Provider, Generic External Data Social History Tobacco Use Types Packs/Day Years [...] on file documented as of this encounter Procedures Procedure Name Priority Date/Time Associated Diagnosis Comments PROTHROMBIN TIME-INR Routine 11/20/2024 10:48 AM EDT CBC Routine 11/20/2024 10:48 AM EDT BASIC METABOLIC PANEL Routine 11/20/2024 10:48 AM EDT documented in this encounter Results * (ABNORMAL) Basic Metabolic Panel (11/20/2024 10:48 AM EDT) Sodium 140 135 - 145 mmol/L [facility] Potassium 3.8 3.3 - 5.1 mmol/L [facility] Chloride 103 96 - 108 mmol/L [facility] Carbon Dioxide 31(H) 22 - 29 mmol/L [facility] Anion Gap 10(L) 12 - 20 [facility] Urea Nitrogen (BUN) 20(H) 9 - 16 mg/dL [facility] Creatinine, Serum 0.79 0.5 - 1.4 mg/dL [facility] Estimated Glomerular Filt Rate >60 [facility] Comment:Chronic Kidney Disea se: Estimated GFR < 60 mL/min/[id number] Kidney Disease: Estimated GFR < 15 mL/min/1.73m2 Glucose 107 60 - 115 mg/dL [facility] Calcium 10.4(H) 8.4 - 10.2 mg/dL [facility] 11/20/2024 10:4 8 AM EDT 11/20/2024 10:48 AM EDT Generic External Data Provider LAB BLOOD ORDERAB LES Final Result Performing Organization Address [facility] Co de Phone Number [facility] [address] [place] [phone] * Prothrombin Time-INR (11/20/2024 10:48 AM EDT) Prothrombin Time 11.6 10.9 - 12.4 SEC [facility] INTERNATIONAL NORM RATIO 1.0 0.9 - 1.1 [facility] Comment:INTERNATIONAL NORMAL IZED RATIO (INR) REFERENCE RANGES Reference RangeFor patients not on anticoagulant therapy: 0.9 - 1.1INR ranges for oral anticoagulanttherapy:For prevention and treatment of venous thrombosis and pulmonary embolism: 2.0 - 3.0For acute myocardial infarction with aspirin therapy: 2.0 - 3.0For acute myocardial infarction without aspirin therapy: 3.0 - 4.0For patients with mechanical prosthetic heart valves: 2.5 - 3.5 11/20/2024 10:4 8 AM EDT 11/20/2024 10:48 AM EDT us Generic External Data Provider LAB BLOOD ORDERAB LES Final Result Performing Organization Address [facility] Co de Phone Number [facility] [address] [place] [address] [phone] * (ABNORMAL) CBC (11/20/2024 10:48 AM EDT) White Blood Count 4.2(L) 4.8 - 10.8 X10*3/uL [facility] Red Blood Count 5.33 4.60 - 5.80 X10*6/uL [facility] Hemoglobin 15.7 14.0 - 18.0 g/dl [facility] Hematocrit 46.4 42.0 - 52.0 % [facility] Mean Corpuscular Volume 87.1 80.0 - 98.0 fL [facility] Mean Corpuscular Hemoglobin 29.5 27.0 - 33.0 pg [facility] Mean Corpuscular HGB Conc 33.8 31.0 - 36.0 g/dl [facility] Red Cell Distribution Width 12.1 11.0 - 16.0 % [facility] Platelet Count 159(L) 160 - 400 X10*3/uL [facility] Mean Platelet Volume 10.1 9.4 - 12.4 fL [facility] NRBC Pct Auto 0.0 0.0 - 0.2 /100WBC [facility] NRBC Abs Auto 0.000 0.0 - 0.012 X10*3/uL [facility] 11/20/2024 10:4 8 AM EDT 11/20/2024 10:48 AM EDT us Generic External Data Provider LAB BLOOD ORDERAB LES Final Result [facility] [address] [place] [phone] documented in this encounter Visit Diagnoses Not on filedocumented in this encounter Additional Health Concerns Assessment Noted Time PHQ-9 Depression Total Score: 0 05/18/20 23 2:10 PM EDT documented as of this encounter Care Teams Rail Bender Relationship Specialty Start Date End Date Name, MD Jabari [address] [place] [phone] PCP - General Family Medicine 08/05/15 documented as of this encounter
--- OUTSIDE RECORDS SUMMARY | 2024-11-22 12:11 | XMS_ITS | Encounter Summary ---
Author Organization [employer] Address [address] [facility] 7t [place] [address] Care Team Providers Care Fireproof Door Maker Name Role Phone Name, Jabari VINES Primary Care Provider [phone] Reason for Visit * Reason Comments Allergies Encounter Details Date Type Department Care Team (Latest Contact Info) Description 11/22/2024 8:40 AM EDT Office Visit [facility] [address] [place] [phone] Nabil Rowe MD [address] [place] [phone] Allergic conjunctivitis of both eyes (Primary Dx) Social History Tobacco Use Types [...] the past 12 months, has t he [employer], gas, oil or water company threatened to [...] AM EDT documented as of this encounter Last Filed Vital Signs Vital Sign Reading Time Taken Comments Blood Pressure 140/82 11/22/2024 8:47 AM EDT Pulse 75 11/22/2024 8:47 AM EDT Temperature 36.7 ??C (98 ??F) 11/22/2024 8:47 AM EDT Respiratory Rate 16 11/22/2024 8:47 AM EDT Oxygen Saturation 99% 11/22/2024 8:47 AM EDT Inhaled Oxygen Concentration - - Weight 88 kg (194 lb) 11/22/2024 8:47 AM EDT Height - - Body Mass Index 27.06 10/31/2024 9:47 AM EDT documented in this encounter Progress Notes * Nabil Rowe MD - 11/22/2024 8:40 AM EDT Subjective History was provided by the patient. Seferino Kirk is a 64 y.o. male who presents for evaluation of 3-day duration of bilateral eye itching and redness. Also with some nasal congestion, but not significantly bothersome. DeniesF/C/N/V/D. Denies cough or rhinorrhea. Denies CP/SOB/SIDHU. No eye discharge. Underlying medial pterygiums bilaterally. Objective Vitals: 11/22/24 0847 BP: (!) 140/82 BP Location: Left arm Patient Position: Sitting BP Cuff Size: Adult Pulse: 75 Resp: 16 Temp: 98 ??F (36.7 ??C) TempSrc: Temporal SpO2: 99% Weight: 194 lb (88 kg) Physical Exam Vitals reviewed. Constitutional: Appearance: Normal appearance. HENT: Head: Normocephalic and atraumatic. Right Ear: Tympanic membrane, ear canal and external ear normal. Left Ear: Tympanic membrane, ear canal and external ear normal. Nose: Nose normal. No congestion or rhinorrhea. Mouth/Throat: Mouth: Mucous membranes are moist. Pharynx: Oropharynx is clear. No oropharyngeal exudate or posterior oropharyngeal erythema. Eyes: General: No scleral icterus. Right eye: No discharge. Left eye: No discharge. Extraocular Movements: Extraocular movements intact. Pupils: Pupils are equal, round, and reactive to light. Comments: Bilateral medial pterygiums; conjunctival injection; no eyelid edema or erythema Cardiovascular: Rate and Rhythm: Normal rate and regular rhythm. Heart sounds: Normal heart sounds. Pulmonary: Effort: Pulmonary effort is normal. Breath sounds: Normal breath sounds. Musculoskeletal: Cervical back: Normal range of motion and neck supple. Lymphadenopathy: Cervical: No cervical adenopathy. Skin: General: Skin is warm and dry. Neurological: Mental Status: He is alert and oriented to person, place, and time. Psychiatric: Mood and Affect: Mood normal. Behavior: Behavior normal. Thought Content: Thought content normal. Judgment: Judgment normal. Seferino was seen today for allergies. Diagnoses and all orders for this visit: Allergic conjunctivitis of both eyes (Primary) - Ketotifen Fumarate 0.035 % solution; Administer 1 drop into affected eye(s) 2 times daily for 7 days. Patient [facility] to [facility] due to bilateral allergic conjunctivitis No clinical evidence of preseptal or septal cellulitis Minimal congestion attributed by allergies Discussed nasal saline irrigation Mostly bothered by eye itching and redness Recommended Rx Ketotifen 1 drop BID for 7 days Potential adverse effects of the medication reviewed Indications for UC/ER use reviewed Advised to contact the clinic if persistent or worsening symptoms documented in this encounter Plan of Treatment Not on file documented as of this encounter Visit Diagnoses Diagnosis Allergic conjunctivitis of both eyes- Primary Other chronic allergic conjunctivitis documented in this encounter Additional Health Concerns Assessment Noted Time PHQ-9 Depression Total Score: 0 05/18/20 23 2:10 PM EDT documented as of this encounter Care Teams Fireproof Door Maker Relationship Specialty Start Date End Date Name, MD Jabari [address] [place] [address] PCP - General Family Medicine 08/05/15 documented as of this encounter
--- OUTSIDE RECORDS SUMMARY | 2024-11-22 12:11 | XMS_ITS | Encounter Summary ---
Author Organization [employer] Address [address] [place] [address] 7 [place] [address] Care Team Providers Care Compressor Engineer Name Role Phone Name, Jabari VINES Primary Care Provider [phone] Reason for Visit * Reason Onset Date Comments Med Refill 07/19/2023 Encounter Details Date Type Department Care Team ([facility] st Contact Info) Description 07/19/2023 Refill [facility] MED[facility]INE [address] [place], [place] [phone] Name, MD Jabari [address] [place] [address] Anxiety Social History Tobacco Use Types Packs/Day [...] on 05/18/2023 for 20 days supply at [facility]. PCP is not in office , Please review. * Telephone Encounter - Mike Mcintosh RN - 07/21/2023 10:47 AM EST T/C to [facility] to refill Aspirin and Hydrocortisone. Clonazepam is already que for approval. documented in this encounter Plan of Treatment Not on file documented as of this encounter Visit Diagnoses Diagnosis Anxiety Anxiety state, unspecified documented in this encounter Additional Health Concerns Assessment Noted Time PHQ-9 Depression Total Score: 0 05/18/20 23 2:10 PM EDT documented as of this encounter Care Teams Compressor Engineer Relationship Specialty Start Date End Date Name, MD Jabari [address] [place] [address] PCP - General Family Medicine 08/05/15 documented as of this encounter
--- OUTSIDE RECORDS SUMMARY | 2024-11-22 12:11 | XMS_ITS | Encounter Summary ---
Author Organization [employer] Address [address] [place] [address] 7t [place] [address] Care Team Providers Care Telephoto Engineer Name Role Phone Name, Jabari VINES Primary Care Provider [phone] Encounter Details Date Type Department Care Team ([facility] st Contact Info) Description 08/17/2022 Orders Only [facility] [address] [place], [place] [phone] Violet Ramsey LPN Social History Tobacco Use [...] on filedocumented in this encounter Care Teams Telephoto Engineer Relationship Specialty Start Date End Date Name, MD Jabari [address] [place] [address] PCP - General Family Medicine 08/05/15 documented as of this encounter
--- OUTSIDE RECORDS SUMMARY | 2024-11-22 12:11 | XMS_ITS | Encounter Summary ---
Author Organization [employer] Address [address] [place] [address] 7 [place] [address] Care Team Providers Care Equipment Tech Name Role Phone Name, Jabari VINES Primary Care Provider [phone] Reason for Visit * Reason Comments Med Refill Encounter Details Date Type Department Care Team ([facility] st Contact Info) Description 06/05/2023 Refill [facility] MEDICINE [address] [place], [place] [phone] Name, MD Jabari [address] [place] [address] Social History Tobacco Use Types Packs/Day Years [...] documented as of this encounter Care Teams Equipment Tech Relationship Specialty Start Date End Date Name, MD Jabari [address] [place] [address] PCP - General Family Medicine 08/05/15 documented as of this encounter
--- OUTSIDE RECORDS SUMMARY | 2024-11-22 12:11 | XMS_ITS | Clinical Summary ---
Author Organization [employer] Address [address] [place] [address] 7t [place] [address] Care Team Providers Care Abalone Fisherman Name Role Phone Name, Jabari VINES Primary Care Provider Allergies No known active allergies Medications escitalopram (Lexapro) 10 MG tablet TAKE 1 TABLET BY MOUTH EVERY DAY 90 tablet 023 Active Diclofenac Sodium (Voltaren Arthritis Pain) 1 % gel Apply 2 g topically if needed in the morning, at noon, in the evening, and at bedtime (back pain). 50 g 024 Active lisinopril-hydroC HLOROthiazide 10-12.5 MG tablet Take 1 tablet by mouth Once per day. 30 tablet 11 024 Active aspirin (Aspirin Low Dose) 81 MG EC tablet TAKE 1 TABLET BY MOUTH EVERY DAY 90 tablet 3 024 Active cholecalciferol (D3) 50 MCG (1999 UT) tablet TAKE 1 TABLET BY MOUTH EVERY DAY 90 tablet 1 024 Active hydrocortisone 2.5 % cream APPLY TO THE AFFECTED AREA ONCE A DAY FOR 1 WEEK 60 g 1 024 Active atorvastatin (Lipitor) 80 MG tabletIndications :Coronary artery disease involving swinomish coronary artery of swinomish heart without angina pectoris TAKE 1 TABLET BY MOUTH EVERY DAY 90 tablet 3 025 Active metoprolol succinate XL (Toprol-XL) 25 MG 24 hr tabletIndications :Coronary artery disease involving swinomish coronary artery of swinomish heart without angina pectoris TAKE 1 TABLET BY MOUTH EVERY DAY 90 tablet 3 025 Active dutasteride (Avodart) 0.5 MG capsule Patient tells me he is not using the medication Active esomeprazole (NexIUM) [address] capsule TOME 1 C PSULA POR V A ORAL TODOS LOS D Active acetaminophen (Tylenol Extra Strength) 500 MG tablet Take 1 tablet (500 mg) by mouth every 8 (eight) hours if needed for moderate pain. 90 tablet 2024 Active clonazePAM (KlonoPIN) 0.5 MG tabletIndications :Anxiety Take 1 tablet (0.5 mg) by mouth if needed each day for anxiety for up to 20 days. 20 tablet Active Ketotifen Fumarate 0.035 % solutionIndicatio ns:Allergic conjunctivitis of both eyes Administer 1 drop into affected eye(s) 2 times daily for 7 days. 10 mL 2024 Active pseudoephedrine (Sudafed) 30 MG tablet Take 1 tablet (30 mg) by mouth every 4 (four) hours if needed for congestion for up to 10 days. 30 tablet 2024 Discontinued(T herapy completed) clonazePAM (KlonoPIN) 0.5 MG tabletIndications :Anxiety Take 1 tablet (0.5 mg) by mouth if needed each day for anxiety for up to 20 days. 20 tablet 2024 Discontinued(R eorder (will not trigger notification to Pharmacy)) pantoprazole (ProtoNix) 20 MG EC tablet Take 20 mg by mouth before breakfast. Do not crush, chew, or split. 2024 Discontinued(T herapy completed) famotidine (Pepcid) 20 MG tablet Take 1 tablet (20 mg) by mouth 2 times daily. 60 tablet 5 2024 Discontinued(T herapy completed) Active Problems Patient Care Coordination No [...] Encounters Date Type Department Care Team Description 11/22/2024 8:40 AM EDT Office Visit [facility] [address] [place] [address] Nabil Rowe MD Allergic conjunctivitis of both eyes (Primary Dx) 11/20/2024 Orders Only GENERIC EXTERNAL DATA DEPARTMENT Provider, Generic External Data 10/31/2024 9:45 AM EDT Office Visit [facility] [address] [place] [address] Name, MD Jabari Essential hypertension (Primary Dx); History of [place] (myocardial infarction); Right shoulder pain, unspecified chronicity; Anxiety; Need for hepatitis C screening test 10/31/2024 Travel 10/05/2024 Population Health Risk Score [facility] (C3) Department [address] [place] [phone] Provider, Population Health Generic 10/01/2024 Refill [facility] [address] [place] [address] Name, MD Jabari Coronary artery disease involving swinomish coronary artery of swinomish heart without angina pectoris 09/09/2024 Refill [facility] [address] [place] [address] Name, MD Jabari Coronary artery disease involving swinomish coronary artery of swinomish heart without angina pectoris from Last 3 [...] (194 lb) 11/22/2024 8:47 AM EDT Height 180.3 cm (5' 11 ) 10/31/2024 9:47 AM EDT Body Mass Index 27.06 10/31/2024 9:47 AM EDT Plan of Treatment [...] Procedure Name Priority Date/Time Associated Diagnosis Comments BASIC METABOLIC PANEL Routine 11/20/2024 10:48 AM EDT PROTHROMBIN TIME-INR Routine 11/20/2024 10:48 AM EDT CBC Routine 11/20/2024 10:48 AM EDT HEPATITIS C AB W/REFL TO HCV RNA, QN, PCR Routine 10/31/2024 10:24 AM EDT Need for hepatitis C screening test LIVER FIBROSIS, FIBROTEST ACTITEST PANEL Routine 09/10/2024 10:03 AM EST LIPID PANEL, STANDARD Routine 11/17/2023 8:39 AM EDT Essential hypertension Atherosclerotic cardiovascular disease HM FIT DNA/COLOGUARD CANCER SCREENING Routine 05/06/2021 from Last 3 Months or Most Recently Relevant to Health Maintenance Results * Prothrombin Time-INR (11/20/2024 10:48 AM EDT) Prothrombin Time 11.6 10.9 - 12.4 SEC [facility] INTERNATIONAL NORM RATIO 1.0 0.9 - 1.1 [facility] Comment:INTERNATIONAL NORMAL IZED RATIO (INR) REFERENCE [...] Provider LAB BLOOD ORDERAB LES Final Result [facility] [address] [place] [phone] * (ABNORMAL) CBC (11/20/2024 10:48 AM EDT) Pathologist [facility] White Blood Count 4.2(L) 4.8 - 10.8 X10*3/uL [facility] Red Blood Count 5.33 4.60 - 5.80 X10*6/uL [facility] Hemoglobin 15.7 14.0 - 18.0 g/dl [facility] Hematocrit 46.4 42.0 - 52.0 % [facility] Mean Corpuscular Volume 87.1 80.0 - 98.0 fL [facility] Mean Corpuscular Hemoglobin 29.5 27.0 - 33.0 pg [facility] Mean Corpuscular HGB Conc 33.8 31.0 - 36.0 g/dl [facility] Red Cell Distribution Width 12.1 11.0 - 16.0 % [facility] Platelet Count 159(L) 160 - 400 X10*3/uL [facility] Mean Platelet Volume 10.1 9.4 - 12.4 fL [facility] NRBC Pct Auto 0.0 0.0 - 0.2 /100WBC [facility] NRBC Abs Auto 0.000 0.0 - 0.012 X10*3/uL [facility] 11/20/2024 10:4 8 AM EDT 11/20/2024 10:48 AM EDT us Generic External Data Provider LAB BLOOD ORDERAB LES Final Result [facility] [address] [place] [address] [phone] * (ABNORMAL) Basic Metabolic Panel (11/20/2024 10:48 AM EDT) [facility] Sodium 140 135 - 145 mmol/L [facility] Potassium 3.8 3.3 - 5.1 mmol/L [facility] Chloride 103 96 - 108 mmol/L [facility] Carbon Dioxide 31(H) 22 - 29 mmol/L [facility] Anion Gap 10(L) 12 - 20 [facility] Urea Nitrogen (BUN) 20(H) 9 - 16 mg/dL [facility] Creatinine, Serum 0.79 0.5 - 1.4 mg/dL [facility] Estimated Glomerular Filt Rate >60 [facility] Comment:Chronic Kidney Disea se: Estimated GFR < 60 mL/min/[id number] Kidney Disease: Estimated GFR < 15 mL/min/1.73m2 Glucose 107 60 - 115 mg/dL [facility] Calcium 10.4(H) 8.4 - 10.2 mg/dL [facility] 11/20/2024 10:4 8 AM EDT 11/20/2024 10:48 AM EDT us Generic External Data Provider LAB BLOOD ORDERAB LES Final Result Performing Organization Address [facility]/ZIP Co de Phone Number [facility] [address] [place] [phone] * Hepatitis C Antibody with Reflex to HCV, RNA, Quantitative, Real-Time PCR (10/31/2024 10:24 AM EDT) Hepatitis C Antibody Nonreactive Nonreactive [facility] Comment:Antibodies to HCV no t detected; does not exclude early acuteHCV infection. Blood Venous blood specimen / Unknown 10/31/2024 10:24 AM EDT 10/31/2024 11:49 AM EDT us Jabari Loza MD LAB BLOOD ORDERABLES Final Resul t Performing Organization Address [facility]/ZIP Co de Phone Number [facility] [address] [place] [phone] * Liver Fibrosis (HCV), FibroTest-ActiTest Panel (09/10/2024 10:03 AM EST) Liver Fibrosis Score 0.27 [facility] Liver Fibrosis Stage F1 [facility] Liver Fibrosis Interpretation SEE NOTE [facility] Comment:minimal fibrosisFibr o Test Score [...] (severe fibrosis) Nec Inflam Act Score 0.16 [facility] Nec Inflam Act Grade A0 [facility] Nec Inflam Act Interpretation SEE NOTE [facility] Comment:no activityActiTest Score (a) Metavir Score a>=0 and a<=0.17 : A0 (no activity)a>0.17 and a<=0.29 : A0-A1 (no activity)a>0.29 and a<=0.36 : A1 (minimal activity)a>0.36 and a<=0.52 : A1-A2 (minimal activity)a>0.52 and a<=0.60 : A2 (significant activity)a>0.60 and a<=0.62 : A2-A3 (significant activity)a>0.62 and a<=1.00 : A3 (severe activity) HFK-Kiiek-2-Macroglo bulin 152 106 - 279 mg/dL [facility] FIB-Haptoglobin 132 43 - 212 mg/dL [facility] FIB-Apolipoprotein A1 132 94 - 176 mg/dL [facility] FIB-Total Bilirubin 0.9 0.2 - 1.2 mg/dL [facility] FIB-GGT 21 3 - 70 U/L [facility] FIB-ALT 33 9 - 46 U/L [facility] Reference ID [id number] [facility] Footnote SEE NOTE [facility] Comment: The reliability of results [...] and C.The performance characteristics have been determined byFKK CorporationAlmshouse [place]. Ithas not been cleared or approved by the U.S. Food and DrugAdministration. Performance characteristics refer to theanalytical performance of the test.[employer], [employer], the associated logo, [employer] and all associated [employer] bautista are theregistered trademarks of [employer]. All third partymarks - (R) and (TM) - are the property of their respectiveowners. (C) [id number] [employer]. Allrights reserved.THIS TEST WAS PERFORMED AT:[employer] [id number] [facility], [place] ??[phone] MAIN MD,PHD,MICKY 09/10/2024 10:0 3 AM EST 09/10/2024 10:03 AM EST us Generic External Data Provider LAB BLOOD ORDERAB LES Final Result [facility] [address] [place], [place] [phone] * Lipid Panel, Standard (11/17/2023 8:39 AM EDT) Triglycerides 47 <150 mg/dL [facility] Comment:Desirable Triglyceri de: less than 150 mg/dLBorderline High Triglyceride 150-199 mg/dLHigh Triglyceride: 200-499 mg/dLVery High Triglyceride: greater than or equal to 5OO mg/dL Cholesterol 128 <200 mg/dL [facility] Comment:Desirable Cholestero l: less than 200 mg/dLBorderline High Cholesterol: 200-239 mg/dLHigh Cholesterol: greater than 239 mg/dL LDL Cholesterol Calculated 67 <100 mg/dL [facility] Comment:Desirable LDL: less than 100 mg/dLNear Optimal/Above Optimal LDL: 110- 129 mg/dLBorderline High LDL: 130-159 mg/dLHigh LDL: 160-189 mg/dLVery High LDL: greater than or equal to 190 mg/dL HDL Cholesterol 52 >40 mg/dL [facility] Comment:Desirable HDL: great er than 40 mg/dL Note: This HDL assay may give artificially low results in patients with liver disease. Blood Venous blood specimen / Unknown 11/17/2023 8:39 AM EDT 11/17/2023 11:28 AM EDT us Jabari Loza MD LAB BLOOD ORDERABLES Final Resul t [facility] [address] [place] [address] [phone] * FIT DNA/Cologuard Cancer Screening (05/06/2021) Cologuard Cancer Screen Negative Stool us Jabari Loza MD HEALTH MAINTENANCE Final Result from Last 3 Months or Most Recently Relevant to Health Maintenance Insurance [address] [place], [place] [address] * Guarantor: Seferino Clemente Account Type Relation to Patient Date of Phone Billing Address Personal/Family Self [place], [place] * Guarantor: Seferino Clemente Account Type Relation to Patient Date of Phone Billing Address Personal/Family Self [place], [place] Care Teams Abalone Fisherman Relationship Specialty Start Date End Date Name, MD Jabari [address] [place] [phone] PCP - General Family Medicine 08/05/15
--- OUTSIDE RECORDS SUMMARY | 2024-11-22 12:11 | XMS_ITS | Encounter Summary ---
Author Organization [employer] Address [address] [place] [address] 7t [place] [address] Care Team Providers Care Fire Boss Name Role Phone Name, Jabari VINES Primary Care Provider [phone] Encounter Details Date Type Department Care Team ([facility] st Contact Info) Description 08/17/2022 Orders Only [facility] MEDICINE [address] [place], [place] [phone] Sakshi Tubbs LPN Social History Tobacco Use [...] on filedocumented in this encounter Care Teams Fire Boss Relationship Specialty Start Date End Date Name, MD Jabari [address] [place], [place] [phone] PCP - General Family Medicine 08/05/15 documented as of this encounter
--- OUTSIDE RECORDS SUMMARY | 2024-11-22 12:11 | XMS_ITS | Encounter Summary ---
Author Organization [employer] Address [address] [place] [address] [address] [place] [address] Care Team Providers Care Bending Frame Operator Name Role Phone Name, Jabari VINES Primary Care Provider [phone] Reason for Visit * Reason Onset Date Comments Med Refill 03/22/2023 Encounter Details Date Type Department Care Team (Late st Contact Info) Description 03/22/2023 Refill [facility] MEDICINE [address] [place] [address] NameJabari MD [address] [place] [address] Anxiety Social History Tobacco Use Types Packs/Day [...] unspecified documented in this encounter Care Teams Bending Frame Operator Relationship Specialty Start Date End Date NameJabari MD [address] [place] [address] PCP - General Family Medicine 08/05/15 documented as of this encounter
--- OUTSIDE RECORDS SUMMARY | 2024-11-22 12:11 | XMS_ITS | Encounter Summary ---
Author Organization [employer] Address [address] [place] [address] 7 [place] [address] Care Team Providers Care Spring Salvage Worker Name Role Phone Name, Jabari VINES Primary Care Provider [phone] Reason for Visit * Reason Comments Med Refill Encounter Details Date Type Department Care Team ([facility] st Contact Info) Description 08/17/2022 Refill [facility] MEDICINE [address] [place], [place] [phone] Name, MD Jabari [address] [place] [address] Coronary artery disease involving agdaagux coronary artery of agdaagux heart without angina pectoris (Primary Dx) Social [...] Visit Diagnoses Diagnosis Coronary artery disease involving agdaagux coronary artery of agdaagux heart without angina pectoris- Primary documented in this encounter Care Teams Spring Salvage Worker Relationship Specialty Start Date End Date Name, MD Jabari [address] [place] [address] [phone] PCP - General Family Medicine 08/05/15 documented as of this encounter
--- OUTSIDE RECORDS SUMMARY | 2024-11-22 12:11 | XMS_ITS | Encounter Summary ---
Author Organization [employer] Address [address] [place] [address] 7 [place] [address] Care Team Providers Care Marble Polisher Hand Name Role Phone Name, Jabari VINES Primary Care Provider [phone] Reason for Visit * Reason Comments Med Refill Encounter Details Date Type Department Care Team ([facility] st Contact Info) Description 08/17/2022 Refill [facility] MEDICINE [address] [place] [address] Roxann Hernandez FNP [address] [place] [address] Social History Tobacco Use Types Packs/Day Years [...] on filedocumented in this encounter Care Teams Marble Polisher Hand Relationship Specialty Start Date End Date Name, MD Jabari [address] [place] [address] PCP - General Family Medicine 08/05/15 documented as of this encounter
--- OUTSIDE RECORDS SUMMARY | 2024-11-22 12:11 | XMS_ITS | Encounter Summary ---
Author Organization [employer] Address [address] [place] [address] 7 [place] [address] Care Team Providers Care Statistical Methods Teacher Name Role Phone Name, Jabari VINES Primary Care Provider [phone] Reason for Visit * Reason Comments Med Refill Encounter Details Date Type Department Care Team ([facility] st Contact Info) Description 03/17/2024 Refill [facility] MEDICINE [address] [place], [place] [phone] Name, MD Jabari [address] [place] [address] Social History Tobacco Use Types Packs/Day Years [...] documented as of this encounter Care Teams Statistical Methods Teacher Relationship Specialty Start Date End Date Name, MD Jabari [address] [place] [address] PCP - General Family Medicine 08/05/15 documented as of this encounter
--- OUTSIDE RECORDS SUMMARY | 2024-11-22 12:11 | XMS_ITS | Encounter Summary ---
Author Organization [employer] Address [address] [place] [address] [address] [place] [address] Care Team Providers Care Polysomnographic Tech Name Role Phone Name, Jabari VINES Primary Care Provider [phone] Encounter Details Date Type Department Care Team ([facility] st Contact Info) Description 01/14/2023 Orders Only [facility] MED & PEDS [address] [place] [address] Violet Ramsey LPN Social History Tobacco Use [...] on filedocumented in this encounter Care Teams Polysomnographic Tech Relationship Specialty Start Date End Date Name, MD Jabari [address] [place] [address] PCP - General Family Medicine 08/05/15 documented as of this encounter
--- OUTSIDE RECORDS SUMMARY | 2024-11-22 12:11 | XMS_ITS | Encounter Summary ---
Author Organization [employer] Address [address] [place] [address] 7 [place] [address] Care Team Providers Care Security Operations Specialist Name Role Phone Name, Jabari VINES Primary Care Provider [phone] Reason for Visit * Reason Comments Med Refill Encounter Details Date Type Department Care Team ([facility] st Contact Info) Description 12/31/2023 Refill [facility] MEDICINE [address] [place], [place] [phone] Name, MD Jabari [address] [place], [place] [phone] Essential hypertension; Atherosclerotic cardiovascular disease; Low back [...] documented as of this encounter Care Teams Security Operations Specialist Relationship Specialty Start Date End Date Name, MD Jabari [address] [place] [address] PCP - General Family Medicine 08/05/15 documented as of this encounter
== END ==
LOC: HO.CARD 10:38
PROVIDERS: PCP Internal Medicine Geriatric Medicine; Visit Provider Internal Medicine
DX: I25.10 Atherosclerotic heart disease of native coronary artery without angina pectoris (principal)
CPT/HCPCS: 93306

== ENCOUNTER → 2024-11-22 11:12 | Outpatient (BNV) | payer MEDICAID, SELFPAY ==
[2021-07-29 14:22] VITALS: BMI 26.2
== END ==
PROVIDERS: PCP Internal Medicine Geriatric Medicine; Visit Provider Internal Medicine Cardiovascular Disease
DX: I25.10 Atherosclerotic heart disease of native coronary artery without angina pectoris (principal); I77.810 Thoracic aortic ectasia
CPT/HCPCS: 93306; 93356

== ENCOUNTER → 2024-12-07 23:59 | Outpatient (BNV) | payer MEDICAID, SELFPAY ==
[2024-11-26 11:30] VITALS: BMI 26.2
== END ==
PROVIDERS: PCP Internal Medicine Geriatric Medicine; Visit Provider Internal Medicine Cardiovascular Disease
DX: I20.89 Other forms of angina pectoris (principal)
CPT/HCPCS: 92928; 93458; 99152

== ENCOUNTER 2024-12-11 18:34 | Emergency (ER) | payer MEDICAID, SELFPAY ==
[2024-11-26 11:30] VITALS: BMI 26.2
--- NOTE | ~2024-12-11 | XR_ITS ---
CLINICAL HISTORY: chest pain 2 view chest x-ray Comparison: CR/SR - XR CHEST 1V - 06/12/23 19:51 EST Findings: The lungs are clear. Prominent cardiac silhouette. No acute fracture. IMPRESSION: 1. No acute findings. This document has been electronically signed by: Ranjith Hernandez MD on 12/11/2024 20:13:34
--- NOTE | 2024-12-11 18:36 | ECG_ITS ---
Test Reason : CHEST PAIN Blood Pressure : */* mmHG Vent. Rate : 72 BPM Atrial Rate : 72 BPM P-R Int : 176 ms QRS Dur : 98 ms QT Int : 430 ms P-R-T Axes : 42 -32 6 degrees QTcB Int : 470 ms Normal sinus rhythm Left axis deviation Nonspecific T wave abnormality Prolonged QT Abnormal ECG When compared with ECG of 20-Jul-2023 23:46, QRS axis Shifted left Referred By: Renuka Sr Electronically Signed By: Fadi Vang
[2024-12-11 18:46] VITALS: BP 163/90; PULSE 76; RESP 18; TEMP 37.1; O2SAT 97
[2024-12-11 19:06] LABS: Basophils Percent Auto 0.3 % (0-2); Eosinophils Absolute Auto 0.2 X10*3/uL (0.0-0.4); Eosinophils Percent Auto 3.4 % (0-4); Hematocrit 46.5 % (42.0-52.0); Hemoglobin 16.2 g/dl (14.0-18.0); Imm Gran Abs Auto 0.01 X10*3/uL (0.00-0.03); Imm Gran Pct Auto 0.2 % (0.0-0.4); Lymphocytes Absolute Auto 1.5 X10*3/uL (1.2-4.9); Lymphocytes Percent Auto 23.4 % (20-40); MANUAL DIFF FLAG NO; Mean Corpuscular HGB Conc 34.8 g/dl (31.0-36.0); Mean Corpuscular Hemoglobin 29.3 pg (27.0-33.0); Mean Corpuscular Volume 84.1 fL (80.0-98.0); Mean Platelet Volume 9.8 fL (9.4-12.4); Monocytes Absolute Auto 0.5 X10*3/uL (0.1-1.2); Monocytes Percent Auto 8.1 % (2-11); Neutrophils Absolute Auto 4.2 x10*3/uL (2.0-8.3); Neutrophils Percent Auto 64.6 % (45-73); Platelet Count 181 X10*3/uL (160-400); Red Blood Count 5.53 X10*6/uL (4.60-5.80); White Blood Count 6.5 X10*3/uL (4.8-10.8)
--- NOTE | 2024-12-11 19:19 | PC.NURSE ---
pt a&ox4, respirations even and unlabored. pt reports onset of chest burning x1 day, pt reports it worsens when he moves or walks. pt reports last tuesday he had a cardiac stent placed. pt denies radiation at this time. nsr on tele 70-72bpm. pt reports he has had high blood pressure which he states worsens with the pain.
[2024-12-11 19:21] VITALS: PULSE 72
[2024-12-11 19:22] LABS: Alanine Aminotransferase 67 U/L (0-40); Albumin Level 4.5 g/dL (3.5-5.0); Alkaline Phosphatase 68 U/L (39-117); Anion Gap 11 (12-20); Aspartate Amino Transferase 36 U/L (5-37); Bilirubin Total 1.1 mg/dL (0.0-1.0); Blood Urea Nitrogen 14 mg/dL (9-16); Carbon Dioxide 28 mmol/L (22-29); Chloride 100 mmol/L (96-108); Creatinine Clr Calc Pharmacy 94.8; Estimated Glomerular Filt Rate > 60; Glucose Random 154 mg/dL (60-115); Magnesium 1.9 mg/dL (1.6-2.6); Potassium 3.4 mmol/L (3.3-5.1); Sodium 136 mmol/L (135-145); Total Protein 7.2 g/dL (6.5-8.0)
[2024-12-11 19:29] LABS: Troponin-I High Sensitivity 13.5 ng/L (<3.5-35.0)
--- NOTE | 2024-12-11 19:54 | ED_ITS ---
HPI - Chest Pain General Chief Complaint: Chest Pain Stated Complaint: Chest Pain, Week, Surgery Tuesday Time Seen by Provider: 12/11/24 19:22 Source: patient Limitations: no limitations History of Present Illness ED Provider: mary hughes np HPI narrative: Patient is a 64-year-old male presents emergency department for evaluation. He reports he had 2 episodes today of very brief chest pain described as a burning sensation to the lower right midsternal region he is able to point to the area with a couple of fingers it is described as a burning pain. He states that the pain occurred while walking around at home without any additional symptoms such as radiation to the arm diaphoresis nausea vomiting progression on exertion. Lasted only a few sec. Occurred at 11:00 as well as 18:00. He states that he had a cardiac catheterization done 6 days ago at [facility]. Has been taking his medications as prescribed. Has not yet started cardiac rehab. Related Data Home Medications ?Medication ?Instructions ?Recorded ?Confirmed clonazepam 0.5 mg tablet 1 tab PO DAILY PRN anxiety 04/17/21 11/20/24 metoprolol succinate 25 mg 25 mg PO DAILY 05/20/21 11/20/24 tablet,extended release 24 hr cholecalciferol (vitamin D3) 50 50 mcg PO DAILY 11/02/22 11/20/24 mcg (2,000 unit) tablet loratadine 10 mg tablet 10 mg PO DAILY 01/14/23 11/20/24 acetaminophen 500 mg tablet (Pain 500 mg PO Q8H PRN mild pain 06/12/24 11/20/24 Relief Extra Strength (acetaminophen)) lisinopril 10 1 tab PO QAM 06/12/24 11/20/24 mg-hydrochlorothiazide 12.5 mg tablet Previous Rx's ?Medication ?Instructions ?Recorded aspirin 81 mg tablet,delayed 81 mg PO DAILY #30 tabs 04/17/21 release atorvastatin 80 mg tablet 80 mg PO BEDTIME #30 tabs 04/17/21 cyclobenzaprine 10 mg tablet 10 mg PO TID PRN muscle spasm #14 03/27/22 tabs tramadol 50 mg tablet 50 mg PO Q6H PRN pain #20 tabs 07/15/23 bisacodyl 5 mg tablet,delayed 20 mg (4 x 5 mg) PO ONCE 1 day #4 09/12/24 release (Dulcolax (bisacodyl)) tabs esomeprazole magnesium 40 mg 40 mg PO DAILY #30 caps 09/12/24 capsule,delayed release (Nexium) polyethylene glycol 3350 17 238 g PO ONCE #238 grams 09/12/24 gram/dose oral powder (Miralax) dutasteride 0.5 mg capsule 0.5 mg PO DAILY 90 days #90 caps 09/17/24 nitroglycerin 0.4 mg sublingual 0.4 mg sublingual Q5M PRN chest 11/20/24 tablet pain #30 tabs metoprolol succinate 50 mg 50 mg PO DAILY #30 tabs 12/11/24 tablet,extended release 24 hr (Toprol XL) Allergies Allergy/AdvReac Type Severity Reaction Status Date / Time No Known Allergies Allergy Verified 12/11/24 18:49 [No Known Allergies*] Review of Systems 2 Review of Systems: Yes all other systems are reviewed and are negative PMFSH Past Medical History Attestation statement: The following information was validated with the patient. Source: old records reviewed Medical History Transaminitis Inguinodynia Atherosclerotic cardiovascular disease CAD (coronary artery disease) Hernia Non-STEMI (non-ST elevated myocardial infarction) HTN (hypertension) Surgical History Hx of cardiac catheterization No significant past surgical history Surgical history unknown Family History Family History Father No problems noted. Mother Hypertension Social History Social History Household Members: Spouse Housing: House Do you presently have visiting nurse or other home services: No Alcohol intake: never Comment: telemetry Patient Tobacco Use Status: Never used Tobacco Smoked in Last 30 Days: No Use of substances other than those prescribed or required for medical reasons: No Advance Directives: No Advance Directives Information Provided: No Physical Exam 2 Vital Signs: Vital Signs: Last Vital Signs Temp 97.7 F 12/11/24 22:34 Pulse 61 12/11/24 22:34 Resp 14 12/11/24 22:34 BP 149/96 H 05/20/25 22:34 Pulse Ox 95 12/11/24 22:34 O2 Del Method Room Air 12/11/24 22:34 BMI result Body Mass Index 30.0 Appearance: Alert.?Oriented to person, place and time. No acute distress.?Normal affect. Eyes: Pupils equal, round and reactive to light.? ENT: Pharynx normal.?? Neck: Normal inspection.? Neck supple.??No JVD. CVS: Heart sounds normal. Normal heart rate and rhythm.? Pulses normal.?? Respiratory: No respiratory distress.? Lung sounds clear to auscultation bilaterally?? Abdomen: Soft and non-tender. Normoactive bowel sounds. No pulsatile mass.?? Skin: Skin warm and dry.? Normal skin color.? ?? Extremities: No lower extremity edema.? No calf ttp? Neuro: Moves all extremities spontaneously. Sensation intact bilaterally. CN II- XII intact. No focal neuro deficits. Ambulates with normal steady gait. Medical Decision Making Medical Decision Making MDM Narrative: Patient is a 64-year-old male with past medical history of CAD, hypertension, GERD, transaminitis, BPH who presents to the emergency department for evaluation with complaint of chest pain as per HPI. No evidence of volume overload or shock on exam. Low suspicion for acute PE (Wells low risk), thoracic aortic dissection, cardiac effusion / tamponade. No recent trauma or injury, no tracheal deviation, unlikely tension pneumothorax. No recent URI symptoms to suggest viral illness, pneumonia, costochondritis. No abdominal tenderness upon palpation, negative Milner sign, unlikely acute cholecystitis, choledocholithiasis, no fever or jaundice to suggest acute cholangitis, may possibly be biliary colic secondary to cholelithiasis. Denies associated acid reflux, no tenderness upon palpation over the epigastrium or left upper quadrant to suggest gastritis, no recent hematemesis history less likely to suggest PUD. Denies excessive alcohol consumption, history of diabetes, lower suspicion acute pancreatitis. EKG revealing normal sinus rhythm with ventricular rate of 70, QTC 516, T-wave inversion inferiorly lead III, aVF and t-wave inversion anterolateral leads V3- V6, no ST-elevation, Prior ECG through our medical record system is from 07/20/2023 inversions appeared new however in office EKG 11/20/2024 these inversions are present Follows with Cardiology at [facility] Dr. Mcdonnell last office visit 11/20/2024 - for follow-up on CAD; 2020 had NSTEMI with subsequent cardiac catheterization with marginal stenting OM1 and OM3, 70-80% stenosis proximal RPDA mild nonobstructive disease in LAD but 60% focal distal LAD lesion, 2 weeks prior to office visit in October was experiencing nonexertional chest pain, therefore diagnosed cardiac catheterization was recommended, prescribed in the interim nitroglycerin for angina. 12/07/2024 he underwent cardiac catheterization at [facility] with Dr. Vang, found to have a lesion in the right PDA; 90% stenosis with drug- eluting stent placement, advised aspirin and Brilinta with referral for cardiac rehab. Today, CBC is without leukocytosis anemia or thrombocytopenia. No electrolyte derangement. No AARON. LFTs overall unremarkable minimally elevated ALT at 67 which has been seen on prior. High sensitive troponin 13.5. Chest x-ray without apparent consolidation or infiltrate or acute abnormality to suggest the etiology for symptoms. Given his recent catheterization or will obtain a delta troponin though I suspect that this is not consistent with ACS, will consult with Cardiology given a recent catheterization, I anticipate he will otherwise be safely discharged home, he currently is without any acute complaints Delta troponin is negative. Will discharge home will plan of care for outpatient follow-up, metoprolol XL increased from 25 mg to 50 mg daily. All questions answered. Stable for discharge. No active chest pain. Ambulatory with a steady gait Differential Diagnosis Differential Diagnoses: The differential diagnosis associated with the presentation includes (See narrative above) Admission/Observation Consideration of admission/observation: Escalation of care including admission/observation considered (See narrative above and course narrative for further detail) Consult Healthcare Provider Management of the patient was discussed with: Clerical Assistant Has been narrative above, consulted with Cardiology Dr. Vang, advises if symptoms remain unchanged, delta troponin is negative, he will be discharged home for outpatient follow-up, additionally advises changing metoprolol XL to 50 mg from his current 25 mg. Lab Data MDM Lab Attestation statement: I reviewed the patient's lab results. 12/11/24 19:01 12/11/24 19:01 Labs: Lab Results 12/11/24 12/11/24 Range/Units 19:01 20:51 WBC 6.5 (4.8-10.8) X10*3/uL RBC 5.53 (4.60-5.80) X10*6/uL Hgb 16.2 (14.0-18.0) g/dl Hct 46.5 (42.0-52.0) % MCV 84.1 (80.0-98.0) fL MCH 29.3 (27.0-33.0) pg MCHC 34.8 (31.0-36.0) g/dl RDW 12.0 (11.0-16.0) % Plt Count 181 (160-400) X10*3/uL MPV 9.8 (9.4-12.4) fL Immature Gran % (Auto) 0.2 (0.0-0.4) % Neut % (Auto) 64.6 (45-73) % Lymph % (Auto) 23.4 (20-40) % Carbon % (Auto) 8.1 (2-11) % Eos % (Auto) 3.4 (0-4) % Baso % (Auto) 0.3 (0-2) % Lymph # (Auto) 1.5 (1.2-4.9) X10*3/uL Carbon # (Auto) 0.5 (0.1-1.2) X10*3/uL Eos # (Auto) 0.2 (0.0-0.4) X10*3/uL Baso # (Auto) 0.0 (0.0-0.2) X10*3/uL Abs Immat Gran (auto) 0.01 (0.00-0.03) X10*3/uL Absolute Neuts (auto) 4.2 (2.0-8.3) x10*3/uL Absolute Nucleated RBC 0.000 (0.0-0.012) X10*3/uL Nucleated RBC % (auto) 0.0 (0.0-0.2) /100WBC Sodium 136 (135-145) mmol/L Potassium 3.4 (3.3-5.1) mmol/L Chloride 100 (96-108) mmol/L Carbon Dioxide 28 (22-29) mmol/L Anion Gap 11 L (12-20) BUN 14 (9-16) mg/dL Creatinine 0.95 (0.5-1.4) mg/dL Estim Creat Clear Calc 94.8 Estimated GFR > 60 Random Glucose 154 H (60-115) mg/dL Calcium 10.0 (8.4-10.2) mg/dL Magnesium 1.9 (1.6-2.6) mg/dL Total Bilirubin 1.1 H (0.0-1.0) mg/dL AST 36 (5-37) U/L ALT 67 H (0-40) U/L Alkaline Phosphatase 68 (39-117) U/L Troponin I High Sens 13.5 D 15.6 (<3.5-35.0) ng/L Total Protein 7.2 (6.5-8.0) g/dL Albumin 4.5 (3.5-5.0) g/dL Independent Interpretation I performed an independent interpretation of an: EKG and Plain X-Ray (See narrative above) Radiology Impression Discussion of test interpretation with radiology: I have reviewed the radiologist's reading. Radiologist Impression: 2 view chest x-ray Comparison: CR/SR - XR CHEST 1V - 06/12/23 19:51 EST Findings: The lungs are clear. Prominent cardiac silhouette. No acute fracture. IMPRESSION: 1. No acute findings. Independent Historian Clinical information obtained from an independent historian. History obtained from or confirmed by: Spouse External Record Review External record reviewed: Outpatient record Prescription Management I considered prescription management with: Other (See narrative above) Critical Care Time Critical Care Time Critical Care Time: Yes Total Critical Care Time: 35 Attestation: I personally attest to this critical care time spent taking care of the patient exclusive of all other billable procedures was approximately 35 minutes including initial evaluation of patient, ordering tests, x-ray interpretation, EKG interpretation, medical consultation, documentation, re-evaluation. Discharge Plan Discharge Clinical Impression: Chest pain Patient Disposition: Home, Self-Care Instructions: Chest Pain (ED) Additional Instructions: You were seen in the emergency department today for chest pain. As discussed your EKG he has not appear change when compared to your previous one. Your troponin, a marker for damage to have muscle was normal on 2 occasions which is very reassuring. This was reviewed with your coal trimmer machine operator, Dr. Vang. Please contact their office tomorrow to arrange for outpatient follow-up. It is cardiology's recommendation that you increase your blood pressure medication, metoprolol XL from 25mg to 50mg. If you have your prescription at home you may take 2 tablets of the 25 mg for a total of 50 mg. I have sent a new prescription to the pharmacy for the 50 mg tablets Prescriptions: New metoprolol succinate [Toprol XL] 50 mg tablet extended release 24 hr 50 mg PO DAILY Qty: 30 0RF No Action dutasteride 0.5 mg capsule 0.5 mg PO DAILY 90 Days Qty: 90 1RF clonazepam 0.5 mg tablet 1 tab PO DAILY PRN (Reason: anxiety) atorvastatin 80 mg Tablet 80 mg PO BEDTIME Qty: 30 0RF aspirin 81 mg Tablet,Delayed Release (Dr/Ec) 81 mg PO DAILY Qty: 30 0RF cyclobenzaprine 10 mg tablet 10 mg PO TID PRN (Reason: muscle spasm) Qty: 14 0RF tramadol 50 mg tablet 50 mg PO Q6H PRN (Reason: pain) Qty: 20 0RF loratadine 10 mg tablet 10 mg PO DAILY metoprolol succinate 25 mg tablet extended release 24 hr 25 mg PO DAILY cholecalciferol (vitamin D3) 50 mcg (2,000 unit) tablet 50 mcg PO DAILY bisacodyl [Dulcolax (bisacodyl)] 5 mg tablet,delayed release (DR/EC) 20 mg PO ONCE 1 Days Qty: 4 0RF Rx Instructions: take 4 tabs at noon the day before your colonoscopy polyethylene glycol 3350 [Miralax] 17 gram/dose powder 238 g PO ONCE Qty: 238 0RF Rx Instructions: As directed by gastroenterology department at [facility] esomeprazole magnesium [Nexium] 40 mg capsule,delayed release(DR/EC) 40 mg PO DAILY Qty: 30 5RF nitroglycerin 0.4 mg tablet, sublingual 0.4 mg sublingual Q5M PRN (Reason: chest pain) Qty: 30 5RF Rx Instructions: do not exceed 3 doses per episode lisinopril-hydrochlorothiazide 10-12.5 mg tablet 1 tab PO QAM acetaminophen [Pain Relief ES (acetaminophen)] 500 mg tablet 500 mg PO Q8H PRN (Reason: mild pain) Referrals: Fadi Vang MD [Physician] - Name,MD Jabari [Primary Care Provider] - Interventions: ED Discharge Assessment Last Done: 12/11/24 22:34 Discharge Date/Time: 12/11/24 22:34 Print Language: Honduran
[2024-12-11 19:55] VITALS: BP 133/80; PULSE 66; RESP 17; TEMP 36.4; O2SAT 95
[2024-12-11 21:17] LABS: Troponin-I High Sensitivity 15.6 ng/L (<3.5-35.0)
[2024-12-11 22:14] VITALS: BP 149/96; PULSE 61; RESP 14; TEMP 36.5; O2SAT 95
[2024-12-11 22:34] VITALS: BP 149/96; PULSE 61; RESP 14; TEMP 36.5; O2SAT 95
== END 2024-12-11 22:34 | disposition home or self-care (01) ==
PROVIDERS: Nurse Practitioner Family; Physician Assistant Medical; Emergency Provider Emergency Medicine Emergency Medical Services; PCP Internal Medicine Geriatric Medicine
DX: R07.89 Other chest pain (principal); Z79.899 Other long term (current) drug therapy
CPT/HCPCS: 36415; 71046; 80053; 83735; 84484; 85025; 93005; 99283; 99285

== ENCOUNTER → 2024-12-11 18:36 | Outpatient (BNV) | payer MEDICAID, SELFPAY ==
[2024-11-26 11:30] VITALS: BMI 26.2
== END ==
PROVIDERS: Emergency Provider Emergency Medicine Emergency Medical Services; PCP Internal Medicine Geriatric Medicine; Visit Provider Internal Medicine Cardiovascular Disease
DX: R94.31 Abnormal electrocardiogram [ECG] [EKG] (principal); R07.9 Chest pain, unspecified
CPT/HCPCS: 93010

== ENCOUNTER → 2024-12-11 18:50 | Outpatient (BNV) | payer MEDICAID, SELFPAY ==
[2024-11-26 11:30] VITALS: BMI 26.2
== END ==
PROVIDERS: Emergency Provider Emergency Medicine Emergency Medical Services; PCP Internal Medicine Geriatric Medicine; Visit Provider Radiology Diagnostic Radiology
DX: R07.9 Chest pain, unspecified (principal)
CPT/HCPCS: 71046

== ENCOUNTER 2024-12-25 13:28 | Outpatient (AMB) | payer MEDICAID, SELFPAY ==
[2024-11-26 11:30] VITALS: BMI 26.2
--- NOTE | 2024-12-25 13:36 | A.OFFVIS_ITS ---
Vital Signs 12/25/24 13:39 Height 5 ft 11 in Weight 194 lb 7.163 oz BMI 27.1 BP 102/60 Blood Pressure Location Lt brachial Position Sitting Pulse 60 Pulse Source Pulse Oximeter Intake Visit Reasons: r/s 12/21 2 wks f/u/cath 12/07 Intake Note: 2wk f/up-12/07 cath Bellperson Required: No Accompanied by: Daughter Allergies No Known Allergies [No Known Allergies*] Allergy (Verified 12/11/24 18:49) Medication List - Last Reconciled 12/25/24 by Fernando Alejandro NP acetaminophen (Pain Relief Extra Strength (acetaminophen)) 500 mg PO Q8H PRN aspirin 81 mg PO DAILY atorvastatin 80 mg PO BEDTIME bisacodyl (Dulcolax (bisacodyl)) 20 mg (4 x 5 mg) PO ONCE 1 day cholecalciferol (vitamin D3) 50 mcg PO DAILY clonazepam 1 tab PO DAILY PRN cyclobenzaprine 10 mg PO TID PRN dutasteride 0.5 mg PO DAILY 90 days esomeprazole magnesium (Nexium) 40 mg PO DAILY lisinopril-hydrochlorothiazide 10-12.5 mg 1 tab PO QAM loratadine 10 mg PO DAILY metoprolol succinate ER (Toprol XL) 50 mg PO DAILY nitroglycerin 0.4 mg sublingual Q5M PRN polyethylene glycol 3350 (Miralax) 238 grams PO ONCE ticagrelor 90 mg PO BID tramadol 50 mg PO Q6H PRN HPI Comments Details: This is a 64-year-old male patient presenting for a follow-up status post cardiac catheterization. Patient has medical history significant for hypertension, coronary artery disease, and NSTEMI in 2020, for which he underwent PCI to the OM 1 and OM 3 branches. Back in October, patient was evaluat ed in the office for burning chest pain which led to another cardiac catheterization at [facility] with Dr. Vang on 12/07/2024. Since discharge, patient reports 1 emergency room visit for recurrence of burning chest pain with exertion. At that time, his blood pressure was noted to be elevated at 140 9/96. He was discharged with the increased dose of metoprolol after normal EKG and troponin levels. Patient states that since the adjustment in his metoprolol, he has noted resolution of his symptoms. He has resumed regular physical activity including walking and running without recurrence of symptoms. Patient denies any current exertional chest pain, shortness of breath, palpitations, dizziness, orthopnea, PND, leg edema, presyncope, or syncope. Patient states full compliance with all his prescribed medications. [facility] Medical History Transaminitis Inguinodynia Atherosclerotic cardiovascular disease CAD (coronary artery disease) Hernia Non-STEMI (non-ST elevated myocardial infarction) HTN (hypertension) Surgical History S/P cardiac cath Hx of cardiac catheterization No significant past surgical history Surgical history unknown Family History Father No problems noted. Mother Hypertension Social History Household Members: Spouse Housing: House Do you presently have visiting nurse or other home services: No Alcohol intake: never Comment: telemetry Patient Tobacco Use Status: Never used Tobacco Review of Systems Const Denies chills, Denies fatigue, Denies fever(s), Denies frequent falls, Denies weakness, Denies weight gain and Denies weight loss ENT Denies dizziness Card Denies chest pain, Denies leg edema, Denies lightheadedness, Denies palpitations, Denies dyspnea and Denies dyspnea on exertion Resp Denies cough, Denies dyspnea and Denies dyspnea on exertion GI Denies hematochezia Musc Denies abnormal gait, Denies muscle weakness, Denies numbness, Denies radiating pain into limb and Denies tingling Neuro Denies abnormal gait, Denies dizziness, Denies frequent falls, Denies numbness, Denies tingling and Denies weakness Endo Denies fatigue and Denies palpitations Physical Exam Vital Signs: Last Vital Signs Pulse 60 12/25/24 13:39 BP 102/60 12/25/24 13:39 BMI result Body Mass Index 27.1 Const General: cooperative, healthy appearing, comfortable and no acute distress Orientation/consciousness: patient oriented x3 HEENT Head: Yes normal to inspection Neck Neck: Yes normal visual inspection, Yes trachea midline and Yes supple Chest Chest palpation & inspection: normal inspection of the chest Resp Effort & Inspection: normal respiratory effort Auscultation: clear to auscultation bilaterally, no crackles, no rales, no rhonchi and no wheezes Cardio Jugular venous distension: no JVD Palpation: normal PMI Rate: regular rate Rhythm: regular rhythm Heart sounds: S1 normal heart sound present, S2 normal heart sound present, no click, no gallops, no murmurs and no rubs Peripheral pulses: Peripheral pulses 2+ throughout GI Inspection: Yes normal to inspection Palpation (GI): Soft to palpation Auscultation: normal bowel sounds Skin General skin exam: no rashes or lesions noted Neuro General: patient oriented x3 Extrem General: Yes normal to inspection, No no pedal edema and No calf tenderness Psych Appearance: grossly normal Mental Status: mental status grossly normal Speech and movement: Normal speech and movement present Assessment & Plan Assessment & Plan (1) S/P cardiac catheterization: Code(s): Z98.890 - Other specified postprocedural states Category: Surgical Plan: History of NSTEMI in 2020- status post PCI to OM1 and OM3. 12/07/2024-patient underwent a cardiac catheterization with Dr. Vang at [facility] that showed patent OM stent, 90% stenosis in the right PDA, and mild luminal irregularities in the LAD less than 30%. PCI was performed with WAYLON to PDA. Right wrist catheterization site is well h ealed. Continue lifelong aspirin therapy. Continue uninterrupted Brilinta therapy for at least 12 months. Continue lisinopril-hydrochlorothiazide, metoprolol, and high-dose statin therapy. We will refer patient out to cardiac rehab. (2) Atherosclerotic cardiovascular disease: Code(s): I25.10 - Atherosclerotic heart disease of hoopa coronary artery without angina pectoris Category: Medical Plan: As above. No recent LDL. We will repeat a profile with a goal of LDL less than 70. (3) Essential hypertension: Code(s): I10 - Essential (primary) hypertension Category: Medical Plan: Blood pressure today is well-controlled. Continue current regimen. Advised monitoring blood pressures at home and keeping a log of it. Ideally, blood pressure goal less than 130/80. Advised heart healthy diet, regular exercise, med compliance, and aggressive management of vascular risk factors. Follow up in 4 months. In the interim, patient will call the office with any concerns or change in symptoms. This note was generated using voice recognition software. While every effort has been made to ensure accuracy and proper caterpillar tractor operator, there may be occasional errors that could affect the content or meaning of the described symptoms. Orders: Orders Cardiac Rehab Today Z98.61 - Coronary angioplasty status, Z98.890 - Other specified postprocedural states Lipid Panel Today I25.10 - Atherosclerotic heart disease of hoopa coronary artery without angina pectoris Coding Level of Care Code Est Pt Level 4 (94139) Complex EM visit Add On G2211 Diagnoses S/P cardiac catheterization Z98.890 Atherosclerotic cardiovascular disease I25.10 Essential hypertension I10 Time Spent (min) 32 Comment Time spent in reviewing the chart, test results, assessment, counseling and documentation.
[2024-12-25 13:39] VITALS: BP 102/60; PULSE 60; BMI 27.1
== END 2024-12-25 14:02 | disposition home or self-care (01) ==
LOC: HO.HCS 13:29
PROVIDERS: PCP Internal Medicine Geriatric Medicine
DX: Z98.890 Other specified postprocedural states (principal); I25.10 Atherosclerotic heart disease of native coronary artery without angina pectoris; I10 Essential (primary) hypertension
CPT/HCPCS: 99214

== ENCOUNTER → 2024-12-25 13:28 | Outpatient (BNVA) | payer MEDICAID, SELFPAY ==
[2024-11-26 11:30] VITALS: BMI 26.2
== END ==
PROVIDERS: PCP Internal Medicine Geriatric Medicine
DX: I25.10 Atherosclerotic heart disease of native coronary artery without angina pectoris (principal); I10 Essential (primary) hypertension; Z98.890 Other specified postprocedural states
CPT/HCPCS: 99212

== ENCOUNTER → 2025-01-07 09:10 | Outpatient (REF) | payer MEDICAID, SELFPAY ==
[2024-11-26 11:30] VITALS: BMI 26.2
--- OUTSIDE RECORDS SUMMARY | 2025-01-07 09:46 | XMS_ITS | Encounter Summary ---
Author Organization [employer] Address [address] [place] [address] 7[address] [place] [address] Care Team Providers Care Core Laying Machine Operator Name Role Phone Name, Jabari VINES Primary Care Provider [phone] Reason for Visit * Reason Comments Med Refill Encounter Details Date Type Department Care Team ([facility] st Contact Info) Description 12/31/2023 Refill [facility] [address] [place], [place] [phone] Name, MD Jabari [address] [place] [address] Essential hypertension; Atherosclerotic cardiovascular disease; Low back [...] Care Team (Late st Contact Info) Description 03/20/2025 10:00 AM EDT Office Visit [facility] [address] [place] [phone] Name, MD Jabari [address] [place] [address] documented as of this encounter Visit Diagnoses Diagnosis Essential hypertension Unspecified essential hypertension Atherosclerotic cardiovascular disease Low back pain at multiple sites documented in this encounter Additional Health Concerns Assessment Noted Time PHQ-9 Depression Total Score: 0 05/18/20 23 2:10 PM EDT documented as of this encounter Care Teams Core Laying Machine Operator Relationship Specialty Start Date End Date Jabari Loza MD [address] [place] [address] PCP - General Family Medicine 08/05/15 documented as of this encounter
--- NOTE | 2025-01-07 11:32 | HM_ITS ---
* Total monitoring time 2 days. * Underlying rhythm is sinus with an average rate of 57/Min. * About 66% of the time, rate < 60/Min * Rare supraventricular ectopy. * Rare ventricular ectopy. * Patient markers used with sinus rhythm and PVC. * Palpitations in patient diary correlates with sinus rhythm, PVC. MTDD
== END ==
LOC: HO.CARD 09:10
PROVIDERS: PCP Internal Medicine Geriatric Medicine
DX: R00.2 Palpitations (principal)
CPT/HCPCS: 93242

== ENCOUNTER → 2025-01-07 11:32 | Outpatient (BNV) | payer MEDICAID, SELFPAY ==
[2024-11-26 11:30] VITALS: BMI 26.2
== END ==
PROVIDERS: PCP Internal Medicine Geriatric Medicine; Visit Provider Internal Medicine
DX: I47.10 Supraventricular tachycardia, unspecified (principal); I49.3 Ventricular premature depolarization
CPT/HCPCS: 93244

== ENCOUNTER 2025-01-30 07:00 | Outpatient (RCR) | payer MEDICAID, SELFPAY ==
[2024-11-26 11:30] VITALS: BMI 26.2
== END 2025-02-13 13:07 | disposition home or self-care (01) ==
LOC: HO.CR 07:00
PROVIDERS: PCP Internal Medicine Geriatric Medicine
DX: Z98.61 Coronary angioplasty status (principal); Z51.89 Encounter for other specified aftercare
CPT/HCPCS: 93798

== ENCOUNTER 2025-02-12 07:48 | Outpatient (AMB) | payer MEDICAID, SELFPAY ==
[2024-11-26 11:30] VITALS: BMI 26.2
--- OUTSIDE RECORDS SUMMARY | 2025-02-12 07:51 | XMS_ITS | Encounter Summary ---
Author Organization [employer] Address [address] [place] [address] 7[address] [place] [address] Care Team Providers Care Physical Ther Name Role Phone Name, Jabari VINES Primary Care Provider [phone] Reason for Visit * Reason Comments Med Refill Encounter Details Date Type Department Care Team ([facility] st Contact Info) Description 12/31/2023 Refill [facility] [address] [place], [place] [phone] Name, MD Jabari [address] [place] [address] Essential hypertension; Atherosclerotic cardiovascular disease; Low back [...] Description 03/20/2025 10:00 AM EDT Office Visit [facility]INE [address] [place] [phone] Name, MD Jabari [address] [place] [address] documented as of this encounter Visit Diagnoses Diagnosis Essential hypertension Unspecified essential hypertension Atherosclerotic cardiovascular disease Low back pain at multiple sites documented in this encounter Additional Health Concerns Assessment Noted Time PHQ-9 Depression Total Score: 0 05/18/20 23 2:10 PM EDT documented as of this encounter Care Teams Physical Ther Relationship Specialty Start Date End Date Jabari Loza MD [address] [place] [address] PCP - General Family Medicine 08/05/15 documented as of this encounter
--- NOTE | 2025-02-12 08:02 | A.OFFVIS_ITS ---
Vital Signs 02/12/25 08:07 Height 5 ft 11 in Weight 194 lb 0.108 oz BMI 27.1 BP 123/75 Blood Pressure Location Lt brachial Position Sitting Pulse 54 Intake Visit Reasons: GERD + Rectal DC. 3 mos FUV. Intake Note: Seferino presents in the office as a 3 month follow up. CC: He states that he has some heartburn at times but not all the time. Allergies No Known Allergies (No Known Allergies*) Allergy (Verified 02/12/25 08:07) HPI HPI GERD + Rectal DC. 3 mos FUV.: Details: LAST VISIT GERD (gastroesophageal reflux disease) Transaminitis Screen for colon cancer Plan Will change PPI to Nexium. Patient will continue avoiding dietary triggers and late night snacking. Staying upright for minimum 3 hours after meals discussed with patient. Patient will be scheduled for colonoscopy. We will also book upper endoscopy as well. What to expect before during and after procedure discussed with patient. Stressed the importance of good bowel prep and clear liquid diet with him day before procedure. Patient has appointment with Cardiology in October and we will ask for risk stratification before sending her for procedure. Patient is agreeable to current plan of care and verbalizes understanding of instructions. He was given the opportunity to ask questions and all questions answered. ? Thank you for allowing me to participate in his care New bisacodyl (Dulcolax (bisacodyl)) take 4 tabs at noon the day before your colonoscopy 20 mg (4 x 5 mg) PO ONCE 1 day 4 tabs 0RF Z12.11 polyethylene glycol 3350 (Miralax) As directed by gastroenterology department at [facility] 238 grams PO ONCE 238 grams 0RF Z12.11 esomeprazole magnesium (Nexium) 40 mg PO DAILY 30 caps 5RF K21.9 Discontinued pantoprazole Discontinued Reason: Doctor's Order 40 mg PO QAM 90 tabs 1RF K21.9 TODAY'S VISIT Patient is here today for follow-up. Patient reports to be feeling better, currently is taking [id number] famotidine daily. Occasional acid reflux in the afternoon. Patient was not able to take pantoprazole or Nexium as he was feeling worse when taking them. In November patient had cardiac catheterization, 90% occlusion in PDA. Drug-eluting stent patient is currently on aspirin and ticagrelor. Patient denies any chest pain or shortness of breath with or without exertion. Reports occasional upon palpitation contributing that to and anxiety. Patient is unable to go for colonoscopy or endoscopy at this time as he has to complete 1 year of antiplatelet therapy. Patient denies any melena, hematochezia, unintentional weight loss or ribbon like stools. [facility] Medical History Transaminitis Inguinodynia Atherosclerotic cardiovascular disease CAD (coronary artery disease) Hernia Non-STEMI (non-ST elevated myocardial infarction) HTN (hypertension) Surgical History History of esophagogastroduodenoscopy (EGD) Hx of colonoscopy S/P cardiac cath Hx of cardiac catheterization No significant past surgical history Surgical history unknown Family History Father No problems noted. Mother Hypertension Social History Household Members: Spouse Housing: House Do you presently have visiting nurse or other home services: No Alcohol intake: never Comment: telemetry Patient Tobacco Use Status: Never used Tobacco Review of Systems Const Denies weight gain and Denies weight loss ENT Reports no additional complaints, Denies dysphagia and Denies odynophagia Card Reports no additional complaints Resp Reports no additional complaints GI Denies abdominal pain, Denies belching, Denies melena, Denies bloating, Denies change in bowel habits, Denies dysphagia, Denies excessive flatus, Denies dyspepsia, Reports heartburn (Occasional), Denies diarrhea, Denies loose stools, Denies nausea, Denies odynophagia and Denies vomiting Reports no additional complaints Musc Reports no additional complaints Neuro Reports no additional complaints Psych Reports no additional complaints Endo Reports no additional complaints Physical Exam Vital Signs: Last Vital Signs Pulse 54 07/22/25 08:07 BP 123/75 02/12/25 08:07 BMI result Body Mass Index 27.1 Const General: healthy appearing, no acute distress and well developed Nutritional Appearance: well nourished Orientation/consciousness: patient oriented x3 Resp Effort & Inspection: normal respiratory effort, able to speak in complete sentences, no tracheal deviation and symmetric chest movement Auscultation: clear to auscultation bilaterally Cardio Rate: regular rate GI Inspection: Yes normal to inspection and No distended Palpation (GI): Soft to palpation, not firm, nontender and No hepatosplenomegaly present Auscultation: normal bowel sounds General: Yes no CVA tenderness Back/Spine/Pelvis Back: no CVA tenderness Skin General skin exam: elasticity normal, turgor normal and dry skin Neuro General: patient oriented x3 Psych Appearance: grossly normal Mental Status: mental status grossly normal Assessment & Plan Assessment & Plan (1) GERD (gastroesophageal reflux disease): Code(s): K21.9 - Gastro-esophageal reflux disease without esophagitis Category: Medical Qualifiers: Esophagitis presence: esophagitis presence not specified Qualified Code(s): K21.9 - Gastro-esophageal reflux disease without esophagitis (2) Transaminitis: Code(s): R74.01 - Elevation of levels of liver transaminase levels Category: Medical Plan Patient will take famotidine twice a day. Avoid dietary triggers and late night snacking. Staying upright for minimum 3 hours after meals discussed with patient. Patient will return in 6 months, we will discuss then going for upper endoscopy and colonoscopy. Patient will need to get clearance from Cardiology. Increase fluid intake and activity to promote better bowel motility. Patient will call us if he will have any GI concerning symptoms. He is agreeable to current plan of care and verbalizes understanding of instructions. He was given the opportunity to ask questions and all questions answered. Thank you for allowing me to participate in his care Medications: New famotidine 20 mg PO BID 60 tabs 4RF Coding Level of Care Code Est Pt Level 3 (12399) Diagnoses Gastroesophageal reflux disease, unspecified whether esophagitis present K21.9 Esophagitis presence: esophagitis presence not specified Transaminitis R74.01 Time Spent (min) 30 Comment 20 minutes spent with patient and additional 10 minutes spent reviewing his records
[2025-02-12 08:07] VITALS: BP 123/75; PULSE 54; BMI 27.1
== END 2025-02-12 09:26 | disposition home or self-care (01) ==
LOC: HO.HGI 07:48
PROVIDERS: PCP Internal Medicine Geriatric Medicine; Visit Provider Nurse Practitioner Family
DX: K21.9 Gastro-esophageal reflux disease without esophagitis (principal); R74.01 Elevation of levels of liver transaminase levels
CPT/HCPCS: 99213

== ENCOUNTER → 2025-02-12 07:48 | Outpatient (BNVA) | payer MEDICAID, SELFPAY ==
[2024-11-26 11:30] VITALS: BMI 26.2
== END ==
PROVIDERS: PCP Internal Medicine Geriatric Medicine; Visit Provider Nurse Practitioner Family
DX: K21.9 Gastro-esophageal reflux disease without esophagitis (principal); R74.01 Elevation of levels of liver transaminase levels
CPT/HCPCS: 99212

== ENCOUNTER 2025-05-16 13:45 | Outpatient (AMB) | payer MEDICAID, SELFPAY ==
[2024-11-26 11:30] VITALS: BMI 26.2
[2025-05-16 13:54] VITALS: BP 116/72; PULSE 62; BMI 26.7
--- NOTE | 2025-05-16 13:54 | MHC.OFFVIS ---
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: [employer] Offered & Declined Accompanied by: Self / Same As Patient Allergies No Known Allergies (No Known Allergies*) Allergy (Verified 05/16/25 13:57) Medication List - Last Reconciled 05/16/25 by Fernando Alejandro NP acetaminophen (Pain Relief Extra Strength (acetaminophen)) 500 mg PO Q8H PRN aspirin 81 mg PO DAILY atorvastatin 80 mg PO BEDTIME clonazepam 1 tab PO DAILY PRN cyclobenzaprine 10 mg PO TID PRN famotidine 20 mg PO BID ketotifen fumarate 0.025%(0.035%) drps ophthalmic (eye) ONCE PRN lisinopril-hydrochlorothiazide 10-12.5 mg 1 tab PO QAM metoprolol succinate ER 25 mg PO DAILY nitroglycerin 0.4 mg sublingual Q5M PRN ticagrelor 90 mg PO BID HPI Comments Details: This is a 64-year-old male patient coming in for a follow-up visit. Patient with a history of hypertension and coronary artery disease status post PCI to OM1 and OM3 in 2020 and PCI to PDA in November 2024. Since then patient had gone to the ER once for recurrence of burning chest pain with exertion where his blood pressure was noted to be elevated. Patient notes that the symptom has resolved completely since metoprolol adjustments. Today, patient is reporting gasping of air at nighttime and sleeping otherwise is denying any exertional shortness of breath, chest pain, palpitations, dizziness, orthopnea, PND, leg edema, presyncope or syncope. Patient is reporting compliance with all his medications and denies any signs of bleeding. Patient is reporting that he went to cardiac rehab for 3 weeks after which he continued with his own exercise at home. [facility] Medical History Transaminitis Inguinodynia Atherosclerotic cardiovascular disease CAD (coronary artery disease) Hernia Non-STEMI (non-ST elevated myocardial infarction) HTN (hypertension) Surgical History History of esophagogastroduodenoscopy (EGD) Hx of colonoscopy S/P cardiac cath Hx of cardiac catheterization No significant past surgical history Surgical history unknown Family History Father No problems noted. Mother Hypertension Social History Household Members: Spouse Housing: House Do you presently have visiting nurse or other home services: No Alcohol intake: never Comment: telemetry Patient Tobacco Use Status: Never used Tobacco Review of Systems Const Denies daytime sleepiness, Denies difficulty sleeping, Denies snoring, Denies stops breathing during sleep and Denies weakness Card Denies chest pain, Denies rapid heart rate, Denies irregular heart rhythm, Denies claudication, Denies leg edema, Denies lightheadedness, Denies palpitations, Reports dyspnea, Denies dyspnea on exertion, Denies orthopnea, Denies paroxysmal nocturnal dyspnea and Denies slow heart rate Resp Denies cough, Reports dyspnea, Denies dyspnea on exertion and Denies snoring GI Reports no additional complaints, Denies hematochezia, Denies change in stool character and Denies dyspepsia Musc Denies abnormal gait, Denies muscle weakness and Denies numbness Neuro Denies abnormal gait, Denies numbness and Denies weakness Endo Denies palpitations Physical Exam Vital Signs: Last Vital Signs Pulse 62 05/16/25 13:54 BP 116/72 05/16/25 13:54 BMI result Body Mass Index 26.7 Const General: cooperative, healthy appearing, comfortable and no acute distress Orientation/consciousness: patient oriented x3 HEENT Head: Yes normal to inspection Neck Neck: Yes normal visual inspection, Yes trachea midline and Yes supple Chest Chest palpation & inspection: normal inspection of the chest Resp Effort & Inspection: normal respiratory effort Auscultation: clear to auscultation bilaterally, no crackles, no rales, no rhonchi and no wheezes Cardio Jugular venous distension: no JVD Palpation: normal PMI Rate: regular rate Rhythm: regular rhythm Heart sounds: S1 normal heart sound present, S2 normal heart sound present, no click, no gallops, no murmurs and no rubs Peripheral pulses: Peripheral pulses 2+ throughout GI Inspection: Yes normal to inspection Palpation (GI): Soft to palpation Auscultation: normal bowel sounds Skin General skin exam: no rashes or lesions noted Neuro General: patient oriented x3 Extrem General: Yes normal to inspection, No no pedal edema and No calf tenderness Psych Appearance: grossly normal Mental Status: mental status grossly normal Speech and movement: Normal speech and movement present Assessment & Plan Assessment & Plan (1) S/P cardiac catheterization: Code(s): Z98.890 - Other specified postprocedural states Category: Surgical Plan: History of NSTEMI in 2020- status post PCI to OM1 and OM3. 12/07/2024-patient underwent a cardiac catheterization with Dr. Vang at [facility] that showed patent OM stent, 90% stenosis in the right PDA, and mild luminal irregularities in the LAD less than 30%. PCI was performed with WAYLON to PDA. Clinically stable and without any cardiac symptoms. Continue lifelong aspirin therapy. Continue Brilinta for at least 12 months since procedure. Continue metoprolol, lisinopril hydrochlorothiazide, and high-dose statin therapy. Advised to complete his labs for repeat lipid panel. Ideally, LDL goal less than 70. For reports of the gasping of air and stop Bang score of 3, we will get a home sleep study to check for sleep apnea. Recommended sleeping on wedged pillows. (2) Atherosclerotic cardiovascular disease: Code(s): I25.10 - Atherosclerotic heart disease of pala coronary artery without angina pectoris Category: Medical Plan: As above. (3) Essential hypertension: Code(s): I10 - Essential (primary) hypertension Category: Medical Plan: Blood pressure today is well-controlled. Continue current regimen. Advised monitoring blood pressures at home and keeping a log of it. Ideally, blood pressure goal less than 130/80. Advised heart healthy diet, regular exercise, med compliance, and aggressive management of vascular risk factors. Follow up in 6 months. In the interim, patient will call the office with any concerns or change in symptoms. This note was generated using voice recognition software. While every effort has been made to ensure accuracy and proper general merchandise salesperson, there may be occasional errors that could affect the content or meaning of the described symptoms. Orders: Orders RT home sleep study Today G47.33 - Obstructive sleep apnea (adult) (pediatric) Coding Level of Care Code Est Pt Level 4 (83535) Complex EM visit Add On G2211 Diagnoses S/P cardiac catheterization Z98.890 Atherosclerotic cardiovascular disease I25.10 Essential hypertension I10 Time Spent (min) 31 Comment Time spent in reviewing the chart, test results, assessment, counseling and documentation.
== END 2025-05-16 14:21 | disposition home or self-care (01) ==
LOC: HO.HCS 13:46
PROVIDERS: PCP Internal Medicine Geriatric Medicine
DX: Z98.890 Other specified postprocedural states (principal); I25.10 Atherosclerotic heart disease of native coronary artery without angina pectoris; I10 Essential (primary) hypertension
CPT/HCPCS: 99214

== ENCOUNTER → 2025-05-16 13:45 | Outpatient (BNVA) | payer MEDICAID, SELFPAY ==
[2024-11-26 11:30] VITALS: BMI 26.2
== END ==
PROVIDERS: PCP Internal Medicine Geriatric Medicine
DX: I10 Essential (primary) hypertension (principal); I25.10 Atherosclerotic heart disease of native coronary artery without angina pectoris; Z98.890 Other specified postprocedural states
CPT/HCPCS: 99212

== ENCOUNTER 2025-06-28 07:28 | Outpatient (REF) | payer MEDICAID, SELFPAY ==
[2024-11-26 11:30] VITALS: BMI 26.2
[2025-06-28 08:58] LABS: Prostate Specific Antigen 3.07 ng/mL (<0.05-4.0)
== END 2025-06-28 07:29 | disposition home or self-care (01) ==
LOC: HO.LAB 07:28
PROVIDERS: PCP Internal Medicine Geriatric Medicine; Visit Provider Urology
DX: R97.20 Elevated prostate specific antigen [PSA] (principal)
CPT/HCPCS: 36415; 84153

== ENCOUNTER 2025-07-16 08:05 | Outpatient (AMB) | payer MEDICAID, SELFPAY ==
[2024-11-26 11:30] VITALS: BMI 26.2
--- OUTSIDE RECORDS SUMMARY | 2025-07-16 08:10 | XMS_ITS | Encounter Summary ---
Author Organization [employer] Address [address] [place] [address] 7[address] [place] [address] Care Team Providers Care Care Management Specialist Name Role Phone Name, Jabari VINES Primary Care Provider [phone] Reason for Visit * Reason Comments Med Refill Encounter Details Date Type Department Care Team (Late st Contact Info) Description 08/17/2022 Refill [facility] [address] [place] [address] [phone] NameJabari MD [address] [place] [address] [phone] Coronary artery disease involving t[place] coronary artery of [place] heart without angina pectoris (Primary Dx) Social [...] Care Team (Late st Contact Info) Description 09/10/2025 11:30 AM EST Office Visit [facility] [address] [place] [address] [phone] NameJabari MD [address] [place] [address] [phone] documented as of this encounter Visit Diagnoses Diagnosis Coronary artery disease involving [place] coronary artery of t[place] heart without angina pectoris- Primary documented in this encounter Care Teams Care Management Specialist Relationship Specialty Start Date End Date Name, MD Jabari [address] [place] [address] PCP - General Family Medicine 08/05/15 documented as of this encounter
--- OUTSIDE RECORDS SUMMARY | 2025-07-16 08:10 | XMS_ITS | Encounter Summary ---
Author Organization [employer] Address [address] [place] [address] 7t [place] [address] Care Team Providers Care Hand Worker Name Role Phone Name, Jabari VINES Primary Care Provider [phone] Encounter Details Date Type Department Care Team (Late st Contact Info) Description 08/17/2022 Orders Only [facility] [address] [place] [address] [phone] Sakshi Tubbs LPN Social History Tobacco Use [...] Description 09/10/2025 11:30 AM EST Office Visit [facility] [address] [place] [address] [phone] Name, MD Jabari [address] [place] [phone] documented as of this encounter Visit Diagnoses Not on filedocumented in this encounter Care Teams Hand Worker Relationship Specialty Start Date End Date Name, MD Jabari [address] [place] [address] PCP - General Family Medicine 08/05/15 documented as of this encounter
--- OUTSIDE RECORDS SUMMARY | 2025-07-16 08:10 | XMS_ITS | Encounter Summary ---
Author Organization [employer] Address [address] [place] [address] 7 [place] [address] Care Team Providers Care Rail Car Repair Carman Name Role Phone Name, Jabari VINES Primary Care Provider [phone] Reason for Visit * Reason Comments Med Refill Encounter Details Date Type Department Care Team (Late Contact Info) Description 08/17/2022 Refill [facility] MEDICINE [address] [place] [phone] Roxann Hernandez FNP [address] [place] [address] Social History Tobacco Use Types Packs/Day Years [...] Description 09/10/2025 11:30 AM EST Office Visit [facility] [address] [place] [phone] Name, MD Jabari [address] [place] [phone] documented as of this encounter Visit Diagnoses Not on filedocumented in this encounter Care Teams Rail Car Repair Carman Relationship Specialty Start Date End Date Name, MD Jabari [address] [place] [address] PCP - General Family Medicine 08/05/15 documented as of this encounter
--- OUTSIDE RECORDS SUMMARY | 2025-07-16 08:10 | XMS_ITS | Clinical Summary ---
Author Organization [employer] Address [address] [place] [address] 7t [place] [address] Care Team Providers Care Emulsion Coater Name Role Phone Name, Jabari VINES Primary Care Provider [phone] Allergies No known active allergies Medications Diclofenac Sodium (Voltaren Arthritis Pain) 1 % gel Apply 2 g topically if needed in the morning, at noon, in the evening, and at bedtime (back pain). 50 g 4 Active cholecalciferol (D3) 50 MCG (1999 UT) tablet TAKE 1 TABLET BY MOUTH EVERY DAY 90 tablet 1 4 Active hydrocortisone 2.5 % cream APPLY TO THE AFFECTED AREA ONCE A DAY FOR 1 WEEK 60 g 1 4 Active atorvastatin (Lipitor) 80 MG tabletIndications :Coronary artery disease involving [place] coronary artery of [place] heart without angina pectoris TAKE 1 TABLET BY MOUTH EVERY DAY 90 tablet 3 5 Active metoprolol succinate XL (Toprol-XL) 25 MG 24 hr tabletIndications :Coronary artery disease involving [place] coronary artery of [place] heart without angina pectoris TAKE 1 TABLET BY MOUTH EVERY DAY 90 tablet 3 5 Active dutasteride (Avodart) 0.5 MG capsule Patient tells me he is not using the medication 5 Active esomeprazole (NexIUM) [address] capsule ALYSSA 1 C PSULA POR V A ORAL TODOS LOS D 5 Active lisinopril-hydroC HLOROthiazide 10-12.5 MG tablet TAKE 1 TABLET BY MOUTH EVERY MORNING 90 tablet 3 5 Active Acetaminophen Extra Strength 500 MG tabletIndications :Essential hypertension TAKE 1 TABLET (500 MG) BY MOUTH EVERY 8 (EIGHT) HOURS IF NEEDED FOR MILD PAIN. 90 tablet 1 5 Active aspirin (Aspirin Low Dose) 81 MG EC tablet TAKE 1 TABLET BY MOUTH EVERY DAY 90 tablet 3 5 Active ticagrelor (Brilinta) 90 MG tablet Take 90 mg by mouth 2 times daily. Active escitalopram (Lexapro) 10 MG tablet TAKE 1 TABLET BY MOUTH EVERY DAY 90 tablet 2 5 Active clonazePAM (KlonoPIN) 0.5 MG tabletIndications :Anxiety Take 1 tablet (0.5 mg) by mouth if needed each day for anxiety for up to 20 days. 20 tablet 5 Active fluticasone (Flonase) 50 MCG/ACT nasal sprayIndications: Cough in adult patient SPRAY 1 SPRAY INTO EACH NOSTRIL TWICE A DAY. SHAKE GENTLY. BEFORE FIRST USE, PRIME PUMP. AFTER USE, CLEAN TIP AND REPLACE CAP. 48 mL Active Active Problems Patient Care Coordination No te Formatting of this note migh t be different from the original. C3/CM Ana Valderrama RN Problem Noted Date Diagnosed Date Acute inguinal lymphadenitis 11/14/2023 Allergic reaction 11/14/2023 Benign prostatic hyperplasia with urinary obstru ction 11/14/2023 Chest pain 11/14/2023 Musculoskeletal back pain 11/14/2023 Inguinodynia 11/14/2023 Kidney stone 11/14/2023 Peyronie's disease 11/14/2023 Esophagitis 11/14/2023 GERD (gastroesophageal reflux disease) Recurrent left inguinal hernia 11/14/2023 Right inguinal hernia 11/14/2023 Umbilical hernia 11/14/2023 Ureteric colic 11/14/2023 Non-STEMI (non-ST elevated myocardial infarction ) 11/14/2023 COVID-19 05/18/2023 05/18/2023 Assessment & Plan (04/29/2025 8:25 AM EDT): Assessment plan: Paxlovid contraindicated d/t Ticrgrelor; Molnupriavir appropriate substitution. Take Molnupriavir as directed. Follow up with PCP if no improvement in 5 - 7 days. Seborrheic dermatitis 05/18/2023 Arteriosclerosis of coronary artery 03/18/2023 Overview (03/20/2025): History of NSTEMI in 2020- status post PCI to OM1 and OM3. 12/07/2024-patient underwent a cardiac catheterization with Dr. Vang at [facility] that showed patent OM stent, 90% stenosis in the right PDA, and mild luminal irregularities in the LAD less than 30%. PCI was performed with WAYLON to PDA. Right wrist catheterization site is well healed. Continue lifelong aspirin therapy. Continue uninterrupted Brilinta therapy for at least 12 months H. pylori infection 03/18/2023 Myocardial infarction 03/18/2023 Overview (03/20/2025): History of NSTEMI in 2020- status post PCI to OM1 and OM3. 12/07/2024-patient underwent a cardiac catheterization with Dr. Vang at [facility] that showed patent OM stent, 90% stenosis in the right PDA, and mild luminal irregularities in the LAD less than 30%. PCI was performed with WAYLON to PDA. Right wrist catheterization site is well healed. Continue lifelong aspirin therapy. Continue uninterrupted Brilinta therapy for at least 12 months Prostatism 03/18/2023 Lower abdominal pain 06/22/2018 05/18/2023 Electrocardiogram abnormal 05/18/201805/18 Depressive disorder 08/18/2015 Essential hypertension 08/18/2015 Generalized anxiety disorder 08/18/2015 Anxiety 06/21/2012 Overview (03/18/2023): The patient used to see Dr Betancourt. The patient has at least 2 psychiatric hospitalizations Heartburn 06/21/2012 05/18/2023 Panic attack 06/21/2012 05/18/2023 Resolved Problems Problem Noted Date Diagnosed Date Resolved Date Atherosclerotic cardiovascular disease 11/14/2023 03/20/2025 Elevated PSA 11/14/2023 03/20/2025 Pharyngitis 11/14/2023 03/20/2025 Encounters Date Type Department Care Team Description 06/28/2025 Telephone [facility] [address] [place] [phone] Isidoro Marley MA dec recalls 05/20/2025 [facility] [address] [address] Ayse Vazquez NP Cough in adult patient 05/01/[address] [address] Isidoro Marley MA updates on meds 04/29/[address] [address] Jabari Loza MD Prior Authorization 04/29/[address] [address] Jabari Loza MD Nurse Triage 04/27/2025 9:00 AM EDT Office Visit [address] [address] Nabil Rowe MD COVID 04/27/2025 Travel 04/26/2025 2:45 PM EDT Telemedicine [address] [address] Raad Barrientos FNP COVID-19 (Primary Dx) 04/26/2025 Travel 04/26/[address] [address] Jabari Loza MD Nurse Triage from Last 3 Months Immunizations Immunization Administration Dates Next Due Influenza injectable quadriv [...] Date Recorded Patient Health Questionnaire-9 Score 0 04/26/2025 Patient Health Questionnaire-9 Score 0 04/26/2025 Last PHQ-9: Questionnaire Data Not on file 1 Housing Stability Answer Date Recorded What is your housing situation today? I have nancy marie 03/20/[address] you li ve. Do you have problems with any of the following? None of the above 03/20/2025 Food Insecurity Answer Date Recorded Within the past 12 months, y ou worried that your food would run out before you got money to buy more: Never True 03/20/2025 Within the past 12 months,th e food you bought just didn't last and you didn't have enough money to get more: Never True Transportation Answer Date Recorded In the past 12 months, has l ack of transportation kept you from medical appts, meetings, work or from getting things needed for daily living? No 03/20/2025 Utilities Answer Date Recorded In the past 12 months, has t he electric, gas, oil or water company threatened to shut off services in your home? No 03/20/2025 Depression Answer Date Recorded Patient Health Questionnaire-2 Score 0 04/26/2025 Internet Access Answer Date Recorded Internet Access Q1 Yes 03/20/2025 Internet Access Q2 Not on file 03/20/2025 Sex and Gender Information Value Date Recorded Sex Assigned at Male 05/24/2022 10:21 AM EDT Legal Sex Male 10:21 AM EDT Gender Identity Male 05/24/2022 10:21 AM EDT Sexual Orientation Straight 05/24/2022 10 :21 AM EDT Last Filed Vital Signs Vital Sign Reading Time Taken Comments Blood Pressure 125/89 04/27/2025 9:13 AM EDT Pulse 65 04/27/2025 9:13 AM EDT Temperature 37.1 C (98.7 F) 04/27/2025 9:13 AM EDT Respiratory Rate 21 04/27/2025 9:13 AM EDT Oxygen Saturation 98% 04/27/2025 9:13 AM EDT Inhaled Oxygen Concentration - - Weight 85.3 kg (188 lb 2 oz) 04/27/2025 9:13 AM EDT Height 180.3 cm (5' 11 ) 04/27/2025 9:13 AM EDT Body Mass Index 26.24 04/27/2025 9:13 AM EDT Plan of Treatment Upcoming Encounters Date Type Department Care Team (Late st Contact Info) Description 09/10/2025 11:30 AM EST Office Visit [facility] [address] [place] [phone] Name, MD Jabari [address] [place] [address] Health Maintenance Due Date Last Done Comments CT Colonography 1961 Colonoscopy 1961 FIT 1961 HIV Screening 1961 Sigmoidoscopy 1961 Hepatitis A Vaccines (1 of 2 - Risk 2-dose series) 1980 RSV Patients and Patients Aged 60 years or older (1 - Risk 50-74 years 1-dose series) 2011 Zoster Vaccines (1 of 2) 2011 Hepatitis B Vaccines (1 of 3 - Risk 3-dose series) 2021 FOBT 05/06/2022 05/06/2021 Colorectal Cancer Screening 05/06/2024 FIT DNA/Cologuard 05/06/2024 05/06/2021 COVID-19 Vaccine ( season) 2025 05/31/2022, 12/14/2021, 06/23/2021, Additional history exists Influenza Vaccine (#1) 2025 , 04/12/2023, 04/13/2022, Additional history exists Alcohol/Substance Use Screening 03/20/2026 03/20/2025 Disability Screening 03/20/2026 03/20/2025 SDOH Screening 03/20/2026 03/20/2025 Depression Screening 04/26/2026 04/26/2025, 04/26/20 Tobacco Screening 04/27/2026 04/27/2025 Lipid Panel 11/16/2028 11/17/2023, 04/24, 06/11/2022, Additional history exists DTaP/Tdap/Td Vaccines (3 - Td or Tdap) 03/07/2034 03/07/2024, 06/21/2012 Pneumococcal Vaccine: 50+ Years Completed 06/27/2024 Hepatitis C Screening Completed 10/31/2024 HIB Vaccines Aged Out No longer eligi ble based on patient's age to complete this topic HPV Vaccines Aged Out No longer eligi ble based on patient's age to complete this topic IPV Vaccines Aged Out No longer eligi ble based on patient's age to complete this topic Meningococcal B Vaccine Aged Out No l onger eligible based on patient's age to complete [...] Procedure Name Priority Date/Time Associated Diagnosis Comments PSA, TOTAL Routine 06/28/2025 7:46 AM EST POCT INFLUENZA A (ID NOW RAPID MOLECULAR) Routine 04/27/2025 9:33 AM EDT COVID POCT INFLUENZA B (ID NOW RAPID MOLECULAR) Routine 04/27/2025 9:32 AM EDT COVID POCT RAPID COVID ANTIGEN Routine 04/27/2025 9:28 AM EDT COVID HEPATITIS C AB W/REFL TO HCV RNA, QN, PCR Routine 10/31/2024 10:24 AM EDT Need for hepatitis C screening test LIPID PANEL, STANDARD Routine 11/17/2023 8:39 AM EDT Essential hypertension Atherosclerotic cardiovascular disease HM FIT DNA/COLOGUARD CANCER SCREENING Routine 05/06/2021 from Last 3 Months or Most Recently Relevant to Health Maintenance Results * PSA,Total (06/28/2025 7:46 AM EST) [facility] Prostate Specific Antigen 3.07 <0.05 - 4.0 ng/mL [facility] Comment:PSA methodology: Ray Fitzgerald i ChemiluminescentMicroparticle Immunoassay (CMIA) 06/28/2025 7:46 AM EST 06/28/2025 7:46 AM EST us Generic External Data Provider LAB BLOOD ORDERAB LES Final Result Performing Organization Address [facility]/ZIP Co de Phone Number [facility] [address] [place] [phone] * POCT Rapid Influenza A VILLAFANA ID NOW (04/27/2025 9:33 AM EDT) [facility] Influenza A Negative Negative, Indeterminate [facility] QC Media Lot # [id number] [facility] Lot# Expiration Date ,026 [facility] Swab 04/27/2025 9:33 AM EDT Nabil Rowe MD POINT OF CARE TEST ENTER/EDIT OR DERABLES Final Result Performing Organization Address [facility] Co de Phone Number [facility] [address] [place] [phone] * POCT Rapid Influenza B VILLAFANA ID NOW (04/27/2025 9:32 AM EDT) [facility] Influenza B Negative Negative, Indeterminate [facility] QC Media Lot # [id number] [facility] Lot# Expiration Date [facility] Swab 04/27/2025 9:32 AM EDT Nabil Rowe MD POINT OF CARE TEST ENTER/EDIT OR DERABLES Final Result Performing Organization Address City/[facility]/ZIP Co de Phone Number [facility] [address] [place] [phone] * POCT Rapid Covid-19 BinaxNOW (04/27/2025 9:28 AM EDT) [facility] Rapid COVID Ag Positive QC Media Lot # [id number] Lot# Expiration Date Swab 04/27/2025 9:28 AM EDT Nabil Rowe MD POINT OF CARE TEST ENTER/EDIT OR DERABLES Final Result * Hepatitis C Antibody with Reflex to HCV, RNA, Quantitative, Real-Time PCR (10/31/2024 10:24 AM EDT) [facility] Hepatitis C Antibody Nonreactive Nonreactive [facility] Comment:Antibodies to HCV no t detected; does not exclude early acuteHCV infection. Blood Venous blood specimen / Unknown 10/31/2024 10:24 AM EDT 10/31/2024 11:49 AM EDT Jabari Loza MD LAB BLOOD ORDERABLES Final Resul t Performing Organization Address City/[facility]/ZIP Co de Phone Number [facility] [address] [place] [phone] * Lipid Panel, Standard (11/17/2023 8:39 AM EDT) [facility] Triglycerides 47 <150 mg/dL [facility] Comment:Desirable Triglyceri de: less than 150 mg/dLBorderline High Triglyceride 150-199 mg/dLHigh Triglyceride: 200-499 mg/dLVery High Triglyceride: greater than or equal to 5OO mg/dL Cholesterol 128 <200 mg/dL [facility] Comment:Desirable Cholestero l: less than 200 mg/dLBorderline High Cholesterol: 200-239 mg/dLHigh Cholesterol: greater than 239 mg/dL LDL Cholesterol Calculated 67 <100 mg/dL [facility] Comment:Desirable LDL: less than 100 mg/dLNear Optimal/Above Optimal LDL: 110- 129 mg/dLBorderline High LDL: 130-159 mg/dLHigh LDL: 160-189 mg/dLVery High LDL: greater than or equal to 190 mg/dL HDL Cholesterol 52 >40 mg/dL [facility] Comment:Desirable HDL: great er than 40 mg/dL Note: This HDL assay may give artificially low results in patients with liver disease. Blood Venous blood specimen / Unknown 11/17/2023 8:39 AM EDT 11/17/2023 11:28 AM EDT us Jabari Loza MD LAB BLOOD ORDERABLES Final Resul t [facility] [address] [place] [phone] * FIT DNA/Cologuard Cancer Screening (05/06/2021) Cologuard Cancer Screen Negative Stool us Jabari Loza MD HEALTH MAINTENANCE Final Result from Last 3 Months or Most Recently Relevant to Health Maintenance Insurance [facility] C3 Care Teams Emulsion Coater Relationship Specialty Start Date End Date Name, MD Jabari [address] [place] [phone] PCP - General Family Medicine 08/05/15
--- OUTSIDE RECORDS SUMMARY | 2025-07-16 08:10 | XMS_ITS | Encounter Summary ---
Author Organization [employer] Address [address] [place] [address] 7 [place] [address] Care Team Providers Care Sql Report Analyst Name Role Phone NameJabari MD Primary Care Provider [phone] Reason for Visit * Reason Onset Date Comments Med Refill 03/22/2023 Encounter Details Date Type Department Care Team (Late st Contact Info) Description 03/22/2023 Refill [facility] [address] [place] [phone] Jabari Loza MD [address] [place] [phone] Anxiety Social History Tobacco Use Types Packs/Day [...] Description 09/10/2025 11:30 AM EST Office Visit [facility] [address] [place] [address] [phone] Jabari Loza MD [address] [place] [phone] documented as of this encounter Visit Diagnoses Diagnosis Anxiety Anxiety state, unspecified documented in this encounter Care Teams Sql Report Analyst Relationship Specialty Start Date End Date Jabari Loza MD [address] [place] [address] PCP - General Family Medicine 08/05/15 documented as of this encounter
--- OUTSIDE RECORDS SUMMARY | 2025-07-16 08:10 | XMS_ITS | Encounter Summary ---
Author Organization [employer] Address [address] [place] [address] [address]t [place] [address] Care Team Providers Care Neonatal Surgeon Name Role Phone Name, Jabari VINES Primary Care Provider [phone] Reason for Visit * Reason Comments Med Refill Encounter Details Date Type Department Care Team ([facility] st Contact Info) Description 12/31/2023 Refill [facility] [address] [place], [place] [phone] Name, MD Jabari [address] [place] [address] Essential hypertension; Atherosclerotic cardiovascular disease; Low back [...] Description 09/10/2025 11:30 AM EST Office Visit [facility] [address] [place] [phone] Name, MD Jabari [address] [place] [address] documented as of this encounter Visit Diagnoses Diagnosis Essential hypertension Unspecified essential hypertension Atherosclerotic cardiovascular disease Low back pain at multiple sites documented in this encounter Additional Health Concerns Assessment Noted Time PHQ-9 Depression Total Score: 0 05/18/20 23 2:10 PM EDT documented as of this encounter Care Teams Neonatal Surgeon Relationship Specialty Start Date End Date NameJabari MD [address] [place] [phone] PCP - General Family Medicine 08/05/15 documented as of this encounter
--- OUTSIDE RECORDS SUMMARY | 2025-07-16 08:10 | XMS_ITS | Encounter Summary ---
Author Organization [employer] Address [address] [place] [address] 7t [place] [address] Care Team Providers Care Litigation Legal Secretary Name Role Phone Name, Jabari VINES Primary Care Provider Encounter Details Date Type Department Care Team (Late Contact Info) Description 08/17/2022 Orders Only [facility] [address] [place], [place] [phone] Violet Ramsey LPN Social History Tobacco Use [...] Description 09/10/2025 11:30 AM EST Office Visit [facility] [address] [place], [place] [phone] Name, MD Jabari [address] [place] [address] documented as of this encounter Visit Diagnoses Not on filedocumented in this encounter Care Teams Litigation Legal Secretary Relationship Specialty Start Date End Date Name, MD Jabari [address] [place] [address] PCP - General Family Medicine 08/05/15 documented as of this encounter
--- OUTSIDE RECORDS SUMMARY | 2025-07-16 08:10 | XMS_ITS | Encounter Summary ---
Author Organization [employer] Address [address] [facility] 7t [place] [address] Care Team Providers Care Due Diligence Coordinator Name Role Phone Name, Jabari VINES Primary Care Provider [phone] Reason for Visit * Reason Comments Med Refill Encounter Details Date Type Department Care Team ([facility] st Contact Info) Description 06/05/2023 Refill [facility] [address] [place], [place] [phone] Name, MD Jabari [address] [place] [address] Social History Tobacco Use Types Packs/Day Years [...] Description 09/10/2025 11:30 AM EST Office Visit [facility] [address] [place] [phone] Name, MD Jabari [address] [place] [address] documented as of this encounter Visit Diagnoses Not on filedocumented in this encounter Additional Health Concerns Assessment Noted Time PHQ-9 Depression Total Score: 0 05/18/20 23 2:10 PM EDT documented as of this encounter Care Teams Due Diligence Coordinator Relationship Specialty Start Date End Date NameJabari MD [address] [place] [phone] PCP - General Family Medicine 08/05/15 documented as of this encounter
--- OUTSIDE RECORDS SUMMARY | 2025-07-16 08:10 | XMS_ITS | Encounter Summary ---
Author Organization [employer] Address [address] [place] [address] 7t [place] [address] Care Team Providers Care Forestry Laborer Name Role Phone Name, Jabari VINES Primary Care Provider [phone] Reason for Visit * Reason Comments Med Refill Encounter Details Date Type Department Care Team ([facility] st Contact Info) Description 03/17/2024 Refill [facility] MED[facility] [address] [place], [place] [phone] Name, MD Jabari [address] [place] [address] Social History Tobacco Use Types Packs/Day Years [...] Description 09/10/2025 11:30 AM EST Office Visit [facility] MED[facility]INE [address] [place] [address] NameJabari MD [address] [place] [address] documented as of this encounter Visit Diagnoses Not on filedocumented in this encounter Additional Health Concerns Assessment Noted Time PHQ-9 Depression Total Score: 0 05/18/20 23 2:10 PM EDT documented as of this encounter Care Teams Forestry Laborer Relationship Specialty Start Date End Date NameJabari MD [address] [place] [phone] PCP - General Family Medicine 08/05/15 documented as of this encounter
--- OUTSIDE RECORDS SUMMARY | 2025-07-16 08:10 | XMS_ITS | Encounter Summary ---
Author Organization [employer] Address [address] [place] [address] 7t [place] [address] Care Team Providers Care Soft Metals Hand Engraver Name Role Phone Name, Jabari VINES Primary Care Provider [phone] Encounter Details Date Type Department Care Team (Late st Contact Info) Description 01/14/2023 Orders Only [facility] [address] [place], [place] [phone] Violet Ramsey LPN Social History Tobacco Use [...] 11:30 AM EST Office Visit [facility] MED[facility]INE [address] [place] [address] Name, MD Jabari [address] [place] [address] documented as of this encounter Visit Diagnoses Not on filedocumented in this encounter Care Teams Soft Metals Hand Engraver Relationship Specialty Start Date End Date NameJabari MD [address] [place] [phone] PCP - General Family Medicine 08/05/15 documented as of this encounter
--- OUTSIDE RECORDS SUMMARY | 2025-07-16 08:10 | XMS_ITS | Encounter Summary ---
Author Organization [employer] Address [address] [place] [address] 7 [place] [address] Care Team Providers Care Social Service Liaison Name Role Phone Name, Jabari VINES Primary Care Provider [phone] Reason for Visit * Reason Onset Date Comments Med Refill 07/19/2023 Encounter Details Date Type Department Care Team ([facility] st Contact Info) Description 07/19/2023 Refill [facility] MED[facility]INE [address] [place], [place] [phone] Name, MD Jabari [address] [place] [address] Anxiety Social History Tobacco Use Types Packs/Day [...] on 05/18/2023 for 20 days supply at [facility]. PCP is not in office , Please review. * Telephone Encounter - Mike Mcintosh RN - 07/21/2023 10:47 AM EST T/C to [facility] to refill Aspirin and Hydrocortisone. Clonazepam is already que for approval. documented in this encounter Plan of Treatment Upcoming Encounters Date Type Department Care Team (Late st Contact Info) Description 09/10/2025 11:30 AM EST Office Visit [facility] MED[facility]INE [address] [place] [address] Name, MD Jabari [address] [place] [address] documented as of this encounter Visit Diagnoses Diagnosis Anxiety Anxiety state, unspecified documented in this encounter Additional Health Concerns Assessment Noted Time PHQ-9 Depression Total Score: 0 05/18/20 23 2:10 PM EDT documented as of this encounter Care Teams Social Service Liaison Relationship Specialty Start Date End Date Name, MD Jabari [address] [place] [address] PCP - General Family Medicine 08/05/15 documented as of this encounter
--- NOTE | 2025-07-16 08:41 | A.OFFVIS_ITS ---
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 He is a patient of Dr. Loza. He is seen for the following urologic conditions - elevated PSA - lower urinary tract symptoms - Peyronie's disease Yearly follow-up [place] translation provided by qualified medical sonographer Peyronie's stable Minimal impact on sexual activity Continue to follow-up PSA remains low 3.1 Remains on dutasteride - just taking Mondays PVR low UA normal 12 month follow-up Elevated PSA Initial evaluation for elevated PSA Associated symptoms PSA 06/13 4.9, 04/14 1.5, 01/13 2.0, 12/14 1.4, 07/18 3.1 Yearly follow-up with PSA [facility] Medical History Transaminitis Inguinodynia Atherosclerotic cardiovascular disease CAD (coronary artery disease) Hernia Non-STEMI (non-ST elevated myocardial infarction) HTN (hypertension) Surgical History History of esophagogastroduodenoscopy (EGD) Hx of colonoscopy S/P cardiac cath Hx of cardiac catheterization No significant past surgical history Surgical history unknown Family History Father No problems noted. Mother Hypertension Social History Household Members: Spouse Housing: House Do you presently have visiting nurse or other home services: No Alcohol intake: never Comment: telemetry Patient Tobacco Use Status: Never used Tobacco Review of Systems Const Denies chills and Denies fever(s) Card Reports no additional complaints and Denies syncope Resp Denies cough GI Denies abdominal pain and Denies heartburn Reports as per HPI and Denies change in libido Neuro Denies syncope Psych Denies change in libido Endo Denies change in libido Physical Exam Const General: cooperative, healthy appearing, comfortable and no acute distress Orientation/consciousness: patient oriented x3 HEENT Face and sinus: Yes normal facial exam Mouth: moist mucous membranes Neck Neck: Yes normal visual inspection, Yes full ROM and Yes trachea midline Chest Chest palpation & inspection: normal inspection of the chest Resp Effort & Inspection: normal respiratory effort, able to speak in complete sentences and no respiratory distress GI Inspection: Yes normal to inspection Back/Spine/Pelvis Cervical Spine: normal cervical lordosis Thoracic/Lumbar Spine: thoracic and lumbar spine normal to inspection Skin General skin exam: no rashes or lesions noted Neuro General: patient oriented x3, gait normal, tone normal and moves all extremities Extrem General: Yes normal to inspection and Yes capillary refill normal Office Procedures Post Void Residual Post Residual Void Post Void Residual (PVR): 0 [id number]-[id number] Void Residual by ultrasound Results AMB Urinalysis, Automated UA Leukoctes 0 Barbara/uL Last Edit by Julissa Colvin [facility] on 07/16/25 08:50 UA Nitrite Negative Last Edit by Julissa Colvin [facility] on 07/16/25 08:50 UA Urobilinogen 0.2 mg/dL Last Edit by Julissa Colvin [facility] on 07/16/25 08:50 UA Protein 15 mg/dL Last Edit by Julissa Colvin [facility] on 07/16/25 08:50 UA pH 6.5 Last Edit by Julissa Colvin [facility] on 07/16/25 08:50 UA Blood 0 Kemar/uL Last Edit by Julissa Colvin [facility] on 07/16/25 08:50 UA Specific Bayard 1.015 Last Edit by Julissa Colvin [facility] on 07/16/25 08:5 0 UA Ketone Negative Last Edit by Julissa Colvin [facility] on 07/16/25 08:50 UA Bilirubin 0 mg/dL Last Edit by JulissaSWATHI Cisse on 07/16/25 08:50 UA Glucose 0 mg/dL Last Edit by SWATHI Martines on 07/16/25 08:50 Results Reviewed Results Reviewed: Laboratory Last Values Urine pH (Auto) 6.5 07/16/25 08:44 Specific Bayard (Auto) 1.015 07/16/25 08:44 Urine Protein (Auto) 15 mg/dL 07/16/25 08:44 Glucose (UA)(Auto) 0 mg/dL 07/16/25 08:44 Urine Ketones (Auto) Negative 07/16/25 08:44 Urine Blood (Auto) 0 Kemar/uL 07/16/25 08:44 Urine Nitrite (Auto) Negative 07/16/25 08:44 Urine Bilirubin (Auto) 0 mg/dL 07/16/25 08:44 Urine Urobilinogen (Auto) 0.2 mg/dL 07/16/25 08:44 Leukocyte Esterase (Auto) 0 Barbara/uL 07/16/25 08:44 Assessment & Plan Assessment & Plan (1) Elevated PSA: Code(s): R97.20 - Elevated prostate specific antigen [PSA] Category: Medical (2) BPH w urinary obs/LUTS: Code(s): N40.1 - Benign prostatic hyperplasia with lower urinary tract symptoms; N13.8 - Other obstructive and reflux uropathy Category: Medical (3) Peyronie's disease: Code(s): N48.6 - Induration penis plastica Category: Medical Plan Twelve month follow-up PSA Orders: Orders Prostate Specific Antigen 12 Months R97.20 - Elevated prostate specific antigen [PSA] AMB Urinalysis Automated Today N13.8 - Other obstructive and reflux uropathy, N40.1 - Benign prostatic hyperplasia with lower urinary tract symptoms AMB Post Void Residual by ultrasound Today N40.1 - Benign prostatic hyperplasia with lower urinary tract symptoms Medications: Refilled dutasteride 0.5 mg PO DAILY 90 caps 1RF 90 days R97.20 - Elevated prostate specific antigen [PSA] Patient Instructions: This note is constructed using voice recognition software. While every effort has been made to ensure accuracy die turner errors may have been included. Imaging studies, laboratory and physical exam results were discussed and reviewed in detail. No major barriers to patient understanding were identified. An opportunity to ask questions regarding the treatment plan was provided. All questions were answered. The patient expressed understanding and agreement with the above treatment plan. The patient is aware they should contact our office by phone for worsening of their current condition or the appearance of new urologic symptoms. Compliance is encouraged with any medications and followup testing that is ordered. It is a privilege to participate in the urologic care of your patient. If you have any questions or concerns regarding treatment for the above conditions, or other urologic issues, please do not hesitate to contact me. The office telephone contact is [phone]. Sincerely, Dr Ciro Arechiga MD, [facility] - Urology Compassionate Specialist Care for the Genitourinary System Coding Level of Care Code Est Pt Level 4 (65070) Add On Problem Visit Only Diagnoses Elevated PSA R97.20 BPH w urinary obs/LUTS N40.1; N13.8 Peyronie's disease N48.6 CPT Codes Post Residual Void - PVR CPT Code: 28526-Shtq Void Residual by ultrasound ([id number])
== END 2025-07-16 09:11 | disposition home or self-care (01) ==
LOC: HO.HUSH 08:06
PROVIDERS: PCP Internal Medicine Geriatric Medicine; Visit Provider Urology
DX: R97.20 Elevated prostate specific antigen [PSA] (principal); N40.1 Benign prostatic hyperplasia with lower urinary tract symptoms; N13.8 Other obstructive and reflux uropathy; N48.6 Induration penis plastica
CPT/HCPCS: 99214

== ENCOUNTER → 2025-07-16 08:05 | Outpatient (BNVA) | payer MEDICAID, SELFPAY ==
[2024-11-26 11:30] VITALS: BMI 26.2
== END ==
PROVIDERS: PCP Internal Medicine Geriatric Medicine; Visit Provider Urology
DX: N40.1 Benign prostatic hyperplasia with lower urinary tract symptoms (principal); N13.8 Other obstructive and reflux uropathy; N48.6 Induration penis plastica; R97.20 Elevated prostate specific antigen [PSA]; Z79.899 Other long term (current) drug therapy
CPT/HCPCS: 51798; 81003; 99212